=== PATIENT | male | born 1935 | race Caucasian/White ===

== ENCOUNTER → 2017-09-01 | Day surgery (SDC) | payer OTHER ==
[2017-08-04 10:27] VITALS: Ht 175.3 cm; Wt 93.2 kg
[~2017-09-01] VITALS: Ht 175.3 cm; Wt 93.2 kg
[~2017-09-01] MED LIST: 500ML BSS 0.3ML EPI 1:1000PF IRRIG ONE; ACETAMINOPHEN 325 MG TAB PO PRN; AMIO0.1T PO; AMVISC PLUS 0.8ML SYRINGE INT OCU ONE; ASPI325T45 PO; ATROPINE SULFATE 0.1 MG/ML 5ML SYR IV PRN; BSS FLUSH ONE; CALC600T9 PO; EpHEDrine SULFATE INJ 50 MG/ML AMP IV PRN; EpINEphrine INJ 1MG/ML AMP 1 MG/ML AMP ONE; FINA5TAB4 PO; LACTATED RINGER'S 1000ML 500 ML IV SCH; LEVO175T3 PO; LIDOCAINE 3.5% OPH GEL PER APPLICATION CHARGE ONE; LIDOCAINE HCL 1% MPF 2 ML VIAL ONE; MIDAZOLAM HCL 1 MG/ML 2ML VIAL ONE; OCUCOAT 1 ML SOLN IO ONE; PHENYLEPHRINE HCL 10% OP SOLN PER DROP CHARGE OPR SCH; POVIDONE-IODINE OP SOLN 30 ML BTL ONE; PROPARACAINE 0.5% OP SOLN PER DROP CHARGE OPR SCH; SIMV40TA2 PO; TERA5CAP PO; TOBRAMYCIN/DEXAMETHASONE OPH OINT PER APPLN CHARGE ONE
--- NOTE | 2017-09-01 07:58 | History & Physical Bridge - SC ---
H&P Re-Evaluation Bridge Note: I have examined the patient, reviewed the History & Physical and in the interval since the performance of the History & Physical I have noted the following changes of clinical significance: No changes noted
[2017-09-01] MEDS: PHENYLEPHRINE HCL 2.5% OP SOLN PER DROP CHARGE OPR SCH ×2 (08:04→08:12)
[2017-09-01] MEDS: TROPICAMIDE 1% OP SOLN PER DROP CHARGE OPR SCH ×2 (08:05→08:13)
[2017-09-01] MEDS: CYCLOPENTOLATE HCL 1% OP SOLN PER DROP CHARGE OPR SCH ×2 (08:06→08:14)
[2017-09-01] MEDS: KETOROLAC 0.5% OP SOLN PER DROP CHARGE OPR SCH ×2 (08:07→08:15)
[2017-09-01] MEDS: GATIFLOXACIN OP SOLN PER DROP CHARGE OPR SCH ×2 (08:08→08:18)
--- NOTE | 2017-09-01 08:40 | [facility] Operative Report ---
Operative Report Date of Service Sep 01, 2017. Operative Report 1. PREOPERATIVE DIAGNOSIS: Cataract of the right eye. 2. POSTOPERATIVE DIAGNOSIS: Same. 3. PROCEDURE: Phacoemulsification with intraocular lens implantation of the right eye. SURGEON: Dr. Beny Anderson. ANESTHESIA: Topical Lidocaine gel, 1% Non- Preserved intracameral Lidocaine, and monitored intravenous sedation. INDICATIONS FOR THE PROCEDURE: The patient is a 81 - year-old male with a history of cataract of the right eye causing significant visual impairment. The details of the proposed procedure were explained to the patient who asked appropriate questions and following discussion of all risks, benefits and alternatives agreed to have the procedure done. 4. OPERATION AND FINDINGS: DESCRIPTION OF PROCEDURE: After informed consent was obtained, the patient was brought to the Operating Room at the [facility]. The patient was placed in a supine position and then the right eye was prepped and draped in the usual sterile fashion for intraocular surgery. A drop of topical Lidocaine gel was placed in the operative eye. A wire lid speculum was then placed in the fornices. A corneal paracentesis was then created temporally. The Non-Preserved Lidocaine was then instilled into the anterior chamber. The anterior chamber was then pressurized with viscoelastic. A 2.0 mm clear corneal incision was then created temporally. A cystotome was inserted into the anterior chamber and used to create a tear in the anterior lens capsule. This capsular tear was then used to create a small flap and the flap was dragged in a counterclockwise direction in order to create a continuous curvilinear capsulorrhexis. Hydrodissection was accomplished with balanced salt solution. Phacoemulsification of the lens nucleus was then performed in a standard [id number] technique. The phaco time was 24 seconds with an average power of 14 %. The remaining cortical material was removed using irrigation aspiration. The capsular bag was then filled with viscoelastic. A Bausch & Lomb MI60L +20.0 diopters lens was then loaded into the injector and injected into the capsular bag. The remaining viscoelastic was removed with the irrigation aspiration handpiece. The wound was hydrated and then checked and found to be watertight. The intraocular pressure was checked and found to be adequate. The wire lid speculum was removed and the patient's face was cleaned and dried. TobraDex ointment was placed in the inferior fornix. The patient was discharged to the Recovery Room having tolerated the procedure well. There were no complications. The patient will be seen tomorrow in the office for follow-up. I attest to the content of the Intraoperative Record and any orders documented therein. Any exceptions are noted below.
--- NOTE | 2017-09-01 08:40 | Discharge Instructions-SurgCtr ---
Discharge Instructions Date of Service Sep 01, 2017. Visit Reason for Visit: Right Cataract Discharge Discharge Diagnosis / Problem: cataract Discharge Goals Goal(s): Improve function Activity Recommendations Activity Limitations: per Instructions/Follow-up section Anesthesia . Post Anesthesia Instructions: If you have had General Anesthesia or IV Sedation: * Do not drive today. * Resume driving when surgeon permits. * Do not make important decisions or sign legal documents today. * Call surgeon for: 1. Temperature elevations greater than 101 degrees F. 2. Uncontrollable pain. 3. Excessive bleeding. 4. Persistent nausea and vomiting. 5. Medication intolerance (nausea, vomiting or rash). * For nausea and vomiting use only clear liquids such as: tea, soda, bouillon until nausea subsides, then gradually increase diet as tolerated. * If you have any concerns or questions, call your surgeon's office. If physician is unavailable and it is an emergency, call 911 or go to the nearest emergency room. . Diet Recommendations Home Diet: resume previous diet Procedures Procedures Performed: Right Cataract Phacoemulsification With Intraocular Lens Implant Pending Studies Studies pending at discharge: no Medical Emergencies . Who to Call and When: Medical Emergencies: If at any time you feel your situation is an emergency, please call 911 immediately. . Non-Emergent Contact Non-Emergency issues call your: Shuffle Board Operator . . "Provider Documentation" section prepared by Beny Anderson. .
[2017-09-01 08:42] VITALS: TEMP 36.7
--- NOTE | 2017-09-01 08:53 | Anesthesia Progress Nt - [facility] ---
Anesthesia Post Op Note Date & Time Sep 01, 2017 at 08:53 Vital Signs Pain Intensity: 0 Vital Signs Past 12 Hours Date Time Temp Pulse Resp B/P (MAP) Pulse Ox O2 Delivery O2 Flow Rate FiO2 09/01/17 08:42 36.7 48 16 132/76 (94) 95 Room Air 09/01/17 07:43 36.3 59 18 151/75 (100) 96 Room Air Notes Mental Status: alert / awake / arousable, participated in evaluation Pt Amnestic to Procedure: Yes Nausea / Vomiting: adequately controlled Pain: adequately controlled Airway Patency, RR, SpO2: stable & adequate BP & HR: stable & adequate Hydration State: stable & adequate Anesthetic Complications: no major complications apparent
[2017-09-01 09:02] VITALS: BP 146/61; PULSE 50; O2SAT 97
== END | disposition home or self-care (01) ==
LOC: X.SURG 07:35
PROVIDERS: ATTEND Ophthalmology
DX: H26.9 Unspecified cataract (principal); I48.2 Chronic atrial fibrillation; E78.5 Hyperlipidemia, unspecified; Z90.89 Acquired absence of other organs; Z68.30 Body mass index [BMI] 30.0-30.9, adult; Z79.899 Other long term (current) drug therapy; Z83.3 Family history of diabetes mellitus; Z80.0 Family history of malignant neoplasm of digestive organs; Z81.8 Family history of other mental and behavioral disorders

== ENCOUNTER → 2017-09-24 | Day surgery (SDC) | payer OTHER ==
[2017-09-09 11:04] VITALS: Ht 175.3 cm; Wt 93.2 kg
[~2017-09-24] VITALS: Ht 175.3 cm; Wt 93.2 kg
[~2017-09-24] MED LIST changes: +PHENYLEPHRINE HCL 10% OP SOLN PER DROP CHARGE OPL SCH; -PHENYLEPHRINE HCL 10% OP SOLN PER DROP CHARGE OPR SCH; +PROPARACAINE 0.5% OP SOLN PER DROP CHARGE OPL SCH; -PROPARACAINE 0.5% OP SOLN PER DROP CHARGE OPR SCH
[2017-09-24] MEDS: TROPICAMIDE 1% OP SOLN PER DROP CHARGE OPL SCH ×2 (07:09→07:16)
[2017-09-24] MEDS: PHENYLEPHRINE HCL 2.5% OP SOLN PER DROP CHARGE OPL SCH ×2 (07:09→07:15)
[2017-09-24] MEDS: CYCLOPENTOLATE HCL 1% OP SOLN PER DROP CHARGE OPL SCH ×2 (07:10→07:20)
[2017-09-24] MEDS: KETOROLAC 0.5% OP SOLN PER DROP CHARGE OPL SCH ×2 (07:11→07:21)
[2017-09-24] MEDS: GATIFLOXACIN OP SOLN PER DROP CHARGE OPL SCH ×2 (07:12→07:22)
--- NOTE | 2017-09-24 07:27 | History & Physical Bridge - SC ---
H&P Re-Evaluation Bridge Note: I have examined the patient, reviewed the History & Physical and in the interval since the performance of the History & Physical I have noted the following changes of clinical significance: Diagnosis: Left Cataract Procedure: Left Cataract Removal with Lens Implant No changes noted
--- NOTE | 2017-09-24 08:06 | Discharge Instructions-SurgCtr ---
Discharge Instructions Date of Service Sep 24, 2017. Visit Reason for Visit: Left Cataract Discharge Discharge Diagnosis / Problem: cataract Discharge Goals Goal(s): Improve function Activity Recommendations Activity Limitations: per Instructions/Follow-up section Anesthesia . Post Anesthesia Instructions: If you have had General Anesthesia or IV Sedation: * Do not drive today. * Resume driving when surgeon permits. * Do not make important decisions or sign legal documents today. * Call surgeon for: 1. Temperature elevations greater than 101 degrees F. 2. Uncontrollable pain. 3. Excessive bleeding. 4. Persistent nausea and vomiting. 5. Medication intolerance (nausea, vomiting or rash). * For nausea and vomiting use only clear liquids such as: tea, soda, bouillon until nausea subsides, then gradually increase diet as tolerated. * If you have any concerns or questions, call your surgeon's office. If physician is unavailable and it is an emergency, call 911 or go to the nearest emergency room. . Diet Recommendations Home Diet: resume previous diet Procedures Procedures Performed: Left Cataract Phacoemulsification With Intraocular Lens Implant Pending Studies Studies pending at discharge: no Medical Emergencies . Who to Call and When: Medical Emergencies: If at any time you feel your situation is an emergency, please call 911 immediately. . Non-Emergent Contact Non-Emergency issues call your: Vest Front Presser . . "Provider Documentation" section prepared by Beny Anderson. .
--- NOTE | 2017-09-24 08:07 | [facility] Operative Report ---
Operative Report Date of Service Sep 24, 2017. Operative Report 1. PREOPERATIVE DIAGNOSIS: Cataract of the left eye. 2. POSTOPERATIVE DIAGNOSIS: Same. 3. PROCEDURE: Phacoemulsification with intraocular lens implantation of the left eye. SURGEON: Dr. Beny Anderson. ANESTHESIA: Topical Lidocaine gel, 1% Non- Preserved intracameral Lidocaine, and monitored intravenous sedation. INDICATIONS FOR THE PROCEDURE: The patient is a 81 - year-old male with a history of cataract of the left eye causing significant visual impairment. The details of the proposed procedure were explained to the patient who asked appropriate questions and following discussion of all risks, benefits and alternatives agreed to have the procedure done. 4. OPERATION AND FINDINGS: DESCRIPTION OF PROCEDURE: After informed consent was obtained, the patient was brought to the Operating Room at the [facility]. The patient was placed in a supine position and then the left eye was prepped and draped in the usual sterile fashion for intraocular surgery. A drop of topical Lidocaine gel was placed in the operative eye. A wire lid speculum was then placed in the fornices. A corneal paracentesis was then created temporally. The Non-Preserved Lidocaine was then instilled into the anterior chamber. The anterior chamber was then pressurized with viscoelastic. A 2.0 mm clear corneal incision was then created temporally. A cystotome was inserted into the anterior chamber and used to create a tear in the anterior lens capsule. This capsular tear was then used to create a small flap and the flap was dragged in a counterclockwise direction in order to create a continuous curvilinear capsulorrhexis. Hydrodissection was accomplished with balanced salt solution. Phacoemulsification of the lens nucleus was then performed in a standard [id number] technique. The phaco time was 23 seconds with an average power of 12 %. The remaining cortical material was removed using irrigation aspiration. The capsular bag was then filled with viscoelastic. A Bausch & Lomb MI60L +19.0 diopters lens was then loaded into the injector and injected into the capsular bag. The remaining viscoelastic was removed with the irrigation aspiration handpiece. The wound was hydrated and then checked and found to be watertight. The intraocular pressure was checked and found to be adequate. The wire lid speculum was removed and the patient's face was cleaned and dried. TobraDex ointment was placed in the inferior fornix. The patient was discharged to the Recovery Room having tolerated the procedure well. There were no complications. The patient will be seen tomorrow in the office for follow-up. I attest to the content of the Intraoperative Record and any orders documented therein. Any exceptions are noted below.
[2017-09-24 08:08] VITALS: TEMP 36.9
--- NOTE | 2017-09-24 08:25 | Anesthesia Progress Nt - [facility] ---
Anesthesia Post Op Note Date & Time Sep 24, 2017 at 08:25 Vital Signs Pain Intensity: 0 Vital Signs Past 12 Hours Date Time Temp Pulse Resp B/P (MAP) Pulse Ox O2 Delivery O2 Flow Rate FiO2 09/24/17 08:08 36.9 49 16 167/81 (109) 97 Room Air 09/24/17 06:40 36.7 60 16 166/84 (111) 97 Room Air Notes Mental Status: alert / awake / arousable, participated in evaluation Pt Amnestic to Procedure: Yes Nausea / Vomiting: adequately controlled Pain: adequately controlled Airway Patency, RR, SpO2: stable & adequate BP & HR: stable & adequate Hydration State: stable & adequate Anesthetic Complications: no major complications apparent
[2017-09-24 08:31] VITALS: BP 152/71; PULSE 54; O2SAT 100
== END | disposition home or self-care (01) ==
LOC: X.SURG 06:40
PROVIDERS: ATTEND Ophthalmology
DX: H26.9 Unspecified cataract (principal); N18.3 Chronic kidney disease, stage 3 (moderate); E78.5 Hyperlipidemia, unspecified; E03.2 Hypothyroidism due to medicaments and other exogenous substances; M35.3 Polymyalgia rheumatica; N40.1 Benign prostatic hyperplasia with lower urinary tract symptoms; N13.8 Other obstructive and reflux uropathy; I48.2 Chronic atrial fibrillation; Z79.82 Long term (current) use of aspirin; Z79.899 Other long term (current) drug therapy

== ENCOUNTER 2017-12-05 15:43 | Inpatient (IN) | payer OTHER ==
[~2017-12-05] VITALS: Ht 175.3 cm; Wt 97.8 kg
[~2017-12-05 15:43] MED LIST changes: -500ML BSS 0.3ML EPI 1:1000PF IRRIG ONE; -ACETAMINOPHEN 325 MG TAB PO PRN; -AMVISC PLUS 0.8ML SYRINGE INT OCU ONE; -ATROPINE SULFATE 0.1 MG/ML 5ML SYR IV PRN; -BSS FLUSH ONE; -EpHEDrine SULFATE INJ 50 MG/ML AMP IV PRN; -EpINEphrine INJ 1MG/ML AMP 1 MG/ML AMP ONE; -LACTATED RINGER'S 1000ML 500 ML IV SCH; -LIDOCAINE 3.5% OPH GEL PER APPLICATION CHARGE ONE; -LIDOCAINE HCL 1% MPF 2 ML VIAL ONE; -MIDAZOLAM HCL 1 MG/ML 2ML VIAL ONE; -OCUCOAT 1 ML SOLN IO ONE; -PHENYLEPHRINE HCL 10% OP SOLN PER DROP CHARGE OPL SCH; -POVIDONE-IODINE OP SOLN 30 ML BTL ONE; -PROPARACAINE 0.5% OP SOLN PER DROP CHARGE OPL SCH; -TOBRAMYCIN/DEXAMETHASONE OPH OINT PER APPLN CHARGE ONE
[2017-12-05] MEDS ORDERED: AMPICILLIN/SULBACTAM SOD INJ 3,000 MG in SODIUM CHLORIDE 0.9% 100ML 100 ML IV STA (16:08)
[2017-12-05] MEDS ORDERED: AMOX875T PO (16:32)
[2017-12-05] MEDS ORDERED: LORA-741 PO (16:32)
[2017-12-05] MEDS ORDERED: PRED-301 PO (16:32)
--- NOTE | 2017-12-05 16:38 | DIAGNOSTIC IMAGING REPORT ---
RIGHT HAND 2 VIEWS CLINICAL HISTORY: Cat bite injury. FINDINGS: AP and lateral views of the right hand are obtained. No prior studies are available for comparison at the time of dictation. The skeletal structures are osteopenic. No fracture is seen. No bony erosion or periostitis is identified. There is moderate arthritic change present at the first carpometacarpal joint. Mild osteoarthritic change is seen involving the interphalangeal joints and the first metacarpophalangeal joint. Degenerative narrowing is also seen at the radiocarpal articulation. Diffuse soft tissue edema is present throughout the hand. There is advanced atherosclerotic calcification of the regional arteries. No radiodense foreign body or subcutaneous gas is seen. IMPRESSION: 1. Osteopenia and arthritic change as above. No acute bony abnormality is seen in the right hand. 2. Diffuse soft tissue edema suggests cellulitis. Clinical correlation will be required. Electronically signed by: Romie Wiggins M.D. 12/05/2017 4:37 PM Dictated Date/Time: 12/05/2017 4:35 PM
[2017-12-05 16:39] LABS: BASO % 0.2 %; BASO ABS # 0.02 K/uL (0-0.2); EOS % 0.1 %; EOS ABS # 0.01 K/uL (0-0.5); HEMATOCRIT 38.2 % (42-52); HEMOGLOBIN 12.9 g/dL (14.0-18.0); IG# 0.13 K/uL (0.00-0.02); LYMPH % 11.6 %; LYMPH ABS # 1.46 K/uL (1.2-3.4); MEAN CORPUSCULAR HEMOGLOBIN 31.1 pg (25-34); MEAN CORPUSCULAR HGB CONC 33.8 g/dl (32-36); MEAN PLATELET VOLUME 10.6 fL (7.4-10.4); MONO % 15.9 %; NEUT % 71.2 %; NEUT ABS # 8.94 K/uL (1.4-6.5); PLATELET COUNT 234 K/uL (130-400); RED CELL DISTRIBUTION WIDTH CV 13.4 % (11.5-14.5); WHITE BLOOD COUNT 12.56 K/uL (4.8-10.8)
[2017-12-05 16:59] LABS: POTASSIUM 4.2 mmol/L (3.5-5.1)
[2017-12-05 17:01] LABS: ALBUMIN 3.5 gm/dl (3.4-5.0); CALCIUM 8.8 mg/dl (8.5-10.1); CREATININE 1.28 mg/dl (0.60-1.40)
[2017-12-05 17:04] LABS: TOTAL PROTEIN 7.8 gm/dl (6.4-8.2)
--- NOTE | 2017-12-05 18:49 | EMERGENCY ROOM VISIT NOTE ---
History Report prepared by Tonio: Jani Villanueva Under the Supervision of: Dr. Brenden Turner D.O. First contact with patient: 15:57 Chief Complaint: SWELLING TO EXTREMITY Stated Complaint: RIGHT HAND SWOLLEN History of Present Illness The patient is a 81 year old male who presents to the Emergency Room with complaints of worsening right hand swelling and redness beginning a week ago. He was bit by his cat two weeks ago, but developed his symptoms about a week after. 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 The cats are not immunized. He states that the cat bit him because he was putting medicine on the cat's infected eye. He states that the cat is currently healthy. The patient's tetanus is up to date. He has been seen by his PCP for his symptoms yesterday, received a shot of Rocephin, and was discharged on Augmentin. He was seen by his PCP again today and was referred to the ED for further evaluation. The patient was found to have a fever of 100 degrees upon arrival. He denies any vomiting or abdominal pain. He is not on any blood thinners other than aspirin. Source of History: patient Onset: About a week ago Position: hand (right) Quality: other (swelling and redness) Timing: worsening Associated Symptoms: + fevers (100 degrees), No vomiting, No abdominal pain Review of Systems See HPI for pertinent positives & negatives. A total of 10 systems reviewed and were otherwise negative. Past Medical & Surgical Medical Problems: (1) A-fib (2) Hyperlipemia Family History No pertinent family history stated. Social History Smoking Status: Never Smoker Housing Status: lives with family Current/Historical Medications Scheduled Amiodarone Hcl (Amiodarone Hcl), 100 MG PO QAM Amoxicillin & Pot Clavulanate (Augmentin 875-125 mg), 1 TAB PO BID Aspirin (Aspirin), 325 MG PO QAM Calcium Carbonate-Vitamin D (Calcium + D), 1 TAB PO Q2D Finasteride (Proscar), 5 MG PO QAM Levothyroxine Sodium (Levothyroxine Sodium), 175 MCG PO QAM Prednisone (Prednisone), 5 MG PO DAILY Simvastatin (Zocor), 1 TAB PO HS Terazosin (Hytrin), 5 MG PO QPM Scheduled PRN Lorazepam (Ativan), 0.5 MG PO TID PRN for Anxiety Allergies Coded Allergies: Quinidine (Verified Allergy, Severe, NEURO COMPLICATIONS, GENERAL WEAKNESS , 12/05/17) Physical Exam Vital Signs Date Time Temp Pulse Resp B/P (MAP) Pulse Ox O2 Delivery O2 Flow Rate FiO2 12/05/17 19:21 73 18 161/102 92 Room Air 12/05/17 18:00 67 18 155/79 97 Room Air 12/05/17 17:55 67 16 163/78 96 Room Air 12/05/17 15:56 37.0 77 20 149/68 94 Room Air Physical Exam GENERAL: Patient is awake, alert, non-anxious appearing. Overall comfortable appearing. EYES: The conjunctivae are clear. The pupils are round and reactive. EARS, NOSE, MOUTH AND THROAT: The nose is without any evidence of any deformity. Mucous membranes are moist tongue is midline NECK: The neck is nontender and supple. RESPIRATORY: Normal respiratory effort is noted there is no evidence of wheezing rhonchi or rales CARDIOVASCULAR: Regular rate and rhythm noted there no murmurs rubs or gallops normal S1 normal S2 GASTROINTESTINAL: The abdomen is soft. Bowel sounds are present in all quadrants. Abdomen is nontender MUSCULOSKELETAL/EXTREMITIES: There is no evidence of gross deformity full range of motion is noted in the hips and shoulders SKIN: Erythema and circumferential swelling of the right hand extending [address] the right forearm. Puncture wound consistent with recent cat bite over the dorsal aspect of the right thumb. NEUROLOGIC: Patient is awake alert and oriented x3. Medical Decision & Procedures ER Provider Diagnostic Interpretation: Radiology results as stated below per my review and radiologist interpretation: RIGHT HAND 2 VIEWS FINDINGS: AP and lateral views of the right hand are obtained. No prior studies are available for comparison at the time of dictation. The skeletal structures are osteopenic. No fracture is seen. No bony erosion or periostitis is identified. There is moderate arthritic change present at the first carpometacarpal joint. Mild osteoarthritic change is seen involving the interphalangeal joints and the first metacarpophalangeal joint. Degenerative narrowing is also seen at the radiocarpal articulation. Diffuse soft tissue edema is present throughout the hand. There is advanced atherosclerotic calcification of the regional arteries. No radiodense foreign body or subcutaneous gas is seen. IMPRESSION: 1. Osteopenia and arthritic change as above. No acute bony abnormality is seen in the right hand. 2. Diffuse soft tissue edema suggests cellulitis. Clinical correlation will be required. Electronically signed by: Romie Wiggins M.D. 12/05/2017 4:37 PM Laboratory Results 12/05/17 16:24 Red Blood Count 4.15, Mean Corpuscular Volume 92.0, Mean Corpuscular Hemoglobin 31.1, Mean Corpuscular Hemoglobin Concent 33.8, Mean Platelet Volume 10.6, Neutrophils (%) (Auto) 71.2, Lymphocytes (%) (Auto) 11.6, Monocytes (%) (Auto) 15.9, Eosinophils (%) (Auto) 0.1, Basophils (%) (Auto) 0.2, Neutrophils # (Auto ) 8.94, Lymphocytes # (Auto) 1.46, Monocytes # (Auto) 2.00, Eosinophils # (Auto ) 0.01, Basophils # (Auto) 0.02 12/05/17 16:24 Test 12/05/17 16:24 White Blood Count 12.56 K/uL (4.8-10.8) Red Blood Count 4.15 M/uL (4.7-6.1) Hemoglobin 12.9 g/dL (14.0-18.0) Hematocrit 38.2 % (42-52) Mean Corpuscular Volume 92.0 fL (80-100) Mean Corpuscular Hemoglobin 31.1 pg (25-34) Mean Corpuscular Hemoglobin Concent 33.8 g/dl (32-36) Platelet Count 234 K/uL (130-400) Mean Platelet Volume 10.6 fL (7.4-10.4) Neutrophils (%) (Auto) 71.2 % Lymphocytes (%) (Auto) 11.6 % Monocytes (%) (Auto) 15.9 % Eosinophils (%) (Auto) 0.1 % Basophils (%) (Auto) 0.2 % Neutrophils # (Auto) 8.94 K/uL (1.4-6.5) Lymphocytes # (Auto) 1.46 K/uL (1.2-3.4) Monocytes # (Auto) 2.00 K/uL (0.11-0.59) Eosinophils # (Auto) 0.01 K/uL (0-0.5) Basophils # (Auto) 0.02 K/uL (0-0.2) RDW Standard Deviation 45.0 fL (36.4-46.3) RDW Coefficient of Variation 13.4 % (11.5-14.5) Immature Granulocyte % (Auto) 1.0 % Immature Granulocyte # (Auto) 0.13 K/uL (0.00-0.02) Erythrocyte Sedimentation Rate 49 mm/hr (0-14) Anion Gap 8.0 mmol/L (3-11) Est Creatinine Clear Calc Drug Dose 50.4 ml/min Estimated GFR () 59.6 Estimated GFR (Non- 51.4 BUN/Creatinine Ratio 21.1 (10-20) Calcium Level 8.8 mg/dl (8.5-10.1) Total Bilirubin 0.5 mg/dl (0.2-1) Direct Bilirubin 0.1 mg/dl (0-0.2) Aspartate Amino Transf (AST/SGOT) 18 U/L (15-37) Alanine Aminotransferase (ALT/SGPT) 27 U/L (12-78) Alkaline Phosphatase 62 U/L (45-117) C-Reactive Protein 14.00 mg/dl (0-0.29) Total Protein 7.8 gm/dl (6.4-8.2) Albumin 3.5 gm/dl (3.4-5.0) Laboratory results per my review. Medications Administered Medications (Trade) Dose Ordered Sig/Ron Route Start Time Stop Time Status Last Admin Dose Admin Ampicillin Sodium/ Sulbactam Sodium 3000 mg/Sodium Chloride 108 ml @ 200 mls/hr NOW STAT IV 12/05/17 16:08 12/05/17 16:40 DC 12/05/17 16:49 200 MLS/HR ED Course 1601: The patient was evaluated in room B4B. A complete history and physical examination were performed. 1608: Ordered Ampicillin Sodium/Sulbactam Sodium 3000 mg/NSS 108 ml @ 200 mls/ hr IV. 1841: Upon reevaluation, the patient is resting comfortably. I discussed results and treatment plan with him. He verbalizes agreement and understanding. I spoke with Dr. Romano of the [facility]. The patient will be evaluated for further management and care. Medical Decision Differential diagnosis: Etiologies such as cellulitis, abscess, MRSA infection, DVT, necrotizing fasciitis, dermatitis, drug eruption, as well as others were entertained.. Nursing notes reviewed. The patient is an 81-year-old male who presented to the emergency department with worsening cellulitis of his right upper extremity after being bitten by a kitten. The patient has been observing the cat and the injury occurred approximately 2 weeks ago. The patient was initially seen by his primary care physician and started on antibiotics. His condition continues to worsen. He follow-up with the office today and had a low-grade fever he was sent to the emergency department for further evaluation. The patient is a history of diabetes and has an elevated white blood cell count. He was treated with IV antibiotics. I discussed the patient's laboratory and radiographic studies with him. I also discussed his case with the on-call [facility] hospitalist group. They have agreed to evaluate the patient in the emergency department for further management and disposition. Medication Reconcilliation Current Medication List: was personally reviewed by me Blood Pressure Screening Patient's blood pressure: Elevated blood pressure Blood pressure disposition: Referred to PCP Consults Time Called: 1835 Consulting Physician: Dr. Romano - [facility] Returned Call: [phone] I discussed the patient's case with Dr. Romano. The patient will be evaluated for further management. Impression Primary Impression: Cellulitis of right hand Additional Impression: Cat bite Scribe Attestation The scribe's documentation has been prepared under my direction and personally reviewed by me in its entirety. I confirm that the note above accurately reflects all work, treatment, procedures, and medical decision making performed by me. Departure Information Dispostion Being Evaluated By Hospitalist Prescriptions Simvastatin (ZOCOR) 20 Mg Tab 1 TAB PO HS for 90 Days, #90 TAB 1 Refill Prov: Ever Romano MD 12/05/17 Referrals Beny Anderson M.D. (PCP) Patient Instructions My [facility] Problem Qualifiers Additional Impression: Cat bite Encounter type: sequela Qualified Codes: W55.01XS - Bitten by cat, sequela
[2017-12-05] MEDS ORDERED: VANCOMYCIN CONSULT ACTIVE PRN (19:45)
[2017-12-05] MEDS ORDERED: ALUMINUM/MAGNESIUM/SIMETH (MAALOX MAX) 30 ML UDC PO PRN (19:45)
[2017-12-05] MEDS ORDERED: ONDANSETRON INJ 2 MG/ML 2 ML VIAL IV PRN (19:45)
[2017-12-05] MEDS ORDERED: SIMV20TA5 PO (19:46)
[2017-12-05 20:30] VITALS: BP 154/66; PULSE 60; O2SAT 97; Ht 175.3 cm; Wt 97.8 kg
[2017-12-05 23:21] VITALS: BP 154/77; PULSE 67; TEMP 36.8; O2SAT 96
--- NOTE | 2017-12-05 23:46 | HISTORY & PHYSICAL EXAMINATION ---
DATE OF ADMISSION: 12/05/2017 CHIEF COMPLAINT: Cat bite. HISTORY OF PRESENT ILLNESS: This is an 81-year-old male with past medical history significant for atrial fibrillation, BPH, hypothyroidism, hyperlipidemia, chronic kidney disease stage III, presents with cat bite about couple of weeks ago. [place] and he has about 40 cats. One of the kitten was having some infection in eyes and he was trying to treat kitten, but it turned around and bit his right hand around thumb area. One week later he developed swelling and pain and erythema. He went to his family doctor and was prescribed Augmentin, was not getting better and went again and was given Rocephin shot and he went again and he was advised to come to the ER. In the ER, he had mild temp spike. Denies any other complaints. Denies any headaches, no dizziness. No blurred visions. No runny nose, no sore throat, no difficulty swallowing. No chest pain, no shortness of breath, no cough, no nausea, no vomiting, no abdominal pain. Normal bowel and bladder movements. Appetite is okay. Currently resting comfortably and hemodynamically stable. ALLERGIES: Quinidine. PAST MEDICAL HISTORY: As mentioned above. PAST SURGICAL HISTORY: Colonoscopy with polypectomy, tonsillectomy, right lower extremity vein stripping at the age of 35. MEDICATIONS: The patient is on prednisone 5 mg daily, Ativan 0.5 mg p.o. t.i.d. p.r.n., Augmentin 875 mg 1 tablet p.o. b.i.d. for 10 days, Hytrin 5 mg p.o. daily, amiodarone 100 mg p.o. daily, finasteride 5 mg p.o. daily, levothyroxine 175 mcg p.o. daily, Caltrate plus D 1 tablet every day, Zocor 20 mg p.o. daily, aspirin 325 mg p.o. daily. FAMILY HISTORY: Significant for mother had colon cancer, at the age of 70. Father had diabetes and dementia, at the age of 78. Sister had stroke. Brother had Parkinson's disease. SOCIAL HISTORY: No smoking history. No alcohol history. No drug abuse. and [place]. REVIEW OF SYMPTOMS: As per HPI. Rest of review of symptoms negative. PHYSICAL EXAMINATION: GENERAL: The patient is obese, not in distress. VITAL SIGNS: Temperature 37, pulse 73, respiratory rate 18, blood pressure 161/102, oxygen 92% room air. HEENT: No pallor, no icterus. Pupils equal, round, and reactive to light. NECK: No JVD, no neck masses, no carotid bruits. CARDIOVASCULAR: S1, S2 heard, regular rate and rhythm, no murmur, no gallop. RESPIRATORY SYSTEM: Clear to auscultation bilaterally. No accessory muscle use. No wheezing, no crackles. ABDOMEN: Soft, bowel sounds present. Nontender. No distention. CENTRAL NERVOUS SYSTEM: Cranial nerves II-XII grossly intact. Nonfocal. EXTREMITIES: Right hand and forearm erythematous and swollen and limited movements of his right fingers. LABORATORY DATA: WBC 12.5, hemoglobin 12.9, hematocrit 38.2, platelets 234. Sodium 138, potassium 4.2, chloride 104, bicarbonate 26, BUN 27, creatinine 1.2, serum glucose 91, calcium 8.8, total bilirubin 0.5, direct bilirubin 0.1, AST 18, ALT 27, alkaline phosphatase 62. Albumin 3.5. Hand x-ray: Diffuse soft tissue edema suggesting cellulitis of the right hand. ASSESSMENT AND PLAN: This is an 81-year-old male who presents with cat bite in the right hand and cellulitis. 1. Right hand cellulitis from cat bite. Failed outpatient treatment with p.o. Augmentin and IM Rocephin. The right hand is swollen and having limited movement of his fingers. We will place him on IV Unasyn and IV vancomycin. Follow the cultures. Consult orthopedics in the a.m. for further recommendations. As per the patient the kitten bit him 2 weeks ago and the kitten is doing okay. 2. Atrial fibrillation. The patient is on amiodarone and aspirin.Rates under control. 3. History of benign prostatic hypertrophy on Hytrin and finasteride. 4. History of hypothyroidism on Synthroid. 5. Chronic kidney disease stage III. We will follow the labs. 6. Deep venous thrombosis prophylaxis, SCDs and TEDs for now. 5. Disposition: Admit to medical floor. Expect to discharge home and follow with family doctor. Level 1 full code. MTDD
[2017-12-06] MEDS ORDERED: VANCOMYCIN INJ 2,500 MG in SODIUM CHLORIDE 0.9% 500ML 500 ML IV SCH (00:30)
[2017-12-06] MEDS: AMPICILLIN/SULBACTAM SOD INJ 1,500 MG in SODIUM CHLORIDE 0.9% 100ML 100 ML IV SCH ×4 (00:42→18:56)
[2017-12-06] MEDS ORDERED: POLYETHYLENE (MIRALAX) 17 GM PACK PO PRN (01:30)
[2017-12-06] MEDS: LORAZEPAM 0.5 MG TAB PO PRN ×2 (04:18→22:10)
[2017-12-06] MEDS: LEVOTHYROXINE 175 MCG TAB PO SCH (06:13)
[2017-12-06 06:42] LABS: BASO % 0.2 %; BASO ABS # 0.02 K/uL (0-0.2); EOS % 0.2 %; EOS ABS # 0.02 K/uL (0-0.5); HEMATOCRIT 34.6 % (42-52); HEMOGLOBIN 11.6 g/dL (14.0-18.0); IG# 0.08 K/uL (0.00-0.02); LYMPH % 13.2 %; LYMPH ABS # 1.44 K/uL (1.2-3.4); MEAN CELL VOLUME 91.5 fL (80-100); MEAN CORPUSCULAR HEMOGLOBIN 30.7 pg (25-34); MEAN CORPUSCULAR HGB CONC 33.5 g/dl (32-36); MEAN PLATELET VOLUME 10.3 fL (7.4-10.4); MONO % 14.6 %; MONO ABS # 1.59 K/uL (0.11-0.59); NEUT % 71.1 %; NEUT ABS # 7.72 K/uL (1.4-6.5); PLATELET COUNT 188 K/uL (130-400); RED CELL DISTRIBUTION WIDTH CV 13.3 % (11.5-14.5); RED CELL DISTRIBUTION WIDTH SD 44.5 fL (36.4-46.3); WHITE BLOOD COUNT 10.87 K/uL (4.8-10.8)
[2017-12-06 07:17] LABS: CALCIUM 8.6 mg/dl (8.5-10.1); CREATININE 0.91 mg/dl (0.60-1.40); POTASSIUM 3.9 mmol/L (3.5-5.1)
[2017-12-06 07:45] VITALS: BP 145/71; PULSE 73; TEMP 36.9; O2SAT 95
--- NOTE | 2017-12-06 07:49 | Orthopedic Consultation ---
Orthopedic Consultation Date of Consultation: Dec 06, 2017. Attending Physician: Jim Medina M.D. Reason for Consultation: Right hand cellulitis History of Present Illness 81 year old right hand dominant male who sustained a cat bite to his right hand around the dorsal thumb/first web space about 2-3 weeks ago. He is a [place] and has about 40 cats; he has had numerous cat bites and scratches in the past. He did not note a large amount of swelling for the first week, but had progressively worsening swelling on the dorsal hand since then. He has only noted pain, swelling, and redness on the dorsal hand; he has never noted any drainage. He did not present for initial medical evaluation until about 3-4 days ago. He went to his PCP, who started him on Augmentin, and then a Rocephin injection, both without significant improvement. He was then referred to the hospital for IV antibiotics. Past Medical/Surgical History Medical Problems: (1) Cat bite Status: Acute (2) Cellulitis of right hand Status: Acute Social History Smoking Status: Never Smoker Housing Status: lives with family Allergies Coded Allergies: Quinidine (Verified Allergy, Severe, NEURO COMPLICATIONS, GENERAL WEAKNESS , 12/05/17) Home Medications Scheduled Amiodarone Hcl (Amiodarone Hcl), 100 MG PO QAM Amoxicillin & Pot Clavulanate (Augmentin 875-125 mg), 1 TAB PO BID Aspirin (Aspirin), 325 MG PO QAM Calcium Carbonate-Vitamin D (Calcium + D), 1 TAB PO Q2D Finasteride (Proscar), 5 MG PO QAM Levothyroxine Sodium (Levothyroxine Sodium), 175 MCG PO QAM Prednisone (Prednisone), 5 MG PO DAILY Simvastatin (Zocor), 1 TAB PO HS Terazosin (Hytrin), 5 MG PO QPM Scheduled PRN Lorazepam (Ativan), 0.5 MG PO TID PRN for Anxiety Current Inpatient Medications Current Inpatient Medications Medications (Trade) Dose Ordered Sig/Ron Route Start Time Stop Time Status Last Admin Dose Admin Acetaminophen (Tylenol Tab) 650 mg Q4H PRN PO 12/05/17 19:45 01/04/18 19:44 Al Hydrox/Mg Hydrox/Simethicone (Maalox Max Susp) 15 ml Q4H PRN PO 12/05/17 19:45 01/04/18 19:44 Polyethylene (Miralax Powder Packet) 17 gm DAILY PRN PO 12/06/17 01:30 01/05/18 01:29 Ondansetron HCl (Zofran Inj) 4 mg Q6H PRN IV 12/05/17 19:45 01/04/18 19:44 Aspirin (Ecotrin Tab) 325 mg QAM PO 12/06/17 09:00 01/05/18 08:59 Finasteride (Proscar Tab) 5 mg QAM PO 12/06/17 09:00 01/05/18 08:59 Levothyroxine Sodium (Synthroid Tab) 175 mcg DAILYBB PO 12/06/17 06:00 01/05/18 05:59 12/06/17 06:13 175 MCG Lorazepam (Ativan Tab) 0.5 mg TID PRN PO 12/05/17 19:45 01/04/18 19:44 12/06/17 04:18 0.5 MG Prednisone (PredniSONE TAB) 5 mg DAILY PO 12/06/17 09:00 01/05/18 08:59 Terazosin HCl (Hytrin Cap) 5 mg QPM PO 12/05/17 21:00 01/04/18 20:59 12/05/17 23:23 5 MG Amiodarone HCl (Cordarone Tab) 100 mg DAILY PO 12/06/17 09:00 01/05/18 08:59 Calcium/Vitamin D (Caltrate Plus Tab) 1 tab Q2D PO 12/07/17 09:00 01/06/18 08:59 Ampicillin Sodium/ Sulbactam Sodium 1500 mg/Sodium Chloride 104 ml @ 200 mls/hr Q6H IV 12/06/17 00:00 12/16/17 00:00 12/06/17 06:09 200 MLS/HR Vancomycin HCl 2500 mg/Sodium Chloride 550 ml @ 200 mls/hr 0030 IV 12/06/17 00:30 12/16/17 00:29 12/06/17 01:14 200 MLS/HR Miscellaneous Information (Consult) 1 ea UD PRN N/A 12/05/17 19:45 01/04/18 19:44 Pneumococcal Polysaccharide Vaccine (Pneumovax-23 Inj) 25 mcg ONCE ONCE IM. 12/06/17 08:00 1/21/18 08:01 Physical Exam Date Time Temp Pulse Resp B/P (MAP) Pulse Ox O2 Delivery O2 Flow Rate FiO2 12/05/17 23:30 Room Air 12/05/17 23:21 36.8 67 16 154/77 (102) 96 Room Air 12/05/17 20:30 60 16 154/66 97 Room Air 12/05/17 20:13 37.3 71 16 154/75 95 12/05/17 20:05 37.3 71 16 154/75 95 Room Air 12/05/17 19:21 73 18 161/102 92 Room Air 12/05/17 18:00 67 18 155/79 97 Room Air 12/05/17 17:55 67 16 163/78 96 Room Air 12/05/17 15:56 37.0 77 20 149/68 94 Room Air Extremity Exam: Right hand skin inspection shows significant diffuse erythema, swelling, and warmth over dorsal hand and up to dorsal mid-forearm. Already appears receded from previously marked line. No visible bite/puncture wound around thumb or first web space. No palpable area of fluctuance or fluid collection. No open wounds or expressible drainage. No pain or tenderness to palpation on volar side of hand, including along flexor tendon sheaths. Motor and sensory intact in median, radial, and ulnar nerve distributions. Range of motion and strength limited by pain. Hand is warm and well perfused. General Appearance: no apparent distress Head: normocephalic, atraumatic Laboratory Results Last 24 Hours Test 12/05/17 16:24 12/06/17 06:28 White Blood Count 12.56 K/uL 10.87 K/uL Red Blood Count 4.15 M/uL 3.78 M/uL Hemoglobin 12.9 g/dL 11.6 g/dL Hematocrit 38.2 % 34.6 % Mean Corpuscular Volume 92.0 fL 91.5 fL Mean Corpuscular Hemoglobin 31.1 pg 30.7 pg Mean Corpuscular Hemoglobin Concent 33.8 g/dl 33.5 g/dl Platelet Count 234 K/uL 188 K/uL Mean Platelet Volume 10.6 fL 10.3 fL Neutrophils (%) (Auto) 71.2 % 71.1 % Lymphocytes (%) (Auto) 11.6 % 13.2 % Monocytes (%) (Auto) 15.9 % 14.6 % Eosinophils (%) (Auto) 0.1 % 0.2 % Basophils (%) (Auto) 0.2 % 0.2 % Neutrophils # (Auto) 8.94 K/uL 7.72 K/uL Lymphocytes # (Auto) 1.46 K/uL 1.44 K/uL Monocytes # (Auto) 2.00 K/uL 1.59 K/uL Eosinophils # (Auto) 0.01 K/uL 0.02 K/uL Basophils # (Auto) 0.02 K/uL 0.02 K/uL RDW Standard Deviation 45.0 fL 44.5 fL RDW Coefficient of Variation 13.4 % 13.3 % Immature Granulocyte % (Auto) 1.0 % 0.7 % Immature Granulocyte # (Auto) 0.13 K/uL 0.08 K/uL Erythrocyte Sedimentation Rate 49 mm/hr Sodium Level 138 mmol/L 138 mmol/L Potassium Level 4.2 mmol/L 3.9 mmol/L Chloride Level 104 mmol/L 104 mmol/L Carbon Dioxide Level 26 mmol/L 24 mmol/L Anion Gap 8.0 mmol/L 10.0 mmol/L Blood Urea Nitrogen 27 mg/dl 21 mg/dl Creatinine 1.28 mg/dl 0.91 mg/dl Est Creatinine Clear Calc Drug Dose 50.4 ml/min 71.0 ml/min Estimated GFR () 59.6 90.0 Estimated GFR (Non- 51.4 77.7 BUN/Creatinine Ratio 21.1 23.0 Random Glucose 91 mg/dl 112 mg/dl Calcium Level 8.8 mg/dl 8.6 mg/dl Total Bilirubin 0.5 mg/dl Direct Bilirubin 0.1 mg/dl Aspartate Amino Transf (AST/SGOT) 18 U/L Alanine Aminotransferase (ALT/SGPT) 27 U/L Alkaline Phosphatase 62 U/L C-Reactive Protein 14.00 mg/dl Total Protein 7.8 gm/dl Albumin 3.5 gm/dl Magnesium Level 2.2 mg/dl Assessment & Plan (1) Cellulitis of right hand Assessment & Plan: Impression: right hand cellulitis. No evidence of drainable abscess or infectious flexor tenosynovitis. Improving already with IV antibiotics (Unasyn and Vanc). No indication at this point for acute surgical intervention. Monitor for resolution of swelling and ensure no area of abscess becomes apparent as swelling improves. Recommend elevation of hand and frequent motion of fingers to improve swelling.
[2017-12-06] MEDS ORDERED: PNEUMOCOCCAL POLYSACCHARIDES 25 MCG/0.5 ML VIAL/SYR IM. ONE (08:00)
[2017-12-06] MEDS ORDERED: PNEUMOCOCCAL ADMINISTRATION CHARGE ONE (08:00)
--- NOTE | 2017-12-06 08:01 | Pharmacy Progress Note ---
Pharmacy Antibiotic Consult Date of Service: Dec 06, 2017. Pharmacy Dosing Scope Pharmacy is consulted to initiate Vancomycin IV dosing therapy, order appropriate labs and adjust drug dose/frequency. Subjective The patient is a 81 year old male admitted on Dec 05, 2017 at 19:45. Objective Height (Feet): 5 Height (Inches): 9.00 Weight (Kilograms): 97.800 Lab Results (24hrs): Test 12/05/17 16:24 12/06/17 06:28 White Blood Count 12.56 K/uL (4.8-10.8) 10.87 K/uL (4.8-10.8) Red Blood Count 4.15 M/uL (4.7-6.1) 3.78 M/uL (4.7-6.1) Hemoglobin 12.9 g/dL (14.0-18.0) 11.6 g/dL (14.0-18.0) Hematocrit 38.2 % (42-52) 34.6 % (42-52) Mean Corpuscular Volume 92.0 fL (80-100) 91.5 fL (80-100) Mean Corpuscular Hemoglobin 31.1 pg (25-34) 30.7 pg (25-34) Mean Corpuscular Hemoglobin Concent 33.8 g/dl (32-36) 33.5 g/dl (32-36) Platelet Count 234 K/uL (130-400) 188 K/uL (130-400) Mean Platelet Volume 10.6 fL (7.4-10.4) 10.3 fL (7.4-10.4) Neutrophils (%) (Auto) 71.2 % 71.1 % Lymphocytes (%) (Auto) 11.6 % 13.2 % Monocytes (%) (Auto) 15.9 % 14.6 % Eosinophils (%) (Auto) 0.1 % 0.2 % Basophils (%) (Auto) 0.2 % 0.2 % Neutrophils # (Auto) 8.94 K/uL (1.4-6.5) 7.72 K/uL (1.4-6.5) Lymphocytes # (Auto) 1.46 K/uL (1.2-3.4) 1.44 K/uL (1.2-3.4) Monocytes # (Auto) 2.00 K/uL (0.11-0.59) 1.59 K/uL (0.11-0.59) Eosinophils # (Auto) 0.01 K/uL (0-0.5) 0.02 K/uL (0-0.5) Basophils # (Auto) 0.02 K/uL (0-0.2) 0.02 K/uL (0-0.2) RDW Standard Deviation 45.0 fL (36.4-46.3) 44.5 fL (36.4-46.3) RDW Coefficient of Variation 13.4 % (11.5-14.5) 13.3 % (11.5-14.5) Immature Granulocyte % (Auto) 1.0 % 0.7 % Immature Granulocyte # (Auto) 0.13 K/uL (0.00-0.02) 0.08 K/uL (0.00-0.02) Erythrocyte Sedimentation Rate 49 mm/hr (0-14) Sodium Level 138 mmol/L (136-145) 138 mmol/L (136-145) Potassium Level 4.2 mmol/L (3.5-5.1) 3.9 mmol/L (3.5-5.1) Chloride Level 104 mmol/L (98-107) 104 mmol/L (98-107) Carbon Dioxide Level 26 mmol/L (21-32) 24 mmol/L (21-32) Anion Gap 8.0 mmol/L (3-11) 10.0 mmol/L (3-11) Blood Urea Nitrogen 27 mg/dl (7-18) 21 mg/dl (7-18) Creatinine 1.28 mg/dl (0.60-1.40) 0.91 mg/dl (0.60-1.40) Est Creatinine Clear Calc Drug Dose 50.4 ml/min 71.0 ml/min Estimated GFR () 59.6 90.0 Estimated GFR (Non- 51.4 77.7 BUN/Creatinine Ratio 21.1 (10-20) 23.0 (10-20) Random Glucose 91 mg/dl (70-99) 112 mg/dl (70-99) Calcium Level 8.8 mg/dl (8.5-10.1) 8.6 mg/dl (8.5-10.1) Total Bilirubin 0.5 mg/dl (0.2-1) Direct Bilirubin 0.1 mg/dl (0-0.2) Aspartate Amino Transf (AST/SGOT) 18 U/L (15-37) Alanine Aminotransferase (ALT/SGPT) 27 U/L (12-78) Alkaline Phosphatase 62 U/L (45-117) C-Reactive Protein 14.00 mg/dl (0-0.29) Total Protein 7.8 gm/dl (6.4-8.2) Albumin 3.5 gm/dl (3.4-5.0) Magnesium Level 2.2 mg/dl (1.8-2.4) Micro Results: blood cultures pending Assessment & Plan Patient with cat bite cellulitis who failed outpatient course of Augmentin and Rocephin. Currently receiving IV vancomycin and unasyn. Will monitor renal function closely. Loading dose: 2500 mg IV X 1 dose then: 1500 mg IV every 16 hours. Goal trough level estimate: between 10 - 15 mcg/mL. Peak and trough or random level has been ordered for: @0030. Pharmacy will continue to follow and will adjust dose/frequency as necessary. Thank you
[2017-12-06] MEDS: AMIODARONE 200 MG TAB PO SCH (09:23)
[2017-12-06] MEDS: ASPIRIN 325 MG ECTAB PO SCH (09:24)
[2017-12-06] MEDS: FINASTERIDE 5 MG TAB PO SCH (09:24)
--- NOTE | 2017-12-06 15:07 | Progress Note ---
Medicine Progress Note Date & Time of Visit: Dec 06, 2017 at 14:46. Subjective Pt was seen and examined Lying in bed with no distress Pt said that his right hand slightly improved Denies any chest pain palpitation, dizziness, fever and SOB Objective Last 8 Hrs Date Time Temp Pulse Resp B/P (MAP) Pulse Ox O2 Delivery O2 Flow Rate FiO2 12/06/17 07:45 36.9 73 18 145/71 (95) 95 Room Air 12/06/17 07:30 Room Air Physical Exam: General- No acute distress Head- atraumatic Eyes- PERRL, EOMI ENT- oropharynx clear Neck- supple, no JVD Lungs- clear to auscultation Heart- +murmur, regular Abdomen- normal bowel sounds, soft Extremities- no calf tenderness, Right hand swelling/erythema Neuro- alert, oriented x 3; PERRL, EOMI Skin- warm & dry Laboratory Results: Last 24 Hours Test 12/05/17 16:24 12/06/17 06:28 White Blood Count 12.56 K/uL 10.87 K/uL Red Blood Count 4.15 M/uL 3.78 M/uL Hemoglobin 12.9 g/dL 11.6 g/dL Hematocrit 38.2 % 34.6 % Mean Corpuscular Volume 92.0 fL 91.5 fL Mean Corpuscular Hemoglobin 31.1 pg 30.7 pg Mean Corpuscular Hemoglobin Concent 33.8 g/dl 33.5 g/dl Platelet Count 234 K/uL 188 K/uL Mean Platelet Volume 10.6 fL 10.3 fL Neutrophils (%) (Auto) 71.2 % 71.1 % Lymphocytes (%) (Auto) 11.6 % 13.2 % Monocytes (%) (Auto) 15.9 % 14.6 % Eosinophils (%) (Auto) 0.1 % 0.2 % Basophils (%) (Auto) 0.2 % 0.2 % Neutrophils # (Auto) 8.94 K/uL 7.72 K/uL Lymphocytes # (Auto) 1.46 K/uL 1.44 K/uL Monocytes # (Auto) 2.00 K/uL 1.59 K/uL Eosinophils # (Auto) 0.01 K/uL 0.02 K/uL Basophils # (Auto) 0.02 K/uL 0.02 K/uL RDW Standard Deviation 45.0 fL 44.5 fL RDW Coefficient of Variation 13.4 % 13.3 % Immature Granulocyte % (Auto) 1.0 % 0.7 % Immature Granulocyte # (Auto) 0.13 K/uL 0.08 K/uL Erythrocyte Sedimentation Rate 49 mm/hr Sodium Level 138 mmol/L 138 mmol/L Potassium Level 4.2 mmol/L 3.9 mmol/L Chloride Level 104 mmol/L 104 mmol/L Carbon Dioxide Level 26 mmol/L 24 mmol/L Anion Gap 8.0 mmol/L 10.0 mmol/L Blood Urea Nitrogen 27 mg/dl 21 mg/dl Creatinine 1.28 mg/dl 0.91 mg/dl Est Creatinine Clear Calc Drug Dose 50.4 ml/min 71.0 ml/min Estimated GFR () 59.6 90.0 Estimated GFR (Non- 51.4 77.7 BUN/Creatinine Ratio 21.1 23.0 Random Glucose 91 mg/dl 112 mg/dl Calcium Level 8.8 mg/dl 8.6 mg/dl Total Bilirubin 0.5 mg/dl Direct Bilirubin 0.1 mg/dl Aspartate Amino Transf (AST/SGOT) 18 U/L Alanine Aminotransferase (ALT/SGPT) 27 U/L Alkaline Phosphatase 62 U/L C-Reactive Protein 14.00 mg/dl Total Protein 7.8 gm/dl Albumin 3.5 gm/dl Magnesium Level 2.2 mg/dl Date/Time Source Procedure Growth Status 12/05/17 16:39 Blood Blood Culture Pending Received 12/05/17 16:24 Blood Blood Culture Pending Received Assessment & Plan Right Hand Cellulitis had a cat bite about few weeks ago Elevated WBC on admission, trending down Received Rocephin IM and oral Augmentin as an outpatient Xray of the hand showed diffuse soft tissue edema suggests cellulitis Starting on Vanco IV Ortho on board recommended no surgical intervention Blood cx pending Continue monitor Atrial fibrillation. Rate control Continue amiodarone and aspirin BPH Continue Hytrin and finasteride. Hypothyroidism On Synthroid. CKD stage III. Stable DVT px Will start on heparin subq CODE STATUS FULL CODE Current Inpatient Medications: Current Inpatient Medications Medications (Trade) Dose Ordered Sig/Ron Route Start Time Stop Time Status Last Admin Dose Admin Acetaminophen (Tylenol Tab) 650 mg Q4H PRN PO 12/05/17 19:45 01/04/18 19:44 Al Hydrox/Mg Hydrox/Simethicone (Maalox Max Susp) 15 ml Q4H PRN PO 12/05/17 19:45 01/04/18 19:44 Polyethylene (Miralax Powder Packet) 17 gm DAILY PRN PO 12/06/17 01:30 01/05/18 01:29 Ondansetron HCl (Zofran Inj) 4 mg Q6H PRN IV 12/05/17 19:45 01/04/18 19:44 Aspirin (Ecotrin Tab) 325 mg QAM PO 12/06/17 09:00 01/05/18 08:59 12/06/17 09:24 325 MG Finasteride (Proscar Tab) 5 mg QAM PO 12/06/17 09:00 01/05/18 08:59 12/06/17 09:24 5 MG Levothyroxine Sodium (Synthroid Tab) 175 mcg DAILYBB PO 12/06/17 06:00 01/05/18 05:59 12/06/17 06:13 175 MCG Lorazepam (Ativan Tab) 0.5 mg TID PRN PO 12/05/17 19:45 01/04/18 19:44 12/06/17 04:18 0.5 MG Prednisone (PredniSONE TAB) 5 mg DAILY PO 12/06/17 09:00 01/05/18 08:59 12/06/17 09:24 5 MG Terazosin HCl (Hytrin Cap) 5 mg QPM PO 12/05/17 21:00 01/04/18 20:59 12/05/17 23:23 5 MG Amiodarone HCl (Cordarone Tab) 100 mg DAILY PO 12/06/17 09:00 01/05/18 08:59 12/06/17 09:23 100 MG Calcium/Vitamin D (Caltrate Plus Tab) 1 tab Q2D PO 12/07/17 09:00 01/06/18 08:59 Ampicillin Sodium/ Sulbactam Sodium 1500 mg/Sodium Chloride 104 ml @ 200 mls/hr Q6H IV 12/06/17 00:00 12/16/17 00:00 12/06/17 11:27 200 MLS/HR Miscellaneous Information (Consult) 1 ea UD PRN N/A 12/05/17 19:45 01/04/18 19:44 Vancomycin HCl 1500 mg/Sodium Chloride 530 ml @ 200 mls/hr Q16H IV 12/06/17 17:00 12/16/17 16:59
[2017-12-06 15:13] VITALS: BP 130/64; PULSE 78; O2SAT 96
[2017-12-06 15:16] VITALS: TEMP 37.4
[2017-12-06] MEDS: VANCOMYCIN INJ 1,500 MG in SODIUM CHLORIDE 0.9% 500ML 500 ML IV SCH (16:57)
[2017-12-06 22:56] VITALS: BP 139/74; PULSE 63; TEMP 37; O2SAT 94
[2017-12-07] MEDS: AMPICILLIN/SULBACTAM SOD INJ 1,500 MG in SODIUM CHLORIDE 0.9% 100ML 100 ML IV SCH ×5 (00:52→18:01)
[2017-12-07] MEDS: LEVOTHYROXINE 175 MCG TAB PO SCH (05:45)
[2017-12-07 07:36] VITALS: BP 134/61; PULSE 64; TEMP 37.4; O2SAT 92
[2017-12-07] MEDS: AMIODARONE 200 MG TAB PO SCH (08:43)
[2017-12-07] MEDS: ASPIRIN 325 MG ECTAB PO SCH (08:43)
[2017-12-07] MEDS: CALCIUM 600MG + VIT D 400 IU TAB PO SCH (08:43)
[2017-12-07] MEDS: FINASTERIDE 5 MG TAB PO SCH (08:44)
[2017-12-07] MEDS: VANCOMYCIN INJ 1,500 MG in SODIUM CHLORIDE 0.9% 500ML 500 ML IV SCH (08:48)
[2017-12-07] MEDS: ENOXAPARIN 40 MG/0.4 ML SYR SQ SCH (08:49)
[2017-12-07 08:56] LABS: BASO % 0.2 %; BASO ABS # 0.02 K/uL (0-0.2); HEMATOCRIT 31.9 % (42-52); HEMOGLOBIN 10.8 g/dL (14.0-18.0); IG# 0.06 K/uL (0.00-0.02); LYMPH % 11.9 %; LYMPH ABS # 1.24 K/uL (1.2-3.4); MEAN CELL VOLUME 91.1 fL (80-100); MEAN CORPUSCULAR HEMOGLOBIN 30.9 pg (25-34); MEAN CORPUSCULAR HGB CONC 33.9 g/dl (32-36); MEAN PLATELET VOLUME 10.5 fL (7.4-10.4); MONO % 12.4 %; NEUT % 74.9 %; NEUT ABS # 7.84 K/uL (1.4-6.5); PLATELET COUNT 182 K/uL (130-400); RED CELL DISTRIBUTION WIDTH CV 13.3 % (11.5-14.5); RED CELL DISTRIBUTION WIDTH SD 44.3 fL (36.4-46.3); WHITE BLOOD COUNT 10.46 K/uL (4.8-10.8)
[2017-12-07 09:15] LABS: CALCIUM 8.5 mg/dl (8.5-10.1); CREATININE 0.96 mg/dl (0.60-1.40); POTASSIUM 3.8 mmol/L (3.5-5.1)
--- NOTE | 2017-12-07 10:07 | Orthopedic Progress Note ---
Orthopedic Progress Note Date of Service Dec 07, 2017. Subjective Reports: feeling well Additional Notes: Feels that he has less swelling today. Objective capillary refill less than 2 sec., CMS intact Less erythema of the upper forearm. Still with moderate erythema/edema of the dorsum of the hand. No overt pain with passive extension of all the fingers. Unable to make a full fist yet. Some pain with active flexion over the dorsum of the hand. It looks like he has some mild wrinkling of the skin with a decrease in hand swelling. Date Time Temp Pulse Resp B/P (MAP) Pulse Ox O2 Delivery O2 Flow Rate FiO2 12/07/17 08:00 Room Air 12/07/17 07:36 37.4 64 18 134/61 (85) 92 Room Air 12/07/17 00:50 Room Air 12/06/17 22:56 37.0 63 18 139/74 (95) 94 Room Air 12/06/17 16:40 Room Air 12/06/17 15:16 37.4 12/06/17 15:13 78 18 130/64 (86) 96 Room Air Laboratory Results 24 Hours: Test 12/06/17 15:40 12/07/17 08:20 Prothromb Time International Ratio 1.0 Prothrombin Time 10.5 SECONDS White Blood Count 10.46 K/uL Red Blood Count 3.50 M/uL Hemoglobin 10.8 g/dL Hematocrit 31.9 % Mean Corpuscular Volume 91.1 fL Mean Corpuscular Hemoglobin 30.9 pg Mean Corpuscular Hemoglobin Concent 33.9 g/dl Platelet Count 182 K/uL Mean Platelet Volume 10.5 fL Neutrophils (%) (Auto) 74.9 % Lymphocytes (%) (Auto) 11.9 % Monocytes (%) (Auto) 12.4 % Eosinophils (%) (Auto) 0.0 % Basophils (%) (Auto) 0.2 % Neutrophils # (Auto) 7.84 K/uL Lymphocytes # (Auto) 1.24 K/uL Monocytes # (Auto) 1.30 K/uL Eosinophils # (Auto) 0.00 K/uL Basophils # (Auto) 0.02 K/uL Assessment & Plan Assessment: Infected Right hand due to Cat bite. Plan: If erythema/swelling continues or is very slow to decrease, CT of the hand to r/ o abscess would be advisable. Continue elevation IV antibx (1) Cellulitis of right hand
[2017-12-07 15:32] VITALS: BP 152/66; PULSE 78; TEMP 37.1; O2SAT 97
[2017-12-07] MEDS ORDERED: OPTIRAY 320 IV PRN (17:15)
--- NOTE | 2017-12-07 18:03 | DIAGNOSTIC IMAGING REPORT ---
R UPPER EXTREMITY WITH CLINICAL HISTORY: r/o abscess right hand pain. Edema. TECHNIQUE: Transaxial acquisition with multi axial reformatted images COMPARISON STUDY: Right hand dated 12/05/2017 FINDINGS: Soft tissue edema about the right hand and wrist. Generalized soft tissue cellulitis in the region of the right forearm. Possible mild edematous change of the underlying muscular structures. Several small slightly complex fluid pockets dorsal to the carpal bone region the largest pocket is a dorsal to the second and third process measuring 1.5 cm. Several smaller fluid pockets are present. A large drainable pocket, however is not easily appreciated. IMPRESSION: 1. Generalized soft tissue edematous change consistent with a generalized cellulitis 2. Several small slightly complex fluid pockets dorsal to the carpal and metacarpal regions possibly related to small microabscesses although these are too small to drain at this time. 3. A major collection or abscess is not appreciated currently. The above report was generated using voice recognition software. It may contain grammatical, syntax or spelling errors. Electronically signed by: Patrice Barragan M.D. 12/07/2017 6:02 PM Dictated Date/Time: 12/07/2017 5:56 PM
--- NOTE | 2017-12-07 19:41 | Progress Note ---
Medicine Progress Note Date & Time of Visit: Dec 07, 2017 at 13:32. Subjective Pt was seen and examined Sitting in bed with no distress Hand erythema slightly improved, and continue swelling All 5 fingers in right hand swelling unable to make a fist due to tenderness Denies any chest pain palpitation, fever, and sob Objective Last 8 Hrs Date Time Temp Pulse Resp B/P (MAP) Pulse Ox O2 Delivery O2 Flow Rate FiO2 12/07/17 15:40 Room Air 12/07/17 15:32 37.1 78 18 152/66 (94) 97 Room Air Physical Exam: General- No acute distress Head- atraumatic Eyes- PERRL, EOMI ENT- oropharynx clear Neck- supple, no JVD Lungs- clear to auscultation Heart- +murmur, regular Abdomen- normal bowel sounds, soft Extremities- no calf tenderness, Right hand swelling/erythema Neuro- alert, oriented x 3; PERRL, EOMI Skin- warm & dry Laboratory Results: Last 24 Hours Test 12/07/17 08:20 White Blood Count 10.46 K/uL Red Blood Count 3.50 M/uL Hemoglobin 10.8 g/dL Hematocrit 31.9 % Mean Corpuscular Volume 91.1 fL Mean Corpuscular Hemoglobin 30.9 pg Mean Corpuscular Hemoglobin Concent 33.9 g/dl Platelet Count 182 K/uL Mean Platelet Volume 10.5 fL Neutrophils (%) (Auto) 74.9 % Lymphocytes (%) (Auto) 11.9 % Monocytes (%) (Auto) 12.4 % Eosinophils (%) (Auto) 0.0 % Basophils (%) (Auto) 0.2 % Neutrophils # (Auto) 7.84 K/uL Lymphocytes # (Auto) 1.24 K/uL Monocytes # (Auto) 1.30 K/uL Eosinophils # (Auto) 0.00 K/uL Basophils # (Auto) 0.02 K/uL RDW Standard Deviation 44.3 fL RDW Coefficient of Variation 13.3 % Immature Granulocyte % (Auto) 0.6 % Immature Granulocyte # (Auto) 0.06 K/uL Sodium Level 139 mmol/L Potassium Level 3.8 mmol/L Chloride Level 106 mmol/L Carbon Dioxide Level 24 mmol/L Anion Gap 9.0 mmol/L Blood Urea Nitrogen 25 mg/dl Creatinine 0.96 mg/dl Est Creatinine Clear Calc Drug Dose 67.3 ml/min Estimated GFR () 84.4 Estimated GFR (Non- 72.8 BUN/Creatinine Ratio 26.4 Random Glucose 91 mg/dl Calcium Level 8.5 mg/dl Magnesium Level 2.2 mg/dl Assessment & Plan Right Hand Cellulitis had a cat bite about few weeks ago Elevated WBC on admission, trending down Received Rocephin IM and oral Augmentin as an outpatient Xray of the hand showed diffuse soft tissue edema suggests cellulitis Continue Vanco IV and Unasyn Ortho on board recommended no surgical intervention Blood cx no growth Continue monitor Right Hand CT showed 1. Generalized soft tissue edematous change consistent with a generalized cellulitis Several small slightly complex fluid pockets dorsal to the carpal and metacarpal regions possibly related to small microabscesses although these are too small to drain at this time. A major collection or abscess is not appreciated currently. Atrial fibrillation. Rate control Continue amiodarone and aspirin Stable BPH Continue Hytrin and finasteride. Hypothyroidism On Synthroid. CKD stage III. Stable DVT px On Lovenox subq CODE STATUS FULL CODE Consultants: Ortho Current Inpatient Medications: Current Inpatient Medications Medications (Trade) Dose Ordered Sig/Ron Route Start Time Stop Time Status Last Admin Dose Admin Acetaminophen (Tylenol Tab) 650 mg Q4H PRN PO 12/05/17 19:45 01/04/18 19:44 Al Hydrox/Mg Hydrox/Simethicone (Maalox Max Susp) 15 ml Q4H PRN PO 12/05/17 19:45 01/04/18 19:44 Polyethylene (Miralax Powder Packet) 17 gm DAILY PRN PO 12/06/17 01:30 01/05/18 01:29 Ondansetron HCl (Zofran Inj) 4 mg Q6H PRN IV 12/05/17 19:45 01/04/18 19:44 Aspirin (Ecotrin Tab) 325 mg QAM PO 12/06/17 09:00 01/05/18 08:59 12/07/17 08:43 325 MG Finasteride (Proscar Tab) 5 mg QAM PO 12/06/17 09:00 01/05/18 08:59 12/07/17 08:44 5 MG Levothyroxine Sodium (Synthroid Tab) 175 mcg DAILYBB PO 12/06/17 06:00 01/05/18 05:59 12/07/17 05:45 175 MCG Lorazepam (Ativan Tab) 0.5 mg TID PRN PO 12/05/17 19:45 01/04/18 19:44 12/06/17 22:10 0.5 MG Prednisone (PredniSONE TAB) 5 mg DAILY PO 12/06/17 09:00 01/05/18 08:59 12/07/17 08:43 5 MG Terazosin HCl (Hytrin Cap) 5 mg QPM PO 12/05/17 21:00 01/04/18 20:59 12/06/17 22:11 5 MG Amiodarone HCl (Cordarone Tab) 100 mg DAILY PO 12/06/17 09:00 01/05/18 08:59 12/07/17 08:43 100 MG Calcium/Vitamin D (Caltrate Plus Tab) 1 tab Q2D PO 12/07/17 09:00 01/06/18 08:59 12/07/17 08:43 1 TAB Ampicillin Sodium/ Sulbactam Sodium 1500 mg/Sodium Chloride 104 ml @ 200 mls/hr Q6H IV 12/06/17 00:00 12/16/17 00:00 12/07/17 18:01 200 MLS/HR Miscellaneous Information (Consult) 1 ea UD PRN N/A 12/05/17 19:45 01/04/18 19:44 Vancomycin HCl 1500 mg/Sodium Chloride 530 ml @ 200 mls/hr Q16H IV 12/06/17 17:00 12/16/17 16:59 12/07/17 08:48 200 MLS/HR Enoxaparin Sodium (Lovenox Inj) 40 mg QAM SQ 12/07/17 09:00 01/06/18 08:59 12/07/17 08:49 40 MG Ioversol (Optiray 320) 111 ml UD PRN IV 12/07/17 17:15 12/11/17 17:14
[2017-12-07] MEDS: LORAZEPAM 0.5 MG TAB PO PRN (20:43)
[2017-12-07 23:05] VITALS: BP 151/66; PULSE 67; TEMP 37; O2SAT 95
[2017-12-08] MEDS: AMPICILLIN/SULBACTAM SOD INJ 1,500 MG in SODIUM CHLORIDE 0.9% 100ML 100 ML IV SCH ×4 (00:19→20:08)
[2017-12-08] MEDS ORDERED: VANCOMYCIN TROUGH ONE (00:30)
[2017-12-08] MEDS: VANCOMYCIN INJ 1,500 MG in SODIUM CHLORIDE 0.9% 500ML 500 ML IV SCH ×2 (02:40→17:07)
[2017-12-08] MEDS: LEVOTHYROXINE 175 MCG TAB PO SCH (05:31)
[2017-12-08 07:47] VITALS: BP 149/73; PULSE 63; TEMP 36.4; O2SAT 95
[2017-12-08] MEDS: FINASTERIDE 5 MG TAB PO SCH (07:49)
[2017-12-08] MEDS: ASPIRIN 325 MG ECTAB PO SCH (07:49)
[2017-12-08] MEDS: AMIODARONE 200 MG TAB PO SCH (07:49)
[2017-12-08] MEDS: ENOXAPARIN 40 MG/0.4 ML SYR SQ SCH (08:35)
[2017-12-08 09:05] LABS: BASO % 0.3 %; BASO ABS # 0.03 K/uL (0-0.2); EOS % 0.3 %; EOS ABS # 0.03 K/uL (0-0.5); HEMATOCRIT 33.2 % (42-52); HEMOGLOBIN 10.9 g/dL (14.0-18.0); IG# 0.09 K/uL (0.00-0.02); LYMPH % 12.5 %; LYMPH ABS # 1.08 K/uL (1.2-3.4); MEAN CORPUSCULAR HEMOGLOBIN 29.9 pg (25-34); MEAN CORPUSCULAR HGB CONC 32.8 g/dl (32-36); MEAN PLATELET VOLUME 10.3 fL (7.4-10.4); MONO % 14.5 %; MONO ABS # 1.25 K/uL (0.11-0.59); NEUT % 71.4 %; NEUT ABS # 6.15 K/uL (1.4-6.5); PLATELET COUNT 202 K/uL (130-400); RED CELL DISTRIBUTION WIDTH CV 12.9 % (11.5-14.5); RED CELL DISTRIBUTION WIDTH SD 43.3 fL (36.4-46.3); WHITE BLOOD COUNT 8.63 K/uL (4.8-10.8)
[2017-12-08 09:30] LABS: CALCIUM 8.4 mg/dl (8.5-10.1); CREATININE 0.93 mg/dl (0.60-1.40); POTASSIUM 3.7 mmol/L (3.5-5.1)
--- NOTE | 2017-12-08 11:29 | Progress Note ---
Medicine Progress Note Date & Time of Visit: Dec 08, 2017 at 11:20. Subjective 81 yo M presents s/p kitten bite at home >1 week ago, has worsening R hand cellulitis with decreased ROM and significant swelling, refractory to initial abx therapy. -denies fevers, chills, chest pain, SOB -reports continued decreased ROM in R hand and fingers and significant swelling and redness. -tolerating PO Objective Last 8 Hrs Date Time Temp Pulse Resp B/P (MAP) Pulse Ox O2 Delivery O2 Flow Rate FiO2 12/08/17 08:00 Room Air 12/08/17 07:47 36.4 63 18 149/73 (98) 95 Room Air Physical Exam: GEN: obese, in no acute distress, alert and appropriate HEENT: NC/AT, PERRL, normal sclerae, MMM CARDIO: reg rate, S1/2 heard without m/g/r LUNGS: CTA bilaterally, no crackles, rales or wheezes, good diaphragmatic excursion ABD: soft, non-tender, non-distended, no rebound or guarding, +BS EXTREMITY: R hand and wrist is double the size of the L with significant swelling of all digits, decreased finger and wrist flexion, extension and finger spread. Warm to touch. Warm and well perfused. Erythema spreads to mid forearm on extensor surface. No site of drainage is noted. NEURO: CN 2-12 grossly intact MUSC: 5/5 strength throughout, no gross focal deficits SKIN: warm and dry and R hand as above. Laboratory Results: 12/08/17 08:40 Red Blood Count 3.65, Mean Corpuscular Volume 91.0, Mean Corpuscular Hemoglobin 29.9, Mean Corpuscular Hemoglobin Concent 32.8, Mean Platelet Volume 10.3, Neutrophils (%) (Auto) 71.4, Lymphocytes (%) (Auto) 12.5, Monocytes (%) (Auto) 14.5, Eosinophils (%) (Auto) 0.3, Basophils (%) (Auto) 0.3, Neutrophils # (Auto ) 6.15, Lymphocytes # (Auto) 1.08, Monocytes # (Auto) 1.25, Eosinophils # (Auto ) 0.03, Basophils # (Auto) 0.03 12/08/17 08:40 Test 12/05/17 16:24 12/06/17 15:40 12/08/17 00:20 12/08/17 08:40 Erythrocyte Sedimentation Rate 49 mm/hr (0-14) Total Bilirubin 0.5 mg/dl (0.2-1) Direct Bilirubin 0.1 mg/dl (0-0.2) Aspartate Amino Transf (AST/SGOT) 18 U/L (15-37) Alanine Aminotransferase (ALT/SGPT) 27 U/L (12-78) Alkaline Phosphatase 62 U/L (45-117) C-Reactive Protein 14.00 mg/dl (0-0.29) Total Protein 7.8 gm/dl (6.4-8.2) Albumin 3.5 gm/dl (3.4-5.0) Prothrombin Time 10.5 SECONDS (9.0-12.0) Prothromb Time International Ratio 1.0 (0.9-1.1) Vancomycin Level Trough 12.8 mcg/ml (SEE COMMENT) White Blood Count 8.63 K/uL (4.8-10.8) Red Blood Count 3.65 M/uL (4.7-6.1) Hemoglobin 10.9 g/dL (14.0-18.0) Hematocrit 33.2 % (42-52) Mean Corpuscular Volume 91.0 fL (80-100) Mean Corpuscular Hemoglobin 29.9 pg (25-34) Mean Corpuscular Hemoglobin Concent 32.8 g/dl (32-36) Platelet Count 202 K/uL (130-400) Mean Platelet Volume 10.3 fL (7.4-10.4) Neutrophils (%) (Auto) 71.4 % Lymphocytes (%) (Auto) 12.5 % Monocytes (%) (Auto) 14.5 % Eosinophils (%) (Auto) 0.3 % Basophils (%) (Auto) 0.3 % Neutrophils # (Auto) 6.15 K/uL (1.4-6.5) Lymphocytes # (Auto) 1.08 K/uL (1.2-3.4) Monocytes # (Auto) 1.25 K/uL (0.11-0.59) Eosinophils # (Auto) 0.03 K/uL (0-0.5) Basophils # (Auto) 0.03 K/uL (0-0.2) RDW Standard Deviation 43.3 fL (36.4-46.3) RDW Coefficient of Variation 12.9 % (11.5-14.5) Immature Granulocyte % (Auto) 1.0 % Immature Granulocyte # (Auto) 0.09 K/uL (0.00-0.02) Anion Gap 7.0 mmol/L (3-11) Est Creatinine Clear Calc Drug Dose 69.4 ml/min Estimated GFR () 87.7 Estimated GFR (Non- 75.7 BUN/Creatinine Ratio 25.5 (10-20) Calcium Level 8.4 mg/dl (8.5-10.1) Magnesium Level 2.1 mg/dl (1.8-2.4) Date/Time Source Procedure Growth Status 12/05/17 16:39 Blood Blood Culture - Preliminary NO GROWTH TO DATE. Resulted Last 24 Hours Test 12/08/17 00:20 12/08/17 08:40 Vancomycin Level Trough 12.8 mcg/ml White Blood Count 8.63 K/uL Red Blood Count 3.65 M/uL Hemoglobin 10.9 g/dL Hematocrit 33.2 % Mean Corpuscular Volume 91.0 fL Mean Corpuscular Hemoglobin 29.9 pg Mean Corpuscular Hemoglobin Concent 32.8 g/dl Platelet Count 202 K/uL Mean Platelet Volume 10.3 fL Neutrophils (%) (Auto) 71.4 % Lymphocytes (%) (Auto) 12.5 % Monocytes (%) (Auto) 14.5 % Eosinophils (%) (Auto) 0.3 % Basophils (%) (Auto) 0.3 % Neutrophils # (Auto) 6.15 K/uL Lymphocytes # (Auto) 1.08 K/uL Monocytes # (Auto) 1.25 K/uL Eosinophils # (Auto) 0.03 K/uL Basophils # (Auto) 0.03 K/uL RDW Standard Deviation 43.3 fL RDW Coefficient of Variation 12.9 % Immature Granulocyte % (Auto) 1.0 % Immature Granulocyte # (Auto) 0.09 K/uL Sodium Level 139 mmol/L Potassium Level 3.7 mmol/L Chloride Level 108 mmol/L Carbon Dioxide Level 24 mmol/L Anion Gap 7.0 mmol/L Blood Urea Nitrogen 24 mg/dl Creatinine 0.93 mg/dl Est Creatinine Clear Calc Drug Dose 69.4 ml/min Estimated GFR () 87.7 Estimated GFR (Non- 75.7 BUN/Creatinine Ratio 25.5 Random Glucose 96 mg/dl Calcium Level 8.4 mg/dl Magnesium Level 2.1 mg/dl Assessment & Plan 81 yo M presents s/p kitten bite at home >1 week ago, has worsening R hand cellulitis with decreased ROM and significant swelling, refractory to initial abx therapy. 1. R hand cellulitis 2/2 cat bite. WBC trending down. CT hand yesterday revealed microabscesses. Per pt, Ortho plans to take him to OR later today for joint washout. Cont IV abx including Vanc (in setting of abscesses) and Unasyn. Pt is otherwise clinically stable and denies chest pain, shortness of breath and is very active at baseline as he is a [place] by [employer] 2. Afib-stable, cont amio and ASA 3. BPH-chronic, cont Hytrin and finasteride 4. Hypothyroidism-cont Synthroid 5. Chronic steroid use > 6 months-uncertain indication. Encouraged patient to review this with Dr. Howe as outpatient. We discussed the pros and cons of jail steroid use briefly and other options such as a referral to Rheumatology. Pt verbalized understanding with intent to comply. Cont prednisone perioperatively. 6. CKD III-at baseline. DVT proph: Lovenox Full Code Dispo-likely hospitalized for the next 2-3 days until hand improves. DO James Lechuga Hospitalist Consultants: Ortho Current Inpatient Medications: Current Inpatient Medications Medications (Trade) Dose Ordered Sig/Ron Route Start Time Stop Time Status Last Admin Dose Admin Acetaminophen (Tylenol Tab) 650 mg Q4H PRN PO 12/05/17 19:45 01/04/18 19:44 Al Hydrox/Mg Hydrox/Simethicone (Maalox Max Susp) 15 ml Q4H PRN PO 12/05/17 19:45 01/04/18 19:44 Polyethylene (Miralax Powder Packet) 17 gm DAILY PRN PO 12/06/17 01:30 01/05/18 01:29 Ondansetron HCl (Zofran Inj) 4 mg Q6H PRN IV 12/05/17 19:45 01/04/18 19:44 Aspirin (Ecotrin Tab) 325 mg QAM PO 12/06/17 09:00 01/05/18 08:59 12/08/17 07:49 325 MG Finasteride (Proscar Tab) 5 mg QAM PO 12/06/17 09:00 01/05/18 08:59 12/08/17 07:49 5 MG Levothyroxine Sodium (Synthroid Tab) 175 mcg DAILYBB PO 12/06/17 06:00 01/05/18 05:59 12/08/17 05:31 175 MCG Lorazepam (Ativan Tab) 0.5 mg TID PRN PO 12/05/17 19:45 01/04/18 19:44 12/07/17 20:43 0.5 MG Prednisone (PredniSONE TAB) 5 mg DAILY PO 12/06/17 09:00 01/05/18 08:59 12/08/17 07:49 5 MG Terazosin HCl (Hytrin Cap) 5 mg QPM PO 12/05/17 21:00 01/04/18 20:59 12/07/17 20:41 5 MG Amiodarone HCl (Cordarone Tab) 100 mg DAILY PO 12/06/17 09:00 01/05/18 08:59 12/08/17 07:49 100 MG Calcium/Vitamin D (Caltrate Plus Tab) 1 tab Q2D PO 12/07/17 09:00 01/06/18 08:59 12/07/17 08:43 1 TAB Ampicillin Sodium/ Sulbactam Sodium 1500 mg/Sodium Chloride 104 ml @ 200 mls/hr Q6H IV 12/06/17 00:00 12/16/17 00:00 12/08/17 05:31 200 MLS/HR Miscellaneous Information (Consult) 1 ea UD PRN N/A 12/05/17 19:45 01/04/18 19:44 Vancomycin HCl 1500 mg/Sodium Chloride 530 ml @ 200 mls/hr Q16H IV 12/06/17 17:00 12/16/17 16:59 12/08/17 02:40 200 MLS/HR Enoxaparin Sodium (Lovenox Inj) 40 mg QAM SQ 12/07/17 09:00 01/06/18 08:59 12/07/17 08:49 40 MG Ioversol (Optiray 320) 111 ml UD PRN IV 12/07/17 17:15 12/11/17 17:14
--- NOTE | 2017-12-08 12:26 | Pharmacy Progress Note ---
Pharmacy Abx Dose Short Note Date of Service Dec 08, 2017. Assessment & Plan Assessment 81 year old male receiving Vancomycin and Unasyn for treatment of cellulitis/ abscess from a cat bite. Day # 3 of antimicrobial therapy. * Blood cultures have NGTD * pt remains afebrile * WBC have trended down * Renal function stable Plan Vancomycin * Trough level of 12.8 mcg/mL is therapeutic. * Drug levels are not yet at steady state * Continue dose of 1500 mg IV every 16 hours * Goal trough level for cellulitis : 10 to 15 mcg/mL * Trough level to be ordered in 48-72 hours if therapy is continued Unasyn * Continue current dose of 1.5gm iv q 6 hours Pharmacy will continue to follow and will adjust dose/frequency as necessary. Thank you.
[2017-12-08 16:02] VITALS: BP 134/66; PULSE 54; TEMP 37; O2SAT 96
--- NOTE | 2017-12-08 18:18 | PROGRESS NOTE ---
DATE: 12/08/2017 SUBJECTIVE: El seen at the bedside today status post cat bite. He sustained had a cat bite in the region of the first web space and the thumb MP joint and has progressive pain and swelling in the hand. OBJECTIVE: Right hand exam: Right hand does show moderate swelling and erythema over the dorsal aspect of the hand. He has extensor lag of the third and fourth digits. He has negative [place] signs. He has no pain with passive range of motion of the digits and he has no significant pain with passive flexion or extension of the fingers. He does have some tenderness over the fourth extensor compartment. DATA: Review of CAT scan does suggest some micro abscess in the region of the dorsal hand. ASSESSMENT: Right hand cellulitis status post cat bite. PLAN: At this point in time, on examination, I do not see a significant definitive area of fluctuance that would benefit from drainage. It is possibly could represent a cellulitis. My recommendation at this point in time is to hold off on any surgical treatment. I will follow for now and will continue antibiotics. Will recheck in 24 hours. If he develops more localized abscess or does not have clinical improvement, we may consider surgical treatment. At this point in time, the patient does feel that he is clinically improving with the antibiotics. We will continue to follow. SCOTT
[2017-12-08] MEDS: LORAZEPAM 0.5 MG TAB PO PRN (20:46)
[2017-12-08] MEDS: ACETAMINOPHEN 325 MG TAB PO PRN (23:03)
[2017-12-08 23:22] VITALS: BP 137/73; PULSE 53; TEMP 37.1; O2SAT 94
[2017-12-09] MEDS: AMPICILLIN/SULBACTAM SOD INJ 1,500 MG in SODIUM CHLORIDE 0.9% 100ML 100 ML IV SCH ×4 (01:59→19:49)
[2017-12-09] MEDS: LEVOTHYROXINE 175 MCG TAB PO SCH (05:29)
[2017-12-09 07:34] VITALS: BP 156/80; PULSE 57; TEMP 36.4; O2SAT 96
[2017-12-09] MEDS: CALCIUM 600MG + VIT D 400 IU TAB PO SCH (08:10)
[2017-12-09] MEDS: ASPIRIN 325 MG ECTAB PO SCH (08:11)
[2017-12-09] MEDS: AMIODARONE 200 MG TAB PO SCH (08:11)
[2017-12-09] MEDS: ENOXAPARIN 40 MG/0.4 ML SYR SQ SCH (08:12)
[2017-12-09] MEDS: FINASTERIDE 5 MG TAB PO SCH (08:12)
[2017-12-09] MEDS: VANCOMYCIN INJ 1,500 MG in SODIUM CHLORIDE 0.9% 500ML 500 ML IV SCH (09:31)
[2017-12-09 10:27] VITALS: BP 135/73
--- NOTE | 2017-12-09 11:13 | Orthopedic Progress Note ---
Orthopedic Progress Note Date of Service Dec 09, 2017. Subjective Reports: feeling well, pain controlled w PO medications, Denies: complaints, chest pain, SOB, nausea / vomiting, light headedness, calf pain Objective capillary refill less than 2 sec., A&O x3 Right hand continues mod swelling and mild erythema, NO open skin or drainage. Flexion in tact at digits, still extensor lag fingers 2-4. Appears as though erythema is improving based on skin markings. Date Time Temp Pulse Resp B/P (MAP) Pulse Ox O2 Delivery O2 Flow Rate FiO2 12/09/17 10:27 135/73 (93) 12/09/17 07:50 Room Air 12/09/17 07:34 36.4 57 18 156/80 (105) 96 Room Air 12/08/17 23:22 37.1 53 18 137/73 (94) 94 Room Air 12/08/17 23:05 Room Air 12/08/17 16:05 Room Air 12/08/17 16:02 37.0 54 18 134/66 (88) 96 Room Air Assessment & Plan Assessment: Infected Right hand due to Cat bite. Plan: CT scan reviewed by Dr. Monreal, please see his note from yesterday, non operative at this point as long as continues improvement on antibx. Continue elevation IV antibx- Mynoro and Marysyn Will continue to follow clinically. (1) Cellulitis of right hand
[2017-12-09 15:58] VITALS: BP 138/65; PULSE 72; TEMP 36.6; O2SAT 96
--- NOTE | 2017-12-09 19:24 | PROGRESS NOTE ---
DATE: 12/09/2017 SUBJECTIVE: Isreal was seen at bedside. Today, he notes no interval improvement. OBJECTIVE: Right hand examination does show no change in erythema. There is questionable fluctuant over the fourth extensor compartment. Continued extensor lag is seen in the middle and ring fingers. He can flex and extend the thumb, but this is also limited as well. ASSESSMENT: Right hand infection. PLAN: I like to obtain an MRI for evaluation to see if he has any evidence of localized extensor tenosynovitis or abscess in the area. CAT scan was reviewed by me and is fairly inconclusive for his definitive abscess. We will tentatively make him n.p.o. after midnight and will follow up accordingly.
--- NOTE | 2017-12-09 21:58 | Progress Note ---
Medicine Progress Note Date & Time of Visit: Dec 09, 2017 at 12:51. Subjective 81 yo M presents s/p kitten bite at home >1 week ago, worsening R hand cellulitis with decreased ROM and significant swelling, refractory to initial abx therapy. Redness and especially swelling has improved overnight. Pt did not go for washout last night. Continuing IV abx at this time. Pt expressed that he is eager to get home because his had a stroke and depends on him. He is also a [place] with lots of animals to care for Objective Last 8 Hrs Date Time Temp Pulse Resp B/P (MAP) Pulse Ox O2 Delivery O2 Flow Rate FiO2 12/09/17 10:27 135/73 (93) 12/09/17 07:50 Room Air 12/09/17 07:34 36.4 57 18 156/80 (105) 96 Room Air Physical Exam: GEN: obese, in no acute distress, alert and appropriate HEENT: NC/AT, PERRL, normal sclerae, MMM CARDIO: reg rate, S1/2 heard without m/g/r LUNGS: CTA bilaterally, no crackles, rales or wheezes, good diaphragmatic excursion ABD: soft, non-tender, non-distended, no rebound or guarding, +BS EXTREMITY: R hand and wrist is double the size of the L with significant swelling of all digits, decreased finger and wrist flexion, extension and finger spread. Warm to touch. Warm and well perfused. Erythema spreads to mid forearm on extensor surface. No site of drainage is noted. Overall improved today compared to yesterday. NEURO: CN 2-12 grossly intact MUSC: 5/5 strength throughout, no gross focal deficits SKIN: warm and dry and R hand as above. Laboratory Results: 12/08/17 08:40 Red Blood Count 3.65, Mean Corpuscular Volume 91.0, Mean Corpuscular Hemoglobin 29.9, Mean Corpuscular Hemoglobin Concent 32.8, Mean Platelet Volume 10.3, Neutrophils (%) (Auto) 71.4, Lymphocytes (%) (Auto) 12.5, Monocytes (%) (Auto) 14.5, Eosinophils (%) (Auto) 0.3, Basophils (%) (Auto) 0.3, Neutrophils # (Auto ) 6.15, Lymphocytes # (Auto) 1.08, Monocytes # (Auto) 1.25, Eosinophils # (Auto ) 0.03, Basophils # (Auto) 0.03 12/08/17 08:40 Test 12/05/17 16:24 12/06/17 15:40 12/08/17 00:20 12/08/17 08:40 Erythrocyte Sedimentation Rate 49 mm/hr (0-14) Total Bilirubin 0.5 mg/dl (0.2-1) Direct Bilirubin 0.1 mg/dl (0-0.2) Aspartate Amino Transf (AST/SGOT) 18 U/L (15-37) Alanine Aminotransferase (ALT/SGPT) 27 U/L (12-78) Alkaline Phosphatase 62 U/L (45-117) C-Reactive Protein 14.00 mg/dl (0-0.29) Total Protein 7.8 gm/dl (6.4-8.2) Albumin 3.5 gm/dl (3.4-5.0) Prothrombin Time 10.5 SECONDS (9.0-12.0) Prothromb Time International Ratio 1.0 (0.9-1.1) Vancomycin Level Trough 12.8 mcg/ml (SEE COMMENT) White Blood Count 8.63 K/uL (4.8-10.8) Red Blood Count 3.65 M/uL (4.7-6.1) Hemoglobin 10.9 g/dL (14.0-18.0) Hematocrit 33.2 % (42-52) Mean Corpuscular Volume 91.0 fL (80-100) Mean Corpuscular Hemoglobin 29.9 pg (25-34) Mean Corpuscular Hemoglobin Concent 32.8 g/dl (32-36) Platelet Count 202 K/uL (130-400) Mean Platelet Volume 10.3 fL (7.4-10.4) Neutrophils (%) (Auto) 71.4 % Lymphocytes (%) (Auto) 12.5 % Monocytes (%) (Auto) 14.5 % Eosinophils (%) (Auto) 0.3 % Basophils (%) (Auto) 0.3 % Neutrophils # (Auto) 6.15 K/uL (1.4-6.5) Lymphocytes # (Auto) 1.08 K/uL (1.2-3.4) Monocytes # (Auto) 1.25 K/uL (0.11-0.59) Eosinophils # (Auto) 0.03 K/uL (0-0.5) Basophils # (Auto) 0.03 K/uL (0-0.2) RDW Standard Deviation 43.3 fL (36.4-46.3) RDW Coefficient of Variation 12.9 % (11.5-14.5) Immature Granulocyte % (Auto) 1.0 % Immature Granulocyte # (Auto) 0.09 K/uL (0.00-0.02) Anion Gap 7.0 mmol/L (3-11) Est Creatinine Clear Calc Drug Dose 69.4 ml/min Estimated GFR () 87.7 Estimated GFR (Non- 75.7 BUN/Creatinine Ratio 25.5 (10-20) Calcium Level 8.4 mg/dl (8.5-10.1) Magnesium Level 2.1 mg/dl (1.8-2.4) Date/Time Source Procedure Growth Status 12/05/17 16:39 Blood Blood Culture - Preliminary NO GROWTH TO DATE. Resulted Assessment & Plan 81 yo M presents s/p kitten bite at home >1 week ago, worsening R hand cellulitis with decreased ROM and significant swelling, refractory to initial abx therapy. Redness and especially swelling has improved overnight. Pt did not go for washout last night. Continuing IV abx at this time. Pt expressed that he is eager to get home because his had a stroke and depends on him. He is also a [place] with lots of animals to care for. 1. R hand cellulitis 2/2 cat bite. WBC trending down. CT hand revealed microabscesses. Pt was to take him to OR for washout but this was cancelled. Cont IC abx. 2. Afib-stable, cont amio and ASA 3. BPH-chronic, cont Hytrin and finasteride 4. Hypothyroidism-cont Synthroid 5. Chronic steroid use > 6 months-uncertain indication. Encouraged patient to review this with Dr. Howe as outpatient. We discussed the pros and cons of form presser steroid use briefly and other options such as a referral to Rheumatology. Pt verbalized understanding with intent to comply. Cont prednisone perioperatively. 6. CKD III-at baseline. DVT proph: Lovenox Full Code Dispo-likely hospitalized for the next 2-3 days until hand improves. Tatyana Horvath DO [facility] Hospitalist Consultants: Joceline Current Inpatient Medications: Current Inpatient Medications Medications (Trade) Dose Ordered Sig/Ron Route Start Time Stop Time Status Last Admin Dose Admin Acetaminophen (Tylenol Tab) 650 mg Q4H PRN PO 12/05/17 19:45 01/04/18 19:44 12/08/17 23:03 650 MG Al Hydrox/Mg Hydrox/Simethicone (Maalox Max Susp) 15 ml Q4H PRN PO 12/05/17 19:45 01/04/18 19:44 Polyethylene (Miralax Powder Packet) 17 gm DAILY PRN PO 12/06/17 01:30 01/05/18 01:29 Ondansetron HCl (Zofran Inj) 4 mg Q6H PRN IV 12/05/17 19:45 01/04/18 19:44 Aspirin (Ecotrin Tab) 325 mg QAM PO 12/06/17 09:00 01/05/18 08:59 12/09/17 08:11 325 MG Finasteride (Proscar Tab) 5 mg QAM PO 12/06/17 09:00 01/05/18 08:59 12/09/17 08:12 5 MG Levothyroxine Sodium (Synthroid Tab) 175 mcg DAILYBB PO 12/06/17 06:00 01/05/18 05:59 12/09/17 05:29 175 MCG Lorazepam (Ativan Tab) 0.5 mg TID PRN PO 12/05/17 19:45 01/04/18 19:44 12/08/17 20:46 0.5 MG Prednisone (PredniSONE TAB) 5 mg DAILY PO 12/06/17 09:00 01/05/18 08:59 12/09/17 08:11 5 MG Terazosin HCl (Hytrin Cap) 5 mg QPM PO 12/05/17 21:00 01/04/18 20:59 12/08/17 20:46 5 MG Amiodarone HCl (Cordarone Tab) 100 mg DAILY PO 12/06/17 09:00 01/05/18 08:59 12/09/17 08:11 100 MG Calcium/Vitamin D (Caltrate Plus Tab) 1 tab Q2D PO 12/07/17 09:00 01/06/18 08:59 12/09/17 08:10 1 TAB Ampicillin Sodium/ Sulbactam Sodium 1500 mg/Sodium Chloride 104 ml @ 200 mls/hr Q6H IV 12/06/17 00:00 12/16/17 00:00 12/09/17 08:04 200 MLS/HR Miscellaneous Information (Consult) 1 ea UD PRN N/A 12/05/17 19:45 01/04/18 19:44 Vancomycin HCl 1500 mg/Sodium Chloride 530 ml @ 200 mls/hr Q16H IV 12/06/17 17:00 12/16/17 16:59 12/09/17 09:31 200 MLS/HR Enoxaparin Sodium (Lovenox Inj) 40 mg QAM SQ 12/07/17 09:00 01/06/18 08:59 12/09/17 08:12 40 MG Ioversol (Optiray 320) 111 ml UD PRN IV 12/07/17 17:15 12/11/17 17:14
[2017-12-09] MEDS: LORAZEPAM 0.5 MG TAB PO PRN (22:13)
--- NOTE | 2017-12-09 23:00 | DIAGNOSTIC IMAGING REPORT ---
MRI OF THE RIGHT WRIST WITHOUT IV CONTRAST CLINICAL HISTORY: Cat-bite injury. Clinical concern for abscess. COMPARISON STUDY: CT scan of the right wrist dated 12/07/2017. Radiographs of the right hand dated 12/05/2017. TECHNIQUE: MRI of the right wrist is performed utilizing various T1 and T2-weighted sequences in the axial, sagittal, and coronal planes. IV contrast was not administered for this examination. The Examination is significantly compromised by motion artifact. FINDINGS: There is no MRI evidence of fracture. 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 This is greatest involving the lateral carpal bones. There is extensive tearing of the triangular fibrocartilage with fluid in the distal radioulnar joint. A large degenerative geode is present within the radial head. There is nonspecific soft tissue edema present around the wrist, greatest along the dorsal surface. This involves the superficial and deep soft tissues. There is significant fluid identified surrounding the flexor tendons at the level of the carpal bones with associated synovial thickening. Complex debris suggested within these pockets of fluid. No additional fluid collection is suggested within the overlying subcutaneous soft tissues. The regional musculature appears atrophic. IMPRESSION: 1. Significantly motion compromised examination. This degrades diagnostic utility. 2. There are large pockets of fluid present along the course of the extensor tendons with associated synovial thickening and probable debris. This is consistent with tenosynovitis, likely infected. Clinical correlation will be required. 3. No acute bony abnormality is suspected. 4. Arthritic change and tearing of the triangular fibrocartilage is above. 5. Superficial and deep soft tissue edema is present around the wrist, greatest dorsally. The appearance suggests cellulitis. 6. No subcutaneous soft tissue fluid collection is identified separate from the tendon sheaths. Electronically signed by: Romie Wiggins M.D. 12/10/2017 2:10 PM Dictated Date/Time: 12/09/2017 10:05 PM
[2017-12-09 23:35] VITALS: BP 177/62; PULSE 60; TEMP 36.5; O2SAT 94
[2017-12-09 23:50] VITALS: BP 160/74
[2017-12-10] VITALS (9 sets, daily range): BP systolic 99–169; BP diastolic 61–77; PULSE 59–69; TEMP 36.4–36.6; O2SAT 92–97
[2017-12-10] MEDS: VANCOMYCIN INJ 1,500 MG in SODIUM CHLORIDE 0.9% 500ML 500 ML IV SCH ×2 (00:28→16:38)
[2017-12-10] MEDS: AMPICILLIN/SULBACTAM SOD INJ 1,500 MG in SODIUM CHLORIDE 0.9% 100ML 100 ML IV SCH ×4 (03:04→19:54)
[2017-12-10] MEDS: LEVOTHYROXINE 175 MCG TAB PO SCH (05:32)
--- NOTE | 2017-12-10 07:59 | Orthopedic Progress Note ---
Orthopedic Progress Note Date of Service Dec 10, 2017. Subjective Reports: feeling well, Denies: complaints Objective N/V intact, capillary refill less than 2 sec. Right hand continues with erythema over the dorsal area. Forearm continues to improve with less edema. ROM of the hand has not changed much. Date Time Temp Pulse Resp B/P (MAP) Pulse Ox O2 Delivery O2 Flow Rate FiO2 12/10/17 07:13 36.6 59 16 169/71 (103) 94 Room Air 12/09/17 23:50 160/74 (102) 12/09/17 23:50 Room Air 12/09/17 23:35 36.5 60 18 177/62 (100) 94 Room Air 12/09/17 15:58 36.6 72 18 138/65 (89) 96 Room Air 12/09/17 15:45 Room Air 12/09/17 10:27 135/73 (93) Additional Notes: MRI OF THE RIGHT WRIST WITHOUT IV CONTRAST CLINICAL HISTORY: Cat-bite injury. Clinical concern for abscess. COMPARISON STUDY: CT scan of the right wrist dated 12/07/2017. Radiographs of the right hand dated 12/05/2017. TECHNIQUE: MRI of the right wrist is performed utilizing various T1 and T2-weighted sequences in the axial, sagittal, and coronal planes. IV contrast was not administered for this examination. The Examination is significantly compromised by motion artifact. FINDINGS: There is no MRI evidence of fracture. 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 This is greatest involving the lateral carpal bones. There is extensive tearing of the triangular fibrocartilage with fluid in the distal radioulnar joint. A large degenerative geode is present within the radial head. There is nonspecific soft tissue edema present around the wrist, greatest along the dorsal surface. This involves the superficial and deep soft tissues. There is significant fluid identified surrounding the flexor tendons at the level of the carpal bones. No fluid collection is suggested within the overlying subcutaneous soft tissues. The regional musculature appears atrophic. IMPRESSION: 1. Significantly motion compromised examination. This degrades diagnostic utility. 2. No acute bony abnormality is suspected. 3. Arthritic change and tearing of the trigone fibrocartilage is above. 4. Superficial and deep soft tissue edema is present around the wrist, greatest dorsally. 5. There are large pockets of fluid present along the course of the extensor tendons. This likely represents tenosynovitis. Superimposed infection would be possible exclude and clinical correlation will be required. 6. No subcutaneous soft tissue fluid collection is identified. Assessment & Plan Assessment: Infected Right hand due to Cat bite. Plan: MRI as noted above. Plan for I&D today by Dr Monreal. Continue elevation IV antibx- Vanco and Unasyn (1) Cellulitis of right hand
[2017-12-10] MEDS: FINASTERIDE 5 MG TAB PO SCH (09:05)
[2017-12-10] MEDS: ASPIRIN 325 MG ECTAB PO SCH (09:05)
[2017-12-10] MEDS: AMIODARONE 200 MG TAB PO SCH (09:05)
[2017-12-10] MEDS ORDERED: BACITRACIN 50000 UNIT VIAL ONE (15:06)
[2017-12-10] MEDS ORDERED: BUPIVACAINE 0.5 % 5 MG/1 ML MPF 30ML VIAL ONE (15:06)
[2017-12-10] MEDS ORDERED: PROPOFOL IV EMULSION 10 MG/ML 20 ML VIAL IV ONE (15:59)
[2017-12-10] MEDS ORDERED: FENTANYL CITRATE INJ 50 MCG/1 ML 2 ML VIAL ONE (15:59)
[2017-12-10] MEDS ORDERED: ONDANSETRON INJ 2 MG/ML 2 ML VIAL ONE (15:59)
[2017-12-10] MEDS ORDERED: LIDOCAINE HCL 2% 2 ML VIAL (20MG/ML) ONE (15:59)
[2017-12-10] MEDS ORDERED: ONDANSETRON INJ 2 MG/ML 2 ML VIAL IV PRN (16:00)
[2017-12-10] MEDS ORDERED: EpHEDrine SULFATE INJ 50 MG/ML AMP IV PRN (16:00)
[2017-12-10] MEDS ORDERED: ATROPINE SULFATE 0.1 MG/ML 5ML SYR IV PRN (16:00)
[2017-12-10] MEDS ORDERED: FENTANYL CITRATE INJ 50 MCG/1 ML 2 ML VIAL IV PRN (16:00)
--- NOTE | 2017-12-10 16:40 | History & Physical Bridge Note ---
H&P Re-Evaluation Bridge Note: I have examined the patient, reviewed the History & Physical and in the interval since the performance of the History & Physical I have noted the following changes of clinical significance: No changes noted I saw him in the preop holding area, we discussed the findings of the CAT scan which shows extensor tenosynovitis in the second third and fourth extensor compartments. We discussed risks and benefits and reasonable outcomes of surgery with extensor tenosynovectomy of the right wrist will plan for for surgical intervention shortly
[2017-12-10] MEDS ORDERED: EpHEDrine SULFATE INJ 50 MG/ML AMP ONE (16:55)
--- NOTE | 2017-12-10 17:39 | [facility] Post Operative Brief Note ---
Immediate Operative Summary Operative Date Dec 10, 2017. Pre-Operative Diagnosis Right hand extensor tenosynovitis Post-Operative Diagnosis Right hand extensor tenosynovitis Procedure(s) Performed Right extensor tendon wash out (extensor tenosynovectomy) Surgeon Dr. Estrada Monroe Trimmer Helper Surgeon(s) none Estimated Blood Loss 10ml Findings Consistent with Post-Op Diagnosis Specimens Microbiology- #1: Right hand extensor tenosynovitis-culture and sensitivity, gram stain, anaerobic, aerobic #2: Right hand extensor tenosynovitis deep-culture and sensitivity, gram stain, anaerobic, aerobic Drains None Anesthesia Type General Complication(s) none Disposition Disposition: Recovery Room / PACU
--- NOTE | 2017-12-10 18:35 | Anesthesiology Progress Note ---
Anesthesia Post Op Note Date & Time Dec 10, 2017 at 18:34 Vital Signs Pain Intensity: 0 Vital Signs Past 12 Hours Date Time Temp Pulse Resp B/P (MAP) Pulse Ox O2 Delivery O2 Flow Rate FiO2 12/10/17 18:11 151/70 12/10/17 18:10 36.6 66 22 146/73 (106) 98 Nasal Cannula 2 Oxymask 12/10/17 18:10 66 22 98 12/10/17 18:10 71 22 12/10/17 18:09 65 24 96 12/10/17 18:09 65 24 12/10/17 18:07 146/73 12/10/17 18:04 62 24 100 12/10/17 18:04 58 24 12/10/17 18:02 136/87 12/10/17 17:59 62 25 12/10/17 17:59 63 25 100 12/10/17 17:58 58 24 12/10/17 17:58 61 24 100 12/10/17 17:56 147/74 12/10/17 17:53 63 23 100 12/10/17 17:53 57 23 12/10/17 17:51 134/65 12/10/17 17:49 140/64 12/10/17 17:48 36.4 68 16 140/64 (88) 99 Oxymask 10 12/10/17 17:48 60 12/10/17 17:48 60 99 12/10/17 16:16 36.7 86 16 164/62 (96) 97 Room Air 12/10/17 15:15 Room Air 12/10/17 12:46 99/65 (76) 12/10/17 07:30 94 Room Air 12/10/17 07:13 36.6 59 16 169/71 (103) 94 Room Air Notes Mental Status: alert / awake / arousable, participated in evaluation Pt Amnestic to Procedure: Yes Nausea / Vomiting: adequately controlled Pain: adequately controlled Airway Patency, RR, SpO2: stable & adequate BP & HR: stable & adequate Hydration State: stable & adequate Anesthetic Complications: no major complications apparent
--- NOTE | 2017-12-10 19:42 | OPERATIVE REPORT ---
DATE OF OPERATION: 12/10/2017 PREOPERATIVE DIAGNOSES: 1. Right wrist extensor tenosynovitis, extensor pollicis longus tendon. 2. Right wrist extensor tenosynovitis, extensor carpi radialis brevis tendon. 3. Right wrist extensor tenosynovitis, extensor carpi radialis longus tendon. 4. Right wrist extensor tenosynovitis, extensor digitorum communis tendons. 5. Right wrist extensor tenosynovitis, extensor indicis proprius tendon. POSTOPERATIVE DIAGNOSES: 1. Right wrist extensor tenosynovitis, extensor pollicis longus tendon. 2. Right wrist extensor tenosynovitis, extensor carpi radialis brevis tendon. 3. Right wrist extensor tenosynovitis, extensor carpi radialis longus tendon. 4. Right wrist extensor tenosynovitis, extensor digitorum communis tendons. 5. Right wrist extensor tenosynovitis, extensor indicis proprius tendon. PROCEDURE: 1. Right wrist extensor tenosynovectomy, extensor pollicis longus tendon. 2. Right wrist extensor tenosynovectomy, extensor carpi radialis brevis tendon. 3. Right wrist extensor tenosynovectomy, extensor carpi radialis longus tendon. 4. Right wrist extensor tenosynovectomy, extensor digitorum communis tendons. 5. Right wrist extensor tenosynovectomy, extensor indicis proprius tendon. ANESTHESIA: General. INDICATIONS: This gentleman has progressive pain and swelling of the dorsal aspect of the wrist. He presents with a cat bite in the region of the MP joint. He presents with concern for extensor tenosynovitis. I repeated his MRI which did show extensive tenosynovectomy in the 2nd, 3rd and 4th extensor compartments. I saw him in the preoperative holding area. We discussed risks, benefits and reasonable outcomes. The risks and benefits have been discussed including, but not limited to, risk of infection, nerve injury, stiffness, loss of motion, failure to improve, etc. Reasonable outcomes and options of treatment were discussed. An explanation of appropriate alternatives to the procedure that may be advantageous were discussed and their risks and benefits, as well as the risks and benefits of not proceeding with treatment. I offered to answer any additional inquiries concerning the treatment involved. All the patient's questions were answered. The patient is agreeable, understanding of the treatment plan and alternatives, and wishes to proceed with the treatment plan. DESCRIPTION OF PROCEDURE: I made a longitudinal incision over the region of the EPL tendon and this was distally brought forward in a radial direction. Dissection was carried down through the skin and subcutaneous tissues. Sensory nerve branches were retracted free. EPL tendon was identified and I incised this and transpose the tendon. There is significant extensor tenosynovitis of the EPL tendon. I performed extensor tenosynovectomy in the EPL tendon from the level of the first metacarpal down to the level of the distal radius. I then opened the second extensor compartment and there was significantly large amount of extensor tenosynovitis of both the ECRB and ECRL tendons. I debrided these tendon performing extensor tenosynovectomy of the 2 wrist extensors. I then operated the fourth extensor compartment and performed extensive tenosynovectomy of the EDC tendons. There was also significant extensor tenosynovitis in that area and I performed extensive extensor tenosynovectomy from the region of the metacarpal down to the distal radius. The extensor retinaculum was opened for this. I then identified the EIP tendon and I debrided tenosynovitis performing extensive tenosynovectomy in the EIP tendon. This was very well adhesed down to the wrist. I freed this up. Once this was accomplished, the patient had better passive motion of the digits. Tourniquet let down, hemostasis was obtained with bipolar electrocautery. I copiously irrigated it with 3 liters of bacitracin impregnated normal saline and the extensor retinaculum was closed with 4-0 Monocryl. The skin was closed with 4-0 nylon. After I closed the skin incision, I injected Marcaine in the local area for pain control. The patient was placed in a soft dressing and sent to the PACU in stable condition. Postoperative plan will be range of motion of the digits as tolerated. I placed packing in the wound. Plan to remove the packing in approximately 24-48 hours. I attest to the content of the Intraoperative Record and any orders documented therein. Any exception s are noted below.
[2017-12-10] MEDS: LORAZEPAM 0.5 MG TAB PO PRN (19:53)
[2017-12-10] MEDS: ACETAMINOPHEN 325 MG TAB PO PRN ×2 (19:54→23:29)
[2017-12-10] MEDS ORDERED: OXYCODONE HCL IR 5 MG TAB (IMMEDIATE RELEASE) PO STA (20:08)
[2017-12-10] MEDS ORDERED: MoRPHine SULFATE 4 MG/ML 1 ML CARP\\VIAL IV PRN (20:15)
--- NOTE | 2017-12-10 20:50 | Progress Note ---
Medicine Progress Note Date & Time of Visit: Dec 10, 2017 at 16:30. Subjective 81 yo M presents s/p kitten bite at home >1 week ago, worsening R hand cellulitis with decreased ROM and significant swelling, refractory to initial abx therapy. Redness and especially swelling had improved somewhat on IV Vanc and Unasyn, however, areas of fluctuance were a concern to the hand surgeon. He went for a washout today in the OR and is doing well post-operatively. Pain is present and he is somewhat emotional and anxious. Mentating well. Objective Last 8 Hrs Date Time Temp Pulse Resp B/P (MAP) Pulse Ox O2 Delivery O2 Flow Rate FiO2 12/10/17 16:16 36.7 86 16 164/62 (96) 97 Room Air 12/10/17 15:15 Room Air 12/10/17 12:46 99/65 (76) Physical Exam: GEN: obese, in no acute distress, alert and appropriate, somewhat emotional/ tearful HEENT: NC/AT, normal sclerae, MMM CARDIO: reg rate, S1/2 heard without m/g/r LUNGS: CTA bilaterally, no crackles, rales or wheezes, good diaphragmatic excursion ABD: soft, non-tender, non-distended, no rebound or guarding, +BS EXTREMITY: R hand wrapped with RANDI and ice pack. Fingers exposed and are warm to the touch. Moves digits. SKIN: warm and dry and R hand as above. Laboratory Results: 12/08/17 08:40 Red Blood Count 3.65, Mean Corpuscular Volume 91.0, Mean Corpuscular Hemoglobin 29.9, Mean Corpuscular Hemoglobin Concent 32.8, Mean Platelet Volume 10.3, Neutrophils (%) (Auto) 71.4, Lymphocytes (%) (Auto) 12.5, Monocytes (%) (Auto) 14.5, Eosinophils (%) (Auto) 0.3, Basophils (%) (Auto) 0.3, Neutrophils # (Auto ) 6.15, Lymphocytes # (Auto) 1.08, Monocytes # (Auto) 1.25, Eosinophils # (Auto ) 0.03, Basophils # (Auto) 0.03 12/08/17 08:40 Test 12/05/17 16:24 12/06/17 15:40 12/08/17 00:20 12/08/17 08:40 Erythrocyte Sedimentation Rate 49 mm/hr (0-14) Total Bilirubin 0.5 mg/dl (0.2-1) Direct Bilirubin 0.1 mg/dl (0-0.2) Aspartate Amino Transf (AST/SGOT) 18 U/L (15-37) Alanine Aminotransferase (ALT/SGPT) 27 U/L (12-78) Alkaline Phosphatase 62 U/L (45-117) C-Reactive Protein 14.00 mg/dl (0-0.29) Total Protein 7.8 gm/dl (6.4-8.2) Albumin 3.5 gm/dl (3.4-5.0) Prothrombin Time 10.5 SECONDS (9.0-12.0) Prothromb Time International Ratio 1.0 (0.9-1.1) Vancomycin Level Trough 12.8 mcg/ml (SEE COMMENT) White Blood Count 8.63 K/uL (4.8-10.8) Red Blood Count 3.65 M/uL (4.7-6.1) Hemoglobin 10.9 g/dL (14.0-18.0) Hematocrit 33.2 % (42-52) Mean Corpuscular Volume 91.0 fL (80-100) Mean Corpuscular Hemoglobin 29.9 pg (25-34) Mean Corpuscular Hemoglobin Concent 32.8 g/dl (32-36) Platelet Count 202 K/uL (130-400) Mean Platelet Volume 10.3 fL (7.4-10.4) Neutrophils (%) (Auto) 71.4 % Lymphocytes (%) (Auto) 12.5 % Monocytes (%) (Auto) 14.5 % Eosinophils (%) (Auto) 0.3 % Basophils (%) (Auto) 0.3 % Neutrophils # (Auto) 6.15 K/uL (1.4-6.5) Lymphocytes # (Auto) 1.08 K/uL (1.2-3.4) Monocytes # (Auto) 1.25 K/uL (0.11-0.59) Eosinophils # (Auto) 0.03 K/uL (0-0.5) Basophils # (Auto) 0.03 K/uL (0-0.2) RDW Standard Deviation 43.3 fL (36.4-46.3) RDW Coefficient of Variation 12.9 % (11.5-14.5) Immature Granulocyte % (Auto) 1.0 % Immature Granulocyte # (Auto) 0.09 K/uL (0.00-0.02) Anion Gap 7.0 mmol/L (3-11) Est Creatinine Clear Calc Drug Dose 69.4 ml/min Estimated GFR () 87.7 Estimated GFR (Non- 75.7 BUN/Creatinine Ratio 25.5 (10-20) Calcium Level 8.4 mg/dl (8.5-10.1) Magnesium Level 2.1 mg/dl (1.8-2.4) Date/Time Source Procedure Growth Status 12/05/17 16:39 Blood Blood Culture - Preliminary NO GROWTH TO DATE. Resulted 12/10/17 17:17 Drainage-Deep Hand Right Gram Stain Pending Received 12/10/17 17:17 Drainage-Deep Hand Right Bacterial Culture Pending Received Assessment & Plan 81 yo M presents s/p kitten bite at home >1 week ago, worsening R hand cellulitis with decreased ROM and significant swelling, refractory to initial abx therapy. Redness and especially swelling had improved somewhat on IV Vanc and Unasyn, however, areas of fluctuance were a concern to the hand surgeon. He went for a washout today in the OR and is doing well post-operatively. Pain is present and he is somewhat emotional and anxious. Mentating well. 1. R hand cellulitis 2/[address]/MRI revealed fluid collections. He is s /p washout in the OR by Dr. Monreal this afternoon. Cont IV abx 2. Afib-stable, cont amio and ASA 3. BPH-chronic, cont Hytrin and finasteride 4. Hypothyroidism-cont Synthroid 5. Chronic steroid use > 6 months-uncertain indication. Encouraged patient to review this with Dr. Howe as outpatient. We discussed the pros and cons of manager long term care steroid use briefly and other options such as a referral to Rheumatology. Pt verbalized understanding with intent to comply. Cont prednisone perioperatively. 6. CKD III-at baseline. 7. Anemia-likely mutifactorial 2/2 dilution from IVF and excessive phlebotomy. No indication for transfusion. DVT proph: Lovenox Full Code Dispo-likely hospitalized for the next 2-3 days until hand improves. Tatyana Horvath DO [facility] Hospitalist Consultants: Joceline Current Inpatient Medications: Current Inpatient Medications Medications (Trade) Dose Ordered Sig/Ron Route Start Time Stop Time Status Last Admin Dose Admin Acetaminophen (Tylenol Tab) 650 mg Q4H PRN PO 12/05/17 19:45 01/04/18 19:44 12/08/17 23:03 650 MG Al Hydrox/Mg Hydrox/Simethicone (Maalox Max Susp) 15 ml Q4H PRN PO 12/05/17 19:45 01/04/18 19:44 Polyethylene (Miralax Powder Packet) 17 gm DAILY PRN PO 12/06/17 01:30 01/05/18 01:29 Ondansetron HCl (Zofran Inj) 4 mg Q6H PRN IV 12/05/17 19:45 01/04/18 19:44 Aspirin (Ecotrin Tab) 325 mg QAM PO 12/06/17 09:00 01/05/18 08:59 12/10/17 09:05 325 MG Finasteride (Proscar Tab) 5 mg QAM PO 12/06/17 09:00 01/05/18 08:59 12/10/17 09:05 5 MG Levothyroxine Sodium (Synthroid Tab) 175 mcg DAILYBB PO 12/06/17 06:00 01/05/18 05:59 12/10/17 05:32 175 MCG Lorazepam (Ativan Tab) 0.5 mg TID PRN PO 12/05/17 19:45 01/04/18 19:44 12/09/17 22:13 0.5 MG Prednisone (PredniSONE TAB) 5 mg DAILY PO 12/06/17 09:00 01/05/18 08:59 12/10/17 09:05 5 MG Terazosin HCl (Hytrin Cap) 5 mg QPM PO 12/05/17 21:00 01/04/18 20:59 12/09/17 22:10 5 MG Amiodarone HCl (Cordarone Tab) 100 mg DAILY PO 12/06/17 09:00 01/05/18 08:59 12/10/17 09:05 100 MG Calcium/Vitamin D (Caltrate Plus Tab) 1 tab Q2D PO 12/07/17 09:00 01/06/18 08:59 12/09/17 08:10 1 TAB Ampicillin Sodium/ Sulbactam Sodium 1500 mg/Sodium Chloride 104 ml @ 200 mls/hr Q6H IV 12/06/17 00:00 12/16/17 00:00 12/10/17 14:04 200 MLS/HR Miscellaneous Information (Consult) 1 ea UD PRN N/A 12/05/17 19:45 01/04/18 19:44 Vancomycin HCl 1500 mg/Sodium Chloride 530 ml @ 200 mls/hr Q16H IV 12/06/17 17:00 12/16/17 16:59 12/10/17 00:28 200 MLS/HR Enoxaparin Sodium (Lovenox Inj) 40 mg QAM SQ 12/07/17 09:00 01/06/18 08:59 Future Hold 12/09/17 08:12 40 MG Ioversol (Optiray 320) 111 ml UD PRN IV 12/07/17 17:15 12/11/17 17:14 Fentanyl Citrate (Fentanyl Inj) 25 mcg Q5M PRN IV 12/10/17 16:00 12/10/17 21:00 Ondansetron HCl (Zofran Inj) 4 mg ONE PRN IV 12/10/17 16:00 12/10/17 21:00 Ephedrine Sulfate (EpHEDrine SULFATE INJ) 5 mg Q5M PRN IV 12/10/17 16:00 12/10/17 21:00 Atropine Sulfate (Atropine Sulfate 0.1mg/ml Inj) 0.5 mg Q1M PRN IV 12/10/17 16:00 12/10/17 21:00
[2017-12-11] MEDS: AMPICILLIN/SULBACTAM SOD INJ 1,500 MG in SODIUM CHLORIDE 0.9% 100ML 100 ML IV SCH ×4 (01:56→20:37)
[2017-12-11 03:27] VITALS: BP 143/75; PULSE 62; TEMP 36.7; O2SAT 97
[2017-12-11] MEDS: LEVOTHYROXINE 175 MCG TAB PO SCH (05:56)
[2017-12-11 07:06] VITALS: BP 143/73; PULSE 71; TEMP 36.8; O2SAT 93
[2017-12-11 07:35] VITALS: O2SAT 93
[2017-12-11 08:06] LABS: HEMATOCRIT 34.7 % (42-52); HEMOGLOBIN 11.6 g/dL (14.0-18.0); MEAN CELL VOLUME 91.3 fL (80-100); MEAN CORPUSCULAR HEMOGLOBIN 30.5 pg (25-34); MEAN CORPUSCULAR HGB CONC 33.4 g/dl (32-36); MEAN PLATELET VOLUME 10.2 fL (7.4-10.4); PLATELET COUNT 271 K/uL (130-400); RED CELL DISTRIBUTION WIDTH CV 12.9 % (11.5-14.5); RED CELL DISTRIBUTION WIDTH SD 43.2 fL (36.4-46.3); WHITE BLOOD COUNT 10.38 K/uL (4.8-10.8)
[2017-12-11 08:29] LABS: CALCIUM 8.4 mg/dl (8.5-10.1); CREATININE 1.14 mg/dl (0.60-1.40); POTASSIUM 3.9 mmol/L (3.5-5.1)
[2017-12-11] MEDS ORDERED: VANCOMYCIN TROUGH ONE (08:30)
[2017-12-11] MEDS: AMIODARONE 200 MG TAB PO SCH (08:53)
[2017-12-11] MEDS: ASPIRIN 325 MG ECTAB PO SCH (08:53)
[2017-12-11] MEDS: CALCIUM 600MG + VIT D 400 IU TAB PO SCH (08:53)
[2017-12-11] MEDS: FINASTERIDE 5 MG TAB PO SCH (08:54)
--- NOTE | 2017-12-11 09:13 | Orthopedic Progress Note ---
Orthopedic Progress Note Date of Service Dec 11, 2017. Subjective Post OP Day: 1 Reports: feeling well Additional Notes: Pt is pod 1 after extensive I&D of the right hand. Pt states it hurts this AM. He was hoping it would feel better today. Discussed that he had tenosynovitis of the wrist and 5 tendons needed to washed out so it would not be unusual to have some pain this AM. Pt understands and is tolerating very well. Objective Dressings C/D/I. Fingers swollen. Good sensation in all fingers. Cap refill < 2 seconds. Date Time Temp Pulse Resp B/P (MAP) Pulse Ox O2 Delivery O2 Flow Rate FiO2 12/11/17 07:06 36.8 71 18 143/73 (96) 93 Room Air 12/11/17 03:27 36.7 62 18 143/75 (97) 97 Room Air 12/10/17 23:30 Room Air 12/10/17 23:15 36.6 63 18 122/61 (81) 92 Room Air 12/10/17 21:40 36.6 69 18 145/76 (99) 95 Room Air 12/10/17 20:40 36.4 63 18 157/62 (93) 93 Room Air 12/10/17 19:40 36.4 67 18 155/77 (103) 94 Nasal Cannula 2.0 12/10/17 19:10 36.4 63 18 161/72 (101) 97 Nasal Cannula 2.0 12/10/17 18:40 36.4 61 18 161/71 (101) 93 Nasal Cannula 2.0 12/10/17 18:40 93 Nasal Cannula 2.0 12/10/17 18:11 151/70 12/10/17 18:10 36.6 66 22 146/73 (106) 98 Nasal Cannula 2 Oxymask 12/10/17 18:10 66 22 98 12/10/17 18:10 71 22 12/10/17 18:09 65 24 96 12/10/17 18:09 65 24 12/10/17 18:07 146/73 12/10/17 18:04 62 24 100 12/10/17 18:04 58 24 12/10/17 18:02 136/87 12/10/17 17:59 62 25 12/10/17 17:59 63 25 100 12/10/17 17:58 58 24 12/10/17 17:58 61 24 100 12/10/17 17:56 147/74 12/10/17 17:53 63 23 100 12/10/17 17:53 57 23 12/10/17 17:51 134/65 12/10/17 17:49 140/64 12/10/17 17:48 36.4 68 16 140/64 (88) 99 Oxymask 10 12/10/17 17:48 60 12/10/17 17:48 60 99 12/10/17 16:16 36.7 86 16 164/62 (96) 97 Room Air 12/10/17 15:15 Room Air 12/10/17 12:46 99/65 (76) Laboratory Results 24 Hours: Test 12/11/17 07:47 Hematocrit 34.7 % Hemoglobin 11.6 g/dL Assessment & Plan Assessment: 1. Right wrist extensor tenosynovitis, extensor pollicis longus tendon. 2. Right wrist extensor tenosynovitis, extensor carpi radialis brevis tendon. 3. Right wrist extensor tenosynovitis, extensor carpi radialis longus tendon. 4. Right wrist extensor tenosynovitis, extensor digitorum communis tendons. 5. Right wrist extensor tenosynovitis, extensor indicis proprius tendon. Plan: POD 1 s/p I&D of Right hand Continue IV antibx Follow Cx's (1) Cellulitis of right hand Inhouse Planning Pain Management: Morphine, Oxy IR
--- NOTE | 2017-12-11 09:45 | Pharmacy Progress Note ---
Pharmacy Antibiotic Prog Note Date of Service Dec 11, 2017. Subjective The patient is currently receiving vancomycin 1500 mg iv q 16 hrs The patient is currently on day # 5 of IV therapy. Objective Height (Feet): 5 Height (Inches): 9.00 Weight (Kilograms): 97.800 Levels: Item Value Date Time Vancomycin Level Trough 14.9 mcg/ml 12/11/17 0747 Vancomycin Level Trough 12.8 mcg/ml 12/08/17 0020 Lab Results (24hrs): Test 12/11/17 07:47 White Blood Count 10.38 K/uL (4.8-10.8) Red Blood Count 3.80 M/uL (4.7-6.1) Hemoglobin 11.6 g/dL (14.0-18.0) Hematocrit 34.7 % (42-52) Mean Corpuscular Volume 91.3 fL (80-100) Mean Corpuscular Hemoglobin 30.5 pg (25-34) Mean Corpuscular Hemoglobin Concent 33.4 g/dl (32-36) RDW Standard Deviation 43.2 fL (36.4-46.3) RDW Coefficient of Variation 12.9 % (11.5-14.5) Platelet Count 271 K/uL (130-400) Mean Platelet Volume 10.2 fL (7.4-10.4) Sodium Level 140 mmol/L (136-145) Potassium Level 3.9 mmol/L (3.5-5.1) Chloride Level 105 mmol/L (98-107) Carbon Dioxide Level 28 mmol/L (21-32) Anion Gap 7.0 mmol/L (3-11) Blood Urea Nitrogen 20 mg/dl (7-18) Creatinine 1.14 mg/dl (0.60-1.40) Est Creatinine Clear Calc Drug Dose 56.6 ml/min Estimated GFR () 68.5 Estimated GFR (Non- 59.1 BUN/Creatinine Ratio 17.5 (10-20) Random Glucose 103 mg/dl (70-99) Calcium Level 8.4 mg/dl (8.5-10.1) Vancomycin Level Trough 14.9 mcg/ml (SEE COMMENT) Micro Results: Item Value Date Time Gram Stain - Final Resulted 12/10/17 1717 Drainage-Deep Hand Right Gram Stain - Final Resulted 12/10/17 1700 Drainage-Deep Hand Right Blood Culture - Final Complete 12/05/17 1639 Blood NO GROWTH Blood Culture - Final Complete 12/05/17 1624 Blood NO GROWTH Assessment & Plan Patient on vancomycin and unasyn for skin/soft tissue infection (cat bite). Blood cultures x 2 are no growth. Cultures from I&D on 12/10 are pending. Vancomycin: * Trough level this am was therapeutic at ~15 mcg/ml (goal 15-20 mcg/ml for abscess infection, patient now s/p I&D so if no further drainage a trough 10-15 mcg/ml is appropriate) * Scr increasing more today, now at 1.14 mg/dL (CrCl ~56 ml/min) - will monitor closely * Will continue with current regimen and f/u with culture results Pharmacy will continue to follow and will adjust dose/frequency as necessary. Thank you
--- NOTE | 2017-12-11 09:55 | Anesthesiology Progress Note ---
Anesthesia Post Op Note Date & Time Dec 11, 2017 at 09:54 Vital Signs Vital Signs Past 12 Hours Date Time Temp Pulse Resp B/P (MAP) Pulse Ox O2 Delivery O2 Flow Rate FiO2 12/11/17 07:06 36.8 71 18 143/73 (96) 93 Room Air 12/11/17 03:27 36.7 62 18 143/75 (97) 97 Room Air 12/10/17 23:30 Room Air 12/10/17 23:15 36.6 63 18 122/61 (81) 92 Room Air Notes Mental Status: alert / awake / arousable, participated in evaluation Pt Amnestic to Procedure: Yes Nausea / Vomiting: adequately controlled Pain: adequately controlled Airway Patency, RR, SpO2: stable & adequate BP & HR: stable & adequate Hydration State: stable & adequate Anesthetic Complications: no major complications apparent
[2017-12-11] MEDS: VANCOMYCIN INJ 1,500 MG in SODIUM CHLORIDE 0.9% 500ML 500 ML IV SCH ×2 (10:27→23:52)
[2017-12-11 12:02] VITALS: BP 132/69; PULSE 71; TEMP 36.7; O2SAT 92
[2017-12-11] MEDS: OXYCODONE HCL IR 5 MG TAB (IMMEDIATE RELEASE) PO PRN (13:18)
[2017-12-11 15:22] VITALS: BP 131/66; PULSE 71; TEMP 36.6; O2SAT 93
--- NOTE | 2017-12-11 18:08 | Progress Note ---
Medicine Progress Note Date & Time of Visit: Dec 11, 2017 at 18:05. Subjective -pt has some pain -still emotional regarding at home and expresses interest in getting home malcolm -tolerating PO -ambulatory -cannot extend fingers much today and that bothers him. Objective Last 8 Hrs Date Time Temp Pulse Resp B/P (MAP) Pulse Ox O2 Delivery O2 Flow Rate FiO2 12/11/17 15:45 Room Air 12/11/17 15:22 36.6 71 20 131/66 (87) 93 Room Air 12/11/17 12:02 36.7 71 19 132/69 (90) 92 Room Air Physical Exam: GEN: obese, in no acute distress, alert and appropriate HEENT: NC/AT, normal sclerae, MMM CARDIO: reg rate, S1/2 heard without m/g/r LUNGS: CTA bilaterally, no crackles, rales or wheezes, good diaphragmatic excursion ABD: soft, non-tender, non-distended, no rebound or guarding, +BS EXTREMITY: R hand wrapped with RANDI Fingers exposed and are warm to the touch. Sensation intact in hand. SKIN: warm and dry and R hand as above. Laboratory Results: 12/11/17 07:47 12/11/17 07:47 Test 12/05/17 16:24 12/06/17 15:40 12/08/17 08:40 12/11/17 07:47 Erythrocyte Sedimentation Rate 49 mm/hr (0-14) Total Bilirubin 0.5 mg/dl (0.2-1) Direct Bilirubin 0.1 mg/dl (0-0.2) Aspartate Amino Transf (AST/SGOT) 18 U/L (15-37) Alanine Aminotransferase (ALT/SGPT) 27 U/L (12-78) Alkaline Phosphatase 62 U/L (45-117) C-Reactive Protein 14.00 mg/dl (0-0.29) Total Protein 7.8 gm/dl (6.4-8.2) Albumin 3.5 gm/dl (3.4-5.0) Prothrombin Time 10.5 SECONDS (9.0-12.0) Prothromb Time International Ratio 1.0 (0.9-1.1) Immature Granulocyte % (Auto) 1.0 % White Blood Count 8.63 K/uL (4.8-10.8) Red Blood Count 3.65 M/uL (4.7-6.1) 3.80 M/uL (4.7-6.1) Hemoglobin 10.9 g/dL (14.0-18.0) Hematocrit 33.2 % (42-52) Mean Corpuscular Volume 91.0 fL (80-100) 91.3 fL (80-100) Mean Corpuscular Hemoglobin 29.9 pg (25-34) 30.5 pg (25-34) Mean Corpuscular Hemoglobin Concent 32.8 g/dl (32-36) 33.4 g/dl (32-36) Platelet Count 202 K/uL (130-400) Mean Platelet Volume 10.3 fL (7.4-10.4) 10.2 fL (7.4-10.4) Neutrophils (%) (Auto) 71.4 % Lymphocytes (%) (Auto) 12.5 % Monocytes (%) (Auto) 14.5 % Eosinophils (%) (Auto) 0.3 % Basophils (%) (Auto) 0.3 % Neutrophils # (Auto) 6.15 K/uL (1.4-6.5) Lymphocytes # (Auto) 1.08 K/uL (1.2-3.4) Monocytes # (Auto) 1.25 K/uL (0.11-0.59) Eosinophils # (Auto) 0.03 K/uL (0-0.5) Basophils # (Auto) 0.03 K/uL (0-0.2) Immature Granulocyte # (Auto) 0.09 K/uL (0.00-0.02) Magnesium Level 2.1 mg/dl (1.8-2.4) RDW Standard Deviation 43.2 fL (36.4-46.3) RDW Coefficient of Variation 12.9 % (11.5-14.5) Anion Gap 7.0 mmol/L (3-11) Est Creatinine Clear Calc Drug Dose 56.6 ml/min Estimated GFR () 68.5 Estimated GFR (Non- 59.1 BUN/Creatinine Ratio 17.5 (10-20) Calcium Level 8.4 mg/dl (8.5-10.1) Vancomycin Level Trough 14.9 mcg/ml (SEE COMMENT) Date/Time Source Procedure Growth Status 12/05/17 16:39 Blood Blood Culture - Final NO GROWTH Complete 12/10/17 17:17 Drainage-Deep Hand Right Gram Stain - Final Resulted 12/10/17 17:17 Drainage-Deep Hand Right Bacterial Culture - Preliminary NO GROWTH TO DATE. Resulted Last 24 Hours Test 12/11/17 07:47 White Blood Count 10.38 K/uL Red Blood Count 3.80 M/uL Hemoglobin 11.6 g/dL Hematocrit 34.7 % Mean Corpuscular Volume 91.3 fL Mean Corpuscular Hemoglobin 30.5 pg Mean Corpuscular Hemoglobin Concent 33.4 g/dl RDW Standard Deviation 43.2 fL RDW Coefficient of Variation 12.9 % Platelet Count 271 K/uL Mean Platelet Volume 10.2 fL Sodium Level 140 mmol/L Potassium Level 3.9 mmol/L Chloride Level 105 mmol/L Carbon Dioxide Level 28 mmol/L Anion Gap 7.0 mmol/L Blood Urea Nitrogen 20 mg/dl Creatinine 1.14 mg/dl Est Creatinine Clear Calc Drug Dose 56.6 ml/min Estimated GFR () 68.5 Estimated GFR (Non- 59.1 BUN/Creatinine Ratio 17.5 Random Glucose 103 mg/dl Calcium Level 8.4 mg/dl Vancomycin Level Trough 14.9 mcg/ml Assessment & Plan 81 yo M presents s/p kitten bite at home >1 week ago, worsening R hand cellulitis with decreased ROM and significant swelling, refractory to initial abx therapy. Redness and especially swelling had improved somewhat on IV Vanc and Unasyn, however, areas of fluctuance were a concern to the hand surgeon. He went for a washout today in the OR and is doing well post-operatively. Pain is present and he is somewhat emotional and anxious. Mentating well. 1. R hand cellulitis 2/2 cat bite with extensive extensor tenosynovitis s/p washout POD#1. Cont IV abx. Cultures negative to date. 2. Afib-stable, cont amio and ASA 3. BPH-chronic, cont Hytrin and finasteride 4. Hypothyroidism-cont Synthroid 5. Chronic steroid use > 6 months-uncertain indication. Encouraged patient to review this with Dr. Howe as outpatient. We discussed the pros and cons of halfway steroid use briefly and other options such as a referral to Rheumatology. Pt verbalized understanding with intent to comply. Cont prednisone perioperatively. 6. CKD III-at baseline. 7. Anemia-likely mutifactorial 2/2 dilution from IVF and excessive phlebotomy. No indication for transfusion. DVT proph: Lovenox Full Code Dispo-likely hospitalized for the next 2-3 days until hand improves. DO James Lechuga Hospitalist Consultants: Joceline Current Inpatient Medications: Current Inpatient Medications Medications (Trade) Dose Ordered Sig/Ron Route Start Time Stop Time Status Last Admin Dose Admin Acetaminophen (Tylenol Tab) 650 mg Q4H PRN PO 12/05/17 19:45 01/04/18 19:44 12/10/17 23:29 650 MG Al Hydrox/Mg Hydrox/Simethicone (Maalox Max Susp) 15 ml Q4H PRN PO 12/05/17 19:45 01/04/18 19:44 Polyethylene (Miralax Powder Packet) 17 gm DAILY PRN PO 12/06/17 01:30 01/05/18 01:29 Ondansetron HCl (Zofran Inj) 4 mg Q6H PRN IV 12/05/17 19:45 01/04/18 19:44 Aspirin (Ecotrin Tab) 325 mg QAM PO 12/06/17 09:00 01/05/18 08:59 12/11/17 08:53 325 MG Finasteride (Proscar Tab) 5 mg QAM PO 12/06/17 09:00 01/05/18 08:59 12/11/17 08:54 5 MG Levothyroxine Sodium (Synthroid Tab) 175 mcg DAILYBB PO 12/06/17 06:00 01/05/18 05:59 12/11/17 05:56 175 MCG Lorazepam (Ativan Tab) 0.5 mg TID PRN PO 12/05/17 19:45 01/04/18 19:44 12/10/17 19:53 0.5 MG Prednisone (PredniSONE TAB) 5 mg DAILY PO 12/06/17 09:00 01/05/18 08:59 12/11/17 08:53 5 MG Terazosin HCl (Hytrin Cap) 5 mg QPM PO 12/05/17 21:00 01/04/18 20:59 12/10/17 20:44 5 MG Amiodarone HCl (Cordarone Tab) 100 mg DAILY PO 12/06/17 09:00 01/05/18 08:59 12/11/17 08:53 100 MG Calcium/Vitamin D (Caltrate Plus Tab) 1 tab Q2D PO 12/07/17 09:00 01/06/18 08:59 12/11/17 08:53 1 TAB Ampicillin Sodium/ Sulbactam Sodium 1500 mg/Sodium Chloride 104 ml @ 200 mls/hr Q6H IV 12/06/17 00:00 12/16/17 00:00 12/11/17 13:39 200 MLS/HR Miscellaneous Information (Consult) 1 ea UD PRN N/A 12/05/17 19:45 01/04/18 19:44 Vancomycin HCl 1500 mg/Sodium Chloride 530 ml @ 200 mls/hr Q16H IV 12/06/17 17:00 12/16/17 16:59 12/11/17 10:27 200 MLS/HR Enoxaparin Sodium (Lovenox Inj) 40 mg QAM SQ 12/07/17 09:00 01/06/18 08:59 Future Hold 12/09/17 08:12 40 MG Oxycodone HCl (Roxicodone Immediate Rel Tab) 5 mg Q4H PRN PO 12/10/17 20:15 12/24/17 20:14 12/11/17 13:18 5 MG Morphine Sulfate (MoRPHine SULFATE INJ) 4 mg Q4H PRN IV 12/10/17 20:15 12/24/17 20:14 12/10/17 21:57 4 MG
[2017-12-11] MEDS: LORAZEPAM 0.5 MG TAB PO PRN (20:41)
[2017-12-11 23:54] VITALS: BP 150/76; PULSE 61; TEMP 36.8; O2SAT 96
[2017-12-12] VITALS (7 sets, daily range): BP systolic 158–175; BP diastolic 69–81; PULSE 57–80; TEMP 36.6–36.8; O2SAT 95–98
[2017-12-12] MEDS: AMPICILLIN/SULBACTAM SOD INJ 1,500 MG in SODIUM CHLORIDE 0.9% 100ML 100 ML IV SCH ×5 (03:22→20:39)
[2017-12-12] MEDS: LEVOTHYROXINE 175 MCG TAB PO SCH (05:10)
[2017-12-12 07:28] LABS: CREATININE 1.01 mg/dl (0.60-1.40)
[2017-12-12] MEDS: LORAZEPAM 0.5 MG TAB PO PRN ×2 (07:28→20:39)
[2017-12-12] MEDS: FINASTERIDE 5 MG TAB PO SCH (08:50)
[2017-12-12] MEDS: ASPIRIN 325 MG ECTAB PO SCH (08:50)
[2017-12-12] MEDS: ENOXAPARIN 40 MG/0.4 ML SYR SQ SCH (08:51)
[2017-12-12] MEDS: AMIODARONE 200 MG TAB PO SCH (08:51)
--- NOTE | 2017-12-12 12:36 | Orthopedic Progress Note ---
Orthopedic Progress Note Date of Service Dec 12, 2017. Subjective Reports: pain controlled w PO medications, Denies: chest pain, SOB, nausea / vomiting, light headedness, calf pain Additional Notes: Moderate right hand pain and swelling. No fevers or chills. Objective calves soft nontender, N/V intact, capillary refill less than 2 sec., A&O x3, toes mobile Dressing intact, some soak through dorsal dressing, 3" packing pulled, trace purulent discharge after packing pulled. Passive ROM with discomfort dorsal wrist, 1st and 2nd digits. Moderate swelling right wrist and hand. Moderate erythema dorsal wrist and hand. Date Time Temp Pulse Resp B/P (MAP) Pulse Ox O2 Delivery O2 Flow Rate FiO2 12/12/17 08:49 67 158/78 (104) 12/12/17 07:33 98 Room Air 12/12/17 07:28 80 163/69 (100) 12/12/17 06:51 36.6 61 17 174/80 (111) 98 Room Air 12/12/17 00:00 Room Air 12/11/17 23:54 36.8 61 18 150/76 (100) 96 Room Air 12/11/17 15:45 Room Air 12/11/17 15:22 36.6 71 20 131/66 (87) 93 Room Air Assessment & Plan Assessment: 1. Right wrist extensor tenosynovitis, extensor pollicis longus tendon. 2. Right wrist extensor tenosynovitis, extensor carpi radialis brevis tendon. 3. Right wrist extensor tenosynovitis, extensor carpi radialis longus tendon. 4. Right wrist extensor tenosynovitis, extensor digitorum communis tendons. 5. Right wrist extensor tenosynovitis, extensor indicis proprius tendon. 6. S/P cat bite right UE Plan: POD #2 s/p I&D of Right hand Continue IV antibx Follow Cx's NPO after midnight for possible repeat I and D right hand and dorsal extensors in AM. (1) Cellulitis of right hand Inhouse Planning Pain Management: Morphine, Oxy IR
[2017-12-12] MEDS: VANCOMYCIN INJ 1,500 MG in SODIUM CHLORIDE 0.9% 500ML 500 ML IV SCH (16:53)
--- NOTE | 2017-12-12 18:24 | Progress Note ---
Medicine Progress Note Date & Time of Visit: Dec 12, 2017 at 10:13. Subjective -pt still not able to move his fingers much -denies pain -feels guilty about being hospitalized when his sick is at home -tolerating PO -afebrile Objective Last 8 Hrs Date Time Temp Pulse Resp B/P (MAP) Pulse Ox O2 Delivery O2 Flow Rate FiO2 12/12/17 08:49 67 158/78 (104) 12/12/17 07:33 98 Room Air 12/12/17 07:28 80 163/69 (100) 12/12/17 06:51 36.6 61 17 174/80 (111) 98 Room Air Physical Exam: GEN: obese, in no acute distress, alert and appropriate HEENT: NC/AT, normal sclerae, MMM CARDIO: reg rate, S1/2 heard without m/g/r LUNGS: CTA bilaterally, no crackles, rales or wheezes, good diaphragmatic excursion ABD: soft, non-tender, non-distended, no rebound or guarding, +BS EXTREMITY: R hand wrapped with RANDI Fingers exposed and are warm to the touch. Sensation intact in hand. SKIN: warm and dry and R hand as above. Laboratory Results: 12/11/17 07:47 12/11/17 07:47 12/12/17 06:16 Test 12/05/17 16:24 12/06/17 15:40 12/08/17 08:40 12/11/17 07:47 Erythrocyte Sedimentation Rate 49 mm/hr (0-14) Total Bilirubin 0.5 mg/dl (0.2-1) Direct Bilirubin 0.1 mg/dl (0-0.2) Aspartate Amino Transf (AST/SGOT) 18 U/L (15-37) Alanine Aminotransferase (ALT/SGPT) 27 U/L (12-78) Alkaline Phosphatase 62 U/L (45-117) C-Reactive Protein 14.00 mg/dl (0-0.29) Total Protein 7.8 gm/dl (6.4-8.2) Albumin 3.5 gm/dl (3.4-5.0) Prothrombin Time 10.5 SECONDS (9.0-12.0) Prothromb Time International Ratio 1.0 (0.9-1.1) Immature Granulocyte % (Auto) 1.0 % White Blood Count 8.63 K/uL (4.8-10.8) Red Blood Count 3.65 M/uL (4.7-6.1) 3.80 M/uL (4.7-6.1) Hemoglobin 10.9 g/dL (14.0-18.0) Hematocrit 33.2 % (42-52) Mean Corpuscular Volume 91.0 fL (80-100) 91.3 fL (80-100) Mean Corpuscular Hemoglobin 29.9 pg (25-34) 30.5 pg (25-34) Mean Corpuscular Hemoglobin Concent 32.8 g/dl (32-36) 33.4 g/dl (32-36) Platelet Count 202 K/uL (130-400) Mean Platelet Volume 10.3 fL (7.4-10.4) 10.2 fL (7.4-10.4) Neutrophils (%) (Auto) 71.4 % Lymphocytes (%) (Auto) 12.5 % Monocytes (%) (Auto) 14.5 % Eosinophils (%) (Auto) 0.3 % Basophils (%) (Auto) 0.3 % Neutrophils # (Auto) 6.15 K/uL (1.4-6.5) Lymphocytes # (Auto) 1.08 K/uL (1.2-3.4) Monocytes # (Auto) 1.25 K/uL (0.11-0.59) Eosinophils # (Auto) 0.03 K/uL (0-0.5) Basophils # (Auto) 0.03 K/uL (0-0.2) Immature Granulocyte # (Auto) 0.09 K/uL (0.00-0.02) Magnesium Level 2.1 mg/dl (1.8-2.4) RDW Standard Deviation 43.2 fL (36.4-46.3) RDW Coefficient of Variation 12.9 % (11.5-14.5) Anion Gap 7.0 mmol/L (3-11) BUN/Creatinine Ratio 17.5 (10-20) Calcium Level 8.4 mg/dl (8.5-10.1) Vancomycin Level Trough 14.9 mcg/ml (SEE COMMENT) Test 12/12/17 06:16 Est Creatinine Clear Calc Drug Dose 63.9 ml/min Estimated GFR () 79.4 Estimated GFR (Non- 68.5 Date/Time Source Procedure Growth Status 12/05/17 16:39 Blood Blood Culture - Final NO GROWTH Complete 12/10/17 17:17 Drainage-Deep Hand Right Gram Stain - Final Resulted 12/10/17 17:17 Drainage-Deep Hand Right Bacterial Culture - Preliminary NO GROWTH TO DATE. Resulted Last 24 Hours Test 12/12/17 06:16 Creatinine 1.01 mg/dl Est Creatinine Clear Calc Drug Dose 63.9 ml/min Estimated GFR () 79.4 Estimated GFR (Non- 68.5 Assessment & Plan 81 yo M presents s/p kitten bite at home >1 week ago, worsening R hand cellulitis w tenosynovitis with decreased ROM and significant swelling, refractory to initial abx therapy. Redness and especially swelling had improved somewhat on IV Vanc and Unasyn, however, areas of fluctuance were a concern to the hand surgeon. He went for a washout in the OR and is doing well post-operatively but may need a second washout tomorrow. Pain is present and he is somewhat emotional and anxious. Mentating well. 1. R hand cellulitis 2/2 cat bite with extensive extensor tenosynovitis s/p washout POD#2. Cont IV abx. Cultures negative to date. Per Dr. Mercado may need second washout tomorrow. 2. HTN-likley situational. Scheduling tylenol for his pain. Encouraged nurses to be liberal with him. 3. Afib-stable, cont amio and ASA 4. BPH-chronic, cont Hytrin and finasteride 5. Hypothyroidism-cont Synthroid 6. Chronic steroid use > 6 months-uncertain indication. Encouraged patient to review this with Dr. Howe as outpatient. We discussed the pros and cons of senior living steroid use briefly and other options such as a referral to Rheumatology. Pt verbalized understanding with intent to comply. Cont prednisone perioperatively. 7. CKD III-at baseline. 8. Anemia-likely multifactorial 2/2 dilution from IVF and excessive phlebotomy. No indication for transfusion. DVT proph: Lovenox Full Code Dispo-likely hospitalized for the next 2-3 days until hand improves. DO [facility] Hospital[facility] Consultants: Joceline/Rogelio Current Inpatient Medications: Current Inpatient Medications Medications (Trade) Dose Ordered Sig/Ron Route Start Time Stop Time Status Last Admin Dose Admin Acetaminophen (Tylenol Tab) 650 mg Q4H PRN PO 12/05/17 19:45 01/04/18 19:44 12/10/17 23:29 650 MG Al Hydrox/Mg Hydrox/Simethicone (Maalox Max Susp) 15 ml Q4H PRN PO 12/05/17 19:45 01/04/18 19:44 Polyethylene (Miralax Powder Packet) 17 gm DAILY PRN PO 12/06/17 01:30 01/05/18 01:29 Ondansetron HCl (Zofran Inj) 4 mg Q6H PRN IV 12/05/17 19:45 01/04/18 19:44 Aspirin (Ecotrin Tab) 325 mg QAM PO 12/06/17 09:00 01/05/18 08:59 12/12/17 08:50 325 MG Finasteride (Proscar Tab) 5 mg QAM PO 12/06/17 09:00 01/05/18 08:59 12/12/17 08:50 5 MG Levothyroxine Sodium (Synthroid Tab) 175 mcg DAILYBB PO 12/06/17 06:00 01/05/18 05:59 12/12/17 05:10 175 MCG Lorazepam (Ativan Tab) 0.5 mg TID PRN PO 12/05/17 19:45 01/04/18 19:44 12/12/17 07:28 0.5 MG Prednisone (PredniSONE TAB) 5 mg DAILY PO 12/06/17 09:00 01/05/18 08:59 12/12/17 08:50 5 MG Terazosin HCl (Hytrin Cap) 5 mg QPM PO 12/05/17 21:00 01/04/18 20:59 12/11/17 20:37 5 MG Amiodarone HCl (Cordarone Tab) 100 mg DAILY PO 12/06/17 09:00 01/05/18 08:59 12/12/17 08:51 100 MG Calcium/Vitamin D (Caltrate Plus Tab) 1 tab Q2D PO 12/07/17 09:00 01/06/18 08:59 12/11/17 08:53 1 TAB Ampicillin Sodium/ Sulbactam Sodium 1500 mg/Sodium Chloride 104 ml @ 200 mls/hr Q6H IV 12/06/17 00:00 12/16/17 00:00 12/12/17 08:08 200 MLS/HR Miscellaneous Information (Consult) 1 ea UD PRN N/A 12/05/17 19:45 01/04/18 19:44 Vancomycin HCl 1500 mg/Sodium Chloride 530 ml @ 200 mls/hr Q16H IV 12/06/17 17:00 12/16/17 16:59 12/11/17 23:52 200 MLS/HR Enoxaparin Sodium (Lovenox Inj) 40 mg QAM SQ 12/07/17 09:00 01/06/18 08:59 Future hold 12/12/17 08:51 40 MG Oxycodone HCl (Roxicodone Immediate Rel Tab) 5 mg Q4H PRN PO 12/10/17 20:15 12/24/17 20:14 12/11/17 13:18 5 MG Morphine Sulfate (MoRPHine SULFATE INJ) 4 mg Q4H PRN IV 12/10/17 20:15 12/24/17 20:14 12/10/17 21:57 4 MG
[2017-12-12] MEDS: ACETAMINOPHEN 500 MG TAB PO SCH (21:26)
[2017-12-13] VITALS (9 sets, daily range): BP systolic 130–157; BP diastolic 65–78; PULSE 54–82; TEMP 36.2–36.7; O2SAT 93–98
[2017-12-13] MEDS: AMPICILLIN/SULBACTAM SOD INJ 1,500 MG in SODIUM CHLORIDE 0.9% 100ML 100 ML IV SCH ×4 (01:44→20:39)
[2017-12-13] MEDS: LEVOTHYROXINE 175 MCG TAB PO SCH (05:38)
[2017-12-13] MEDS: ACETAMINOPHEN 500 MG TAB PO SCH ×3 (05:39→21:57)
[2017-12-13] MEDS ORDERED: BACITRACIN 50000 UNIT VIAL ONE (08:11)
[2017-12-13] MEDS ORDERED: BUPIVACAINE 0.5 % 5 MG/1 ML MPF 30ML VIAL ONE (08:11)
--- NOTE | 2017-12-13 08:22 | History & Physical Bridge Note ---
H&P Re-Evaluation Bridge Note: I have examined the patient, reviewed the History & Physical and in the interval since the performance of the History & Physical I have noted the following changes of clinical significance: Continued purulent drainage right hand. Will perform Irrigation and Debridement right hand today. Consent on chart. NPO since MN.
[2017-12-13] MEDS ORDERED: MIDAZOLAM HCL 1 MG/ML 2ML VIAL ONE (08:26)
[2017-12-13] MEDS ORDERED: LIDOCAINE HCL 2% 2 ML VIAL (20MG/ML) ONE (08:27)
[2017-12-13] MEDS ORDERED: FENTANYL CITRATE INJ 50 MCG/1 ML 2 ML VIAL ONE (08:27)
[2017-12-13] MEDS ORDERED: ONDANSETRON INJ 2 MG/ML 2 ML VIAL ONE (08:27)
[2017-12-13] MEDS ORDERED: PROPOFOL IV EMULSION 10 MG/ML 20 ML VIAL IV ONE (08:27)
[2017-12-13] MEDS ORDERED: ATROPINE SULFATE 0.1 MG/ML 5ML SYR IV PRN (08:30)
[2017-12-13] MEDS ORDERED: EpHEDrine SULFATE INJ 50 MG/ML AMP IV PRN (08:30)
[2017-12-13] MEDS ORDERED: FENTANYL CITRATE INJ 50 MCG/1 ML 2 ML VIAL IV PRN (08:30)
[2017-12-13] MEDS ORDERED: EpHEDrine SULFATE 50MG/5ML SYR ONE (08:54)
[2017-12-13] MEDS: ENOXAPARIN 40 MG/0.4 ML SYR SQ SCH (09:00)
--- NOTE | 2017-12-13 09:39 | [facility] Post Operative Brief Note ---
Immediate Operative Summary Operative Date Dec 13, 2017. Pre-Operative Diagnosis 1. Abscess dorsal right wrist. 2. Infectious extensor tenosynovitis 3. Cat bite right dorsal base of the thumb/wrist Post-Operative Diagnosis 1. Abscess dorsal right wrist. 2. Infectious extensor tenosynovitis 3. Cat bite right dorsal base of the thumb/wrist Procedure(s) Performed 1. Evacuation abscess dorsal right wrist, 2. Debridement extensor retinaculum, 3. Debridement extensor pollicis longus , 4. Debridement and tenosynovectomy extensor digitorum communis 5. Debridement extensor carpi radialis longus 6. Debridement extensor carpi radialis brevis Surgeon Dr. Stewart Mercado Agricultural Scientist Surgeon(s) None Estimated Blood Loss 5ml Findings Consistent with Post-Op Diagnosis Specimens No speciemen per surgeon Drains 1/2" iodoform gauze Anesthesia Type General Regional Complication(s) none Disposition Accompanied Pt To Recover: no Disposition: Recovery Room / PACU
--- NOTE | 2017-12-13 11:56 | OPERATIVE REPORT ---
DATE OF OPERATION: 12/13/2017 PREOPERATIVE DIAGNOSES: 1. Right dorsal wrist abscess. 2. Infectious tenosynovitis. 3. Cat bite to the base of the thumb and dorsal radial wrist. POSTOPERATIVE DIAGNOSES: 1. Right dorsal wrist abscess. 2. Infectious tenosynovitis of the extensors of the right wrist including the extensor pollicis longus, the extensor digitorum communis, the extensor carpi radialis longus and the extensor carpi radialis brevis. 3. Cat bite. PROCEDURES: 1. Evacuation of abscess, right dorsal wrist. 2. Debridement of extensor retinaculum. 3. Debridement of extensive pollicis longus tendon. 4. Debridement and tenosynovectomy of the extensor digitorum communis tendons. 5. Debridement of the extensor carpi radialis longus. 6. Debridement of the extensor carpi radialis brevis. SURGEON: Dr. Mercado. AGRICULTURE MECHANIC: None. ANESTHESIA: General LMA with local. SPECIMENS: None. DRAINS: A 1/2-inch iodoform gauze. COMPLICATIONS: None. BLOOD LOSS: 5 mL. PERTINENT HISTORY: This is an 81-year-old gentleman who was bitten by a kitten at his home. He had pain and swelling, attempted to treat this as an outpatient, failed outpatient management, and presented to the hospital for IV antibiotics. He failed to progress with IV antibiotic treatment. He had further advanced imaging, which demonstrated extensor tenosynovitis with possible abscess formation and the surgery was then performed by Dr. Monreal on 12/10/2017. He was placed on IV antibiotics. Packing was gradually pooled in the next several days and then the patient had repeat abscess and inflammation of the dorsal extensors of the right wrist. He continued to have purulent discharge and was then scheduled for a repeat surgery as indicated. All potential risks, benefits, complications, alternatives, rehab, potential for incomplete relief of symptoms, need for further surgery, DVT, PE, , persistent pain, swelling, scarring, weakness, stiffness, and wound complications were discussed with the patient. The patient decided to proceed with the procedure as indicated. DESCRIPTION OF PROCEDURE: The patient was taken to the operative suite and placed supine on the operating room table. After reviewing the consent and identification of proper operative site, the patient was anesthetized and LMA was placed. Tourniquet was placed high on the right upper extremity over cast padding. Right upper extremity then had the sutures and packing removed and the right upper extremity was then sterilely prepped and draped in the usual fashion, elevated and the tourniquet was then inflated to 250 mmHg. There was no exsanguination performed due to the nature of the infection. Next, the dorsal incision was then opened with tenotomy scissors and a gentle retraction was performed with House retractors. There was noted to be abscess collection in the dorsal aspect of the right wrist. This was evacuated with limited use of pulsatile lavage with bacitracin. Next, the extensor retinaculum was explored. It was noted that the previous Monocryl closure had dehisced and the retinaculum was retracted radial and ulnarward. The Momocril sutures were then removed. A 15 blade scalpel and forceps were then used to gently debride the extensor retinaculum. The rongeur was then used to remove the organized clot and bacterial film from the extensor retinaculum back to normal healthy-appearing tissue. The extensor pollicis longus was then examined and noted to have some devitalization of the fibers of the tendon. This was then sharply debrided with a 15 blade scalpel and a rongeur. The healthy appearing tissue was left in place and retracted with a Ragnell. Next, the extensor digitorum communis was examined and noted to have some devitalized fibrils of the tendon which were noted to have been frayed, which were sharply excised with a 15 blade scalpel and a rongeur. Also, noted to be some residual tenosynovium and an organized infectious clot. Tenosynovectomy and debridement were then performed with a rongeur. The extensor carpi radialis longus and the extensor carpi radialis brevis were examined and also noted to have some small devitalized fibrils of the tendon, which were then sharply excised with a 15 blade scalpel and the tendon was then gently debrided with a rongeur to reveal the normal appearing tendon. Next, the pulsatile lavage was then used to irrigate the dorsal wrist with 3 liters normal saline with bacitracin. After this was completed, the top gloves and top sheet were then changed followed by closure of the dorsal incision with 4-0 nylon suture. A 1/2-inch iodoform gauze drain was placed in the dorsum of the wrist. 0.5% Marcaine plain was then used to perform local anesthesia surrounding incision and then a sterile compressive dressing was applied consisting of Xeroform gauze, sterile 4 x 4's, 6-inch Kerlix roll and an ABD pad dorsally. This was overwrapped with an Pollo wrap. The tourniquet was released. The patient was awakened and taken to recovery in stable condition. Fingers were noted to be pink and warm with cap refill brisk, less than 2 seconds after the tourniquet was released. I attest to the content of the Intraoperative Record and any orders documented therein. Any exceptions are noted below. ESTEFANID
[2017-12-13] MEDS: FINASTERIDE 5 MG TAB PO SCH (12:12)
[2017-12-13] MEDS: CALCIUM 600MG + VIT D 400 IU TAB PO SCH (12:12)
[2017-12-13] MEDS: ASPIRIN 325 MG ECTAB PO SCH (12:12)
[2017-12-13] MEDS: AMIODARONE 200 MG TAB PO SCH (12:13)
--- NOTE | 2017-12-13 12:14 | Anesthesiology Progress Note ---
Anesthesia Post Op Note Date & Time Dec 13, 2017 at 12:13 Vital Signs Pain Intensity: 0 Vital Signs Past 12 Hours Date Time Temp Pulse Resp B/P (MAP) Pulse Ox O2 Delivery O2 Flow Rate FiO2 12/13/17 11:23 82 20 149/74 (99) 94 Room Air 12/13/17 10:40 36.8 57 20 156/75 96 Room Air 12/13/17 10:30 36.8 58 20 145/70 94 Room Air 12/13/17 10:20 36.8 64 20 152/82 96 Room Air 12/13/17 10:10 67 20 138/67 97 Room Air 12/13/17 10:00 63 20 156/71 98 Oxymask 10 12/13/17 09:50 63 20 143/70 99 Oxymask 10 12/13/17 09:42 36.1 61 20 154/71 99 Oxymask 10 12/13/17 08:10 Room Air 12/13/17 07:18 36.7 57 18 157/74 (101) 98 Room Air Notes Mental Status: alert / awake / arousable, participated in evaluation Pt Amnestic to Procedure: Yes Nausea / Vomiting: adequately controlled Pain: adequately controlled Airway Patency, RR, SpO2: stable & adequate BP & HR: stable & adequate Hydration State: stable & adequate Anesthetic Complications: no major complications apparent
[2017-12-13] MEDS: VANCOMYCIN INJ 1,500 MG in SODIUM CHLORIDE 0.9% 500ML 500 ML IV SCH (12:15)
--- NOTE | 2017-12-13 17:13 | Progress Note ---
Medicine Progress Note Date & Time of Visit: Dec 13, 2017 at 14:58. Subjective 81 yo M presents s/p kitten bite at home >1 week ago, worsening R hand cellulitis w tenosynovitis with decreased ROM and significant swelling, refractory to initial abx therapy. Second washout performed today with abscess found. Pt is recovering in room well, tolerated PO post-op. Pain is controlled. Moving fingers slightly. Objective Last 8 Hrs Date Time Temp Pulse Resp B/P (MAP) Pulse Ox O2 Delivery O2 Flow Rate FiO2 12/13/17 14:00 36.5 69 153/71 (98) 97 12/13/17 13:00 76 18 130/65 (86) 93 Room Air 12/13/17 12:00 36.2 62 132/73 (92) 98 12/13/17 11:23 82 20 149/74 (99) 94 Room Air 12/13/17 11:00 93 Room Air 12/13/17 11:00 36.7 62 14 157/74 (101) 93 Room Air 12/13/17 10:40 36.8 57 20 156/75 96 Room Air 12/13/17 10:30 36.8 58 20 145/70 94 Room Air 12/13/17 10:20 36.8 64 20 152/82 96 Room Air 12/13/17 10:10 67 20 138/67 97 Room Air 12/13/17 10:00 63 20 156/71 98 Oxymask 10 12/13/17 09:50 63 20 143/70 99 Oxymask 10 12/13/17 09:42 36.1 61 20 154/71 99 Oxymask 10 12/13/17 08:10 Room Air 12/13/17 07:18 36.7 57 18 157/74 (101) 98 Room Air Physical Exam: GEN: obese, in no acute distress, alert and appropriate HEENT: NC/AT, normal sclerae, MMM CARDIO: reg rate, S1/2 heard without m/g/r LUNGS: CTA bilaterally, no crackles, rales or wheezes, good diaphragmatic excursion ABD: soft, non-tender, non-distended, no rebound or guarding, +BS EXTREMITY: R hand wrapped with RANDI Fingers exposed and are warm to the touch. Sensation intact in hand. Moves 5th digit but no others. SKIN: warm and dry and R hand as above. Laboratory Results: 1/26/18 07:47 12/11/17 07:47 12/12/17 06:16 Test 12/05/17 16:24 12/06/17 15:40 12/08/17 08:40 12/11/17 07:47 Erythrocyte Sedimentation Rate 49 mm/hr (0-14) Total Bilirubin 0.5 mg/dl (0.2-1) Direct Bilirubin 0.1 mg/dl (0-0.2) Aspartate Amino Transf (AST/SGOT) 18 U/L (15-37) Alanine Aminotransferase (ALT/SGPT) 27 U/L (12-78) Alkaline Phosphatase 62 U/L (45-117) C-Reactive Protein 14.00 mg/dl (0-0.29) Total Protein 7.8 gm/dl (6.4-8.2) Albumin 3.5 gm/dl (3.4-5.0) Prothrombin Time 10.5 SECONDS (9.0-12.0) Prothromb Time International Ratio 1.0 (0.9-1.1) Immature Granulocyte % (Auto) 1.0 % White Blood Count 8.63 K/uL (4.8-10.8) Red Blood Count 3.65 M/uL (4.7-6.1) 3.80 M/uL (4.7-6.1) Hemoglobin 10.9 g/dL (14.0-18.0) Hematocrit 33.2 % (42-52) Mean Corpuscular Volume 91.0 fL (80-100) 91.3 fL (80-100) Mean Corpuscular Hemoglobin 29.9 pg (25-34) 30.5 pg (25-34) Mean Corpuscular Hemoglobin Concent 32.8 g/dl (32-36) 33.4 g/dl (32-36) Platelet Count 202 K/uL (130-400) Mean Platelet Volume 10.3 fL (7.4-10.4) 10.2 fL (7.4-10.4) Neutrophils (%) (Auto) 71.4 % Lymphocytes (%) (Auto) 12.5 % Monocytes (%) (Auto) 14.5 % Eosinophils (%) (Auto) 0.3 % Basophils (%) (Auto) 0.3 % Neutrophils # (Auto) 6.15 K/uL (1.4-6.5) Lymphocytes # (Auto) 1.08 K/uL (1.2-3.4) Monocytes # (Auto) 1.25 K/uL (0.11-0.59) Eosinophils # (Auto) 0.03 K/uL (0-0.5) Basophils # (Auto) 0.03 K/uL (0-0.2) Immature Granulocyte # (Auto) 0.09 K/uL (0.00-0.02) Magnesium Level 2.1 mg/dl (1.8-2.4) RDW Standard Deviation 43.2 fL (36.4-46.3) RDW Coefficient of Variation 12.9 % (11.5-14.5) Anion Gap 7.0 mmol/L (3-11) BUN/Creatinine Ratio 17.5 (10-20) Calcium Level 8.4 mg/dl (8.5-10.1) Vancomycin Level Trough 14.9 mcg/ml (SEE COMMENT) Test 12/12/17 06:16 Est Creatinine Clear Calc Drug Dose 63.9 ml/min Estimated GFR () 79.4 Estimated GFR (Non- 68.5 Date/Time Source Procedure Growth Status 12/05/17 16:39 Blood Blood Culture - Final NO GROWTH Complete 12/10/17 17:17 Drainage-Deep Hand Right Gram Stain - Final Resulted 12/10/17 17:17 Drainage-Deep Hand Right Bacterial Culture - Preliminary NO GROWTH TO DATE. Resulted Assessment & Plan 81 yo M presents s/p kitten bite at home >1 week ago, worsening R hand cellulitis w tenosynovitis with decreased ROM and significant swelling, refractory to initial abx therapy. Second washout performed today with abscess found. Pt is recovering in room well, tolerated PO post-op. Pain is controlled. Moving fingers slightly. 1. R hand cellulitis 2/2 cat bite with extensive extensor tenosynovitis s/p washout POD#3 with rewashout this morning for new post-op abscess. Cont IV abx. Cultures negative to date. Pt is recovering well post-op. 2. HTN-controlled. Cont Tylenol scheduled for pain and breakthrough as needed. 3. Afib-stable, cont amio and ASA 4. BPH-chronic, cont Hytrin and finasteride 5. Hypothyroidism-cont Synthroid 6. Chronic steroid use > 6 months-uncertain indication. Encouraged patient to review this with Dr. Howe as outpatient. We discussed the pros and cons of intermediate teacher steroid use briefly and other options such as a referral to Rheumatology. Pt verbalized understanding with intent to comply. Cont prednisone perioperatively. 7. CKD III-at baseline. 8. Anemia-likely multifactorial 2/2 dilution from IVF and excessive phlebotomy. No indication for transfusion. DVT proph: Lovenox Full Code Dispo-likely hospitalized for the next 2-3 days until hand improves. DO James Lechuga Hospitalist Consultants: Joceline/Rogelio Current Inpatient Medications: Current Inpatient Medications Medications (Trade) Dose Ordered Sig/Ron Route Start Time Stop Time Status Last Admin Dose Admin Al Hydrox/Mg Hydrox/Simethicone (Maalox Max Susp) 15 ml Q4H PRN PO 12/05/17 19:45 01/04/18 19:44 Polyethylene (Miralax Powder Packet) 17 gm DAILY PRN PO 12/06/17 01:30 01/05/18 01:29 Ondansetron HCl (Zofran Inj) 4 mg Q6H PRN IV 12/05/17 19:45 01/04/18 19:44 Aspirin (Ecotrin Tab) 325 mg QAM PO 12/06/17 09:00 01/05/18 08:59 12/13/17 12:12 325 MG Finasteride (Proscar Tab) 5 mg QAM PO 12/06/17 09:00 01/05/18 08:59 12/13/17 12:12 5 MG Levothyroxine Sodium (Synthroid Tab) 175 mcg DAILYBB PO 12/06/17 06:00 01/05/18 05:59 12/13/17 05:38 175 MCG Lorazepam (Ativan Tab) 0.5 mg TID PRN PO 12/05/17 19:45 01/04/18 19:44 12/12/17 20:39 0.5 MG Prednisone (PredniSONE TAB) 5 mg DAILY PO 12/06/17 09:00 01/05/18 08:59 12/13/17 12:12 5 MG Terazosin HCl (Hytrin Cap) 5 mg QPM PO 12/05/17 21:00 01/04/18 20:59 12/12/17 20:40 5 MG Amiodarone HCl (Cordarone Tab) 100 mg DAILY PO 12/06/17 09:00 01/05/18 08:59 12/13/17 12:13 100 MG Calcium/Vitamin D (Caltrate Plus Tab) 1 tab Q2D PO 12/07/17 09:00 01/06/18 08:59 12/13/17 12:12 1 TAB Ampicillin Sodium/ Sulbactam Sodium 1500 mg/Sodium Chloride 104 ml @ 200 mls/hr Q6H IV 12/06/17 00:00 12/16/17 00:00 12/13/17 13:49 200 MLS/HR Miscellaneous Information (Consult) 1 ea UD PRN N/A 12/05/17 19:45 01/04/18 19:44 Vancomycin HCl 1500 mg/Sodium Chloride 530 ml @ 200 mls/hr Q16H IV 12/06/17 17:00 12/16/17 16:59 12/13/17 12:15 200 MLS/HR Enoxaparin Sodium (Lovenox Inj) 40 mg QAM SQ 12/07/17 09:00 01/06/18 08:59 Future hold 12/12/17 08:51 40 MG Oxycodone HCl (Roxicodone Immediate Rel Tab) 5 mg Q4H PRN PO 12/10/17 20:15 12/24/17 20:14 12/11/17 13:18 5 MG Morphine Sulfate (MoRPHine SULFATE INJ) 4 mg Q4H PRN IV 12/10/17 20:15 12/24/17 20:14 12/10/17 21:57 4 MG Acetaminophen (Tylenol Tab) 1,000 mg Q8 PO 12/12/17 22:00 01/11/18 21:59 12/13/17 13:50 1,000 MG
[2017-12-13] MEDS: LORAZEPAM 0.5 MG TAB PO PRN (21:56)
[2017-12-14] MEDS: AMPICILLIN/SULBACTAM SOD INJ 1,500 MG in SODIUM CHLORIDE 0.9% 100ML 100 ML IV SCH ×4 (02:00→20:06)
[2017-12-14] MEDS: VANCOMYCIN INJ 1,500 MG in SODIUM CHLORIDE 0.9% 500ML 500 ML IV SCH ×2 (02:58→16:51)
[2017-12-14 03:23] VITALS: BP 161/75; PULSE 58; TEMP 36.5; O2SAT 95
[2017-12-14] MEDS: LEVOTHYROXINE 175 MCG TAB PO SCH (05:41)
[2017-12-14] MEDS: ACETAMINOPHEN 500 MG TAB PO SCH ×3 (05:41→21:28)
[2017-12-14 07:07] VITALS: BP 167/95; PULSE 58; TEMP 36.6; O2SAT 97
[2017-12-14 07:23] LABS: HEMATOCRIT 37.4 % (42-52); HEMOGLOBIN 12.3 g/dL (14.0-18.0); MEAN CELL VOLUME 91.9 fL (80-100); MEAN CORPUSCULAR HEMOGLOBIN 30.2 pg (25-34); MEAN CORPUSCULAR HGB CONC 32.9 g/dl (32-36); MEAN PLATELET VOLUME 10.3 fL (7.4-10.4); PLATELET COUNT 354 K/uL (130-400); RED CELL DISTRIBUTION WIDTH CV 12.9 % (11.5-14.5); RED CELL DISTRIBUTION WIDTH SD 43.5 fL (36.4-46.3); WHITE BLOOD COUNT 9.23 K/uL (4.8-10.8)
[2017-12-14 07:55] LABS: CALCIUM 8.9 mg/dl (8.5-10.1); POTASSIUM 3.7 mmol/L (3.5-5.1)
[2017-12-14] MEDS: ASPIRIN 325 MG ECTAB PO SCH (08:36)
[2017-12-14] MEDS: FINASTERIDE 5 MG TAB PO SCH (08:36)
[2017-12-14] MEDS: AMIODARONE 200 MG TAB PO SCH (08:36)
[2017-12-14] MEDS: ENOXAPARIN 40 MG/0.4 ML SYR SQ SCH (08:36)
--- NOTE | 2017-12-14 08:36 | Orthopedic Progress Note ---
Orthopedic Progress Note Date of Service Dec 14, 2017. Subjective Post OP Day: 1 Reports: feeling well, Denies: chest pain, SOB, nausea / vomiting, light headedness, calf pain Objective N/V intact, capillary refill less than 2 sec., dressing C/D/I, A&O x3 MODERATE EDEMA IN ALL FINGERS. WEAKNESS IN EXTENSION WITH EXCEPTION OF 5TH DIGIT. FLEXION INTACT BUT LIMITED BY SWELLING. Date Time Temp Pulse Resp B/P (MAP) Pulse Ox O2 Delivery O2 Flow Rate FiO2 12/14/17 07:15 Room Air 12/14/17 07:07 36.6 58 18 167/95 (119) 97 Room Air 12/14/17 03:23 36.5 58 16 161/75 (103) 95 Room Air 12/14/17 00:30 Room Air 12/13/17 23:05 36.5 54 16 133/68 (89) 95 Room Air 12/13/17 19:50 36.6 58 20 150/71 (97) 96 Room Air 12/13/17 15:25 Room Air 12/13/17 15:16 36.6 59 18 153/78 (103) 95 Room Air 12/13/17 14:00 36.5 69 153/71 (98) 97 12/13/17 13:00 76 18 130/65 (86) 93 Room Air 12/13/17 12:00 36.2 62 132/73 (92) 98 12/13/17 11:23 82 20 149/74 (99) 94 Room Air 12/13/17 11:00 93 Room Air 12/13/17 11:00 36.7 62 14 157/74 (101) 93 Room Air 12/13/17 10:40 36.8 57 20 156/75 96 Room Air 12/13/17 10:30 36.8 58 20 145/70 94 Room Air 12/13/17 10:20 36.8 64 20 152/82 96 Room Air 12/13/17 10:10 67 20 138/67 97 Room Air 12/13/17 10:00 63 20 156/71 98 Oxymask 10 12/13/17 09:50 63 20 143/70 99 Oxymask 10 12/13/17 09:42 36.1 61 20 154/71 99 Oxymask 10 Laboratory Results 24 Hours: Test 12/14/17 06:42 Hematocrit 37.4 % Hemoglobin 12.3 g/dL Assessment & Plan Assessment: 1. Right wrist extensor tenosynovitis, extensor pollicis longus tendon. 2. Right wrist extensor tenosynovitis, extensor carpi radialis brevis tendon. 3. Right wrist extensor tenosynovitis, extensor carpi radialis longus tendon. 4. Right wrist extensor tenosynovitis, extensor digitorum communis tendons. 5. Right wrist extensor tenosynovitis, extensor indicis proprius tendon. 6. S/P cat bite right UE Plan: POD #3 s/p I&D of Right hand (CJL), POD#1 REPEAT I&D RIGHT HAND (BAB) Continue IV antibx Follow Cx's PAIN MANAGEMENT DRESSING CHANGE AND START TO PULL PACKING IN AM. (1) Cellulitis of right hand Inhouse Planning Pain Management: Morphine, Oxy IR
[2017-12-14 11:07] VITALS: BP 142/68; PULSE 58
[2017-12-14 15:30] VITALS: BP 146/70; PULSE 58; TEMP 36.7; O2SAT 93
--- NOTE | 2017-12-14 21:01 | Progress Note ---
Medicine Progress Note Date & Time of Visit: Dec 14, 2017 at 17:08. Subjective 81 yo M presents s/p kitten bite at home >1 week ago, worsening R hand cellulitis w tenosynovitis with decreased ROM and significant swelling, refractory to initial abx therapy. Second washout performed 12/13 with abscess found. Pt is recovering in room well, tolerated PO post-op. Pain is controlled. Moving fingers better today. Objective Last 8 Hrs Date Time Temp Pulse Resp B/P (MAP) Pulse Ox O2 Delivery O2 Flow Rate FiO2 12/14/17 15:30 36.7 58 18 146/70 (95) 93 Room Air 12/14/17 15:20 Room Air 12/14/17 11:07 58 142/68 (92) Physical Exam: GEN: WNWD, in no acute distress, alert and appropriate HEENT: NC/AT, normal sclerae, MMM CARDIO: reg rate, S1/2 heard without m/g/r LUNGS: CTA bilaterally, no crackles, rales or wheezes, good diaphragmatic excursion ABD: soft, non-tender, non-distended, no rebound or guarding, +BS EXTREMITY: R hand wrapped with RANDI Fingers exposed and are warm to the touch. Sensation intact in hand. moving all digits with ease, swelling has improved proximal to RANDI SKIN: warm and dry and R hand as above. Laboratory Results: 12/14/17 06:42 12/14/17 06:42 Test 12/05/17 16:24 12/06/17 15:40 12/08/17 08:40 12/11/17 07:47 Erythrocyte Sedimentation Rate 49 mm/hr (0-14) Total Bilirubin 0.5 mg/dl (0.2-1) Direct Bilirubin 0.1 mg/dl (0-0.2) Aspartate Amino Transf (AST/SGOT) 18 U/L (15-37) Alanine Aminotransferase (ALT/SGPT) 27 U/L (12-78) Alkaline Phosphatase 62 U/L (45-117) C-Reactive Protein 14.00 mg/dl (0-0.29) Total Protein 7.8 gm/dl (6.4-8.2) Albumin 3.5 gm/dl (3.4-5.0) Prothrombin Time 10.5 SECONDS (9.0-12.0) Prothromb Time International Ratio 1.0 (0.9-1.1) Immature Granulocyte % (Auto) 1.0 % White Blood Count 8.63 K/uL (4.8-10.8) Red Blood Count 3.65 M/uL (4.7-6.1) Hemoglobin 10.9 g/dL (14.0-18.0) Hematocrit 33.2 % (42-52) Mean Corpuscular Volume 91.0 fL (80-100) Mean Corpuscular Hemoglobin 29.9 pg (25-34) Mean Corpuscular Hemoglobin Concent 32.8 g/dl (32-36) Platelet Count 202 K/uL (130-400) Mean Platelet Volume 10.3 fL (7.4-10.4) Neutrophils (%) (Auto) 71.4 % Lymphocytes (%) (Auto) 12.5 % Monocytes (%) (Auto) 14.5 % Eosinophils (%) (Auto) 0.3 % Basophils (%) (Auto) 0.3 % Neutrophils # (Auto) 6.15 K/uL (1.4-6.5) Lymphocytes # (Auto) 1.08 K/uL (1.2-3.4) Monocytes # (Auto) 1.25 K/uL (0.11-0.59) Eosinophils # (Auto) 0.03 K/uL (0-0.5) Basophils # (Auto) 0.03 K/uL (0-0.2) Immature Granulocyte # (Auto) 0.09 K/uL (0.00-0.02) Magnesium Level 2.1 mg/dl (1.8-2.4) Vancomycin Level Trough 14.9 mcg/ml (SEE COMMENT) Test 12/14/17 06:42 Red Blood Count 4.07 M/uL (4.7-6.1) Mean Corpuscular Volume 91.9 fL (80-100) Mean Corpuscular Hemoglobin 30.2 pg (25-34) Mean Corpuscular Hemoglobin Concent 32.9 g/dl (32-36) RDW Standard Deviation 43.5 fL (36.4-46.3) RDW Coefficient of Variation 12.9 % (11.5-14.5) Mean Platelet Volume 10.3 fL (7.4-10.4) Anion Gap 9.0 mmol/L (3-11) Est Creatinine Clear Calc Drug Dose 64.6 ml/min Estimated GFR () 80.3 Estimated GFR (Non- 69.3 BUN/Creatinine Ratio 16.9 (10-20) Calcium Level 8.9 mg/dl (8.5-10.1) Date/Time Source Procedure Growth Status 12/05/17 16:39 Blood Blood Culture - Final NO GROWTH Complete 12/10/17 17:17 Drainage-Deep Hand Right Gram Stain - Final Resulted 12/10/17 17:17 Drainage-Deep Hand Right Bacterial Culture - Preliminary NO GROWTH TO DATE. Resulted Last 24 Hours Test 12/14/17 06:42 White Blood Count 9.23 K/uL Red Blood Count 4.07 M/uL Hemoglobin 12.3 g/dL Hematocrit 37.4 % Mean Corpuscular Volume 91.9 fL Mean Corpuscular Hemoglobin 30.2 pg Mean Corpuscular Hemoglobin Concent 32.9 g/dl RDW Standard Deviation 43.5 fL RDW Coefficient of Variation 12.9 % Platelet Count 354 K/uL Mean Platelet Volume 10.3 fL Sodium Level 139 mmol/L Potassium Level 3.7 mmol/L Chloride Level 104 mmol/L Carbon Dioxide Level 26 mmol/L Anion Gap 9.0 mmol/L Blood Urea Nitrogen 17 mg/dl Creatinine 1.00 mg/dl Est Creatinine Clear Calc Drug Dose 64.6 ml/min Estimated GFR () 80.3 Estimated GFR (Non- 69.3 BUN/Creatinine Ratio 16.9 Random Glucose 89 mg/dl Calcium Level 8.9 mg/dl Assessment & Plan 81 yo M presents s/p kitten bite at home >1 week ago, worsening R hand cellulitis w tenosynovitis with decreased ROM and significant swelling, refractory to initial abx therapy. Second washout performed 12/13 with abscess found. Pt is recovering in room well, tolerated PO post-op. Pain is controlled. Moving fingers better today. 1. R hand cellulitis 2/2 cat bite with extensive extensor tenosynovitis s/p washout POD#4 with rewashout POD#1 for new post-op abscess. Cont IV abx. Cultures negative to date. Pt is recovering well. Per Ortho 2. HTN-controlled. Cont Tylenol scheduled for pain and breakthrough as needed. 3. Afib-stable, cont amio and ASA 4. BPH-chronic, cont Hytrin and finasteride 5. Hypothyroidism-cont Synthroid 6. Chronic steroid use > 6 months-uncertain indication. Encouraged patient to review this with Dr. Howe as outpatient. We discussed the pros and cons of halfway steroid use briefly and other options such as a referral to Rheumatology. Pt verbalized understanding with intent to comply. Cont prednisone perioperatively. 7. CKD III-at baseline. 8. Anemia-likely multifactorial 2/2 dilution from IVF and excessive phlebotomy. No indication for transfusion. DVT proph: Lovenox Full Code Dispo-likely hospitalized for the next 2-3 days until hand improves. Tatyana Horvath DO [facility] Hospitalist Consultants: Joceline/Rogelio Current Inpatient Medications: Current Inpatient Medications Medications (Trade) Dose Ordered Sig/Ron Route Start Time Stop Time Status Last Admin Dose Admin Al Hydrox/Mg Hydrox/Simethicone (Maalox Max Susp) 15 ml Q4H PRN PO 12/05/17 19:45 01/04/18 19:44 Polyethylene (Miralax Powder Packet) 17 gm DAILY PRN PO 12/06/17 01:30 01/05/18 01:29 Ondansetron HCl (Zofran Inj) 4 mg Q6H PRN IV 12/05/17 19:45 01/04/18 19:44 Aspirin (Ecotrin Tab) 325 mg QAM PO 12/06/17 09:00 01/05/18 08:59 12/14/17 08:36 325 MG Finasteride (Proscar Tab) 5 mg QAM PO 12/06/17 09:00 01/05/18 08:59 12/14/17 08:36 5 MG Levothyroxine Sodium (Synthroid Tab) 175 mcg DAILYBB PO 12/06/17 06:00 01/05/18 05:59 12/14/17 05:41 175 MCG Lorazepam (Ativan Tab) 0.5 mg TID PRN PO 12/05/17 19:45 01/04/18 19:44 12/13/17 21:56 0.5 MG Prednisone (PredniSONE TAB) 5 mg DAILY PO 12/06/17 09:00 01/05/18 08:59 12/14/17 08:36 5 MG Terazosin HCl (Hytrin Cap) 5 mg QPM PO 12/05/17 21:00 01/04/18 20:59 12/13/17 20:39 5 MG Amiodarone HCl (Cordarone Tab) 100 mg DAILY PO 12/06/17 09:00 01/05/18 08:59 12/14/17 08:36 100 MG Calcium/Vitamin D (Caltrate Plus Tab) 1 tab Q2D PO 12/07/17 09:00 01/06/18 08:59 12/13/17 12:12 1 TAB Ampicillin Sodium/ Sulbactam Sodium 1500 mg/Sodium Chloride 104 ml @ 200 mls/hr Q6H IV 12/06/17 00:00 12/16/17 00:00 12/14/17 13:31 200 MLS/HR Miscellaneous Information (Consult) 1 ea UD PRN N/A 12/05/17 19:45 01/04/18 19:44 Vancomycin HCl 1500 mg/Sodium Chloride 530 ml @ 200 mls/hr Q16H IV 12/06/17 17:00 12/16/17 16:59 12/14/17 16:51 200 MLS/HR Enoxaparin Sodium (Lovenox Inj) 40 mg QAM SQ 12/07/17 09:00 01/06/18 08:59 Future hold 12/14/17 08:36 40 MG Oxycodone HCl (Roxicodone Immediate Rel Tab) 5 mg Q4H PRN PO 12/10/17 20:15 12/24/17 20:14 12/11/17 13:18 5 MG Morphine Sulfate (MoRPHine SULFATE INJ) 4 mg Q4H PRN IV 12/10/17 20:15 12/24/17 20:14 12/10/17 21:57 4 MG Acetaminophen (Tylenol Tab) 1,000 mg Q8 PO 12/12/17 22:00 01/11/18 21:59 12/14/17 13:31 1,000 MG
[2017-12-14] MEDS: LORAZEPAM 0.5 MG TAB PO PRN (21:28)
[2017-12-14 22:52] VITALS: BP 161/79; PULSE 53; TEMP 36.9; O2SAT 94
[2017-12-15] MEDS: AMPICILLIN/SULBACTAM SOD INJ 1,500 MG in SODIUM CHLORIDE 0.9% 100ML 100 ML IV SCH ×4 (02:14→20:56)
[2017-12-15] MEDS: OXYCODONE HCL IR 5 MG TAB (IMMEDIATE RELEASE) PO PRN (02:19)
[2017-12-15] MEDS: ACETAMINOPHEN 500 MG TAB PO SCH ×3 (05:47→22:48)
[2017-12-15] MEDS: LEVOTHYROXINE 175 MCG TAB PO SCH (05:47)
[2017-12-15 08:04] VITALS: BP 155/76; PULSE 62; TEMP 36.8; O2SAT 95
[2017-12-15] MEDS: AMIODARONE 200 MG TAB PO SCH (09:12)
[2017-12-15] MEDS: FINASTERIDE 5 MG TAB PO SCH (09:12)
[2017-12-15] MEDS: CALCIUM 600MG + VIT D 400 IU TAB PO SCH (09:12)
[2017-12-15] MEDS: ASPIRIN 325 MG ECTAB PO SCH (09:12)
[2017-12-15] MEDS: ENOXAPARIN 40 MG/0.4 ML SYR SQ SCH (09:13)
[2017-12-15] MEDS: VANCOMYCIN INJ 1,500 MG in SODIUM CHLORIDE 0.9% 500ML 500 ML IV SCH (09:56)
--- NOTE | 2017-12-15 11:14 | Progress Note ---
Medicine Progress Note Date & Time of Visit: Dec 15, 2017 at 11:20 . Subjective CC: Follow-up visit for cellulitis / abscess right hand. HPI: Right hand pain improved. No fever or chills. ROS: General- as noted above in HPI Resp- no cough; no shortness of breath Cardiac- no chest pain, no edema GI- soft stools today x 1; no nausea, no vomiting - urinary frequency; no dysuria, no difficulty voiding . Objective Last 8 Hrs Date Time Temp Pulse Resp B/P (MAP) Pulse Ox O2 Delivery O2 Flow Rate FiO2 12/15/17 08:04 36.8 62 16 155/76 (102) 95 Room Air 12/15/17 07:20 Room Air Physical Exam: General- lying in bed; no distress Lungs- clear to auscultation; no respiratory distress Cardiovascular- RRR; II/ systolic murmur at base; no gallop; no JVD; no pretibial edema Abdomen- + bowel sounds, soft, nontender Extremities- right hand bandaged; no cyanosis; no calf tenderness Neuro- alert, oriented Skin- warm & dry . Assessment & Plan CELLULITIS / TENOSYNOVITIS / ABSCESS RIGHT HAND Cat bite about 1 week prior to admission. Worsening infection despite oral therapy with amoxicillin / clavulanic acid as outpatient. Seen by Ortho. I&D of right hand performed by Dr. Monreal 12/10/17; gram stain showed many polys, no organisms; wound C&S negative. Repeat I&D right hand performed by Dr. Mercado 12/13/17; gram stain showed moderate polys, no organisms; wound C&S negative. Continue IV vancomycin and ampicillin / sulbactam. ATRIAL FIBRILLATION NSR at time of admission. Continue aspirin and amiodarone. CKD III Serum creatinine 1.0 12/14. Follow. BPH Continue finasteride and terazosin. HYPOTHYROIDISM Continue levothyroxine. STEROID THERAPY Has been taking prednisone 5 mg daily for past several months. Need to review history. ANEMIA Hgb 12.3 12/14. Follow. VTE PROPHYLAXIS SQ enoxaparin. Ambulate. DISPOSITION To be determined. Family Medicine follow-up with Dr. Pires. Cardiology follow-up with MARCIA Fair and Dr. Dalal. . Consultants: Joceline/Rogelio Current Inpatient Medications: Current Inpatient Medications Medications (Trade) Dose Ordered Sig/Ron Route Start Time Stop Time Status Last Admin Dose Admin Al Hydrox/Mg Hydrox/Simethicone (Maalox Max Susp) 15 ml Q4H PRN PO 12/05/17 19:45 01/04/18 19:44 Polyethylene (Miralax Powder Packet) 17 gm DAILY PRN PO 12/06/17 01:30 01/05/18 01:29 Ondansetron HCl (Zofran Inj) 4 mg Q6H PRN IV 12/05/17 19:45 01/04/18 19:44 Aspirin (Ecotrin Tab) 325 mg QAM PO 12/06/17 09:00 01/05/18 08:59 12/15/17 09:12 325 MG Finasteride (Proscar Tab) 5 mg QAM PO 12/06/17 09:00 01/05/18 08:59 12/15/17 09:12 5 MG Levothyroxine Sodium (Synthroid Tab) 175 mcg DAILYBB PO 12/06/17 06:00 01/05/18 05:59 12/15/17 05:47 175 MCG Lorazepam (Ativan Tab) 0.5 mg TID PRN PO 12/05/17 19:45 01/04/18 19:44 12/14/17 21:28 0.5 MG Prednisone (PredniSONE TAB) 5 mg DAILY PO 12/06/17 09:00 01/05/18 08:59 12/15/17 09:12 5 MG Terazosin HCl (Hytrin Cap) 5 mg QPM PO 12/05/17 21:00 01/04/18 20:59 12/14/17 21:28 5 MG Amiodarone HCl (Cordarone Tab) 100 mg DAILY PO 12/06/17 09:00 01/05/18 08:59 12/15/17 09:12 100 MG Calcium/Vitamin D (Caltrate Plus Tab) 1 tab Q2D PO 12/07/17 09:00 01/06/18 08:59 12/15/17 09:12 1 TAB Ampicillin Sodium/ Sulbactam Sodium 1500 mg/Sodium Chloride 104 ml @ 200 mls/hr Q6H IV 12/06/17 00:00 12/16/17 23:59 12/15/17 09:10 200 MLS/HR Miscellaneous Information (Consult) 1 ea UD PRN N/A 12/05/17 19:45 01/04/18 19:44 Vancomycin HCl 1500 mg/Sodium Chloride 530 ml @ 200 mls/hr Q16H IV 12/06/17 17:00 12/16/17 23:59 12/15/17 09:56 200 MLS/HR Enoxaparin Sodium (Lovenox Inj) 40 mg QAM SQ 12/07/17 09:00 01/06/18 08:59 Future hold 12/15/17 09:13 40 MG Oxycodone HCl (Roxicodone Immediate Rel Tab) 5 mg Q4H PRN PO 12/10/17 20:15 12/24/17 20:14 12/15/17 02:19 5 MG Morphine Sulfate (MoRPHine SULFATE INJ) 4 mg Q4H PRN IV 12/10/17 20:15 12/24/17 20:14 12/10/17 21:57 4 MG Acetaminophen (Tylenol Tab) 1,000 mg Q8 PO 12/12/17 22:00 01/11/18 21:59 12/15/17 05:47 1,000 MG
--- NOTE | 2017-12-15 12:20 | PROGRESS NOTE ---
DATE: 12/15/2017 SUBJECTIVE: El was seen at the bedside today, he notes no new complaints. OBJECTIVE: Right hand exam does show no evidence of fluctuance. He has minimal erythema. He has no significant drainage from his incision. He has improved extension of the fingers but extensor lag is still noted to a more mild degree. ASSESSMENT: Postop day #2 status post second irrigation and debridement of septic extensor tenosynovitis. PLAN: At this point in time, he does appear have clinical recovery. I would not anticipate further surgical plans, at this point in time, will continue antibiotics as per the hospitalist service and may be stable for discharge from my standpoint when they feel comfortable with discharge. He should follow up with me in 3-5 days from discharge.
[2017-12-15 15:51] VITALS: BP 168/80; PULSE 54; TEMP 36.4; O2SAT 96
[2017-12-15 19:30] VITALS: BP 146/84; PULSE 71
[2017-12-15] MEDS: LORAZEPAM 0.5 MG TAB PO PRN (19:38)
[2017-12-15] MEDS ORDERED: LORAZEPAM 0.5 MG TAB PO ONE (22:45)
[2017-12-15 23:05] VITALS: BP 159/68; PULSE 52; TEMP 36.5; O2SAT 94
[2017-12-16] MEDS: VANCOMYCIN INJ 1,500 MG in SODIUM CHLORIDE 0.9% 500ML 500 ML IV SCH ×2 (01:14→17:12)
[2017-12-16 01:38] VITALS: O2SAT 94
[2017-12-16] MEDS: AMPICILLIN/SULBACTAM SOD INJ 1,500 MG in SODIUM CHLORIDE 0.9% 100ML 100 ML IV SCH ×4 (01:59→19:38)
[2017-12-16] MEDS: ACETAMINOPHEN 500 MG TAB PO SCH ×3 (06:02→21:26)
[2017-12-16] MEDS: LEVOTHYROXINE 175 MCG TAB PO SCH (06:02)
[2017-12-16 07:22] LABS: HEMATOCRIT 33.8 % (42-52); HEMOGLOBIN 11.1 g/dL (14.0-18.0); MEAN CELL VOLUME 91.4 fL (80-100); MEAN CORPUSCULAR HGB CONC 32.8 g/dl (32-36); MEAN PLATELET VOLUME 10.2 fL (7.4-10.4); PLATELET COUNT 299 K/uL (130-400); RED CELL DISTRIBUTION WIDTH CV 13.1 % (11.5-14.5); RED CELL DISTRIBUTION WIDTH SD 43.6 fL (36.4-46.3); WHITE BLOOD COUNT 8.14 K/uL (4.8-10.8)
[2017-12-16 07:51] VITALS: BP 142/94; PULSE 57; TEMP 36.7; O2SAT 95
[2017-12-16 07:56] LABS: CALCIUM 8.2 mg/dl (8.5-10.1); CREATININE 1.09 mg/dl (0.60-1.40); POTASSIUM 3.9 mmol/L (3.5-5.1)
--- NOTE | 2017-12-16 07:59 | Consultant Recommendations ---
Scooping Machine Tender Recommendations Date of Service Dec 16, 2017. Scooping Machine Tender Recommendations KEEP DRESSING CLEAN AND DRY DAILY DRESSING CHANGES ANTIBIOTICS PER MEDICAL SERVICE FOLLOW UP WITH DR. SMILEY IN 3-5 DAYS. [phone]
[2017-12-16 09:30] VITALS: O2SAT 95
[2017-12-16] MEDS: ASPIRIN 325 MG ECTAB PO SCH (09:37)
[2017-12-16] MEDS: AMIODARONE 200 MG TAB PO SCH (09:38)
[2017-12-16] MEDS: FINASTERIDE 5 MG TAB PO SCH (09:38)
[2017-12-16] MEDS: ENOXAPARIN 40 MG/0.4 ML SYR SQ SCH (09:38)
[2017-12-16] MEDS ORDERED: DOXY-300 PO (15:07)
[2017-12-16] MEDS ORDERED: AMOX875T PO (15:07)
[2017-12-16 15:20] VITALS: BP 140/75; PULSE 65; TEMP 36.6; O2SAT 94
--- NOTE | 2017-12-16 15:24 | Progress Note ---
Medicine Progress Note Date & Time of Visit: Dec 16, 2017 at 14:30 . Subjective CC: Follow-up visit for cellulitis / abscess right hand. HPI: Doing well. Right hand pain improved. No fever or chills. ROS: General- as noted above in HPI Resp- no cough; no shortness of breath Cardiac- no chest pain, no edema GI- no nausea, no vomiting; no diarrhea - urinary frequency; no dysuria, no difficulty voiding . Objective Last 8 Hrs Date Time Temp Pulse Resp B/P (MAP) Pulse Ox O2 Delivery O2 Flow Rate FiO2 12/16/17 09:30 95 Room Air 12/16/17 07:51 36.7 57 20 142/94 (110) 95 Room Air 12/16/17 07:40 Room Air Physical Exam: General- lying in bed; no distress Lungs- clear to auscultation; no respiratory distress Cardiovascular- RRR; II/ systolic murmur at base; no gallop; no JVD; no pretibial edema Abdomen- + bowel sounds, soft, nontender Extremities- right hand bandaged; good capillary refill fingers; no cyanosis; no calf tenderness Neuro- alert, oriented Skin- warm & dry . Laboratory Results: Last 24 Hours Test 12/16/17 06:56 White Blood Count 8.14 K/uL Red Blood Count 3.70 M/uL Hemoglobin 11.1 g/dL Hematocrit 33.8 % Mean Corpuscular Volume 91.4 fL Mean Corpuscular Hemoglobin 30.0 pg Mean Corpuscular Hemoglobin Concent 32.8 g/dl RDW Standard Deviation 43.6 fL RDW Coefficient of Variation 13.1 % Platelet Count 299 K/uL Mean Platelet Volume 10.2 fL Sodium Level 139 mmol/L Potassium Level 3.9 mmol/L Chloride Level 105 mmol/L Carbon Dioxide Level 29 mmol/L Anion Gap 5.0 mmol/L Blood Urea Nitrogen 23 mg/dl Creatinine 1.09 mg/dl Est Creatinine Clear Calc Drug Dose 59.2 ml/min Estimated GFR () 72.4 Estimated GFR (Non- 62.4 BUN/Creatinine Ratio 20.8 Random Glucose 80 mg/dl Calcium Level 8.2 mg/dl Assessment & Plan CELLULITIS / TENOSYNOVITIS / ABSCESS RIGHT HAND Cat bite about 1 week prior to admission. Worsening infection despite oral therapy with amoxicillin / clavulanic acid as outpatient. Seen by Ortho. I&D of right hand performed by Dr. Monreal 12/10/17; gram stain showed many polys, no organisms; wound C&S negative. Repeat I&D right hand performed by Dr. Mercado 12/13/17; gram stain showed moderate polys, no organisms; wound C&S negative. Continue IV vancomycin and ampicillin / sulbactam x 10 days, then transition to PO doxycycline + amoxicillin / clavulanic acid to complete total of 3 weeks of antibiotic therapy. ATRIAL FIBRILLATION NSR at time of admission. Continue aspirin and amiodarone. CKD III Serum creatinine today = 1.09. Follow. BPH Continue finasteride and terazosin. HYPOTHYROIDISM Continue levothyroxine. STEROID THERAPY Has been taking prednisone 5 mg daily for past several months. Need to review history. ANEMIA Hgb today = 11.1. Follow. VTE PROPHYLAXIS SQ enoxaparin. Ambulate. DISPOSITION Expected discharge to home. Family Medicine follow-up with Dr. Pires. Cardiology follow-up with MARCIA Fair and Dr. Dalal. Daughter given update by phone. . Consultants: Joceline/Rogelio Current Inpatient Medications: Current Inpatient Medications Medications (Trade) Dose Ordered Sig/Ron Route Start Time Stop Time Status Last Admin Dose Admin Al Hydrox/Mg Hydrox/Simethicone (Maalox Max Susp) 15 ml Q4H PRN PO 12/05/17 19:45 01/04/18 19:44 Polyethylene (Miralax Powder Packet) 17 gm DAILY PRN PO 12/06/17 01:30 01/05/18 01:29 Ondansetron HCl (Zofran Inj) 4 mg Q6H PRN IV 12/05/17 19:45 01/04/18 19:44 Aspirin (Ecotrin Tab) 325 mg QAM PO 12/06/17 09:00 01/05/18 08:59 12/16/17 09:37 325 MG Finasteride (Proscar Tab) 5 mg QAM PO 12/06/17 09:00 01/05/18 08:59 12/16/17 09:38 5 MG Levothyroxine Sodium (Synthroid Tab) 175 mcg DAILYBB PO 12/06/17 06:00 01/05/18 05:59 12/16/17 06:02 175 MCG Lorazepam (Ativan Tab) 0.5 mg TID PRN PO 12/05/17 19:45 01/04/18 19:44 12/15/17 19:38 0.5 MG Prednisone (PredniSONE TAB) 5 mg DAILY PO 12/06/17 09:00 01/05/18 08:59 12/16/17 09:37 5 MG Terazosin HCl (Hytrin Cap) 5 mg QPM PO 12/05/17 21:00 01/04/18 20:59 12/15/17 20:55 5 MG Amiodarone HCl (Cordarone Tab) 100 mg DAILY PO 12/06/17 09:00 01/05/18 08:59 12/16/17 09:38 100 MG Calcium/Vitamin D (Caltrate Plus Tab) 1 tab Q2D PO 12/07/17 09:00 01/06/18 08:59 12/15/17 09:12 1 TAB Ampicillin Sodium/ Sulbactam Sodium 1500 mg/Sodium Chloride 104 ml @ 200 mls/hr Q6H IV 12/06/17 00:00 12/16/17 23:59 12/16/17 13:42 200 MLS/HR Miscellaneous Information (Consult) 1 ea UD PRN N/A 12/05/17 19:45 12/16/17 23:59 Vancomycin HCl 1500 mg/Sodium Chloride 530 ml @ 200 mls/hr Q16H IV 12/06/17 17:00 12/16/17 23:59 12/16/17 01:14 200 MLS/HR Enoxaparin Sodium (Lovenox Inj) 40 mg QAM SQ 12/07/17 09:00 01/06/18 08:59 Future hold 12/16/17 09:38 40 MG Oxycodone HCl (Roxicodone Immediate Rel Tab) 5 mg Q4H PRN PO 12/10/17 20:15 12/24/17 20:14 12/15/17 02:19 5 MG Morphine Sulfate (MoRPHine SULFATE INJ) 4 mg Q4H PRN IV 12/10/17 20:15 12/24/17 20:14 12/10/17 21:57 4 MG Acetaminophen (Tylenol Tab) 1,000 mg Q8 PO 12/12/17 22:00 01/11/18 21:59 12/16/17 13:43 1,000 MG
[2017-12-16] MEDS: LORAZEPAM 0.5 MG TAB PO PRN (21:30)
[2017-12-16 23:22] VITALS: BP 172/76; PULSE 61; TEMP 36.6; O2SAT 97
[2017-12-17] MEDS ORDERED: LORAZEPAM 0.5 MG TAB PO ONE
[2017-12-17 05:44] VITALS: BP 146/81
[2017-12-17] MEDS: ACETAMINOPHEN 500 MG TAB PO SCH (05:45)
[2017-12-17] MEDS: LEVOTHYROXINE 175 MCG TAB PO SCH (05:45)
[2017-12-17 07:25] VITALS: BP 128/67; PULSE 64; TEMP 36.4; O2SAT 96
[2017-12-17] MEDS ORDERED: AMOXICILLIN/CLAVULANATE TAB 875 MG TAB PO SCH (08:30)
[2017-12-17] MEDS ORDERED: DOXYCYCLINE HYCLATE 100 MG CAP PO SCH (09:00)
[2017-12-17] MEDS: ENOXAPARIN 40 MG/0.4 ML SYR SQ SCH (09:44)
[2017-12-17] MEDS: FINASTERIDE 5 MG TAB PO SCH (09:45)
[2017-12-17] MEDS: AMIODARONE 200 MG TAB PO SCH (09:45)
[2017-12-17] MEDS: CALCIUM 600MG + VIT D 400 IU TAB PO SCH (09:45)
[2017-12-17 10:42] VITALS: BP 128/67; PULSE 64; TEMP 36.4; O2SAT 96
[2017-12-17] MEDS: ASPIRIN 325 MG ECTAB PO SCH (12:28)
--- NOTE | 2017-12-17 13:08 | Progress Note ---
Medicine Progress Note Date & Time of Visit: Dec 17, 2017 at 13:08 . Subjective CC: Follow-up visit for cellulitis / abscess right hand. HPI: Doing well. Right hand feels better. No fever or chills. ROS: General- as noted above in HPI Resp- no cough; no shortness of breath Cardiac- no chest pain, no edema GI- no nausea, no vomiting; no diarrhea - chronic urinary frequency; no dysuria, no difficulty voiding . Objective Last 8 Hrs Date Time Temp Pulse Resp B/P (MAP) Pulse Ox O2 Delivery O2 Flow Rate FiO2 12/17/17 10:42 36.4 64 16 96 Room Air 12/17/17 09:30 Room Air 12/17/17 07:25 36.4 64 16 128/67 (87) 96 Room Air 12/17/17 05:44 146/81 (102) Physical Exam: General- lying in bed; no distress Lungs- clear to auscultation; no respiratory distress Cardiovascular- RRR; II/ systolic murmur at base; no gallop; no JVD; no pretibial edema Abdomen- + bowel sounds, soft, nontender Extremities- right hand bandaged; good capillary refill fingers; no cyanosis; no calf tenderness Neuro- alert, oriented Skin- warm & dry . Assessment & Plan CELLULITIS / TENOSYNOVITIS / ABSCESS RIGHT HAND Cat bite about 1 week prior to admission. Worsening infection despite oral therapy with amoxicillin / clavulanic acid as outpatient. Seen by Ortho. I&D of right hand performed by Dr. Monreal 12/10/17; gram stain showed many polys, no organisms; wound C&S negative. Repeat I&D right hand performed by Dr. Mercado 12/13/17; gram stain showed moderate polys, no organisms; wound C&S negative. Continue IV vancomycin and ampicillin / sulbactam x 10 days, then transitioned to PO doxycycline + amoxicillin / clavulanic acid to complete total of 3 weeks of antibiotic therapy. ATRIAL FIBRILLATION NSR at time of admission. Continue aspirin and amiodarone. CKD III Serum creatinine 12/16 was 1.09. Follow. BPH Continue finasteride and terazosin. HYPOTHYROIDISM Continue levothyroxine. STEROID THERAPY Has been taking prednisone 5 mg daily for past several months. Taper as possible per PCP. ANEMIA Hgb 1/31 was 11.1. Follow. VTE PROPHYLAXIS SQ enoxaparin. Ambulate. DISPOSITION Discharge to home. Orthopedics follow-up with Dr. Monreal. Family Medicine follow-up with Dr. Pires. Cardiology follow-up with MARCIA Fair and Dr. Dalal. . Consultants: Joceline/Rogelio Current Inpatient Medications: Current Inpatient Medications Medications (Trade) Dose Ordered Sig/Ron Route Start Time Stop Time Status Last Admin Dose Admin Al Hydrox/Mg Hydrox/Simethicone (Maalox Max Susp) 15 ml Q4H PRN PO 12/05/17 19:45 01/04/18 19:44 Polyethylene (Miralax Powder Packet) 17 gm DAILY PRN PO 12/06/17 01:30 01/05/18 01:29 Ondansetron HCl (Zofran Inj) 4 mg Q6H PRN IV 12/05/17 19:45 01/04/18 19:44 Aspirin (Ecotrin Tab) 325 mg QAM PO 12/06/17 09:00 01/05/18 08:59 12/17/17 12:28 325 MG Finasteride (Proscar Tab) 5 mg QAM PO 12/06/17 09:00 01/05/18 08:59 12/17/17 09:45 5 MG Levothyroxine Sodium (Synthroid Tab) 175 mcg DAILYBB PO 12/06/17 06:00 01/05/18 05:59 12/17/17 05:45 175 MCG Lorazepam (Ativan Tab) 0.5 mg TID PRN PO 12/05/17 19:45 01/04/18 19:44 12/16/17 21:30 0.5 MG Prednisone (PredniSONE TAB) 5 mg DAILY PO 12/06/17 09:00 01/05/18 08:59 12/17/17 09:45 5 MG Terazosin HCl (Hytrin Cap) 5 mg QPM PO 12/05/17 21:00 01/04/18 20:59 12/16/17 21:25 5 MG Amiodarone HCl (Cordarone Tab) 100 mg DAILY PO 12/06/17 09:00 01/05/18 08:59 12/17/17 09:45 100 MG Calcium/Vitamin D (Caltrate Plus Tab) 1 tab Q2D PO 12/07/17 09:00 01/06/18 08:59 12/17/17 09:45 1 TAB Enoxaparin Sodium (Lovenox Inj) 40 mg QAM SQ 12/07/17 09:00 01/06/18 08:59 Future hold 12/17/17 09:44 40 MG Oxycodone HCl (Roxicodone Immediate Rel Tab) 5 mg Q4H PRN PO 12/10/17 20:15 12/24/17 20:14 12/15/17 02:19 5 MG Morphine Sulfate (MoRPHine SULFATE INJ) 4 mg Q4H PRN IV 12/10/17 20:15 12/24/17 20:14 12/10/17 21:57 4 MG Acetaminophen (Tylenol Tab) 1,000 mg Q8 PO 12/12/17 22:00 01/11/18 21:59 12/17/17 05:45 1,000 MG Doxycycline Hyclate (Vibramycin Cap) 100 mg BID PO 12/17/17 09:00 12/27/17 08:59 12/17/17 09:44 100 MG Amoxicillin/ Clavulanate Potassium (Augmentin Tab) 875 mg BIDM PO 12/17/17 08:30 12/27/17 08:29 12/17/17 09:45 875 MG
--- NOTE | 2017-12-17 13:19 | Discharge Instructions ---
Discharge Instructions Date of Service Dec 17, 2017. Admission Reason for Admission: cat bite, infection right hand . Discharge Discharge Diagnosis / Problem: cat bite, infection right hand Discharge Goals Goal(s): Decrease discomfort, Improve function, Improve disease control Activity Recommendations Activity Limitations: as noted below Driving or Machine Use: no driving until right hand is better limit use of right hand until better . . Instructions / Follow-Up Instructions / Follow-Up APPOINTMENTS: ORTHOPEDICS Dr. Monreal would like to see you in his office on Thursday12/22/17. Please call his office for appointment. FAMILY MEDICINE 12/25/2017 1:20 PM Luca Howe, DO OTHER INSTRUCTIONS: Prescriptions for antibiotics sent to Care Site at [facility]. Take amoxicillin / clavulanic acid (Augmentin) 875 mg twice a day with food until gone. Take doxycycline 100 mg twice a day until gone. Avoid excessive sun exposure while taking doxycycline. Seek medical attention if you have: * temperature above 101 * chest pain or trouble breathing * abdominal pain, nausea, vomiting * diarrhea, dark stools or bloody stools * worsening pain or swelling of right hand * any unanswered questions or concerns Call 911 if symptoms are severe. Call if you have any questions or problems. My cell # is [phone]. You can also reach a [facility] hospitalist on duty at [facility] 24 hours a day by calling [phone]. Please take good care of yourself. Cristóbal Vogel . Current Hospital Diet Patient's current hospital diet: AHA Diet (Heart Healthy) Discharge Diet Recommended Diet: AHA Diet (Heart Healthy) Procedures Procedures Performed: Evacuation abscess dorsal right wrist, Debridement extensor retinaculum, Debridement extensor pollicis longus , Debridement and tenosynovectomy extensor digitorum communis Debridement extensor carpi radialis longus Debridement extensor carpi radialis brevis Pending Studies Studies pending at discharge: no Medical Emergencies . Who to Call and When: Medical Emergencies: If at any time you feel your situation is an emergency, please call 911 immediately. . Non-Emergent Contact Non-Emergency issues call your: Primary Care Provider, Hospital Doctor, Specialist (Orthopedic Surgeon) . . "Provider Documentation" section prepared by Cristóbal Vogel. . Supervisor Cigar Making Hand Recommendations Supervisor Cigar Making Hand Recommendations: KEEP DRESSING CLEAN AND DRY DAILY DRESSING CHANGES ANTIBIOTICS PER MEDICAL SERVICE FOLLOW UP WITH DR. MONREAL IN 3-5 DAYS. [phone] VTE Core Measure Inpt VTE Proph given/why not?: Enoxaparin (Lovenox)SQ
--- NOTE | 2017-12-18 22:17 | Discharge Summary ---
Discharge Summary Date of Service Dec 18, 2017. Discharge Summary Admission Date: Dec 05, 2017 at 19:45 Discharge Date: Dec 16, 2017 Discharge Disposition: Home Principal Diagnosis: cat bite with abscess / tenosynovitis dorsum right hand . Secondary Diagnoses/Problems: Chronic and Resolved Medical Problems: (1) Atrial fibrillation Status: Chronic (2) Benign prostatic hypertrophy Status: Chronic (3) Chronic kidney disease (CKD), stage III (moderate) Status: Chronic (4) Dyslipidemia Status: Chronic (5) Hypothyroidism Status: Chronic . Procedures: CT upper extremity MRI upper extremity IV antibiotics evacuation abscess dorsal right wrist debridement extensor retinaculum debridement extensor pollicis longus debridement and tenosynovectomy extensor digitorum communis debridement extensor carpi radialis longus debridement extensor carpi radialis brevis . Consultations: Orthopedics - Drs. Monreal and Rogelio . Medication Reconciliation New Medications: Amoxicillin & Pot Clavulanate (Augmentin 875-125 mg) 1 Tab Tab 875 MG PO BID, #20 TAB Take with food. Doxycycline (Monohydrate) (Doxycycline) 100 Mg Cap 100 MG PO BID, #20 CAP Continued Medications: Amiodarone Hcl (Amiodarone Hcl) 100 Mg Tab 100 MG PO QAM Aspirin (Aspirin) 325 Mg Tab 325 MG PO QAM Calcium Carbonate-Vitamin D (Calcium + D) 1 Tab Tab 1 TAB PO Q2D Finasteride (Proscar) 5 Mg Tab 5 MG PO QAM, TAB Levothyroxine Sodium (Levothyroxine Sodium) 175 Mcg Tab 175 MCG PO QAM Lorazepam (Ativan) 0.5 Mg Tab 0.5 MG PO TID PRN for Anxiety, TAB Prednisone (Prednisone) 5 Mg Tab 5 MG PO DAILY, TAB Simvastatin (Zocor) 20 Mg Tab 1 TAB PO HS for 90 Days, #90 TAB 1 Refill Terazosin (Hytrin) 5 Mg Cap 5 MG PO QPM, CAP Discontinued Medications: Amoxicillin & Pot Clavulanate (Augmentin 875-125 mg) 1 Tab Tab 1 TAB PO BID, #10 TAB end 12/11/2017 Admission Information HPI (per Admitting provider): This is an 81-year-old male with past medical history significant for atrial fibrillation, BPH, hypothyroidism, hyperlipidemia, chronic kidney disease stage III, presents with cat bite about couple of weeks ago. [place] and he has about 40 cats. One of the kitten was having some infection in eyes and he was trying to treat kitten, but it turned around and bit his right hand around thumb area. One week later he developed swelling and pain and erythema. He went to his family doctor and was prescribed Augmentin, was not getting better and went again and was given Rocephin shot and he went again and he was advised to come to the ER. In the ER, he had mild temp spike. Denies any other complaints. Denies any headaches, no dizziness. No blurred visions. No runny nose, no sore throat, no difficulty swallowing. No chest pain, no shortness of breath, no cough, no nausea, no vomiting, no abdominal pain. Normal bowel and bladder movements. Appetite is okay. Currently resting comfortably and hemodynamically stable. . Physical Exam (per Admitting): GENERAL: The patient is obese, not in distress. VITAL SIGNS: Temperature 37, pulse 73, respiratory rate 18, blood pressure 161/102, oxygen 92% room air. HEENT: No pallor, no icterus. Pupils equal, round, and reactive to light. NECK: No JVD, no neck masses, no carotid bruits. CARDIOVASCULAR: S1, S2 heard, regular rate and rhythm, no murmur, no gallop. RESPIRATORY SYSTEM: Clear to auscultation bilaterally. No accessory muscle use. No wheezing, no crackles. ABDOMEN: Soft, bowel sounds present. Nontender. No distention. CENTRAL NERVOUS SYSTEM: Cranial nerves II-XII grossly intact. Nonfocal. EXTREMITIES: Right hand and forearm erythematous and swollen and limited movements of his right fingers. . Hospital Course CELLULITIS / TENOSYNOVITIS / ABSCESS RIGHT HAND Cat bite about 1 week prior to admission. Worsening infection despite oral therapy with amoxicillin / clavulanic acid as outpatient. Seen by Ortho. I&D of right hand performed by Dr. Monreal 12/10/17; gram stain showed many polys, no organisms; wound C&S negative. Repeat I&D right hand performed by Dr. Mercado 12/13/17; gram stain showed moderate polys, no organisms; wound C&S negative. Continue IV vancomycin and ampicillin / sulbactam x 10 days, then transitioned to PO doxycycline + amoxicillin / clavulanic acid to complete total of 3 weeks of antibiotic therapy. ATRIAL FIBRILLATION NSR at time of admission. Continue aspirin and amiodarone. CKD III Serum creatinine 12/16 was 1.09. Follow. BPH Continue finasteride and terazosin. HYPOTHYROIDISM Continue levothyroxine. STEROID THERAPY Has been taking prednisone 5 mg daily for past several months. Taper as possible per PCP. ANEMIA Hgb 12/16 was 11.1. Follow. VTE PROPHYLAXIS SQ enoxaparin. Ambulate. DISPOSITION Discharge to home. Orthopedics follow-up with Dr. Monreal. Family Medicine follow-up with Dr. Pires. Cardiology follow-up with MARCIA Fair and Dr. Dalal. . Total time spent on discharge = 40 min. This includes examination of the patient, discharge planning, medication reconciliation, and communication with other providers. . Discharge Instructions Date of Service Dec 17, 2017. Admission Reason for Admission: cat bite, infection right hand . Discharge Discharge Diagnosis / Problem: cat bite, infection right hand Discharge Goals Goal(s): Decrease discomfort, Improve function, Improve disease control Activity Recommendations Activity Limitations: as noted below Driving or Machine Use: no driving until right hand is better limit use of right hand until better . . Instructions / Follow-Up Instructions / Follow-Up APPOINTMENTS: ORTHOPEDICS Dr. Monreal would like to see you in his office on Thursday12/22/17. Please call his office for appointment. FAMILY MEDICINE 12/25/2017 1:20 PM Luca Howe, DO OTHER INSTRUCTIONS: Prescriptions for antibiotics sent to Care Site at [facility]. Take amoxicillin / clavulanic acid (Augmentin) 875 mg twice a day with food until gone. Take doxycycline 100 mg twice a day until gone. Avoid excessive sun exposure while taking doxycycline. Seek medical attention if you have: * temperature above 101 * chest pain or trouble breathing * abdominal pain, nausea, vomiting * diarrhea, dark stools or bloody stools * worsening pain or swelling of right hand * any unanswered questions or concerns Call 911 if symptoms are severe. Call if you have any questions or problems. My cell # is [phone]. You can also reach a [facility] hospitalist on duty at [facility] 24 hours a day by calling [phone]. Please take good care of yourself. Cristóbal Vogel . Current Hospital Diet Patient's current hospital diet: AHA Diet (Heart Healthy) Discharge Diet Recommended Diet: AHA Diet (Heart Healthy) Procedures Procedures Performed: Evacuation abscess dorsal right wrist, Debridement extensor retinaculum, Debridement extensor pollicis longus , Debridement and tenosynovectomy extensor digitorum communis Debridement extensor carpi radialis longus Debridement extensor carpi radialis brevis Pending Studies Studies pending at discharge: no Medical Emergencies . Who to Call and When: Medical Emergencies: If at any time you feel your situation is an emergency, please call 911 immediately. . Non-Emergent Contact Non-Emergency issues call your: Primary Care Provider, Hospital Doctor, Specialist (Orthopedic Surgeon) . . "Provider Documentation" section prepared by Cristóbal Vogel. . Perioperative Assistant Recommendations Perioperative Assistant Recommendations: KEEP DRESSING CLEAN AND DRY DAILY DRESSING CHANGES ANTIBIOTICS PER MEDICAL SERVICE FOLLOW UP WITH DR. MONREAL IN 3-5 DAYS. [phone] VTE Core Measure Inpt VTE Proph given/why not?: Enoxaparin (Lovenox)SQ . Additional Copies To Estrada Monreal MD; Emir Pires M.D.
== END 2017-12-17 14:20 | disposition home health service (06) | DRG 501 ==
LOC: C.EDB 15:48 → C.MSN 19:45 → ENRESERV 19:51
PROVIDERS: ADMIT Internal Medicine; ATTEND Hospitalist
PROC: 0LB50ZZ Excision of Right Lower Arm and Wrist Tendon, Open Approach (ICD-10-PCS; principal; 2017-12-10 12:00)
PROC: 0J9G00Z Drainage of Right Lower Arm Subcutaneous Tissue and Fascia with Drainage Device, Open Approach (ICD-10-PCS; 2017-12-13)
PROC: 0LB50ZZ Excision of Right Lower Arm and Wrist Tendon, Open Approach (ICD-10-PCS; 2017-12-13)
DX: M65.131 Other infective (teno)synovitis, right wrist (principal); L03.113 Cellulitis of right upper limb; L02.413 Cutaneous abscess of right upper limb; W55.01XS Bitten by cat, sequela; Y93.K9 Activity, other involving animal care; Y92.79 Other farm location as the place of occurrence of the external cause; D64.9 Anemia, unspecified; I48.91 Unspecified atrial fibrillation; N40.0 Benign prostatic hyperplasia without lower urinary tract symptoms; E03.9 Hypothyroidism, unspecified; I12.9 Hypertensive chronic kidney disease with stage 1 through stage 4 chronic kidney disease, or unspecified chronic kidney disease; N18.3 Chronic kidney disease, stage 3 (moderate); E78.5 Hyperlipidemia, unspecified; Z86.010 Personal history of colon polyps; Z79.52 Long term (current) use of systemic steroids; Z79.82 Long term (current) use of aspirin; Z79.899 Other long term (current) drug therapy; Z83.3 Family history of diabetes mellitus; Z82.3 Family history of stroke; Z82.0 Family history of epilepsy and other diseases of the nervous system; Z81.8 Family history of other mental and behavioral disorders; Z80.0 Family history of malignant neoplasm of digestive organs

== ENCOUNTER 2021-12-20 16:51 | Inpatient (IN) ==
[2021-12-20] MEDS ORDERED: MoRPHine SULFATE 2 MG/ML CARP IV PRN ×2 (17:10→20:02)
--- NOTE | 2021-12-20 17:16 | Emergency Department Note ---
Impression & Plan Atrial fibrillation with RVR, Closed right femoral fracture, Fall ED Provider Note NAME: DEEP GALLO AGE: 86 SEX: M : 1935 ARRIVES VIA: Ambulance INFORMANT: Patient, ED PROVIDER(S): Carlitos Fletcher MD Chief Complaint: Fall, hip pain HPI: Patient does present from [facility] after an outpatient x-ray showed a likely right-sided hip fracture. The patient was at the outpatient facility as his had an appointment as he was trying to load her walker into the vehicle he slipped and fell to his right side. Patient denies any head strike or headache. The patient denies any LOC. Patient does take Coumadin last took it this morning. Patient has any fevers chills chest pains or shortn ess of breath. The patient does complain of right hip pain for it in nature was not given anything in route. The patient did have difficulty with ambulation or getting up after the time that he fell. This did occur approximate 1 hour prior to arrival. Patient denies any prior orthopedic injuries. ROS: See HPI for pertinent positives and negatives. A total of 10 systems were reviewed and otherwise negative. Past medical history: See below Surgical history: See below Social history: See below Physical Exam: GENERAL: NAD, wearing a mask, non-toxic. EYE EXAM: Normal conjunctiva. PERRL, no anisocoria and EOM's grossly intact w/o pain. Head: Normocephalic atraumatic. No pain to the midface or malocclusion. NECK: Supple, no nuchal rigidity, no adenopathy, non-tender. No signs of mening ismus. No pain to palpation or obvious deformity. Chest: No reproducible anterior posterior chest wall pain. LUNGS: Clear to auscultation. Normal chest wall mechanics. HEART: Tachycardic and irregularly irregular, no MRG. ABDOMEN: Abdomen soft, non-tender, normo-active bowel sounds, no masses, no r ebound or guarding. BACK: No CVA TTP. SKIN: No rashes and no bruising. UPPER EXTREMITIES: Upper extremities are grossly normal. No pain to palpation or obvious deformity. LOWER EXTREMITIES: Pain to the right hip, closed injury, neurovascular intact distally, leg length discrepancy with shorter right leg compared to left leg. Compartments are soft. NEURO EXAM: A&O x3, cranial nerves II-XII grossly intact, normal speech, moves all 4 extremities on command w/o issue. Good finger to nose, no drift, no sensory deficits. Differential diagnoses: Fracture, subluxation, dislocation, contusion, liga mentous injury, neurovascular, compartment syndrome, rhabdomyolysis, as well as other pathologies. Course: Patient was seen and evaluated the bedside. Full history physical exam was performed. EKG interpreted by me Yaniv lo with RVR, rate 148, normal QRS normal axis. Imaging Studies: See Below Cardiac monitoring: An order was placed for continuous cardiac monitoring. The monitor shows a rate of 135 with irregularly irregular rhythm. MDM: Patient did present status post fall. The patient was diagnosed with a right- sided hip fracture. Blood work was obtained and repeat x-rays. He does take Coumadin but the patient does appear to have isolated trauma as the patient has no pain to palpation elsewhere and denies any head injury or LOC. No neck pain. Patient has no neurologic deficits. Patient's INR was therapeutic. Blood work fairly unremarkable. The patient's white count is normal. Given the patient's tachycardia likely from his chronic A. fib the patient was ordered Lopressor. Patient's heart rate did improve. The patient was ordered pain medication. X- ray does show right-sided femoral neck fracture. I did speak the on-call orthopedist Dr. Mercado. I subsequently spoke with Natalya Hernandez PA-C with [facility] and the patient was admitted by Dr. Linn. Critical Care: I have personally spent 42 minutes of critical care time in direct management of this patient. This includes bedside care, interpretation of diagnostic studies, and testing, discussion with consultants, patient, and family members, and other require inpatient management activities. This 42 minutes is in excess of all separately billable procedures. Past Med/Surg History Medical History Atrial fibrillation Benign prostatic hypertrophy Chronic kidney disease (CKD), stage III (moderate) DDD (degenerative disc disease), lumbar Degenerative scoliosis Dyslipidemia HTN (hypertension) Hypothyroidism PMR (polymyalgia rheumatica) Valvular heart disease Varicose veins of both lower extremities with pain Surgical History H/O wrist surgery right- related to a cat bite Hx of tonsillectomy Family History Mother Colorectal cancer Sister Stroke Social History Smoking Status: Never smoker Second Hand Exposure: No; Do You Dip or Chew Tobacco: No; Hx Alcohol Use: No Hx Substance Use: No Preferred Language: Italian Visual Impairment: No Limitations Hearing Ability: Hard of Hearing Band Tacker Required: No Beliefs That Will Affect Care: None marital status: Current Living Situation: Spouse current occupational status: retired How many Children do You have: 2 Other Information That Helps Us Care for You: No Feels Safe at Home: Yes Safety Concerns: Feels Safe At This Time Assistive Devices: Oxygen - Continuous Allergies Allergies Allergy/AdvReac Type Severity Reaction Status Date / Time quinidine Allergy Severe NEURO Verified 12/20/21 18:47 COMPLICATIONS, GENERAL WEAKNESS Home Meds Home Medications Medication Instructions Recorded Confirmed levothyroxine 200 mcg capsule 200 mcg PO DAILYBB 06/21/21 12/20/21 lorazepam 0.5 mg tablet 0.5 mg PO TID PRN 06/21/21 12/20/21 prednisone 5 mg tablet 5 mg PO DAILY 06/21/21 12/20/21 simvastatin 20 mg tablet 20 mg PO HS 06/21/21 12/20/21 solifenacin 5 mg tablet 5 mg PO DAILY 06/21/21 12/20/21 acetaminophen 650 mg 650 mg PO Q8H PRN 09/05/21 12/20/21 tablet,extended release furosemide 20 mg tablet (Lasix) 20 mg PO 2XWK 09/05/21 12/20/21 metoprolol succinate 50 mg 50 mg PO BID 12/20/21 12/20/21 tablet,extended release 24 hr warfarin 2.5 mg tablet 2.5 - 5 mg PO UD 12/20/21 12/20/21 Results & Data (ED) Vital Signs Vital Signs - 24 hr 12/20/21 18:00 12/20/21 18:10 12/20/21 18:15 Temperature 36.7 C Temperature Source Oral Pulse Rate 139 H 153 H 151 H Pulse Rate from SpO2 Sensor Respiratory Rate 22 28 H 27 H Blood Pressure 125/88 Blood Pressure Mean 100 Pulse Oximetry 94 Oxygen Delivery Method Room Air Sepsis Recent Fever Within 48 Hours No Sepsis New/Unexplained Change in Mental Status No Sepsis Action Taken by Nursing No Action Required 12/20/21 18:30 12/20/21 18:45 12/20/21 18:51 Temperature Temperature Source Pulse Rate 151 H 140 H 120 H Pulse Rate from SpO2 Sensor 91 H Respiratory Rate 28 H 31 H 28 H Blood Pressure 88/62 L Blood Pressure Mean 70 Pulse Oximetry 96 Oxygen Delivery Method Sepsis Recent Fever Within 48 Hours Sepsis New/Unexplained Change in Mental Status Sepsis Action Taken by Nursing 12/20/21 19:00 Temperature Temperature Source Pulse Rate 120 H Pulse Rate from SpO2 Sensor 151 H Respiratory Rate 28 H Blood Pressure 115/88 Blood Pressure Mean 97 Pulse Oximetry 93 Oxygen Delivery Method Sepsis Recent Fever Within 48 Hours Sepsis New/Unexplained Change in Mental Status Sepsis Action Taken by Group Home Medications Current Medication List: was personally reviewed by me Laboratory Data Attestation: I reviewed the patient's lab results. Result diagrams: 12/21/21 06:25 12/21/21 06:25 Lab Results 12/20/21 12/20/21 12/20/21 Range/Units 18:18 18:18 18:18 WBC 8.88 (4.8-10.8) K/uL RBC 4.20 L (4.7-6.1) M/uL Hgb 12.8 L (14.0-18.0) g/dL Hct 40.2 L (42-52) % MCV 95.7 (80-100) fL MCH 30.5 (25-34) pg MCHC 31.8 L (32-36) g/dL RDW Std Deviation 45.7 (36.4-46.3) fL RDW Coeff of Kristie 13.1 (11.5-14.5) % Plt Count 304 (130-400) K/uL MPV 10.6 H (7.4-10.4) fL Immature Gran % (Auto) 0.6 % Neut % (Auto) 70.4 % Lymph % (Auto) 17.3 % Pettis % (Auto) 10.8 % Eos % (Auto) 0.6 % Baso % (Auto) 0.3 % Neut # (Auto) 6.25 (1.4-6.5) K/uL Lymph # (Auto) 1.54 (1.2-3.4) K/uL Pettis # (Auto) 0.96 H (0.11-0.59) K/uL Eos # (Auto) 0.05 (0-0.5) K/uL Baso # (Auto) 0.03 (0-0.2) K/uL Immature Gran # (Auto) 0.05 H (0.00-0.02) K/uL PT 26.3 H (9.0-12.0) Seconds INR 2.8 H (0.9-1.1) APTT 35.5 H (21.0-31.0) Seconds PTT Ratio 1.3 Sodium 139 (136-145) mmol/L Potassium 4.8 (3.5-5.1) mmol/L Chloride 104 (98-107) mmol/L Carbon Dioxide 25 (21-32) mmol/L Anion Gap 10 (3-11) BUN 32 H (6-23) mg/dl Creatinine 1.56 H (0.6-1.4) mg/dl Est Cr Clr Drug Dosing 36.0 ml/min Est GFR ( Amer) 45.3 ml/min Est GFR (Non-Af Amer) 39.1 ml/min BUN/Creatinine Ratio 20.5 H (10-20) Glucose 103 H (70-99(Fasting)) mg/dl Calcium 9.0 (8.5-10.1) mg/dl Total Bilirubin 0.7 (0.2-1.0) mg/dl AST 23 (13-39) U/L ALT 19 (7-52) U/L Alkaline Phosphatase 57 (34-104) U/L Troponin I (0-0.04) ng/ml Total Protein 7.4 (6.0-8.3) gm/dl Albumin 3.5 (3.4-5.0) gm/dl Globulin 3.9 (2.5-4.0) gm/dl Albumin/Globulin Ratio 0.9 (0.9-2) Urine Color Urine Appearance (Clear) Urine pH (4.5-7.5) Ur Specific Salvo (1.000-1.030) Urine Protein (Negative) Urine Glucose (UA) (Negative) Urine Ketones (Negative) Urine Blood (Negative) Urine Nitrite (Negative) Urine Bilirubin (Negative) Urine Urobilinogen (Negative) Ur Leukocyte Esterase (Negative) SARS-CoV-2, RNA, NAAT (NEGATIVE) 12/20/21 12/20/21 12/20/21 Range/Units 18:18 18:58 19:00 WBC (4.8-10.8) K/uL RBC (4.7-6.1) M/uL Hgb (14.0-18.0) g/dL Hct (42-52) % MCV (80-100) fL MCH (25-34) pg MCHC (32-36) g/dL RDW Std Deviation (36.4-46.3) fL RDW Coeff of Kristie (11.5-14.5) % Plt Count (130-400) K/uL MPV (7.4-10.4) fL Immature Gran % (Auto) % Neut % (Auto) % Lymph % (Auto) % Pettis % (Auto) % Eos % (Auto) % Baso % (Auto) % Neut # (Auto) (1.4-6.5) K/uL Lymph # (Auto) (1.2-3.4) K/uL Pettis # (Auto) (0.11-0.59) K/uL Eos # (Auto) (0-0.5) K/uL Baso # (Auto) (0-0.2) K/uL Immature Gran # (Auto) (0.00-0.02) K/uL PT (9.0-12.0) Seconds INR (0.9-1.1) APTT (21.0-31.0) Seconds PTT Ratio Sodium (136-145) mmol/L Potassium (3.5-5.1) mmol/L Chloride (98-107) mmol/L Carbon Dioxide (21-32) mmol/L Anion Gap (3-11) BUN (6-23) mg/dl Creatinine (0.6-1.4) mg/dl Est Cr Clr Drug Dosing ml/min Est GFR ( Amer) ml/min Est GFR (Non-Af Amer) ml/min BUN/Creatinine Ratio (10-20) Glucose (70-99(Fasting)) mg/dl Calcium (8.5-10.1) mg/dl Total Bilirubin (0.2-1.0) mg/dl AST (13-39) U/L ALT (7-52) U/L Alkaline Phosphatase (34-104) U/L Troponin I < 0.03 (0-0.04) ng/ml Total Protein (6.0-8.3) gm/dl Albumin (3.4-5.0) gm/dl Globulin (2.5-4.0) gm/dl Albumin/Globulin Ratio (0.9-2) Urine Color Yellow Urine Appearance Clear (Clear) Urine pH 5.0 (4.5-7.5) Ur Specific Salvo 1.017 (1.000-1.030) Urine Protein Negative (Negative) Urine Glucose (UA) Negative (Negative) Urine Ketones Negative (Negative) Urine Blood Negative (Negative) Urine Nitrite Negative (Negative) Urine Bilirubin Negative (Negative) Urine Urobilinogen Negative (Negative) Ur Leukocyte Esterase Negative (Negative) SARS-CoV-2, RNA, NAAT NEGATIVE (NEGATIVE) Administered Medications Diltiazem HCl 125 mg/ Dextrose 125 mls @ 12.5 mls/hr IV .Q10H [facility]; Protocol Stop: 01/19/22 18:59 Last Titration: 12/21/21 06:45 Dose: 5 mg/hr, 5 mls/hr Documented by: [id number] Cosigned by: [id number] Titration: 12/20/21 21:51 Dose: 12.5 mg/hr, 12.5 mls/hr Documented by: [id number] Cosigned by: [id number] Titration: 12/20/21 20:37 Dose: 10 mg/hr, 10 mls/hr Documented by: [id number] Cosigned by: [id number] Admin: 12/20/21 20:03 Dose: 5 mg/hr, 5 mls/hr Documented by: [id number] Cosigned by: [id number] Metoprolol Succinate (Metoprolol Succ 50mg Ext Rel Tab) 50 mg PO BID [facility] Stop: 01/19/22 20:59 Last Admin: 12/20/21 21:53 Dose: 50 mg Documented by: [id number] Miscellaneous (Solifenacin 5 Mg: Order Awaiting Action) 1 ea N/A QS [facility] Stop: 01/20/22 00:00 Last Admin: 12/21/21 08:48 Dose: Not Given Documented by: [id number] Admin: 12/21/21 02:37 Dose: Not Given Documented by: [id number] Senna/Docusate Sodium (Docusate Sodium/Senna 50/8.6mg Tab) 2 tab PO HS JOSE L Stop: 01/19/22 20:59 Last Admin: 12/20/21 21:52 Dose: 2 tab Documented by: [id number] Simvastatin (Simvastatin 20 Mg Tab) 20 mg PO HS JOSE L Stop: 01/19/22 20:59 Last Admin: 12/20/21 21:53 Dose: 20 mg Documented by: [id number] Discontinued Medications Sodium Chloride (Nss 1000ml) 500 mls @ 999 mls/hr IV .Q31M ONE Stop: 12/20/21 18:48 Last Infusion: 12/20/21 23:17 Dose: 0 mls/hr Documented by: [id number] Admin: 12/20/21 18:45 Dose: 999 mls/hr Documented by: [id number] Metoprolol Tartrate (Metoprolol Tartrate 1 Mg/Ml Vial) 5 mg IV Q10M PRN PRN Reason: Tachycardia Stop: 01/19/22 18:17 Last Admin: 12/20/21 18:47 Dose: 5 mg Documented by: [id number] Morphine Sulfate (Morphine Sulfate 2 Mg/Ml Carp) 2 mg IV Q1H PRN PRN Reason: Moderate Pain (Rating 3,4,5,6) Stop: 01/03/22 17:09 Last Admin: 12/20/21 18:45 Dose: 2 mg Documented by: [id number] Morphine Sulfate (Morphine Sulfate 2 Mg/Ml Carp) 1 mg IV NOW STA Stop: 12/20/21 20:57 Last Admin: 12/20/21 21:11 Dose: 1 mg Documented by: [id number] Imaging Data Radiologist's Impression: Hip X-Ray 12/20/21 17:10 XR hip RT min 2V CLINICAL HISTORY: fall, hip pain. COMPARISON STUDY: No previous studies for comparison. TECHNIQUE: 3 right hip views FINDINGS: Bones: Bones are osteopenic. There is a mildly displaced transcervical fracture of the right femoral neck. The femoral shaft is superiorly migrated in relation to the femoral head and neck. There is mild coxa varus deformity present. There is no lytic or blastic lesion. Joints: There is moderate narrowing of the hip joint space superiorly. The femoral head maintains its anatomic position within the acetabulum . Soft tissues: There is no focal soft tissue abnormality. There is no radiopaque foreign body. IMPRESSION: Mildly displaced transcervical fracture of the right femoral neck. ACT 112: Negative or not required by law. Electronically signed by: Fritz Aquino M.D. 12/20/2021 6:42 PM Chest X-Ray 12/20/21 17:59 XR chest 1V portable CLINICAL HISTORY: Status post fall with fracture.. Evaluate cardiopulmonary status COMPARISON STUDY: 09/05/2021 TECHNIQUE: 1 view of the chest FINDINGS: Single supine frontal view of the chest demonstrates the heart to again be enlarged. There is a decreased inspiratory effort with elevation of the hemidiaphragms and crowding of the bronchovascular markings at the lung bases and centrally. The lungs are clear of alveolar opacities. There is no evidence for pleural effusion. There is no evidence for vascular congestion. There is no acute osseous pathology. IMPRESSION: There is a decreased inspiratory effort with otherwise no acute chest disease. ACT 112: Negative or not required by law. Electronically signed by: Fritz Aquino M.D. 12/20/2021 6:44 PM Discharge Plan Visit Data Chief Complaint: Hip Pain Stated Complaint: FX HIP Discharge Problem: Atrial fibrillation with RVR, Closed right femoral fracture, Fall Patient Disposition: Admitted As Inpatient Discharge Instructions Interventions: ED Discharge Assessment Last Done: 12/20/21 20:00
[2021-12-20] MEDS ORDERED: METOPROLOL TARTRATE 1 MG/ML VIAL IV PRN (18:18)
[2021-12-20] MEDS ORDERED: SODIUM CHLORIDE 0.9% 1000ML 500 ML IV ONE (18:18)
[2021-12-20 18:30] LABS: Basophils # (auto) 0.03 K/uL (0-0.2); Basophils % (auto) 0.3 %; Eosinophils # (auto) 0.05 K/uL (0-0.5); Eosinophils % (auto) 0.6 %; Hematocrit (blood only) 40.2 % (42-52); Hemoglobin 12.8 g/dL (14.0-18.0); Immature Granulocytes # (auto) 0.05 K/uL (0.00-0.02); Immature Granulocytes % (auto) 0.6 %; Lymphocytes # (auto) 1.54 K/uL (1.2-3.4); Lymphocytes % (auto) 17.3 %; Mean Corpuscular Hemoglobin 30.5 pg (25-34); Mean Corpuscular Hgb Conc 31.8 g/dL (32-36); Mean Corpuscular Volume 95.7 fL (80-100); Mean Platelet Volume 10.6 fL (7.4-10.4); Monocytes # (auto) 0.96 K/uL (0.11-0.59); Monocytes % (auto) 10.8 %; Neutrophils # (auto) 6.25 K/uL (1.4-6.5); Neutrophils % (auto) 70.4 %; Platelet Count 304 K/uL (130-400); RDW Coefficient of Variation 13.1 % (11.5-14.5); RDW Standard Deviation 45.7 fL (36.4-46.3); White Blood Count 8.88 K/uL (4.8-10.8)
--- NOTE | 2021-12-20 18:35 | History & Physical Report ---
Date of Service December 20, 2021 Assessment & Plan (1) Closed right femoral fracture: Plan: Patient is 86-year-old male with PMH persistent atrial fibrillation on Coumadin, moderate aortic stenosis, moderate tricuspid regurgitation, mild mitral insufficiency, mild pulmonary hypertension, HLD, CKD III, PMR, hypothyroidism presented to ER after mechanical fall, c/o right hip pain. Outpatient Right hip xray with femur fracture. Denies hitting head, LOC, dizziness, CP, SOB. Right hip x-ray: Mildly displaced transcervical fracture of the right femoral neck In ER given morphine 2 mg IV, NSS 500 mL NPO midnight Patient needs further optimization prior to surgery Ortho consult, Dr Mercado contacted by ER physician Anesthesia consult Morphine as needed CBC, BMP, INR in am (2) Atrial fibrillation with RVR: Plan: History of persistent atrial fibrillation. On Coumadin In ER patient found to be in atrial fibrillation RVR with rate of 130s-150s. Patient denies chest pain, shortness of breath, palpitations. He was given Lopressor 5 mg IV. Did not have medications today. Patient unsure if has been taking medications properly. Cardizem drip started INR: 2.8 Hold Coumadin INR in am Pt likely will require vitamin K prior to procedure Continue metoprolol succinate Echo Cardiology consult (3) Valvular heart disease: Plan: Echo 01/2021: EF: 55-59%, mild to moderate aortic stenosis, mild mitral regurgitation, moderate tricuspid regurgitation, mild pulmonary hypertension, aortic root diameter upper limit of normal at 3.8 cm, proximal ascending aorta mildly dilated at 4 cm Hold Lasix currently (4) Chronic kidney disease (CKD), stage III (moderate): Plan: Cr: 1.56. Baseline Cr: 1.8 Monitor renal functions, avoid nephrotoxic agents when possible (5) PMR (polymyalgia rheumatica): Plan: Continue prednisone (6) Dyslipidemia: Plan: Continue statin (7) Hypothyroidism: Plan: Continue levothyroxine DVT Prophylaxis SCDs Full Code as per discussion with pt Follows with Dr Luca Howe for routine care Pt was seen and care coordinated with Dr Linn. See addendum History of Present Illness Chief Complaint: Fall, right hip pain Primary Care Provider: Luca Howe, Patient is 86-year-old male with PMH persistent atrial fibrillation on Coumadin, moderate aortic stenosis, moderate tricuspid regurgitation, mild mitral insufficiency, mild pulmonary hypertension, HLD, CKD III, PMR, hypothyroidism presented to ER with complaint of fall and right hip pain. Patient was at [facility] today with his when he was helping his in the car and he slipped and fell. He denies hitting his head. Denies dizziness, chest pain, palpitations. Patient unable to bear weight on right leg. Denies any other injury or pain. Patient was seen at [facility] and had x-ray that showed right femoral neck fracture and was referred to ER. Patient reports the past year he has been having more difficulty with his balance. He sometimes uses a cane. Denies fever/chills, diaphoresis, N/V/D/C, [place], syncope, vision changes, neck pain, SOB, orthopnea, palpitations, cough, sore throat, choking, otalgia, rhinorrhea, abdominal pain, paresthesias, increased extremity edema, rashes, dysuria, hematuria. In ER patient found to be in atrial fibrillation RVR with rate of 130s-150s. Patient denies chest pain, shortness of breath, palpitations. He was given Lopressor 5 mg IV. Allergies Allergy/AdvReac Type Severity Reaction Status Date / Time quinidine Allergy Severe NEURO Verified 12/20/21 18:47 COMPLICATIONS, GENERAL WEAKNESS Home Medications Medication Instructions Recorded Confirmed Type levothyroxine 200 mcg capsule 200 mcg PO DAILYBB 06/21/21 12/20/21 History lorazepam 0.5 mg tablet 0.5 mg PO TID PRN 06/21/21 12/20/21 History prednisone 5 mg tablet 5 mg PO DAILY 06/21/21 12/20/21 History simvastatin 20 mg tablet 20 mg PO HS 06/21/21 12/20/21 History solifenacin 5 mg tablet 5 mg PO DAILY 06/21/21 12/20/21 History acetaminophen 650 mg 650 mg PO Q8H PRN 09/05/21 12/20/21 History tablet,extended release furosemide 20 mg tablet (Lasix) 20 mg PO 2XWK 09/05/21 12/20/21 History metoprolol succinate 50 mg 50 mg PO BID 12/20/21 12/20/21 History tablet,extended release 24 hr warfarin 2.5 mg tablet 2.5 - 5 mg PO UD 12/20/21 12/20/21 History Past Med/Surg History Medical History Atrial fibrillation Benign prostatic hypertrophy Chronic kidney disease (CKD), stage III (moderate) DDD (degenerative disc disease), lumbar Degenerative scoliosis Dyslipidemia HTN (hypertension) Hypothyroidism PMR (polymyalgia rheumatica) Valvular heart disease Varicose veins of both lower extremities with pain Surgical History H/O wrist surgery right- related to a cat bite Hx of tonsillectomy Family History Mother Colorectal cancer Sister Stroke Social History Smoking Status: Never smoker Hx Alcohol Use: No Hx Substance Use: No Preferred Language: Czech Visual Impairment: No Limitations Hearing Ability: Hard of Hearing Beliefs That Will Affect Care: None marital status: Current Living Situation: Spouse current occupational status: retired How many Children do You have: 2 Feels Safe at Home: Yes Review of Systems Review of Systems: All systems reviewed & are unremarkable except as noted in HPI & below Physical Exam Physical Exam: General: no distress, WDWN Head: normocephalic, atraumatic Eyes: PERRL, EOM's intact, conjunctiva non-injected, anicteric ENT: hard of hearing, normal inspection external ears, nose, mucous membranes moist Neck: supple, trachea midline Lungs: clear, no respiratory distress, no wheezing/rhonchi/rales CV: + Tachycardia, 140s, irregularly irregular + murmur, 1-2+ pretibial edema Abd: normal BS, soft, non-tender Ext: no cyanosis or erythema, RLE: +shortened, mildly externally rotated, distal pulses intact, sensation to light touch intact Neuro: Alert, oriented to person, year, month, unsure of day, knows in hospital but states in [place], no focal deficits noted, normal affect Skin: warm, dry Results & Data Results & Data ([facility]) Vital Signs (Past 12 Hours) Vital Signs Temp Pulse Resp BP Pulse Ox 12/20/21 18:00 36.7 C 139 H 22 125/88 94 Laboratory Results Short CBC 12/20/21 Range/Units 18:18 WBC 8.88 (4.8-10.8) K/uL Hgb 12.8 L (14.0-18.0) g/dL Hct 40.2 L (42-52) % Plt Count 304 (130-400) K/uL BMP 12/20/21 18:18 Sodium 139 Potassium 4.8 Chloride 104 Carbon Dioxide 25 BUN 32 H Creatinine 1.56 H Glucose 103 H Calcium 9.0 Liver Function 12/20/21 Range/Units 18:18 Total Bilirubin 0.7 (0.2-1.0) mg/dl AST 23 (13-39) U/L ALT 19 (7-52) U/L Alkaline Phosphatase 57 (34-104) U/L Albumin 3.5 (3.4-5.0) gm/dl Diagnostic Findings Hip X-Ray 12/20/21 17:10 XR hip RT min 2V CLINICAL HISTORY: fall, hip pain. COMPARISON STUDY: No previous studies for comparison. TECHNIQUE: 3 right hip views FINDINGS: Bones: Bones are osteopenic. There is a mildly displaced transcervical fracture of the right femoral neck. The femoral shaft is superiorly migrated in relation to the femoral head and neck. There is mild coxa varus deformity present. There is no lytic or blastic lesion. Joints: There is moderate narrowing of the hip joint space superiorly. The femoral head maintains its anatomic position within the acetabulum . Soft tissues: There is no focal soft tissue abnormality. There is no radiopaque foreign body. IMPRESSION: Mildly displaced transcervical fracture of the right femoral neck. ACT 112: Negative or not required by law. Electronically signed by: Fritz Aquino M.D. 12/20/2021 6:42 PM Chest X-Ray 12/20/21 17:59 XR chest 1V portable CLINICAL HISTORY: Status post fall with fracture.. Evaluate cardiopulmonary status COMPARISON STUDY: 09/05/2021 TECHNIQUE: 1 view of the chest FINDINGS: Single supine frontal view of the chest demonstrates the heart to again be enlarged. There is a decreased inspiratory effort with elevation of the hemidiaphragms and crowding of the bronchovascular markings at the lung bases and centrally. The lungs are clear of alveolar opacities. There is no evidence for pleural effusion. There is no evidence for vascular congestion. There is no acute osseous pathology. IMPRESSION: There is a decreased inspiratory effort with otherwise no acute chest disease. ACT 112: Negative or not required by law. Electronically signed by: Fritz Aquino M.D. 12/20/2021 6:44 PM Supervising Physician Co-Signing Physician Notes 86-year-old male with PMH of persistent atrial fibrillation on Coumadin, moderate , moderate TR, mild mitral insufficiency, mild pulmonary HTN, BPH, lumbar DDD, HLD, CKD III, PMR on chornin low dose steroid, hypothyroidism presented to ED 12/20 after he slipped and hurt right hip today. He denies fever/chills/cough/chest pain/palpitations/other ROS at bedside exam. Patient reports pain at right hip, slightly better with rest and worsened with movement. Patient denies any tobacco use/alcohol use/recreational drug use. Patient was found to be in A. fib with RVR with no chest pain in the ED. Patient had not taken his a.m. dose of metoprolol. Patient on warfarin. Labs and imaging reviewed. #. Right hip fracture: Transcervical fracture of the right femoral neck, pain control, n.p.o., orthopedics consult. Hold Coumadin for anticipation of any procedure. Fall precaution. #. A. fib RVR: Patient has history of persistent A. fib on Coumadin, has not taken his a.m. dose of metoprolol, found to be in A. fib RVR with heart rate in 148, no chest pain, Cardizem drip, cardiology consult, trend troponins, EKG in a.m. #. Other chronic medical conditions: Resume home meds as and when appropriate. Upon examination GENERAL: Alert and oriented x3. NAD, on RA. HEENT: No pallor, no icterus. Pupils equal, round and reactive to light. Oral mucosa moist. NECK: No JVD, no neck masses. HEART: S1 and S2 heard. irregular rate and rhythm. Tachycardic, no murmur could be appreciated, no gallop. RESPIRATORY SYSTEM: Normal AP diameter. No accessory muscle use. No wheezing, no crackles. ABDOMEN: Soft, bowel sounds present, nontender, no distention. CENTRAL NERVOUS SYSTEM: No facial droop. Speech is clear. Obeys simple commands. Moves extremities. EXTREMITIES: No edema, no erythema seen. RLE distal neurovascular status WNL, RLE range of motion limited due to pain. I have seen and examined the patient and have discussed the case with the provider above. I agree with the assessment and plan as stated. (1) Chronic kidney disease (CKD), stage III (moderate) Chronic kidney disease stage 3 subtype: stage 3b (GFR 30-44) Qualified Code(s): N18.32 - Chronic kidney disease, stage 3b
[2021-12-20 18:41] LABS: INR 2.8 (0.9-1.1); Partial Thromboplastin Ratio 1.3; Partial Thromboplastin Time 35.5 Seconds (21.0-31.0); Prothrombin Time 26.3 Seconds (9.0-12.0)
--- NOTE | 2021-12-20 18:44 | XRay Report ---
XR hip RT min 2V CLINICAL HISTORY: fall, hip pain. COMPARISON STUDY: No previous studies for comparison. TECHNIQUE: 3 right hip views FINDINGS: Bones: Bones are osteopenic. There is a mildly displaced transcervical fracture of the right femoral neck. The femoral shaft is superiorly migrated in relation to the femoral head and neck. There is mil d coxa varus deformity present. There is no lytic or blastic lesion. Joints: There is moderate narrowing of the hip joint space superiorly. The femoral head maintains its anatomic position within the acetabulum . Soft tissues: There is no focal soft tissue abnormality. There is no radiopaque foreign body. IMPRESSION: Mildly displaced transcervical fracture of the right femoral neck. ACT 112: Negative or not required by law. Electronically signed by: Fritz Aquino M.D. 12/20/2021 6:42 PM
--- NOTE | 2021-12-20 18:45 | XRay Report ---
XR chest 1V portable CLINICAL HISTORY: Status post fall with fracture.. Evaluate cardiopulmonary status COMPARISON STUDY: 09/05/2021 TECHNIQUE: 1 view of the chest FINDINGS: Single supine frontal view of the chest demonstrates the heart to again be enlarged. There is a decre ased inspiratory effort with elevation of the hemidiaphragms and crowding of the bronchovascular jt ings at the lung bases and centrally. The lungs are clear of alveolar opacities. There is no evidence for pleural effusion. There is no evidence for vascular congestion. There is no acute osseous pathol ogy. IMPRESSION: There is a decreased inspiratory effort with otherwise no acute chest disease. ACT 112: Negative or not required by law. Electronically signed by: Fritz Aquino M.D. 12/20/2021 6:44 PM
[2021-12-20 18:49] LABS: Albumin Globulin Ratio 0.9 (0.9-2); Albumin Level 3.5 gm/dl (3.4-5.0); BUN Creatinine Ratio 20.5 (10-20); Bilirubin,Total 0.7 mg/dl (0.2-1.0); Est GFR (African American) 45.3 ml/min; Est GFR (Non-African American) 39.1 ml/min; Globulin 3.9 gm/dl (2.5-4.0); Potassium 4.8 mmol/L (3.5-5.1); Total Protein 7.4 gm/dl (6.0-8.3)
[2021-12-20] MEDS ORDERED: STAT IV Infusion **Titration per Protocol STA (18:59)
[2021-12-20] MEDS ORDERED: NALOXONE HCL 0.4 MG/1 ML VIAL/CARP IV PRN (20:02)
[2021-12-20] MEDS ORDERED: ONDANSETRON INJ 2 MG/ML 2 ML VIAL IV PRN (20:02)
[2021-12-20] MEDS ORDERED: ACETAMINOPHEN 325 MG TAB PO PRN (20:02)
[2021-12-20] MEDS ORDERED: MAGNESIUM HYDROXIDE SUSP 30 ML UDC PO PRN (20:02)
[2021-12-20] MEDS ORDERED: POLYETHYLENE (MIRALAX) 17 GM PACK PO PRN (20:02)
[2021-12-20] MEDS ORDERED: bisacodyL 10 MG SUPP PR PRN (20:02)
[2021-12-20] MEDS: dilTIAZem HCL 125 MG in DEXTROSE 5% 100 ML IV SCH (20:03)
[2021-12-20] MEDS ORDERED: MoRPHine SULFATE 2 MG/ML CARP IV STA (20:56)
[2021-12-20 21:25] LABS: Appearance Urine Clear (Clear); Bilirubin Urine Negative (Negative); Blood Urine Negative (Negative); Color Urine Yellow; Glucose Urine UA Negative (Negative); Ketones Urine Negative (Negative); Leukocyte Esterase Urine Negative (Negative); Nitrite Urine Negative (Negative); Protein Urine Negative (Negative); Specific Gravity Urine 1.017 (1.000-1.030); Urobilinogen Urine Negative (Negative)
[2021-12-20] MEDS: DOCUSATE SODIUM/SENNA 50/8.6MG TAB PO SCH (21:52)
[2021-12-20] MEDS: SIMVASTATIN 20 MG TAB PO SCH (21:53)
[2021-12-20] MEDS: METOPROLOL SUCC 50MG EXT REL TAB PO SCH (21:53)
[2021-12-21] MEDS ORDERED: ceFAZolin 2000MG 2,000 MG/15 ML SYR IV SCH (06:00)
[2021-12-21 06:47] LABS: Hematocrit (blood only) 38.4 % (42-52); Mean Corpuscular Hemoglobin 30.1 pg (25-34); Mean Corpuscular Hgb Conc 31.3 g/dL (32-36); Mean Corpuscular Volume 96.2 fL (80-100); Mean Platelet Volume 10.6 fL (7.4-10.4); Platelet Count 273 K/uL (130-400); RDW Coefficient of Variation 13.1 % (11.5-14.5); RDW Standard Deviation 46.2 fL (36.4-46.3); Red Blood Count 3.99 M/uL (4.7-6.1); White Blood Count 8.51 K/uL (4.8-10.8)
[2021-12-21 07:20] LABS: INR 3.2 (0.9-1.1); Prothrombin Time 29.2 Seconds (9.0-12.0)
[2021-12-21 07:23] LABS: BUN Creatinine Ratio 18.8 (10-20); Calcium 8.5 mg/dl (8.5-10.1); Creatinine Clr Calc Pharmacy 38.8 ml/min; Est GFR (African American) 49.9 ml/min; Potassium 4.6 mmol/L (3.5-5.1)
--- NOTE | 2021-12-21 09:01 | Cardiology Consultation ---
Date of Consultation December 21, 2021 Assessment & Plan (1) Closed right femoral fracture: (2) PMR (polymyalgia rheumatica): (3) Chronic atrial fibrillation: (4) Aortic stenosis: (5) Nonischemic cardiomyopathy: This patient is at least moderate risk for any type of surgical procedures based on his age, nonischemic cardiomyopathy, atrial fibrillation and aortic stenosis. Unfortunately, he will not do well if his hip fracture is not surgically repaired. I believe that we should optimally medically manage him and proceed with surgery as an excepted risk. If necessary you can reverse his warfarin with vitamin K and restart after the surgery. He is currently hemodynamically stable. History of Present Illness Attending Physician: Allyssa Perez MD History of Present Illness This is an elderly 86-year-old male patient with the past medical history as outlined below. He had a mechanical fall fracturing his right hip. The hip will need surgery. The patient is not a good historian. He does not seem to have any ongoing cardiac complaints. His echocardiogram reveals severe LV dysfunction with an estimated left ventricular ejection fraction of around 25%. He most likely has low flow aortic stenosis. Chronic atrial fibrillation. 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 6.Polymyalgia rheumatica on chronic prednisone therapy. 7.Hypothyroidism 8.Stage III chronic kidney disease Allergies Allergy/AdvReac Type Severity Reaction Status Date / Time quinidine Allergy Severe NEURO Verified 12/20/21 18:47 COMPLICATIONS, GENERAL WEAKNESS Home Medications Medication Instructions Recorded Confirmed Type levothyroxine 200 mcg capsule 200 mcg PO DAILYBB 06/21/21 12/20/21 History lorazepam 0.5 mg tablet 0.5 mg PO TID PRN 06/21/21 12/20/21 History prednisone 5 mg tablet 5 mg PO DAILY 06/21/21 12/20/21 History simvastatin 20 mg tablet 20 mg PO HS 06/21/21 12/20/21 History solifenacin 5 mg tablet 5 mg PO DAILY 06/21/21 12/20/21 History acetaminophen 650 mg 650 mg PO Q8H PRN 09/05/21 12/20/21 History tablet,extended release furosemide 20 mg tablet (Lasix) 20 mg PO 2XWK 09/05/21 12/20/21 History metoprolol succinate 50 mg 50 mg PO BID 12/20/21 12/20/21 History tablet,extended release 24 hr warfarin 2.5 mg tablet 2.5 - 5 mg PO UD 12/20/21 12/20/21 History Patient History Medical History Atrial fibrillation Benign prostatic hypertrophy Chronic kidney disease (CKD), stage III (moderate) DDD (degenerative disc disease), lumbar Degenerative scoliosis Dyslipidemia HTN (hypertension) Hypothyroidism PMR (polymyalgia rheumatica) Valvular heart disease Varicose veins of both lower extremities with pain Surgical History H/O wrist surgery right- related to a cat bite Hx of tonsillectomy Family History Mother Colorectal cancer Sister Stroke Social History Smoking Status: Never smoker Second Hand Exposure: No; Do You Dip or Chew Tobacco: No; Hx Alcohol Use: No Hx Substance Use: No Preferred Language: Frisian Visual Impairment: No Limitations Hearing Ability: Hard of Hearing Director Cardiac Required: No Beliefs That Will Affect Care: None marital status: Current Living Situation: Spouse current occupational status: retired How many Children do You have: 2 Other Information That Helps Us Care for You: No Feels Safe at Home: Yes Safety Concerns: Feels Safe At This Time Assistive Devices: Oxygen - Continuous Review of Systems Review of Systems: Not obtainable Physical Exam Physical Exam: General: no acute distress and stated age Head: normocephalic, no masses, lesions, tenderness or abnormalities Eyes: conjunctiva are pink and non-injected, sclera clear Neck: supple, no adenopathy, no bruits, normal jugular venous pulse, no hepatojugular reflux Chest: normal shape and normal respiratory effort Lungs: clear to auscultation and percussion Cardiac Exam: - irregular rate & rhythm, systolic murmur - normal S1, normal S2 Pulses: 2(+) throughout Abdomen: abdomen soft, non-tender, no abnormal masses and no hepatosplenomegaly Musculoskeletal: no gait disturbance, no joint inflammation, no deforming arthritis Extremities: no edema and no cyanosis Neuro: grossly normal exam Results & Data ([facility]) Vital Signs (Past 12 Hours) Vital Signs Temp Pulse Resp BP BP Pulse Ox 12/21/21 07:30 36.4 C L 18 107/72 99 12/21/21 04:00 86 25 H 115/78 97 12/21/21 03:01 80 21 124/76 100 12/21/21 02:01 75 21 123/66 97 12/21/21 02:00 80 21 95 12/21/21 01:00 79 25 H 116/68 89 L 12/21/21 00:01 84 12/21/21 00:00 83 23 12/20/21 23:01 111 H 28 H 119/81 99 12/20/21 22:01 114 H 28 H 119/91 92 12/20/21 22:00 123 H 32 H 96 12/20/21 21:41 116 H 29 H 125/74 94 12/20/21 21:40 120 H 25 H 95 12/20/21 21:30 144 H 32 H 113/66 93 12/20/21 21:29 118 H 33 H 93 12/20/21 21:16 132 H 20 99/73 L 12/20/21 21:10 107 H 27 H 82 L Laboratory Results Laboratory Results - last 24 hr 12/20/21 12/20/21 12/20/21 18:18 18:18 18:18 WBC 8.88 RBC 4.20 L Hgb 12.8 L Hct 40.2 L MCV 95.7 MCH 30.5 MCHC 31.8 L RDW Std Deviation 45.7 RDW Coeff of Kristie 13.1 Plt Count 304 MPV 10.6 H Immature Gran % (Auto) 0.6 Neut % (Auto) 70.4 Lymph % (Auto) 17.3 [place] % (Auto) 10.8 Eos % (Auto) 0.6 Baso % (Auto) 0.3 Neut # (Auto) 6.25 Lymph # (Auto) 1.54 [place] # (Auto) 0.96 H Eos # (Auto) 0.05 Baso # (Auto) 0.03 Immature Gran # (Auto) 0.05 H PT 26.3 H INR 2.8 H APTT 35.5 H PTT Ratio 1.3 Sodium 139 Potassium 4.8 Chloride 104 Carbon Dioxide 25 Anion Gap 10 BUN 32 H Creatinine 1.56 H Est Cr Clr Drug Dosing 36.0 Est GFR ( Amer) 45.3 Est GFR (Non-Af Amer) 39.1 BUN/Creatinine Ratio 20.5 H Glucose 103 H Calcium 9.0 Total Bilirubin 0.7 AST 23 ALT 19 Alkaline Phosphatase 57 Troponin I Total Protein 7.4 Albumin 3.5 Globulin 3.9 Albumin/Globulin Ratio 0.9 Urine Color Urine Appearance Urine pH Ur Specific [place] Urine Protein Urine Glucose (UA) Urine Ketones Urine Blood Urine Nitrite Urine Bilirubin Urine Urobilinogen Ur Leukocyte Esterase Nasal Screen MRSA (PCR) SARS-CoV-2, RNA, NAAT Blood Type Antibody Screen 12/20/21 12/20/21 12/20/21 18:18 18:58 19:00 WBC RBC Hgb Hct MCV MCH MCHC RDW Std Deviation RDW Coeff of Kristie Plt Count MPV Immature Gran % (Auto) Neut % (Auto) Lymph % (Auto) [place] % (Auto) Eos % (Auto) Baso % (Auto) Neut # (Auto) Lymph # (Auto) [place] # (Auto) Eos # (Auto) Baso # (Auto) Immature Gran # (Auto) PT INR APTT PTT Ratio Sodium Potassium Chloride Carbon Dioxide Anion Gap BUN Creatinine Est Cr Clr Drug Dosing Est GFR ( Amer) Est GFR (Non-Af Amer) BUN/Creatinine Ratio Glucose Calcium Total Bilirubin AST ALT Alkaline Phosphatase Troponin I < 0.03 Total Protein Albumin Globulin Albumin/Globulin Ratio Urine Color Yellow Urine Appearance Clear Urine pH 5.0 Ur Specific [place] 1.017 Urine Protein Negative Urine Glucose (UA) Negative Urine Ketones Negative Urine Blood Negative Urine Nitrite Negative Urine Bilirubin Negative Urine Urobilinogen Negative Ur Leukocyte Esterase Negative Nasal Screen MRSA (PCR) SARS-CoV-2, RNA, NAAT NEGATIVE Blood Type Antibody Screen 12/20/21 12/20/21 12/21/21 20:43 21:40 00:37 WBC RBC Hgb Hct MCV MCH MCHC RDW Std Deviation RDW Coeff of Kristie Plt Count MPV Immature Gran % (Auto) Neut % (Auto) Lymph % (Auto) [place] % (Auto) Eos % (Auto) Baso % (Auto) Neut # (Auto) Lymph # (Auto) [place] # (Auto) Eos # (Auto) Baso # (Auto) Immature Gran # (Auto) PT INR APTT PTT Ratio Sodium Potassium Chloride Carbon Dioxide Anion Gap BUN Creatinine Est Cr Clr Drug Dosing Est GFR ( Amer) Est GFR (Non-Af Amer) BUN/Creatinine Ratio Glucose Calcium Total Bilirubin AST ALT Alkaline Phosphatase Troponin I 0.03 Total Protein Albumin Globulin Albumin/Globulin Ratio Urine Color Urine Appearance Urine pH Ur Specific [place] Urine Protein Urine Glucose (UA) Urine Ketones Urine Blood Urine Nitrite Urine Bilirubin Urine Urobilinogen Ur Leukocyte Esterase Nasal Screen MRSA (PCR) Negative SARS-CoV-2, RNA, NAAT Blood Type AB Positive Antibody Screen NEGATIVE 12/21/21 12/21/21 12/21/21 06:25 06:25 06:25 WBC 8.51 RBC 3.99 L Hgb 12.0 L Hct 38.4 L MCV 96.2 MCH 30.1 MCHC 31.3 L RDW Std Deviation 46.2 RDW Coeff of Kristie 13.1 Plt Count 273 MPV 10.6 H Immature Gran % (Auto) Neut % (Auto) Lymph % (Auto) [place] % (Auto) Eos % (Auto) Baso % (Auto) Neut # (Auto) Lymph # (Auto) [place] # (Auto) Eos # (Auto) Baso # (Auto) Immature Gran # (Auto) PT 29.2 H INR 3.2 H APTT PTT Ratio Sodium 137 Potassium 4.6 Chloride 105 Carbon Dioxide 23 Anion Gap 9 BUN 27 H Creatinine 1.44 H Est Cr Clr Drug Dosing 38.8 Est GFR ( Amer) 49.9 Est GFR (Non-Af Amer) 43.0 BUN/Creatinine Ratio 18.8 Glucose 100 H Calcium 8.5 Total Bilirubin AST ALT Alkaline Phosphatase Troponin I Total Protein Albumin Globulin Albumin/Globulin Ratio Urine Color Urine Appearance Urine pH Ur Specific [place] Urine Protein Urine Glucose (UA) Urine Ketones Urine Blood Urine Nitrite Urine Bilirubin Urine Urobilinogen Ur Leukocyte Esterase Nasal Screen MRSA (PCR) SARS-CoV-2, RNA, NAAT Blood Type Antibody Screen 12/21/21 06:25 WBC RBC Hgb Hct MCV MCH MCHC RDW Std Deviation RDW Coeff of Kristie Plt Count MPV Immature Gran % (Auto) Neut % (Auto) Lymph % (Auto) [place] % (Auto) Eos % (Auto) Baso % (Auto) Neut # (Auto) Lymph # (Auto) [place] # (Auto) Eos # (Auto) Baso # (Auto) Immature Gran # (Auto) PT INR APTT PTT Ratio Sodium Potassium Chloride Carbon Dioxide Anion Gap BUN Creatinine Est Cr Clr Drug Dosing Est GFR ( Amer) Est GFR (Non-Af Amer) BUN/Creatinine Ratio Glucose Calcium Total Bilirubin AST ALT Alkaline Phosphatase Troponin I 0.03 Total Protein Albumin Globulin Albumin/Globulin Ratio Urine Color Urine Appearance Urine pH Ur Specific [place] Urine Protein Urine Glucose (UA) Urine Ketones Urine Blood Urine Nitrite Urine Bilirubin Urine Urobilinogen Ur Leukocyte Esterase Nasal Screen MRSA (PCR) SARS-CoV-2, RNA, NAAT Blood Type Antibody Screen Medications Administered Current Inpatient Medications Acetaminophen (Acetaminophen 325 Mg Tab) 650 mg PO Q4H PRN PRN Reason: Pain or Fever Stop: 01/19/22 20:01 Bisacodyl (Bisacodyl 10 Mg Supp) 10 mg WI DAILY PRN PRN Reason: Constipation Stop: 01/19/22 20:01 Diltiazem HCl 125 mg/ Dextrose 125 mls @ 12.5 mls/hr IV .Q10H [facility]; Protocol Stop: 01/19/22 18:59 Last Titration: 12/21/21 06:45 Dose: Infused Documented by: Tranexamic Acid (Tranexamic Acid / 0.7% Nacl) 1,000 mg in 100 mls @ 600 mls/hr IV TODAY@06 [facility] Tranexamic Acid (Tranexamic Acid / 0.7% Nacl) 1,000 mg in 100 mls @ 600 mls/hr IV TODAY@0630 [facility] Cefazolin Sodium (Ancef 2000mg) 2,000 mg in 15 mls @ 3.75 mls/min IV PREOP [facility]; Protocol Stop: 12/22/21 05:59 Levothyroxine Sodium (Levothyroxine Sodium 200 Mcg Tablet) 200 mcg PO DAILYBB [facility] Stop: 01/20/22 06:29 Magnesium Hydroxide (Magnesium Hydroxide Susp 30 Ml Udc) 30 ml PO Q12H PRN PRN Reason: Constipation Stop: 01/19/22 20:01 Metoprolol Succinate (Metoprolol Succ 50mg Ext Rel Tab) 50 mg PO BID [facility] Stop: 01/19/22 20:59 Last Admin: 12/20/21 21:53 Dose: 50 mg Documented by: Miscellaneous (Solifenacin 5 Mg: Order Awaiting Action) 1 ea N/A QS [facility] Stop: 01/20/22 00:00 Last Admin: 12/21/21 08:48 Dose: Not Given Documented by: Morphine Sulfate (Morphine Sulfate 2 Mg/Ml Carp) 2 mg IV Q3H PRN PRN Reason: Pain (1,2,3,4,5) & Pre PT Stop: 01/03/22 20:01 Naloxone HCl (Naloxone Hcl 0.4 Mg/1 Ml Vial/Carp) 0.1 mg IV UD PRN PRN Reason: Opiate Overdose Stop: 01/19/22 20:01 Ondansetron HCl (Ondansetron Inj 2 Mg/Ml 2 Ml Vial) 4 mg IV Q6H PRN PRN Reason: Nausea Stop: 01/19/22 20:01 Polyethylene Glycol (Polyethylene (Miralax) 17 Gm Pack) 17 gm PO DAILY PRN PRN Reason: Constipation Stop: 01/19/22 20:01 Prednisone (Prednisone 5 Mg Tab) 5 mg PO DAILY JOSE L Stop: 01/20/22 08:59 Senna/Docusate Sodium (Docusate Sodium/Senna 50/8.6mg Tab) 2 tab PO HS JOSE L Stop: 01/19/22 20:59 Last Admin: 12/20/21 21:52 Dose: 2 tab Documented by: Simvastatin (Simvastatin 20 Mg Tab) 20 mg PO HS JOSE L Stop: 01/19/22 20:59 Last Admin: 12/20/21 21:53 Dose: 20 mg Documented by:
--- NOTE | 2021-12-21 10:00 | Electrocardiogram Report ---
Test Reason : Blood Pressure : / mmHG Vent. 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 rate has increased BY 32 BPM Confirmed by Gustabo Beltre ([id number]) on 12/21/2021 9:59:37 AM Referred By: REFERRED SELF Confirmed By:Gustabo Beltre
--- NOTE | 2021-12-21 10:25 | Electrocardiogram Report ---
Test Reason : Blood Pressure : / mmHG Vent. Rate : 148 BPM Atrial Rate : 170 BPM P-R Int : 000 ms QRS Dur : 082 ms QT Int : 300 ms P-R-T Axes : 000 -05 179 degrees QTc Int : 471 ms Poor data quality, interpretation may be adversely affected Atrial fibrillation with rapid ventricular response Old Inferior infarct Possible Anteroseptal infarct , age undetermined Abnormal ECG When compared with ECG of 05-SEP-2021 15:24, Vent. rate has increased BY 53 BPM Borderline Criteria for Anteroseptal infarct now present Confirmed by Gustabo Beltre ([id number]) on 12/21/2021 10:25:50 AM Referred By: REFERRED SELF Confirmed By:Gustabo Beltre
--- NOTE | 2021-12-21 11:13 | Anesthesiology Consultation ---
Date of Service December 21, 2021 Assessment & Plan (1) Encounter for pre-operative examination: Chart Review Heart rate has been better controlled, need to continue with his meds to maint ain this and also need to reverse his anticoagulation (carefully in light of his severely reduced LV function) History Height/Weight Height: 5 ft 9 in Weight: 87.317 kg Allergies Allergy/AdvReac Type Severity Reaction Status Date / Time quinidine Allergy Severe NEURO Verified 12/20/21 18:47 COMPLICATIONS, GENERAL WEAKNESS Medications Home Medications Medication Instructions Recorded Confirmed Last Taken levothyroxine 200 mcg capsule 200 mcg PO DAILYBB 06/21/21 12/20/21 12/19/21 lorazepam 0.5 mg tablet 0.5 mg PO TID PRN 06/21/21 12/20/21 Unknown prednisone 5 mg tablet 5 mg PO DAILY 06/21/21 12/20/21 12/19/21 simvastatin 20 mg tablet 20 mg PO HS 06/21/21 12/20/21 12/19/21 solifenacin 5 mg tablet 5 mg PO DAILY 06/21/21 12/20/21 12/19/21 acetaminophen 650 mg 650 mg PO Q8H PRN 09/05/21 12/20/21 Unknown tablet,extended release furosemide 20 mg tablet (Lasix) 20 mg PO 2XWK 09/05/21 12/20/21 Unknown metoprolol succinate 50 mg 50 mg PO BID 12/20/21 12/20/21 12/19/21 tablet,extended release 24 hr warfarin 2.5 mg tablet 2.5 - 5 mg PO UD 12/20/21 12/20/21 12/19/21 Active Medications Generic Name Dose Route Start Last Admin Trade Name Nateq PRN Reason Stop Dose Admin Diltiazem HCl 125 mg/ Dextrose 125 mls @ 12.5 mls/hr 12/20/21 19:00 12/21/21 06:45 IV 01/19/22 18:59 Infused .Q10H JOSE L Titration Protocol 12.5 MG/HR Metoprolol Succinate 50 mg 12/20/21 21:00 12/20/21 21:53 Metoprolol Succ 50mg Ext Rel Tab PO 01/19/22 20:59 50 mg BID JOSE L Administration Miscellaneous 1 ea 12/21/21 00:00 12/21/21 08:48 Solifenacin 5 Mg: Order Awaiting Action N/A 01/20/22 00:00 Not Given QS JOSE L Senna/Docusate Sodium 2 tab 12/20/21 21:00 12/20/21 21:52 Docusate Sodium/Senna 50/8.6mg Tab PO 01/19/22 20:59 2 tab HS JOSE L Administration Simvastatin 20 mg 12/20/21 21:00 12/20/21 21:53 Simvastatin 20 Mg Tab PO 01/19/22 20:59 20 mg HS JOSE L Administration Past Medical History Medical History Atrial fibrillation Benign prostatic hypertrophy Chronic kidney disease (CKD), stage III (moderate) DDD (degenerative disc disease), lumbar Degenerative scoliosis Dyslipidemia HTN (hypertension) Hypothyroidism PMR (polymyalgia rheumatica) Valvular heart disease Varicose veins of both lower extremities with pain Past Family History Family History Mother Colorectal cancer Sister Stroke Past Surgical History Surgical History H/O wrist surgery right- related to a cat bite Hx of tonsillectomy Social History Smoking Status: Never smoker Do You Dip or Chew Tobacco: No Hx Alcohol Use: No Hx Substance Use: No Physical Exam Vital Signs Last Vital Signs Temp 36.4 C L 12/21/21 07:30 Pulse 86 12/21/21 04:00 Resp 18 12/21/21 07:30 BP 107/72 12/21/21 07:30 Pulse Ox 99 12/21/21 07:30 Testing Laboratory Results 12/21/21 06:25 12/21/21 06:25 PT 29.2 Seconds (9.0-12.0) H 12/21/21 06:25 INR 3.2 (0.9-1.1) H 12/21/21 06:25 APTT 35.5 Seconds (21.0-31.0) H 12/20/21 18:18 Urine Color Yellow 12/20/21 18:58 Urine Appearance Clear (Clear) 12/20/21 18:58 Urine pH 5.0 (4.5-7.5) 12/20/21 18:58 Ur Specific [place] 1.017 (1.000-1.030) 12/20/21 18:58 Urine Protein Negative (Negative) 12/20/21 18:58 Urine Glucose (UA) Negative (Negative) 12/20/21 18:58 Urine Ketones Negative (Negative) 12/20/21 18:58 Urine Nitrite Negative (Negative) 12/20/21 18:58 Ur Leukocyte Esterase Negative (Negative) 12/20/21 18:58 Blood Type AB Positive 12/20/21 20:43 Antibody Screen NEGATIVE 12/20/21 20:43 Electrocardiogram Date: 12/21/21 Findings: + NSST changes and + AFIB @ (91) Chest X-Ray Findings: + NAD Echocardiogram Date: 12/21/21 EF: 20-25% Valvular Disease: + (moderate (0.8cm2 max PG 23mmHg) mod to sev TR
--- NOTE | 2021-12-21 11:26 | Hospitalist Progress Note ---
Date of Service December 21, 2021 Assessment & Plan (1) Closed right femoral fracture: Plan: 86-year-old male with PMH persistent atrial fibrillation on Coumadin, moderate aortic stenosis, moderate tricuspid regurgitation, mild mitral insufficiency, mild pulmonary hypertension, HLD, CKD III, PMR, hypothyroidism presented to ER after mechanical fall, c/o right hip pain. Outpatient Right hip xray with femur fracture. Right hip x-ray: Mildly displaced transcervical fracture of the right femoral neck Continue pain control Patient has moderate risks for surgery. However, surgical management of fracture is needed. Discussed some of the risks with patient Discussed with ortho PA. They will plan for possible OR tomorrow depending on INR Give VIt K to reverse INR and check in AM NPO PMN (2) Atrial fibrillation with RVR: Plan: History of persistent atrial fibrillation. On Coumadin In ER patient found to be in atrial fibrillation RVR with rate of 130s-150s. Patient denied chest pain, shortness of breath, palpitations. Did not have medications on the day of presentation. Patient unsure if has been taking medications properly. Cardizem drip was started INR: 2.8 on admission. Now 3.2 today Rate is controlled Pattern Room Attendant ruth and recommendations noted Vit K given to reverse INR as stated above. Will resume anticoagulation post op once stable Continue metoprolol succinate (3) Valvular heart disease: Plan: Echo 01/2021: EF: 55-59%, mild to moderate aortic stenosis, mild mitral regurgitation, moderate tricuspid regurgitation, mild pulmonary hypertension, aortic root diameter upper limit of normal at 3.8 cm, proximal ascending aorta mildly dilated at 4 However, Echo done today show reduced EF of 20-25% Patient appears to have developed acute systolic heart failure. Patient on lasix at home which is currently held due to NPO and plan for surgery. Does not appear fluid on exam (4) Chronic kidney disease (CKD), stage III (moderate): Plan: Cr: 1.44. Baseline Cr: 1.8 Monitor renal functions, avoid nephrotoxic agents when possible (5) PMR (polymyalgia rheumatica): Plan: Continue prednisone (6) Dyslipidemia: Plan: Continue statin (7) Hypothyroidism: Plan: Continue levothyroxine DVT Prophylaxis SCDs Warfarin on hold as above Full Code Follows with Dr Luca Howe for routine care Called and updated her Admission and Anticipated Discharge Date Admission Date: December 20, 2021 Subjective Patient seen and examined. Patient reports pain on Right hip especially with movements. Denies any headache, dizziness Denies any chest pain, cough, shortness of breath, palpitations Denies any cough, shortness of breath Denies nausea, vomiting, abdominal pain or diarrhea Physical Exam Constitutional: + well hydrated; no acute distress Eyes: PERRL, conjunctivae normal, anicteric sclerae ENMT: external ear and nose normal, oropharynx normal Respiratory: normal respiratory effort, lungs clear to auscultation Cardiovascular: Rate/Rhythm: + irregularly irregular S1 S2 Gastrointestinal (Abdomen): normal bowel sounds, soft, nontender, no hepatosplenomegaly Musculoskeletal: RLE shortened and mildly rotated externally Neurologic: PERRL, EOMI, accommodation nl, no face palsy, no dysarthria Psychiatric: A+Ox3, euthymic affect Results & Data Results & Data ([facility]) Vital Signs (Past 12 Hours) Vital Signs Temp Pulse Resp BP BP Pulse Ox 12/21/21 07:30 36.4 C L 18 107/72 99 12/21/21 04:00 86 25 H 115/78 97 12/21/21 03:01 80 21 124/76 100 12/21/21 02:01 75 21 123/66 97 12/21/21 02:00 80 21 95 12/21/21 01:00 79 25 H 116/68 89 L 12/21/21 00:01 84 12/21/21 00:00 83 23 Laboratory Results Abnormal lab results 12/20/21 12/20/21 12/20/21 Range/Units 18:18 18:18 18:18 RBC 4.20 L (4.7-6.1) M/uL Hgb 12.8 L (14.0-18.0) g/dL Hct 40.2 L (42-52) % MCHC 31.8 L (32-36) g/dL MPV 10.6 H (7.4-10.4) fL [place] # (Auto) 0.96 H (0.11-0.59) K/uL Immature Gran # (Auto) 0.05 H (0.00-0.02) K/uL PT 26.3 H (9.0-12.0) Seconds INR 2.8 H (0.9-1.1) APTT 35.5 H (21.0-31.0) Seconds BUN 32 H (6-23) mg/dl Creatinine 1.56 H (0.6-1.4) mg/dl BUN/Creatinine Ratio 20.5 H (10-20) Glucose 103 H (70-99(Fasting)) mg/dl 12/21/21 12/21/21 12/21/21 Range/Units 06:25 06:25 06:25 RBC 3.99 L (4.7-6.1) M/uL Hgb 12.0 L (14.0-18.0) g/dL Hct 38.4 L (42-52) % MCHC 31.3 L (32-36) g/dL MPV 10.6 H (7.4-10.4) fL [place] # (Auto) (0.11-0.59) K/uL Immature Gran # (Auto) (0.00-0.02) K/uL PT 29.2 H (9.0-12.0) Seconds INR 3.2 H (0.9-1.1) APTT (21.0-31.0) Seconds BUN 27 H (6-23) mg/dl Creatinine 1.44 H (0.6-1.4) mg/dl BUN/Creatinine Ratio (10-20) Glucose 100 H (70-99(Fasting)) mg/dl (1) Closed right femoral fracture Encounter type: initial encounter Femur location: midcervical Fracture alignment: displaced Qualified Code(s): S72.031A - Displaced midcervical fracture of right femur, initial encounter for closed fracture (2) Chronic kidney disease (CKD), stage III (moderate) Chronic kidney disease stage 3 subtype: stage 3b (GFR 30-44) Qualified Code(s): N18.32 - Chronic kidney disease, stage 3b
[2021-12-21] MEDS: METOPROLOL SUCC 50MG EXT REL TAB PO SCH ×2 (11:55→20:27)
[2021-12-21] MEDS: predniSONE 5 MG TAB PO SCH (11:55)
[2021-12-21] MEDS: LEVOTHYROXINE SODIUM 200 MCG TABLET PO SCH (11:55)
[2021-12-21] MEDS: dilTIAZem HCL 125 MG in DEXTROSE 5% 100 ML IV SCH ×2 (12:08→12:39)
[2021-12-21] MEDS ORDERED: PHYTONADIONE 10 MG in DEXTROSE 5% 50 ML IV ONE (12:30)
--- NOTE | 2021-12-21 12:36 | Orthopedic Consultation ---
Date of Consultation December 21, 2021 Assessment & Plan (1) Fracture of femoral neck, right: The x-rays and diagnosis were discussed with the patient. It is recommended the patient undergo a right hip bipolar hemiarthroplasty. All potential risks, benefits, complications, alternatives, and rehab have been discussed with the patient and he wishes to proceed. At this time, the patient's INR is elevated above 3. I discussed this with medicine and they are going to be giving the patient vitamin K to help reverse his INR. Cardiology was also consulted and agrees with the plan. He will be nonweightbearing on bed rest at this time. I encouraged him to use his incentive spirometer as much as possible. In order to be n.p.o. after midnight was already placed. If the patient's INR has improved and is acceptable, we will proceed with surgery tomorrow morning. History of Present Illness Reason for Consultation: Right hip pain status post fall Attending Physician: Allyssa Perez MD History of Present Illness This is a patient who is with his at a doctor's appointment yesterday. He had helped her get into the passenger side of the car and was taking her walker around the car to put into the trunk. He states he is uncertain what happened but he lost his balance and fell. He had significant pain in his right hip. He was brought to [facility] ER where x-rays were performed and he was noted to have a right femoral neck fracture. He was admitted and we are consulted for surgical treatment. Allergies Allergy/AdvReac Type Severity Reaction Status Date / Time quinidine Allergy Severe NEURO Verified 12/20/21 18:47 COMPLICATIONS, GENERAL WEAKNESS Home Medications Medication Instructions Recorded Confirmed Type levothyroxine 200 mcg capsule 200 mcg PO DAILYBB 06/21/21 12/20/21 History lorazepam 0.5 mg tablet 0.5 mg PO TID PRN 06/21/21 12/20/21 History prednisone 5 mg tablet 5 mg PO DAILY 06/21/21 12/20/21 History simvastatin 20 mg tablet 20 mg PO HS 06/21/21 12/20/21 History solifenacin 5 mg tablet 5 mg PO DAILY 06/21/21 12/20/21 History acetaminophen 650 mg 650 mg PO Q8H PRN 09/05/21 12/20/21 History tablet,extended release furosemide 20 mg tablet (Lasix) 20 mg PO 2XWK 09/05/21 12/20/21 History metoprolol succinate 50 mg 50 mg PO BID 12/20/21 12/20/21 History tablet,extended release 24 hr warfarin 2.5 mg tablet 2.5 - 5 mg PO UD 12/20/21 12/20/21 History Patient History Medical History Atrial fibrillation Benign prostatic hypertrophy Chronic kidney disease (CKD), stage III (moderate) DDD (degenerative disc disease), lumbar Degenerative scoliosis Dyslipidemia HTN (hypertension) Hypothyroidism PMR (polymyalgia rheumatica) Valvular heart disease Varicose veins of both lower extremities with pain Surgical History H/O wrist surgery right- related to a cat bite Hx of tonsillectomy Family History Mother Colorectal cancer Sister Stroke Social History Smoking Status: Never smoker Second Hand Exposure: No; Do You Dip or Chew Tobacco: No; Hx Alcohol Use: No Hx Substance Use: No Preferred Language: [place] Citizen Visual Impairment: No Limitations Hearing Ability: Hard of Hearing Cloth Reeler Required: No Beliefs That Will Affect Care: None marital status: Current Living Situation: Spouse current occupational status: retired How many Children do You have: 2 Other Information That Helps Us Care for You: No Feels Safe at Home: Yes Safety Concerns: Feels Safe At This Time Assistive Devices: Oxygen - Continuous Physical Exam Constitutional: WD/WN, vitals as above no acute distress ENMT: external ear and nose normal, oropharynx normal Neck: trachea midline Musculoskeletal: Hip: + limited ROM of hip (Right hip secondary to pain), + joint line tenderness (Right hip) and + log roll test positive (Right); no skin erythema and no ecchymosis Skin: no rashes, warm and dry Trauma: no evidence of skin trauma Neurologic: normal touch/pain/proprioception Psychiatric: A+Ox3, euthymic affect Speech: normal rate/rhythm/volume of speech Results & Data ([facility]) Vital Signs (Past 12 Hours) Vital Signs Temp Pulse Resp BP BP Pulse Ox 12/21/21 07:30 36.4 C L 18 107/72 99 12/21/21 04:00 86 25 H 115/78 97 12/21/21 03:01 80 21 124/76 100 12/21/21 02:01 75 21 123/66 97 12/21/21 02:00 80 21 95 12/21/21 01:00 79 25 H 116/68 89 L Diagnostic Findings Right hip x-rays: Displaced right femoral neck fracture.
[2021-12-21] MEDS: SIMVASTATIN 20 MG TAB PO SCH (20:28)
[2021-12-21] MEDS: DOCUSATE SODIUM/SENNA 50/8.6MG TAB PO SCH (20:30)
[2021-12-22] MEDS: dilTIAZem HCL 125 MG in DEXTROSE 5% 100 ML IV SCH ×2 (03:17→18:19)
[2021-12-22 05:00] LABS: Hemoglobin 12.5 g/dL (14.0-18.0); Mean Corpuscular Hemoglobin 30.1 pg (25-34); Mean Corpuscular Hgb Conc 32.1 g/dL (32-36); Mean Platelet Volume 10.5 fL (7.4-10.4); Platelet Count 293 K/uL (130-400); RDW Standard Deviation 44.4 fL (36.4-46.3); Red Blood Count 4.15 M/uL (4.7-6.1)
[2021-12-22 05:09] LABS: INR 1.3 (0.9-1.1); Prothrombin Time 12.7 Seconds (9.0-12.0)
[2021-12-22 05:21] LABS: BUN Creatinine Ratio 21.1 (10-20); Calcium 8.3 mg/dl (8.5-10.1); Creatinine Clr Calc Pharmacy 43.6 ml/min; Est GFR (African American) 57.5 ml/min; Est GFR (Non-African American) 49.6 ml/min; Potassium 4.5 mmol/L (3.5-5.1)
[2021-12-22] MEDS ORDERED: ROPIVACAINE 0.5% HCL/PF 150 MG, BUPIVACAINE 0.75% MPF 20 ML, EPINEPHrine 30MG/30ML (OR ... INFIL SCH (06:00)
[2021-12-22] MEDS: LEVOTHYROXINE SODIUM 200 MCG TABLET PO SCH (06:20)
[2021-12-22] MEDS: predniSONE 5 MG TAB PO SCH (08:33)
[2021-12-22] MEDS: METOPROLOL SUCC 50MG EXT REL TAB PO SCH ×2 (08:33→22:07)
--- NOTE | 2021-12-22 08:39 | Hospitalist Progress Note ---
Date of Service December 22, 2021 Assessment & Plan (1) Closed right femoral fracture: Plan: 86-year-old male with PMH persistent atrial fibrillation on Coumadin, moderate aortic stenosis, moderate tricuspid regurgitation, mild mitral insufficiency, mild pulmonary hypertension, HLD, CKD III, PMR, hypothyroidism presented to ER after mechanical fall, c/o right hip pain. Outpatient Right hip xray with femur fracture. Right hip x-ray: Mildly displaced transcervical fracture of the right femoral neck Patient has moderate risks for surgery. However, surgical management of fracture is needed. Got Vit K for anticoagulation reversal yesterday Currently NPO for surgery today Continue pain control. Discuss with RN to limit opioid use if not needed with respect to pain control especially with delirium overnight (2) Atrial fibrillation with RVR: Plan: History of persistent atrial fibrillation. On Coumadin In ER patient found to be in atrial fibrillation RVR with rate of 130s-150s. Patient denied chest pain, shortness of breath, palpitations. Did not have medications on the day of presentation. Patient unsure if has been taking medications properly. Cardizem drip was started INR: 2.8 on admission. Got vit K yesterday. INR is 1.3 today Warfarin on hold. Expect to resume by tomorrow Rate is controlled Tank Terminal Gauger eval and recommendations noted Continue metoprolol succinate (3) Valvular heart disease: Plan: Echo 01/2021: EF: 55-59%, mild to moderate aortic stenosis, mild mitral regurgitation, moderate tricuspid regurgitation, mild pulmonary hypertension, aortic root diameter upper limit of normal at 3.8 cm, proximal ascending aorta mildly dilated at 4 However, Echo done showed reduced EF of 20-25% Patient appears to have developed acute systolic heart failure. Patient on lasix at home which is currently held due to NPO and plan for surgery. Does not appear fluid overloaded on exam Plan to resume lasix postop (4) Chronic kidney disease (CKD), stage III (moderate): Plan: Cr: 1.28. Baseline Cr: 1.8 Monitor renal functions, avoid nephrotoxic agents when possible (5) PMR (polymyalgia rheumatica): Plan: Continue prednisone (6) Dyslipidemia: Plan: Continue statin (7) Hypothyroidism: Plan: Continue levothyroxine DVT Prophylaxis SCDs Warfarin on hold as above Full Code Follows with Dr Luca Howe for routine care Admission and Anticipated Discharge Date Admission Date: December 20, 2021 Subjective Patient seen and examined Per RN, patient was confused overnight and pulling at lines. Hence currently has a sitter. Was drowsy but easily arousable. Alert and oriented to person, place, month and year. Reports only right hip pain with activity. Denies any headache, dizziness Denies any chest pain, cough, shortness of breath, palpitations Denies any cough, shortness of breath Denies nausea, vomiting, abdominal pain or diarrhea Physical Exam Constitutional: + well hydrated; no acute distress Eyes: PERRL, conjunctivae normal, anicteric sclerae ENMT: external ear and nose normal, oropharynx normal Respiratory: normal respiratory effort, lungs clear to auscultation Cardiovascular: Rate/Rhythm: + irregularly irregular S1 S2 Gastrointestinal (Abdomen): normal bowel sounds, soft, nontender, no hepatosplenomegaly Musculoskeletal: RLE mildly rotated externally Neurologic: PERRL, EOMI, accommodation nl, no face palsy, no dysarthria Psychiatric: A+Ox3, euthymic affect Results & Data Results & Data ([facility]) Vital Signs (Past 12 Hours) Vital Signs Temp Pulse Pulse Resp BP BP Pulse Ox 12/22/21 08:30 85 107/73 12/22/21 04:00 36.8 C 101 H 24 110/79 93 12/21/21 23:00 36.8 C 122 H 18 132/85 97 Laboratory Results Abnormal lab results 12/22/21 12/22/21 12/22/21 Range/Units 04:51 04:51 04:51 WBC 11.70 H (4.8-10.8) K/uL RBC 4.15 L (4.7-6.1) M/uL Hgb 12.5 L (14.0-18.0) g/dL Hct 39.0 L (42-52) % MPV 10.5 H (7.4-10.4) fL PT 12.7 H (9.0-12.0) Seconds INR 1.3 H (0.9-1.1) Sodium 135 L (136-145) mmol/L BUN 27 H (6-23) mg/dl BUN/Creatinine Ratio 21.1 H (10-20) Glucose 140 H (70-99(Fasting)) mg/dl Calcium 8.3 L (8.5-10.1) mg/dl (1) Closed right femoral fracture Encounter type: initial encounter Femur location: midcervical Fracture alignment: displaced Qualified Code(s): S72.031A - Displaced midcervical fracture of right femur, initial encounter for closed fracture (2) Chronic kidney disease (CKD), stage III (moderate) Chronic kidney disease stage 3 subtype: stage 3b (GFR 30-44) Qualified Code(s): N18.32 - Chronic kidney disease, stage 3b
[2021-12-22] MEDS ORDERED: fentaNYL citrate 100 MCG/2 ML VIAL ONE (09:48)
[2021-12-22] MEDS ORDERED: ROCURONIUM BROMIDE 10 MG/ML 5 ML VIAL IV ONE (09:48)
[2021-12-22] MEDS ORDERED: LIDOCAINE 2% 2 ML VIAL/AMP(20MG/ML) INFIL ONE (09:48)
[2021-12-22] MEDS ORDERED: PROPOFOL IV EMULSION 10 MG/ML 20 ML VIAL IV ONE (09:48)
[2021-12-22] MEDS ORDERED: ONDANSETRON INJ 2 MG/ML 2 ML VIAL ONE (09:48)
[2021-12-22] MEDS ORDERED: ETOMIDATE 2 MG/ML 20 ML VIAL IV ONE (10:12)
--- NOTE | 2021-12-22 10:46 | History & Physical Bridge Note ---
Date of Service December 22, 2021 History & Physical Bridge Note I have examined the patient, reviewed the History & Physical and in the interval since the performance of the History & Physical I have noted the following changes of clinical significance: no changes noted
[2021-12-22] MEDS ORDERED: bisacodyL 10 MG SUPP PR PRN (11:10)
[2021-12-22] MEDS ORDERED: oxyCODONE HCL IR 5 MG TAB (IMMEDIATE RELEASE) PO PRN (11:10)
[2021-12-22] MEDS ORDERED: NALOXONE HCL 0.4 MG/1 ML VIAL/CARP IV PRN (11:10)
[2021-12-22] MEDS ORDERED: diphenhydrAMINE Capsule 25 MG CAP PO PRN (11:10)
[2021-12-22] MEDS ORDERED: MAGNESIUM HYDROXIDE SUSP 30 ML UDC PO PRN (11:10)
[2021-12-22] MEDS ORDERED: ALUMINUM/MAGNESIUM SUSP 30 ML UDC PO PRN (11:10)
[2021-12-22] MEDS ORDERED: METOCLOPRAMIDE HCL INJ 5 MG/ML 2 ML VIAL IV PRN (11:10)
[2021-12-22] MEDS ORDERED: ONDANSETRON INJ 2 MG/ML 2 ML VIAL IV PRN ×2 (11:10→14:07)
[2021-12-22] MEDS ORDERED: ceFAZolin 330 MG/ML 1 GM VIAL ONE (11:38)
[2021-12-22] MEDS ORDERED: SUGAMMADEX SODIUM 200 MG/2 ML VIAL IV ONE (12:42)
--- NOTE | 2021-12-22 13:57 | Post Operative Brief Note ---
Immediate Post Op Note v1 Date of Surgery December 22, 2021 Pre & Post Diagnosis Operation Date: 12/22/21 10:00 Pre-Op Diagnosis: Right displaced femoral neck fracture Post-Op Diagnosis: Right displaced femoral neck fracture I identified the patient and participated in the time-out.: Yes Procedure Operation Date: 12/22/21 10:00 Actual Procedures p Right Hip Hemiarthroplasty with Flomaton press-fit Accolade 2 size 8 femoral neck, UHR universal bipolar 54 mm outer diameter, Flomaton L fit V 40 femoral head 26 mm x -3 mm. Stewart Mercado DO Surgeon Stewart Mercado DO Information Operator Sundar Nicholson PA-C Estimated Blood Loss 40 Findings Consistent with Post-Op Diagnosis Specimens Bone and tissue right hip Drains Hemovac Drain (dual trocar) Anesthesia Type General Regional Complications none Disposition Accompanied Patient To Recovery: Yes
[2021-12-22] MEDS: HYDROmorphone INJ 1 MG/ML SYRINGE IV PRN ×4 (14:06→14:21)
[2021-12-22] MEDS ORDERED: HYDROmorphone INJ 1 MG/ML SYRINGE ONE (14:06)
[2021-12-22] MEDS ORDERED: ATROPINE SULFATE 0.1 MG/ML 10ML SYR IV PRN (14:07)
[2021-12-22] MEDS ORDERED: LABETALOL HCL IV 5 MG/ML 20ML IV PRN (14:07)
--- NOTE | 2021-12-22 14:52 | Anesthesiology Progress Note ---
Date of Service December 22, 2021 Anesthesia Post Procedure Vital Signs Vital Signs: Temp Pulse Pulse Resp BP BP BP 12/22/21 14:40 81 18 101/51 L 12/22/21 14:30 36.4 C L 85 18 99/50 L 12/22/21 14:20 86 18 99/46 L 12/22/21 14:10 85 18 104/46 L 12/22/21 14:00 91 H 18 111/58 L 12/22/21 13:50 36.1 C L 85 18 12/22/21 08:30 85 107/73 12/22/21 07:00 106 H 12/22/21 04:00 36.8 C 101 H 24 110/79 12/21/21 23:00 36.8 C 122 H 18 132/85 12/21/21 20:00 36.9 C 113 H 29 H 131/90 12/21/21 17:24 36.8 C 25 H BP Pulse Ox 12/22/21 14:40 94 12/22/21 14:30 93 12/22/21 14:20 93 12/22/21 14:10 93 12/22/21 14:00 123/104 H 93 12/22/21 13:50 123/104 H 93 12/22/21 08:30 12/22/21 07:00 12/22/21 04:00 93 12/21/21 23:00 97 12/21/21 20:00 97 12/21/21 17:24 145/97 H 95 Pain Intensity Right Hip: Pain Intensity: 5 Transfer of Care Handoff Completed per policy Notes Mental Status: alert / awake / arousable Patient Amnestic to Procedure: Yes Nausea / Vomiting: adequately controlled Pain: adequately controlled Airway Patency, RR, SpO2: stable & adequate BP & HR: stable & adequate Hydration State: stable & adequate Anesthetic Complications: no major complications apparent
--- NOTE | 2021-12-22 14:58 | Operative Report (OR) ---
DATE OF PROCEDURE: 12/22/2021. PREOPERATIVE DIAGNOSES: Right displaced femoral neck fracture. POSTOPERATIVE DIAGNOSIS: Right displaced femoral neck fracture. PROCEDURE: Right hip hemiarthroplasty. SURGEON: Stewart Mercado DO. CT SCAN TECH: Sundar Nicholson PA-C who was present for patient positioning, sterile prep and drape, management of retractors and instruments. He was present through the critical portions of the case including wound closure, application of sterile dressing and transport of the patient to recovery. ANESTHESIA: General, regional. SPECIMENS: Bone and tissue, right hip. DRAINS: Hemovac x2. COMPLICATIONS: None. BLOOD LOSS: 40 mL. PERTINENT HISTORY: This is an 86-year-old gentleman who sustained a mechanical fall on his right hip. He had pain and inability to ambulate, admitted to the hospitalist service. He was optimized for surgery. He was then scheduled for surgery as indicated. The patient was optimized for surgery and his INR, which initially was significantly higher was then lowered to approximately 1.3 on day of surgery. The patient was then scheduled for surgery as indicated. All potential risks, benefits, complications, alternatives, rehab, potential for incomplete relief of symptoms, need for further surgery, DVT, PE, , persistent pain, swelling, scarring, weakness, neurovascular injury, wound complications, hardware failure, nonunion, malunion, bone fracture were discussed with the patient. The patient decided to proceed with the procedure as indicated. DESCRIPTION OF PROCEDURE: The patient was taken to the operative suite and placed supine on the Operating Room table. After review of the consent, identification of proper operative site, the patient was sedated. Spinal anesthetic was administered without difficulty. The patient was then placed in a left lateral decubitus position with the affected side up. Stulberg positioning pads were placed on the OR table. All bony prominences were properly padded and protected including use of an axillary roll. After the right hip was then sterilely prepped and draped in usual fashion, a 10 blade scalpel incision was made centered over the anterior one third of the greater trochanter. The incision was deepened to subcutaneous tissue. Meticulous hemostasis with electrocautery. Full thickness skin flaps were developed. Care was taken to cauterize any small punctate bleeders with a Bovie. Next, the iliotibial band was then incised along the skin incision, retracted both anteriorly and posteriorly using a Charnley retractor over moistened surgical towels. Next, abductor split was made over the neck and head of the femur down to the level of the trochanter and then this was carried around the greater trochanter and then down the shaft of the femur via the vastus lateralis. All soft tissues were then sharply elevated with electrocautery anteriorly including the gluteus medius, the gluteus marissa, the capsule and then the vastus lateralis. The fractured femoral neck was clearly identified and then a sagittal saw was used to resect the proximal neck cut without any difficulty approximately one fingerbreadth proximal to the lesser trochanter. Next, the femoral head was extracted from the acetabulum and measured to be approximately 54 mm outer diameter. A 54 mm trial was placed with appropriate retractors around the acetabulum, noted to have excellent fit and stability. Then box osteotome and trial reamer placed in the proximal femur followed by sequential upbroaching until a size #8 was firmly placed. Next, the calcar reamer was utilized to smooth the proximal femur followed by placement of a - 3.5 mm neck, 135 neck angle and a 54 mm outer diameter trial. This was reduced and noted to have excellent stability and range of motion. Leg lengths were reapproximated to neutral and then all trial implants were then removed. Pulsatile lavage with 3 liters of the solution was used to lavaged the femur, acetabulum and then all soft tissues. Next, final implant of a Accolade II size 8 femoral neck implant with a 132 neck angle with a standard offset was implanted without difficulty and a UHR universal bipolar 54 mm outer diameter shell Burchard LFIT V40 femoral head, 26 mm x -3.5 mm was then placed. The acetabulum was then suctioned, reduced. Excellent range of motion and re-creation of equal leg length was achieved. Shuck test was nearly perfect. The leg lengths were restored. Excellent stability. Next, pulsatile lavage was used to cleanse the deep capsule and all soft tissues. Next a #5 FiberWire was placed through the greater trochanter and sutured through the anterior capsule, gluteus minimus and then into the gluteus medius and then sutured back to the greater trochanter with two deep Hemovac drains placed. Suture was then tied and cut followed by two [id number] sutures of #5 FiberWirein the proximal capsule. Next, the vastus lateralis was then closed using interrupted #1 Vicryl. The gluteus marissa was closed using #1 Vicryl. The iliotibial band was closed using #1 Vicryl. The wound was copiously irrigated with pulsatile lavage and then the dermis was closed using buried interrupted 2- 0 Vicryl. Skin was closed using skin salvador. A sterile compressive dressing was applied overwrapped with foam tape. The patient was then awakened and taken to recovery in stable condition with an abductor pillow. Job ID: [id number] [facility]
[2021-12-22] MEDS: TRANEXAMIC ACID / 0.7% NACL 1,000 MG/100 ML BAG IV SCH ×2 (15:57)
[2021-12-22] MEDS: ACETAMINOPHEN 500 MG TAB PO SCH ×2 (16:16→22:09)
[2021-12-22] MEDS ORDERED: TRANEXAMIC ACID / 0.7% NACL 1,000 MG/100 ML BAG IV SCH (17:15)
[2021-12-22] MEDS: ceFAZolin 2000MG 2,000 MG/15 ML SYR IV SCH (18:03)
--- NOTE | 2021-12-22 19:04 | XRay Report ---
XR hip 1V RT w pelvis CLINICAL HISTORY: IN PACU - A/P PELVIS and LATERAL HIP . COMPARISON STUDY: 12/20/2021 TECHNIQUE: 3 right hip views FINDINGS: The patient is status post placement of bipolar hip prosthesis. The prosthetic components a re in anatomic alignment with no acute abnormality. Skin salvador are present from the recent procedur e. IMPRESSION: Status post right hip replacement. ACT 112: Negative or not required by law. Electronically signed by: Fritz Aquino M.D. 12/22/2021 7:03 PM
[2021-12-22] MEDS: SIMVASTATIN 20 MG TAB PO SCH (22:07)
[2021-12-22] MEDS: SENNA 8.6 MG TAB PO SCH (22:07)
[2021-12-22] MEDS: DOCUSATE SODIUM/SENNA 50/8.6MG TAB PO SCH (22:08)
[2021-12-22] MEDS: DOCUSATE SODIUM 100 MG CAP PO SCH (22:08)
[2021-12-23] MEDS: dilTIAZem HCL 125 MG in DEXTROSE 5% 100 ML IV SCH ×2 (00:01→21:10)
[2021-12-23] MEDS: ceFAZolin 2000MG 2,000 MG/15 ML SYR IV SCH (01:29)
[2021-12-23] MEDS: HYDROmorphone INJ 0.5 MG/0.5 ML SYR IV PRN ×2 (04:33→19:42)
[2021-12-23 06:11] LABS: Hematocrit (blood only) 33.2 % (42-52); Hemoglobin 10.5 g/dL (14.0-18.0); Immature Granulocytes # (auto) 0.05 K/uL (0.00-0.02); Immature Granulocytes % (auto) 0.5 %; Mean Corpuscular Hemoglobin 30.2 pg (25-34); Mean Corpuscular Hgb Conc 31.6 g/dL (32-36); Mean Corpuscular Volume 95.4 fL (80-100); Mean Platelet Volume 10.8 fL (7.4-10.4); Monocytes % (auto) 10.1 %; Neutrophils % (auto) 81.4 %; Platelet Count 253 K/uL (130-400); RDW Coefficient of Variation 13.2 % (11.5-14.5); RDW Standard Deviation 45.5 fL (36.4-46.3); Red Blood Count 3.48 M/uL (4.7-6.1); White Blood Count 9.95 K/uL (4.8-10.8)
[2021-12-23 06:17] LABS: INR 1.2 (0.9-1.1); Prothrombin Time 11.6 Seconds (9.0-12.0)
[2021-12-23] MEDS: ACETAMINOPHEN 500 MG TAB PO SCH ×3 (06:18→19:42)
[2021-12-23] MEDS: LEVOTHYROXINE SODIUM 200 MCG TABLET PO SCH (06:19)
[2021-12-23 06:40] LABS: BUN Creatinine Ratio 26.2 (10-20); Calcium 7.8 mg/dl (8.5-10.1); Creatinine Clr Calc Pharmacy 40.4 ml/min; Est GFR (African American) 51.2 ml/min; Est GFR (Non-African American) 44.2 ml/min; Potassium 4.6 mmol/L (3.5-5.1)
--- NOTE | 2021-12-23 08:21 | Cardiology Progress Note ---
Date of Service December 23, 2021 Assessment & Plan (1) Closed right femoral fracture: Plan: S/p repair 12/22. (2) PMR (polymyalgia rheumatica): Plan: On Chronic prednisone therapy as an outpatient. (3) Chronic atrial fibrillation: Plan: Follows with Dr. Dougherty- last seen 10/29/2021 who increased metoprolol succinate to 50 mg BID at that time. AC on Warfarin- currently on hold. Future consideration to DOAC prior to DC. Continue to trend HR- elevated HR with PVCs likely due to holding of BB over night. Should HR remain elevated, can consider titration of beta santos. Due to high fall risk, patient may be a candidate for watchman. Can follow up as outpatient regarding this. (4) Aortic stenosis: Plan: Most likely low flow seen on Echo (5) Nonischemic cardiomyopathy: Plan: Newly Dx HFrEF, LVEF 20-25%. No Known history of obstructive CAD- no symptoms suggestive of angina. Continue GDMT with metoprolol, future considerations for low dose ACEI, however blood pressures are on the softer side. Patient would be a poor candidate for DAPT should ischemia be the cause, would hold off on stress testing at this time given lack of symptoms and stable EKG. Plan: Clinically stable. Case discussed with Dr. Rosenberg. Admission and Anticipated Discharge Date Admission Date: December 20, 2021 Supervising Physician Co-Signing Physician Notes I have reviewed the medical record and discussed the case with Ms. Aranda. I have seen and examined the patient. I would just add that due to the patient's age and chronic kidney disease, I do not think he is a good candidate for DOAC. Also, given his age and medical problems placing a watchman is an unlikely scenario. I would consider restarting his warfarin or leaving him on aspirin only. Subjective 86 year old male with new right femur fracture d/t mechanical fall, s/p Right Hip Hemiarthroplasty by Dr. Mercado, 12/22/2021. Echo obtained on 12/21 revealed severe LV dysfunction with an estimated left ventricular ejection fraction of around 25%. He most likely has low flow aortic stenosis.LV decline new when compared to aprox 1 year ago. Diltiazem has stopped 12/22 at 6pm due to hypotension. Metoprolol succinate was held last evening also. Patient did received this mornings dose around 0830 Tele: AFIB 90-105s, occasional PVCs. Upon entrance into the room patient was sitting up in bed eating breakfast. Notes that he was feeling fatigued, but overall well. No chest pain, shortness of breath. No palpations, dizziness. No orthopnea, PND, or lower extremity edema. States that he has been increasingly unsteady on his feet over the last year. Occasionally uses a cane when he is going long distances, but overall does not use any assistive devices. This is his first significant fall, but does note some tripping at home. Asymptomatic with atrial fib. No significant pain. Has not been out of bed yet. Labs: Hemoglobin 12.8>>12.0>>12.5>>10.5 (12/23) Scr: 1.56>>1.44>>1.28>>1.41 (12/23) INR: 1.2 (12/23) Review of Systems Review of Systems: All systems reviewed & are unremarkable except as noted in HPI & below Physical Exam Physical Exam: General: no acute distress and stated age Head: normocephalic, no masses, lesions, tenderness or abnormalities Eyes: conjunctiva are pink and non-injected, sclera clear Neck: supple, no adenopathy, no bruits, normal jugular venous pulse, no hepatojugular reflux Chest: normal shape and normal respiratory effort Lungs: clear to auscultation and percussion Cardiac Exam: - irregular rate & rhythm, systolic murmur - normal S1, normal S2 Pulses: 2(+) throughout Abdomen: abdomen soft, non-tender, no abnormal masses and no hepatosplenomegaly Musculoskeletal: no gait disturbance, no joint inflammation, no deforming arthritis Extremities: no edema and no cyanosis. Immobilizer in place. Neuro: grossly normal exam Results & Data ([facility]) Vital Signs (Past 12 Hours) Vital Signs Temp Pulse Pulse Resp BP Pulse Ox 12/22/21 23:12 79 12/22/21 23:00 36.7 C 79 18 101/57 L 98 Laboratory Results 12/23/21 12/23/21 12/23/21 Range/Units 05:26 05:26 05:26 WBC 9.95 (4.8-10.8) K/uL RBC 3.48 L (4.7-6.1) M/uL Hgb 10.5 L (14.0-18.0) g/dL Hct 33.2 L (42-52) % MCV 95.4 (80-100) fL MCH 30.2 (25-34) pg MCHC 31.6 L (32-36) g/dL RDW Std Deviation 45.5 (36.4-46.3) fL RDW Coeff of Kristie 13.2 (11.5-14.5) % Plt Count 253 (130-400) K/uL MPV 10.8 H (7.4-10.4) fL Immature Gran % (Auto) 0.5 % Neut % (Auto) 81.4 % Lymph % (Auto) 8.0 % [place] % (Auto) 10.1 % Eos % (Auto) 0.0 % Baso % (Auto) 0.0 % Neut # (Auto) 8.10 H (1.4-6.5) K/uL Lymph # (Auto) 0.80 L (1.2-3.4) K/uL [place] # (Auto) 1.00 H (0.11-0.59) K/uL Eos # (Auto) 0.00 (0-0.5) K/uL Baso # (Auto) 0.00 (0-0.2) K/uL Immature Gran # (Auto) 0.05 H (0.00-0.02) K/uL PT 11.6 (9.0-12.0) Seconds INR 1.2 H (0.9-1.1) Sodium 136 (136-145) mmol/L Potassium 4.6 (3.5-5.1) mmol/L Chloride 104 (98-107) mmol/L Carbon Dioxide 24 (21-32) mmol/L Anion Gap 8 (3-11) BUN 37 H (6-23) mg/dl Creatinine 1.41 H (0.6-1.4) mg/dl Est Cr Clr Drug Dosing 40.4 ml/min Est GFR ( Amer) 51.2 ml/min Est GFR (Non-Af Amer) 44.2 ml/min BUN/Creatinine Ratio 26.2 H (10-20) Glucose 114 H (70-99(Fasting)) mg/dl POC Glucose (70-99) mg/dl Calcium 7.8 L (8.5-10.1) mg/dl 12/22/21 Range/Units 16:02 WBC (4.8-10.8) K/uL RBC (4.7-6.1) M/uL Hgb (14.0-18.0) g/dL Hct (42-52) % MCV (80-100) fL MCH (25-34) pg MCHC (32-36) g/dL RDW Std Deviation (36.4-46.3) fL RDW Coeff of Kristie (11.5-14.5) % Plt Count (130-400) K/uL MPV (7.4-10.4) fL Immature Gran % (Auto) % Neut % (Auto) % Lymph % (Auto) % [place] % (Auto) % Eos % (Auto) % Baso % (Auto) % Neut # (Auto) (1.4-6.5) K/uL Lymph # (Auto) (1.2-3.4) K/uL [place] # (Auto) (0.11-0.59) K/uL Eos # (Auto) (0-0.5) K/uL Baso # (Auto) (0-0.2) K/uL Immature Gran # (Auto) (0.00-0.02) K/uL PT (9.0-12.0) Seconds INR (0.9-1.1) Sodium (136-145) mmol/L Potassium (3.5-5.1) mmol/L Chloride (98-107) mmol/L Carbon Dioxide (21-32) mmol/L Anion Gap (3-11) BUN (6-23) mg/dl Creatinine (0.6-1.4) mg/dl Est Cr Clr Drug Dosing ml/min Est GFR ( Amer) ml/min Est GFR (Non-Af Amer) ml/min BUN/Creatinine Ratio (10-20) Glucose (70-99(Fasting)) mg/dl POC Glucose 152 H (70-99) mg/dl Calcium (8.5-10.1) mg/dl Diagnostic Findings Echo Inpatient 12/21/2021: LVEF 20-25%, RV mild to mod dilated, LA and RA severe dilated, low flow , mod to severe TR, mild pulm HTN Last outpatient Echo 01/28/2021: LVEF 55-59%, Mild to mod , Mild MR, Mod TR, Mild Pulm HTN (1) Closed right femoral fracture Encounter type: initial encounter Femur location: midcervical Fracture alignment: displaced Qualified Code(s): S72.031A - Displaced midcervical fracture of right femur, initial encounter for closed fracture
[2021-12-23] MEDS: DOCUSATE SODIUM 100 MG CAP PO SCH ×2 (08:38→19:37)
[2021-12-23] MEDS: METOPROLOL SUCC 50MG EXT REL TAB PO SCH ×2 (08:39→19:38)
[2021-12-23] MEDS: MULTIVITAMIN TAB PO SCH (08:40)
[2021-12-23] MEDS: predniSONE 5 MG TAB PO SCH (08:42)
--- NOTE | 2021-12-23 11:31 | Hospitalist Progress Note ---
Date of Service December 23, 2021 Assessment & Plan (1) Closed right femoral fracture: Plan: 86-year-old male with PMH persistent atrial fibrillation on Coumadin, moderate aortic stenosis, moderate tricuspid regurgitation, mild mitral insufficiency, mild pulmonary hypertension, HLD, CKD III, PMR, hypothyroidism presented to ER after mechanical fall, c/o right hip pain. Outpatient Right hip xray with femur fracture. Right hip x-ray: Mildly displaced transcervical fracture of the right femoral neck Possible Age-related osteoporosis with current pathological fracture, R femoral neck Got Vit K for anticoagulation reversal S/p Right hip hemiarthroplasty. POD #1 Pain control PT/OT eval Surgery on board Check Vit D level (2) Atrial fibrillation with RVR: Plan: History of persistent atrial fibrillation. On Coumadin In ER patient found to be in atrial fibrillation RVR with rate of 130s-150s. Patient denied chest pain, shortness of breath, palpitations. Did not have medications on the day of presentation. Patient unsure if has been taking medications properly. Cardizem drip was started INR: 2.8 on admission. Got vit k for reversal Information Manager eval and recommendations noted Continue metoprolol succinate Warfarin resumed today Monitor INR (3) Valvular heart disease: Plan: Echo 01/2021: EF: 55-59%, mild to moderate aortic stenosis, mild mitral regurgitation, moderate tricuspid regurgitation, mild pulmonary hypertension, aortic root diameter upper limit of normal at 3.8 cm, proximal ascending aorta mildly dilated at 4 However, Echo done showed reduced EF of 20-25% compared to normal EF from last Echo in 01/2021 Patient appears to have developed new systolic heart failure, could be acute No known h/o CAD. ?Nonischemic cardiomyopathy Does not appear fluid overloaded on exam Resume home lasix May consider ACEI in the future. BP has been running on the low end for now Continue metoprolol succinate (4) Chronic kidney disease (CKD), stage III (moderate): Plan: Cr: 1.41. Baseline Cr: 1.8 Monitor renal functions, avoid nephrotoxic agents when possible (5) PMR (polymyalgia rheumatica): Plan: Continue prednisone (6) Dyslipidemia: Plan: Continue statin (7) Hypothyroidism: Plan: Continue levothyroxine DVT Prophylaxis Resume warfarin Full Code Follows with Dr Luca Howe for routine care Remove moreno Wean off oxygen Admission and Anticipated Discharge Date Admission Date: December 20, 2021 Subjective Patient seen and examined Sitting in chair Reports surgical site pain is controlled Denied any nausea, vomiting, abd pain. Yet to move bowel Denied any chest pain, SOB, palpitations Denied any fevers or chills Physical Exam Constitutional: + well hydrated; no acute distress Eyes: PERRL, conjunctivae normal, anicteric sclerae ENMT: external ear and nose normal, oropharynx normal Respiratory: normal respiratory effort, lungs clear to auscultation Cardiovascular: Rate/Rhythm: + irregularly irregular S1 S2. Systolic murmur Gastrointestinal (Abdomen): normal bowel sounds, soft, nontender, no hepatosplenomegaly Musculoskeletal: Clean dressing over right hip surgical site Drain in situ Neurologic: PERRL, EOMI, accommodation nl, no face palsy, no dysarthria Psychiatric: A+Ox3, euthymic affect Results & Data Results & Data ([facility]) Vital Signs (Past 12 Hours) Vital Signs Temp Pulse Resp BP Pulse Ox 12/23/21 09:00 109 H 25 H 95 12/23/21 08:00 36.4 C L 87 20 103/76 95 12/23/21 07:00 86 17 97 Laboratory Results Abnormal lab results 12/22/21 12/23/21 12/23/21 Range/Units 16:02 05:26 05:26 RBC 3.48 L (4.7-6.1) M/uL Hgb 10.5 L (14.0-18.0) g/dL Hct 33.2 L (42-52) % MCHC 31.6 L (32-36) g/dL MPV 10.8 H (7.4-10.4) fL Neut # (Auto) 8.10 H (1.4-6.5) K/uL Lymph # (Auto) 0.80 L (1.2-3.4) K/uL [place] # (Auto) 1.00 H (0.11-0.59) K/uL Immature Gran # (Auto) 0.05 H (0.00-0.02) K/uL INR 1.2 H (0.9-1.1) BUN (6-23) mg/dl Creatinine (0.6-1.4) mg/dl BUN/Creatinine Ratio (10-20) Glucose (70-99(Fasting)) mg/dl POC Glucose 152 H (70-99) mg/dl Calcium (8.5-10.1) mg/dl 12/23/21 Range/Units 05:26 RBC (4.7-6.1) M/uL Hgb (14.0-18.0) g/dL Hct (42-52) % MCHC (32-36) g/dL MPV (7.4-10.4) fL Neut # (Auto) (1.4-6.5) K/uL Lymph # (Auto) (1.2-3.4) K/uL [place] # (Auto) (0.11-0.59) K/uL Immature Gran # (Auto) (0.00-0.02) K/uL INR (0.9-1.1) BUN 37 H (6-23) mg/dl Creatinine 1.41 H (0.6-1.4) mg/dl BUN/Creatinine Ratio 26.2 H (10-20) Glucose 114 H (70-99(Fasting)) mg/dl POC Glucose (70-99) mg/dl Calcium 7.8 L (8.5-10.1) mg/dl (1) Chronic kidney disease (CKD), stage III (moderate) Chronic kidney disease stage 3 subtype: stage 3b (GFR 30-44) Qualified Code(s): N18.32 - Chronic kidney disease, stage 3b (2) Closed right femoral fracture Encounter type: initial encounter Femur location: midcervical Fracture alignment: displaced Qualified Code(s): S72.031A - Displaced midcervical fracture of right femur, initial encounter for closed fracture
--- NOTE | 2021-12-23 13:42 | Orthopedic Progress Note ---
Date of Service December 23, 2021 Assessment & Plan (1) Fracture of femoral neck, right: Plan: POD 1 s/p Right Bipolar Hemiarthroplasty Begin PT/OT protocols. WBAT. DVT prophylaxis- SCD's. Pt will be restarted on his Warfarin today. Pain management as written. Admission and Anticipated Discharge Date Admission Date: December 20, 2021 Subjective Postop day 1 Pt sitting in chair at bedside. Awake, alert. Conversant. No complaints currently. Physical Exam Physical Exam: Dressings are C/D/I. Thigh is soft,NT. States he has a little bit of right calf soreness. Calves are soft. Right calf with mild tenderness. Ning's exam negative. No overt edema noted of the ankle. Hip appears located. Results & Data ([facility]) Vital Signs (Past 12 Hours) Vital Signs Temp Pulse Resp BP Pulse Ox 12/23/21 12:57 94 12/23/21 11:00 36.7 C 111 H 19 97 12/23/21 10:08 110 H 27 H 111/71 12/23/21 10:00 108 H 23 12/23/21 09:55 112 H 27 H 118/81 97 12/23/21 09:00 109 H 25 H 95 12/23/21 08:00 36.4 C L 87 20 103/76 95 12/23/21 07:00 86 17 97 Laboratory Results Laboratory Results WBC 9.95 K/uL (4.8-10.8) 12/23/21 05:26 RBC 3.48 M/uL (4.7-6.1) L 12/23/21 05:26 Hgb 10.5 g/dL (14.0-18.0) L 12/23/21 05:26 Hct 33.2 % (42-52) L 12/23/21 05:26 MCV 95.4 fL (80-100) 12/23/21 05:26 MCH 30.2 pg (25-34) 12/23/21 05:26 MCHC 31.6 g/dL (32-36) L 12/23/21 05:26 RDW Std Deviation 45.5 fL (36.4-46.3) 12/23/21 05:26 RDW Coeff of Kristie 13.2 % (11.5-14.5) 12/23/21 05:26 Plt Count 253 K/uL (130-400) 12/23/21 05:26 MPV 10.8 fL (7.4-10.4) H 12/23/21 05:26 Immature Gran % (Auto) 0.5 % 12/23/21 05:26 Neut % (Auto) 81.4 % 12/23/21 05:26 Lymph % (Auto) 8.0 % 12/23/21 05:26 [place] % (Auto) 10.1 % 12/23/21 05:26 Eos % (Auto) 0.0 % 12/23/21 05:26 Baso % (Auto) 0.0 % 12/23/21 05:26 Neut # (Auto) 8.10 K/uL (1.4-6.5) H 12/23/21 05:26 Lymph # (Auto) 0.80 K/uL (1.2-3.4) L 12/23/21 05:26 [place] # (Auto) 1.00 K/uL (0.11-0.59) H 12/23/21 05:26 Eos # (Auto) 0.00 K/uL (0-0.5) 12/23/21 05:26 Baso # (Auto) 0.00 K/uL (0-0.2) 12/23/21 05:26 Immature Gran # (Auto) 0.05 K/uL (0.00-0.02) H 12/23/21 05:26 PT 11.6 Seconds (9.0-12.0) 12/23/21 05:26 INR 1.2 (0.9-1.1) H 12/23/21 05:26 APTT 35.5 Seconds (21.0-31.0) H 12/20/21 18:18 PTT Ratio 1.3 12/20/21 18:18 Sodium 136 mmol/L (136-145) 12/23/21 05:26 Potassium 4.6 mmol/L (3.5-5.1) 12/23/21 05:26 Chloride 104 mmol/L (98-107) 12/23/21 05:26 Carbon Dioxide 24 mmol/L (21-32) 12/23/21 05:26 Anion Gap 8 (3-11) 12/23/21 05:26 BUN 37 mg/dl (6-23) H 12/23/21 05:26 Creatinine 1.41 mg/dl (0.6-1.4) H 12/23/21 05:26 Est Cr Clr Drug Dosing 40.4 ml/min 12/23/21 05:26 Est GFR ( Amer) 51.2 ml/min 12/23/21 05:26 Est GFR (Non-Af Amer) 44.2 ml/min 12/23/21 05:26 BUN/Creatinine Ratio 26.2 (10-20) H 12/23/21 05:26 Glucose 114 mg/dl (70-99(Fasting)) H 12/23/21 05:26 POC Glucose 152 mg/dl (70-99) H 12/22/21 16:02 Calcium 7.8 mg/dl (8.5-10.1) L 12/23/21 05:26 Total Bilirubin 0.7 mg/dl (0.2-1.0) 12/20/21 18:18 AST 23 U/L (13-39) 12/20/21 18:18 ALT 19 U/L (7-52) 12/20/21 18:18 Alkaline Phosphatase 57 U/L (34-104) 12/20/21 18:18 Troponin I 0.03 ng/ml (0-0.04) 12/21/21 06:25 Total Protein 7.4 gm/dl (6.0-8.3) 12/20/21 18:18 Albumin 3.5 gm/dl (3.4-5.0) 12/20/21 18:18 Globulin 3.9 gm/dl (2.5-4.0) 12/20/21 18:18 Albumin/Globulin Ratio 0.9 (0.9-2) 12/20/21 18:18 Urine Color Yellow 12/20/21 18:58 Urine Appearance Clear (Clear) 12/20/21 18:58 Urine pH 5.0 (4.5-7.5) 12/20/21 18:58 Ur Specific [place] 1.017 (1.000-1.030) 12/20/21 18:58 Urine Protein Negative (Negative) 12/20/21 18:58 Urine Glucose (UA) Negative (Negative) 12/20/21 18:58 Urine Ketones Negative (Negative) 12/20/21 18:58 Urine Blood Negative (Negative) 12/20/21 18:58 Urine Nitrite Negative (Negative) 12/20/21 18:58 Urine Bilirubin Negative (Negative) 12/20/21 18:58 Urine Urobilinogen Negative (Negative) 12/20/21 18:58 Ur Leukocyte Esterase Negative (Negative) 12/20/21 18:58 Nasal Screen MRSA (PCR) Negative (Negative) 12/20/21 21:40 SARS-CoV-2, RNA, NAAT NEGATIVE (NEGATIVE) 12/20/21 19:00 Blood Type AB Positive 12/20/21 20:43 Antibody Screen NEGATIVE 12/20/21 20:43 Impressions Hip/Pelvis X-Ray 12/22/21 11:10 XR hip 1V RT w pelvis CLINICAL HISTORY: IN PACU - A/P PELVIS and LATERAL HIP . COMPARISON STUDY: 12/20/2021 TECHNIQUE: 3 right hip views FINDINGS: The patient is status post placement of bipolar hip prosthesis. The prosthetic components are in anatomic alignment with no acute abnormality. Skin salvador are present from the recent procedure. IMPRESSION: Status post right hip replacement. ACT 112: Negative or not required by law. Electronically signed by: Fritz Aquino M.D. 12/22/2021 7:03 PM
[2021-12-23] MEDS: WARFARIN SOD 2.5 MG TAB PO SCH (14:51)
[2021-12-23] MEDS: SENNA 8.6 MG TAB PO SCH (19:37)
[2021-12-23] MEDS: SIMVASTATIN 20 MG TAB PO SCH (19:39)
[2021-12-23] MEDS: DOCUSATE SODIUM/SENNA 50/8.6MG TAB PO SCH (20:53)
[2021-12-24] MEDS: LEVOTHYROXINE SODIUM 200 MCG TABLET PO SCH (04:21)
[2021-12-24] MEDS: ACETAMINOPHEN 500 MG TAB PO SCH ×3 (04:23→20:16)
[2021-12-24 04:42] LABS: Hematocrit (blood only) 34.1 % (42-52); Hemoglobin 10.9 g/dL (14.0-18.0); Mean Corpuscular Hemoglobin 29.7 pg (25-34); Mean Corpuscular Volume 92.9 fL (80-100); Mean Platelet Volume 11.1 fL (7.4-10.4); Platelet Count 291 K/uL (130-400); RDW Coefficient of Variation 12.9 % (11.5-14.5); RDW Standard Deviation 43.8 fL (36.4-46.3); Red Blood Count 3.67 M/uL (4.7-6.1); White Blood Count 10.52 K/uL (4.8-10.8)
[2021-12-24 04:52] LABS: INR 1.1 (0.9-1.1); Prothrombin Time 11.5 Seconds (9.0-12.0)
[2021-12-24 05:05] LABS: BUN Creatinine Ratio 39.2 (10-20); Creatinine Clr Calc Pharmacy 45.4 ml/min; Est GFR (African American) 59.2 ml/min; Est GFR (Non-African American) 51.1 ml/min; Potassium 4.6 mmol/L (3.5-5.1)
--- NOTE | 2021-12-24 07:46 | Cardiology Progress Note ---
Date of Service December 24, 2021 Assessment & Plan (1) Closed right femoral fracture: Plan: S/p repair 12/22. (2) PMR (polymyalgia rheumatica): Plan: On Chronic prednisone therapy as an outpatient. (3) Chronic atrial fibrillation: Plan: Follows with Dr. Dougherty- last seen 10/29/2021 who increased metoprolol succinate to 50 mg BID at that time. AC on Warfarin. Restarted last evening. Due to the patient's age and chronic kidney disease, he likely would not be a good candidate for DOAC. Given his age and medical problems placing a watchman is an unlikely scenario. Continue to trend HR- Should HR remain elevated, can consider titration of beta santos. Anemia could be contributing. (4) Aortic stenosis: Plan: Most likely low flow seen on Echo (5) Nonischemic cardiomyopathy: Plan: Newly Dx HFrEF, LVEF 20-25%. No Known history of obstructive CAD- no symptoms suggestive of angina. ? NICM. Euvolemic on exam- home lasix dose resumed yesterday. Continue GDMT with metoprolol, future considerations for low dose ACEI, however blood pressures are on the softer side. Patient would be a poor candidate for DAPT should ischemia be the cause, would hold off on stress testing at this time given lack of symptoms and stable EKG. Plan: Clinically stable. Case discussed with Dr. Rosenberg. Admission and Anticipated Discharge Date Admission Date: December 20, 2021 Supervising Physician Co-Signing Physician Notes I have seen and examined the patient. I have reviewed the medical record and discussed the case with . The patient is doing well and is hemodyna mically stable. I agree with the plan as outlined above. Subjective 86 year old male with new right femur fracture d/t mechanical fall, s/p Right Hip Hemiarthroplasty by Dr. Mercado, 12/22/2021. Echo obtained on 12/21 revealed severe LV dysfunction with an estimated left ventricular ejection fraction of around 25%. He most likely has low flow aortic stenosis.LV decline new when compared to aprox 1 year ago. Overnight, warfarin was resumed and home dose of Lasix restarted. Tele: AFIB 90-110s, occasional PVCs. Upon entrance into the room patient was sitting up in the chair after getting cleaned up. States that he is feeling much improved. No chest pain, shortness of breath. No palpations, dizziness. No orthopnea, PND, or lower extremity edema. Has been increasingly unsteady on his feet over the last year. Occasionally uses a cane when he is going long distances, but overall does not use any assistive devices. Asymptomatic with atrial fib. No significant pain. Labs: Hemoglobin 12.8>>12.0>>12.5>>10.5>>10.9 (12/24) Scr: 1.56>>1.44>>1.28>>1.41>> 1.25 (12/24) INR: 1.1 (12/24) Review of Systems Review of Systems: All systems reviewed & are unremarkable except as noted in HPI & below Physical Exam Physical Exam: General: no acute distress and stated age Head: normocephalic, no masses, lesions, tenderness or abnormalities Eyes: conjunctiva are pink and non-injected, sclera clear Neck: supple, no adenopathy, no bruits, normal jugular venous pulse, no hepatojugular reflux Chest: normal shape and normal respiratory effort Lungs: clear to auscultation and percussion Cardiac Exam: - irregular rate & rhythm, systolic murmur - normal S1, normal S2 Pulses: 2(+) throughout Abdomen: abdomen soft, non-tender, no abnormal masses and no hepatosplenomegaly Musculoskeletal: no gait disturbance, no joint inflammation, no deforming arthritis Extremities: no edema and no cyanosis. Immobilizer in place. Neuro: grossly normal exam Results & Data ([facility]) Vital Signs (Past 12 Hours) Vital Signs Temp Pulse Resp BP Pulse Ox 12/24/21 02:34 100/68 12/24/21 02:30 36.7 C 98 H 23 95 12/23/21 23:40 91 H 28 H 90 12/23/21 23:30 90 26 H 92 12/23/21 23:24 36.7 C 91 H 22 94/71 L 96 12/23/21 23:07 93 H 12/23/21 19:47 37 C 108 H 21 109/77 94 Laboratory Results 12/24/21 12/24/21 12/24/21 Range/Units 04:02 04:02 04:02 WBC 10.52 (4.8-10.8) K/uL RBC 3.67 L (4.7-6.1) M/uL Hgb 10.9 L (14.0-18.0) g/dL Hct 34.1 L (42-52) % MCV 92.9 (80-100) fL MCH 29.7 (25-34) pg MCHC 32.0 (32-36) g/dL RDW Std Deviation 43.8 (36.4-46.3) fL RDW Coeff of Kristie 12.9 (11.5-14.5) % Plt Count 291 (130-400) K/uL MPV 11.1 H (7.4-10.4) fL PT 11.5 (9.0-12.0) Seconds INR 1.1 (0.9-1.1) Sodium 134 L (136-145) mmol/L Potassium 4.6 (3.5-5.1) mmol/L Chloride 103 (98-107) mmol/L Carbon Dioxide 25 (21-32) mmol/L Anion Gap 6 (3-11) BUN 49 H (6-23) mg/dl Creatinine 1.25 (0.6-1.4) mg/dl Est Cr Clr Drug Dosing 45.4 ml/min Est GFR ( Amer) 59.2 ml/min Est GFR (Non-Af Amer) 51.1 ml/min BUN/Creatinine Ratio 39.2 H (10-20) Glucose 103 H (70-99(Fasting)) mg/dl Calcium 8.0 L (8.5-10.1) mg/dl 25-OH Vitamin D Total (30-100) ng/ml 12/23/21 Range/Units 14:40 WBC (4.8-10.8) K/uL RBC (4.7-6.1) M/uL Hgb (14.0-18.0) g/dL Hct (42-52) % MCV (80-100) fL MCH (25-34) pg MCHC (32-36) g/dL RDW Std Deviation (36.4-46.3) fL RDW Coeff of Kristie (11.5-14.5) % Plt Count (130-400) K/uL MPV (7.4-10.4) fL PT (9.0-12.0) Seconds INR (0.9-1.1) Sodium (136-145) mmol/L Potassium (3.5-5.1) mmol/L Chloride (98-107) mmol/L Carbon Dioxide (21-32) mmol/L Anion Gap (3-11) BUN (6-23) mg/dl Creatinine (0.6-1.4) mg/dl Est Cr Clr Drug Dosing ml/min Est GFR ( Amer) ml/min Est GFR (Non-Af Amer) ml/min BUN/Creatinine Ratio (10-20) Glucose (70-99(Fasting)) mg/dl Calcium (8.5-10.1) mg/dl 25-OH Vitamin D Total 18.2 L (30-100) ng/ml (1) Closed right femoral fracture Encounter type: initial encounter Femur location: midcervical Fracture alignment: displaced Qualified Code(s): S72.031A - Displaced midcervical fracture of right femur, initial encounter for closed fracture
[2021-12-24] MEDS: predniSONE 5 MG TAB PO SCH (07:52)
[2021-12-24] MEDS: MULTIVITAMIN TAB PO SCH (07:54)
[2021-12-24] MEDS: DOCUSATE SODIUM 100 MG CAP PO SCH ×2 (07:54→20:20)
[2021-12-24] MEDS: METOPROLOL SUCC 50MG EXT REL TAB PO SCH ×2 (07:54→20:19)
--- NOTE | 2021-12-24 11:11 | Hospitalist Progress Note ---
Date of Service December 24, 2021 Assessment & Plan (1) Closed right femoral fracture: Plan: 86-year-old male with PMH persistent atrial fibrillation on Coumadin, moderate aortic stenosis, moderate tricuspid regurgitation, mild mitral insufficiency, mild pulmonary hypertension, HLD, CKD III, PMR, hypothyroidism presented to ER after mechanical fall, c/o right hip pain. Outpatient Right hip xray with femur fracture. Right hip x-ray: Mildly displaced transcervical fracture of the right femoral neck Possible Age-related osteoporosis with current pathological fracture, R femoral neck Got Vit K for anticoagulation reversal S/p Right hip hemiarthroplasty. POD #2 Pain control PT/OT eval- rehab recommended CM working on this. May be discharged to rehab once drain is removed Surgery on board Low Vit D level 18.2 Vitamin D deficiency Start Vit D po (2) Atrial fibrillation with RVR: Plan: History of persistent atrial fibrillation. On Coumadin In ER patient found to be in atrial fibrillation RVR with rate of 130s-150s. Patient denied chest pain, shortness of breath, palpitations. Did not have medications on the day of presentation. Patient unsure if has been taking medications properly. Cardizem drip was started INR: 2.8 on admission. Got vit k for reversal Grades 9 12 Tutor eval and recommendations noted Continue metoprolol succinate Continue warfarin resumed yesterday Monitor INR (3) Valvular heart disease: Plan: Echo 01/2021: EF: 55-59%, mild to moderate aortic stenosis, mild mitral regurgitation, moderate tricuspid regurgitation, mild pulmonary hypertension, aortic root diameter upper limit of normal at 3.8 cm, proximal ascending aorta mildly dilated at 4 However, Echo done showed reduced EF of 20-25% compared to normal EF from last Echo in 01/2021 Patient appears to have developed new systolic heart failure, could be acute No known h/o CAD. ?Nonischemic cardiomyopathy Does not appear fluid overloaded on exam Continue home lasix May consider ACEI in the future. BP has been running on the low end for now Continue metoprolol succinate (4) Chronic kidney disease (CKD), stage III (moderate): Plan: Cr: 1.25. Baseline Cr: 1.8 Monitor renal functions, avoid nephrotoxic agents when possible (5) PMR (polymyalgia rheumatica): Plan: Continue prednisone (6) Dyslipidemia: Plan: Continue statin (7) Hypothyroidism: Plan: Continue levothyroxine DVT Prophylaxis warfarin Full Code Follows with Dr Luca Howe for routine care Admission and Anticipated Discharge Date Admission Date: December 20, 2021 Subjective Patient seen and examined Reports pain at surgical site controlled Denied any nausea, vomiting, abd pain Denied any chest pain, SOB, palpitations Denied any fevers or chills Physical Exam Constitutional: + well hydrated; no acute distress Eyes: PERRL, conjunctivae normal, anicteric sclerae ENMT: external ear and nose normal, oropharynx normal Respiratory: normal respiratory effort, lungs clear to auscultation Cardiovascular: Rate/Rhythm: + irregularly irregular S1 S2 Gastrointestinal (Abdomen): normal bowel sounds, soft, nontender, no hepatosplenomegaly Musculoskeletal: Clean dressing over right hip, Drain in situ Neurologic: PERRL, EOMI, accommodation nl, no face palsy, no dysarthria Psychiatric: A+Ox3, euthymic affect Results & Data Results & Data ([facility]) Vital Signs (Past 12 Hours) Vital Signs Temp Pulse Pulse Resp BP BP Pulse Ox 12/24/21 07:39 36.6 C 90 17 105/69 95 12/24/21 02:34 100/68 12/24/21 02:30 36.7 C 98 H 23 95 12/23/21 23:40 91 H 28 H 90 12/23/21 23:30 90 26 H 92 12/23/21 23:24 36.7 C 91 H 22 94/71 L 96 Laboratory Results Abnormal lab results 12/23/21 12/24/21 12/24/21 Range/Units 14:40 04:02 04:02 RBC 3.67 L (4.7-6.1) M/uL Hgb 10.9 L (14.0-18.0) g/dL Hct 34.1 L (42-52) % MPV 11.1 H (7.4-10.4) fL Sodium 134 L (136-145) mmol/L BUN 49 H (6-23) mg/dl BUN/Creatinine Ratio 39.2 H (10-20) Glucose 103 H (70-99(Fasting)) mg/dl Calcium 8.0 L (8.5-10.1) mg/dl 25-OH Vitamin D Total 18.2 L (30-100) ng/ml (1) Closed right femoral fracture Encounter type: initial encounter Femur location: midcervical Fracture alignment: displaced Qualified Code(s): S72.031A - Displaced midcervical fracture of right femur, initial encounter for closed fracture (2) Chronic kidney disease (CKD), stage III (moderate) Chronic kidney disease stage 3 subtype: stage 3b (GFR 30-44) Qualified Code(s): N18.32 - Chronic kidney disease, stage 3b
[2021-12-24] MEDS ORDERED: LORazepam 0.5 MG TAB PO PRN (15:41)
[2021-12-24] MEDS ORDERED: LORazepam 0.5 MG/1 ML VIAL IV ONE (15:43)
--- NOTE | 2021-12-24 16:13 | Orthopedic Progress Note ---
Date of Service December 24, 2021 Assessment & Plan (1) Fracture of femoral neck, right: Plan: POD 2 s/p Right Bipolar Hemiarthroplasty Begin PT/OT protocols. WBAT. DVT prophylaxis- SCD's, Wafarin Pain management as written. Admission and Anticipated Discharge Date Admission Date: December 20, 2021 Subjective POD 2 Pt awake, alert. Answering most questions appropriately. No pain at rest. States he has some discomfort when sitting up or attempting to get OOB. Physical Exam Physical Exam: Silverlon dressing intact. Some drainage in dressing window but not seaping out. Hemovac drain removed by myself without difficulty. Thigh soft, NT. Calves soft, NT. NV intact. Leg lengths appear equal. Results & Data ([facility]) Vital Signs (Past 12 Hours) Vital Signs Temp Pulse Resp BP Pulse Ox 12/24/21 12:03 36.4 C L 98 H 18 100/66 95 12/24/21 07:39 36.6 C 90 17 105/69 95 Laboratory Results Laboratory Results WBC 10.52 K/uL (4.8-10.8) 12/24/21 04:02 RBC 3.67 M/uL (4.7-6.1) L 12/24/21 04:02 Hgb 10.9 g/dL (14.0-18.0) L 12/24/21 04:02 Hct 34.1 % (42-52) L 12/24/21 04:02 MCV 92.9 fL (80-100) 12/24/21 04:02 MCH 29.7 pg (25-34) 12/24/21 04:02 MCHC 32.0 g/dL (32-36) 12/24/21 04:02 RDW Std Deviation 43.8 fL (36.4-46.3) 12/24/21 04:02 RDW Coeff of Kristie 12.9 % (11.5-14.5) 12/24/21 04:02 Plt Count 291 K/uL (130-400) 12/24/21 04:02 MPV 11.1 fL (7.4-10.4) H 12/24/21 04:02 Immature Gran % (Auto) 0.5 % 12/23/21 05:26 Neut % (Auto) 81.4 % 12/23/21 05:26 Lymph % (Auto) 8.0 % 12/23/21 05:26 [place]bert % (Auto) 10.1 % 12/23/21 05:26 Eos % (Auto) 0.0 % 12/23/21 05:26 Baso % (Auto) 0.0 % 12/23/21 05:26 Neut # (Auto) 8.10 K/uL (1.4-6.5) H 12/23/21 05:26 Lymph # (Auto) 0.80 K/uL (1.2-3.4) L 12/23/21 05:26 [place] # (Auto) 1.00 K/uL (0.11-0.59) H 12/23/21 05:26 Eos # (Auto) 0.00 K/uL (0-0.5) 12/23/21 05: Baso # (Auto) 0.00 K/uL (0-0.2) 12/23/21 05:26 Immature Gran # (Auto) 0.05 K/uL (0.00-0.02) H 12/23/21 05:26 PT 11.5 Seconds (9.0-12.0) 12/24/21 04:02 INR 1.1 (0.9-1.1) 12/24/21 04:02 APTT 35.5 Seconds (21.0-31.0) H 12/20/21 18:18 PTT Ratio 1.3 12/20/21 18:18 Sodium 134 mmol/L (136-145) L 12/24/21 04:02 Potassium 4.6 mmol/L (3.5-5.1) 12/24/21 04:02 Chloride 103 mmol/L (98-107) 12/24/21 04:02 Carbon Dioxide 25 mmol/L (21-32) 12/24/21 04:02 Anion Gap 6 (3-11) 12/24/21 04:02 BUN 49 mg/dl (6-23) H 12/24/21 04:02 Creatinine 1.25 mg/dl (0.6-1.4) 12/24/21 04:02 Est Cr Clr Drug Dosing 45.4 ml/min 12/24/21 04:02 Est GFR ( Amer) 59.2 ml/min 12/24/21 04:02 Est GFR (Non-Af Amer) 51.1 ml/min 12/24/21 04:02 BUN/Creatinine Ratio 39.2 (10-20) H 12/24/21 04:02 Glucose 103 mg/dl (70-99(Fasting)) H 12/24/21 04:02 POC Glucose 152 mg/dl (70-99) H 12/22/21 16:02 Calcium 8.0 mg/dl (8.5-10.1) L 12/24/21 04:02 Total Bilirubin 0.7 mg/dl (0.2-1.0) 12/20/21 18:18 AST 23 U/L (13-39) 12/20/21 18:18 ALT 19 U/L (7-52) 12/20/21 18:18 Alkaline Phosphatase 57 U/L (34-104) 12/20/21 18:18 Troponin I 0.03 ng/ml (0-0.04) 12/21/21 06:25 Total Protein 7.4 gm/dl (6.0-8.3) 12/20/21 18:18 Albumin 3.5 gm/dl (3.4-5.0) 12/20/21 18:18 Globulin 3.9 gm/dl (2.5-4.0) 12/20/21 18:18 Albumin/Globulin Ratio 0.9 (0.9-2) 12/20/21 18:18 25-OH Vitamin D Total 18.2 ng/ml (30-100) L 12/23/21 14:40 Urine Color Yellow 12/20/21 18:58 Urine Appearance Clear (Clear) 12/20/21 18:58 Urine pH 5.0 (4.5-7.5) 12/20/21 18:58 Ur Specific [place] 1.017 (1.000-1.030) 12/20/21 18:58 Urine Protein Negative (Negative) 12/20/21 18:58 Urine Glucose (UA) Negative (Negative) 12/20/21 18:58 Urine Ketones Negative (Negative) 12/20/21 18:58 Urine Blood Negative (Negative) 12/20/21 18:58 Urine Nitrite Negative (Negative) 12/20/21 18:58 Urine Bilirubin Negative (Negative) 12/20/21 18:58 Urine Urobilinogen Negative (Negative) 12/20/21 18:58 Ur Leukocyte Esterase Negative (Negative) 12/20/21 18:58 Nasal Screen MRSA (PCR) Negative (Negative) 12/20/21 21:40 SARS-CoV-2, RNA, NAAT NEGATIVE (NEGATIVE) 12/20/21 19:00 Blood Type AB Positive 12/20/21 20:43 Antibody Screen NEGATIVE 12/20/21 20:43
[2021-12-24] MEDS: WARFARIN SOD 2.5 MG TAB PO SCH (16:33)
[2021-12-24] MEDS ORDERED: METOPROLOL TARTRATE 1 MG/ML VIAL IV STA (17:08)
[2021-12-24] MEDS ORDERED: Nursing to Pharmacy Communication SCH ×2 (18:00→19:15)
[2021-12-24] MEDS: dilTIAZem HCL 125 MG in DEXTROSE 5% 100 ML IV SCH (18:25)
[2021-12-24] MEDS ORDERED: METOPROLOL TARTRATE 1 MG/ML VIAL IV ONE (18:30)
[2021-12-24] MEDS: SENNA 8.6 MG TAB PO SCH (20:19)
[2021-12-24] MEDS: SIMVASTATIN 20 MG TAB PO SCH (20:20)
[2021-12-24] MEDS: DOCUSATE SODIUM/SENNA 50/8.6MG TAB PO SCH (20:23)
[2021-12-25] MEDS: HYDROmorphone INJ 0.5 MG/0.5 ML SYR IV PRN (00:21)
[2021-12-25] MEDS ORDERED: HALOPERIDOL LACTATE 5 MG/ML 1 ML VIAL IM STA (02:10)
[2021-12-25] MEDS: ACETAMINOPHEN 500 MG TAB PO SCH ×3 (06:02→20:57)
[2021-12-25] MEDS: LEVOTHYROXINE SODIUM 200 MCG TABLET PO SCH (06:02)
[2021-12-25 06:54] LABS: Hematocrit (blood only) 35.7 % (42-52); Hemoglobin 11.5 g/dL (14.0-18.0); Mean Corpuscular Hemoglobin 29.7 pg (25-34); Mean Corpuscular Hgb Conc 32.2 g/dL (32-36); Mean Corpuscular Volume 92.2 fL (80-100); Mean Platelet Volume 10.6 fL (7.4-10.4); Platelet Count 289 K/uL (130-400); RDW Coefficient of Variation 13.1 % (11.5-14.5); RDW Standard Deviation 44.1 fL (36.4-46.3); Red Blood Count 3.87 M/uL (4.7-6.1); White Blood Count 8.57 K/uL (4.8-10.8)
[2021-12-25 07:15] LABS: BUN Creatinine Ratio 40.4 (10-20); Creatinine Clr Calc Pharmacy 54.5 ml/min; Est GFR (Non-African American) 63.8 ml/min; Potassium 4.5 mmol/L (3.5-5.1)
[2021-12-25 07:21] LABS: INR 1.2 (0.9-1.1); Prothrombin Time 12.2 Seconds (9.0-12.0)
--- NOTE | 2021-12-25 07:46 | Cardiology Progress Note ---
Date of Service December 25, 2021 Assessment & Plan (1) Closed right femoral fracture: Plan: S/p repair 12/22. (2) PMR (polymyalgia rheumatica): Plan: On Chronic prednisone therapy as an outpatient. (3) Chronic atrial fibrillation: Plan: Follows with Dr. Dougherty- last seen 10/29/2021 who increased metoprolol succinate to 50 mg BID at that time. AC on Warfarin. Restarted 12/23. Due to the patient's age and chronic kidney disease, he likely would not be a good candidate for DOAC. Given his age and medical problems placing a watchman is an unlikely scenario. Will tolerate elevated heart rates for the short term. Will continue to monitor and reassess when patient is not acutely ill. (4) Aortic stenosis: Plan: Most likely low flow seen on Echo (5) Nonischemic cardiomyopathy: Plan: Newly Dx HFrEF, LVEF 20-25%. No Known history of obstructive CAD- no symptoms suggestive of angina. ? NICM. Euvolemic on exam- home lasix dose resumed yesterday. Continue GDMT with metoprolol, future considerations for low dose ACEI, however blood pressures are on the softer side. Patient would be a poor candidate for DAPT should ischemia be the cause, would hold off on stress testing at this time given lack of symptoms and stable EKG. Plan: Clinically stable. Case discussed with Dr. Rosenberg. Admission and Anticipated Discharge Date Admission Date: December 20, 2021 Supervising Physician Co-Signing Physician Notes I have seen and examined the patient. I reviewed the medical record and discussed the case with the [employer]. Patient is currently resting comfortably but earlier was having some confusion requiring some sedation. He now has a sitter in the room. Subjective 86 year old male with new right femur fracture d/t mechanical fall, s/p Right Hip Hemiarthroplasty by Dr. Mercado, 12/22/2021. Echo obtained on 12/21 revealed severe LV dysfunction with an estimated left ventricular ejection fraction of around 25%. He most likely has low flow aortic stenosis.LV decline new when compared to aprox 1 year ago. On 12/23 warfarin was resumed and home dose of Lasix restarted. Tele: AFIB 90-110s, occasional PVCs. Upon entrance into the room patient was sleeping in bed. Nursing noted that patient became very confused yesterday and this morning. He was treated with Haldol. Today he was easy to arouse but was confused and would only answer 1-2 word sentences before falling back to sleep. Unable to do a full ROS due to his mental state. Right leg is very swollen. VSS. Labs: Hemoglobin 12.8>>12.0>>12.5>>10.5>>10.9>> 11.5 (12/25) Scr: 1.56>>1.44>>1.28>>1.41>>1.25>> 1.09 (12/25) INR: 1.2 (12/25) Review of Systems Review of Systems: All systems reviewed & are unremarkable except as noted in HPI & below Physical Exam Physical Exam: General: no acute distress and stated age Chest: normal shape and normal respiratory effort Lungs: clear to auscultation and percussion Cardiac Exam: - irregular rate & rhythm, systolic murmur - normal S1, normal S2 Pulses: 2(+) throughout Abdomen: abdomen soft, non-tender, no abnormal masses and no hepatosplenomegaly Extremities: Right lower extremity swollen no cyanosis. Immobilizer in place. Neuro: confused, somnolent Results & Data ([facility]) Vital Signs (Past 12 Hours) Vital Signs Temp Pulse Pulse Resp BP BP BP 12/25/21 07:38 36.6 C 92 H 20 103/63 12/25/21 03:03 36.8 C 108 H 22 123/69 12/24/21 23:31 100 H 12/24/21 23:30 132 H 12/24/21 20:00 36.7 C 116 H 27 H 115/60 Pulse Ox 12/25/21 07:38 94 12/25/21 03:03 96 12/24/21 23:31 12/24/21 23:30 12/24/21 20:00 94 (1) Closed right femoral fracture Encounter type: initial encounter Femur location: midcervical Fracture alignment: displaced Qualified Code(s): S72.031A - Displaced midcervical fracture of right femur, initial encounter for closed fracture
--- NOTE | 2021-12-25 09:51 | Orthopedic Progress Note ---
Date of Service December 25, 2021 Assessment & Plan (1) Fracture of femoral neck, right: Plan: POD 3 s/p Right Bipolar Hemiarthroplasty Begin PT/OT protocols. WBAT. DVT prophylaxis- SCD's, Wafarin Pain management as written. Admission and Anticipated Discharge Date Admission Date: December 20, 2021 Subjective Pt with more confusion today. Nursing present and states they gave him some Haldol earlier. Pt does open his eyes to verbal stimuli but is somnolent. Not combative. Nursing relates wound has been draining serious drainage. Physical Exam Physical Exam: Current dressing reinforced. All dressings removed including Silverlon. Wound well approximated. Ecchymosis around the wound, more so proximally. Continues to have some serous drainage from the drain site. No purulence. Some slight erythema proximally where the Silverlon dressing tape was irritating his skin. Wound redressed. Leg lengths equal. Results & Data ([facility]) Vital Signs (Past 12 Hours) Vital Signs Temp Pulse Pulse Resp BP BP Pulse Ox 12/25/21 07:38 36.6 C 92 H 20 103/63 94 12/25/21 03:03 36.8 C 108 H 22 123/69 96 12/24/21 23:31 100 H 12/24/21 23:30 132 H Laboratory Results Laboratory Results WBC 8.57 K/uL (4.8-10.8) 12/25/21 06:28 RBC 3.87 M/uL (4.7-6.1) L 12/25/21 06:28 Hgb 11.5 g/dL (14.0-18.0) L 12/25/21 06:28 Hct 35.7 % (42-52) L 12/25/21 06:28 MCV 92.2 fL (80-100) 12/25/21 06:28 MCH 29.7 pg (25-34) 12/25/21 06:28 MCHC 32.2 g/dL (32-36) 12/25/21 06:28 RDW Std Deviation 44.1 fL (36.4-46.3) 12/25/21 06:28 RDW Coeff of Kristie 13.1 % (11.5-14.5) 12/25/21 06:28 Plt Count 289 K/uL (130-400) 12/25/21 06:28 MPV 10.6 fL (7.4-10.4) H 12/25/21 06:28 Immature Gran % (Auto) 0.5 % 12/23/21 05:26 Neut % (Auto) 81.4 % 12/23/21 05:26 Lymph % (Auto) 8.0 % 12/23/21 05:26 [place] % (Auto) 10.1 % 12/23/21 05:26 Eos % (Auto) 0.0 % 12/23/21 05:26 Baso % (Auto) 0.0 % 12/23/21 05:26 Neut # (Auto) 8.10 K/uL (1.4-6.5) H 12/23/21 05:26 Lymph # (Auto) 0.80 K/uL (1.2-3.4) L 12/23/21 05:26 [place] # (Auto) 1.00 K/uL (0.11-0.59) H 12/23/21 05:26 Eos # (Auto) 0.00 K/uL (0-0.5) 12/23/21 05:26 Baso # (Auto) 0.00 K/uL (0-0.2) 12/23/21 05:26 Immature Gran # (Auto) 0.05 K/uL (0.00-0.02) H 12/23/21 05:26 PT 12.2 Seconds (9.0-12.0) H 12/25/21 06:28 INR 1.2 (0.9-1.1) H 12/25/21 06:28 APTT 35.5 Seconds (21.0-31.0) H 12/20/21 18:18 PTT Ratio 1.3 12/20/21 18:18 Sodium 133 mmol/L (136-145) L 12/25/21 06:28 Potassium 4.5 mmol/L (3.5-5.1) 12/25/21 06:28 Chloride 102 mmol/L (98-107) 12/25/21 06:28 Carbon Dioxide 25 mmol/L (21-32) 12/25/21 06:28 Anion Gap 6 (3-11) 12/25/21 06:28 BUN 42 mg/dl (6-23) H 12/25/21 06:28 Creatinine 1.04 mg/dl (0.6-1.4) 12/25/21 06:28 Est Cr Clr Drug Dosing 54.5 ml/min 12/25/21 06:28 Est GFR ( Amer) 74.0 ml/min 12/25/21 06:28 Est GFR (Non-Af Amer) 63.8 ml/min 12/25/21 06:28 BUN/Creatinine Ratio 40.4 (10-20) H 12/25/21 06:28 Glucose 97 mg/dl (70-99(Fasting)) 12/25/21 06:28 POC Glucose 152 mg/dl (70-99) H 12/22/21 16:02 Calcium 8.0 mg/dl (8.5-10.1) L 12/25/21 06:28 Total Bilirubin 0.7 mg/dl (0.2-1.0) 12/20/21 18:18 AST 23 U/L (13-39) 12/20/21 18:18 ALT 19 U/L (7-52) 12/20/21 18:18 Alkaline Phosphatase 57 U/L (34-104) 12/20/21 18:18 Troponin I 0.03 ng/ml (0-0.04) 12/21/21 06:25 Total Protein 7.4 gm/dl (6.0-8.3) 12/20/21 18:18 Albumin 3.5 gm/dl (3.4-5.0) 12/20/21 18:18 Globulin 3.9 gm/dl (2.5-4.0) 12/20/21 18:18 Albumin/Globulin Ratio 0.9 (0.9-2) 12/20/21 18:18 25-OH Vitamin D Total 18.2 ng/ml (30-100) L 12/23/21 14:40 Urine Color Yellow 12/20/21 18:58 Urine Appearance Clear (Clear) 12/20/21 18:58 Urine pH 5.0 (4.5-7.5) 12/20/21 18:58 Ur Specific [place] 1.017 (1.000-1.030) 12/20/21 18:58 Urine Protein Negative (Negative) 12/20/21 18:58 Urine Glucose (UA) Negative (Negative) 12/20/21 18:58 Urine Ketones Negative (Negative) 12/20/21 18:58 Urine Blood Negative (Negative) 12/20/21 18:58 Urine Nitrite Negative (Negative) 12/20/21 18:58 Urine Bilirubin Negative (Negative) 12/20/21 18:58 Urine Urobilinogen Negative (Negative) 12/20/21 18:58 Ur Leukocyte Esterase Negative (Negative) 12/20/21 18:58 Nasal Screen MRSA (PCR) Negative (Negative) 12/20/21 21:40 SARS-CoV-2, RNA, NAAT NEGATIVE (NEGATIVE) 12/20/21 19:00 Blood Type AB Positive 12/20/21 20:43 Antibody Screen NEGATIVE 12/20/21 20:43
[2021-12-25] MEDS: CHOLECALCIFEROL 1,000 UNITS 25 MCG TAB PO SCH (17:07)
[2021-12-25] MEDS: METOPROLOL SUCC 50MG EXT REL TAB PO SCH ×2 (17:07→20:25)
[2021-12-25] MEDS: WARFARIN SOD 2.5 MG TAB PO SCH (17:07)
[2021-12-25] MEDS: predniSONE 5 MG TAB PO SCH (17:08)
[2021-12-25] MEDS: MULTIVITAMIN TAB PO SCH (17:08)
[2021-12-25] MEDS: DOCUSATE SODIUM 100 MG CAP PO SCH ×2 (17:09→20:28)
[2021-12-25] MEDS: dilTIAZem HCL 125 MG in DEXTROSE 5% 100 ML IV SCH (18:49)
--- NOTE | 2021-12-25 19:58 | Hospitalist Progress Note ---
Date of Service December 25, 2021 Assessment & Plan (1) Closed right femoral fracture: Plan: Patient is an 86 y male with H/O persistent atrial fibrillation on Coumadin, moderate aortic stenosis, moderate tricuspid regurgitation, mild mitral insufficiency, mild pulmonary hypertension, HLD, CKD III, PMR, hypothyroidism presented to ER after mechanical fall, c/o right hip pain. Outpatient Right hip xray with femur fracture. Right femoral neck fracture S/P right bipolar hemiarthroplasty Right hip x-ray: Mildly displaced transcervical fracture of the right femoral neck Possible Age-related osteoporosis with current pathological fracture, R femoral neck Weightbearing as tolerated Continue PT OT On warfarin for anticoagulation Needs follow-up with orthopedics upon discharge Appreciate orthopedics input Vitamin D deficiency Started on Vit D supplements (2) Atrial fibrillation with RVR: Plan: H/O persistent atrial fibrillation On chronic anticoagulation with Coumadin Follows with Dr. Dougherty Increase metoprolol to 50 mg twice daily Will need watchman procedure as outpatient Continue Coumadin Monitor INR Appreciate cardiology input (3) Valvular heart disease: Plan: Echo 01/2021: EF: 55-59%, mild to moderate aortic stenosis, mild mitral regurgitation, moderate tricuspid regurgitation, mild pulmonary hypertension, aortic root diameter upper limit of normal at 3.8 cm, proximal ascending aorta mildly dilated at 4 Echo done showed reduced EF of 20-25% compared to normal EF from last Echo in 01/2021 Newly diagnosed systolic heart failure, could be acute History of obstructive CAD Likely nonischemic cardiomyopathy Continue metoprolol Consider RANDI inhibitor when blood pressure more stable Appreciate cardiology input Continue Lasix Monitor volume status (4) Chronic kidney disease (CKD), stage III (moderate): Plan: Cr at baseline Monitor renal functions avoid nephrotoxic agents as able (5) PMR (polymyalgia rheumatica): Plan: Continue prednisone (6) Dyslipidemia: Plan: Continue statin (7) Hypothyroidism: Plan: Continue levothyroxine DVT Px warfarin Code Status Full Code Admission and Anticipated Discharge Date Admission Date: December 20, 2021 Subjective Patient is seen and examined at bedside Intermittently confused as per RN No distress during my encounter Sitter at bedside Denies any significant hip pain at surgical site Drowsy during my encounter Denies any chest pain, shortness of breath Review of Systems Review of Systems: All systems reviewed & are unremarkable except as noted in Subjective Physical Exam Physical Exam: Physical Exam: Vitals signs as noted above General Appearance:Moderately built and nourished, no apparent distress Head: normocephalic, Atraumatic Eyes: normal inspection, EOMI Neck: supple, Trachea midline Respiratory/Chest: Normal breath sounds, CTA Cardiovascular: Irregularly irregular, + murmur Abdomen/GI:Soft, Non tender, Bowel sounds present Extremities/Musculoskeletal:normal inspection, Trace edema, R hip in dressing Neurologic/Psych: grossly no focal neurological deficits Skin: normal color, warm Results & Data Results & Data ([facility]) Vital Signs (Past 12 Hours) Vital Signs Temp Pulse Pulse Resp BP BP Pulse Ox 12/25/21 19:06 36.5 C 99 H 20 118/70 94 12/25/21 15:04 37.4 C 103 H 17 121/80 94 12/25/21 15:00 96 H 12/25/21 12:17 37.3 C 87 21 115/77 97 12/25/21 07:59 110 H Laboratory Results Short CBC 12/25/21 Range/Units 06:28 WBC 8.57 (4.8-10.8) K/uL Hgb 11.5 L (14.0-18.0) g/dL Hct 35.7 L (42-52) % Plt Count 289 (130-400) K/uL BMP 12/25/21 06:28 Sodium 133 L Potassium 4.5 Chloride 102 Carbon Dioxide 25 BUN 42 H Creatinine 1.04 Glucose 97 Calcium 8.0 L (1) Closed right femoral fracture Encounter type: initial encounter Femur location: midcervical Fracture alignment: displaced Qualified Code(s): S72.031A - Displaced midcervical fracture of right femur, initial encounter for closed fracture (2) Chronic kidney disease (CKD), stage III (moderate) Chronic kidney disease stage 3 subtype: stage 3b (GFR 30-44) Qualified Code(s): N18.32 - Chronic kidney disease, stage 3b
[2021-12-25] MEDS: SIMVASTATIN 20 MG TAB PO SCH (20:25)
[2021-12-25] MEDS: SENNA 8.6 MG TAB PO SCH (20:25)
[2021-12-25] MEDS: DOCUSATE SODIUM/SENNA 50/8.6MG TAB PO SCH (20:37)
[2021-12-26] MEDS: ACETAMINOPHEN 500 MG TAB PO SCH ×3 (06:21→21:48)
[2021-12-26] MEDS: LEVOTHYROXINE SODIUM 200 MCG TABLET PO SCH (06:22)
--- NOTE | 2021-12-26 07:42 | Cardiology Progress Note ---
Date of Service December 26, 2021 Assessment & Plan (1) Closed right femoral fracture: Plan: S/p repair 12/22. (2) PMR (polymyalgia rheumatica): Plan: On Chronic prednisone therapy as an outpatient. (3) Chronic atrial fibrillation: Plan: Follows with Dr. Dougherty- last seen 10/29/2021 who increased metoprolol succinate to 50 mg BID at that time. AC on Warfarin. Restarted 12/23. Due to the patient's age and chronic kidney disease, he likely would not be a good candidate for DOAC. Given his age and medical problems placing a watchman is an unlikely scenario. Heart rates controlled. 1. Patient at a very high fall risk given his age, unsteadiness, history of falls, and confusion- ? Possible need for placement at discharge. 2. Pending disposition at discharge, further recommendations to be made regarding the termite helper use of Coumadin. (4) Aortic stenosis: Plan: Most likely low flow seen on Echo (5) Nonischemic cardiomyopathy: Plan: Newly Dx HFrEF, LVEF 20-25%. No Known history of obstructive CAD- no symptoms suggestive of angina. ? NICM. Euvolemic on exam- home lasix dose resumed yesterday. Continue GDMT with metoprolol, future considerations for low dose ACEI, however blood pressures are on the softer side. Patient would be a poor candidate for DAPT should ischemia be the cause, would hold off on stress testing at this time given lack of symptoms and stable EKG. Plan: Clinically stable. Case discussed with Dr. Rosenberg. Admission and Anticipated Discharge Date Admission Date: December 20, 2021 Supervising Physician Co-Signing Physician Notes He was seen and examined the patient. I reviewed the medical record and discussed the case with the PS[employer]CHOLOGIST [employer]. I agree with the plan as outlined above. Subjective 86 year old male with new right femur fracture d/t mechanical fall, s/p Right Hip Hemiarthroplasty by Dr. Mercado, 12/22/2021. Echo obtained on 12/21 revealed severe LV dysfunction with an estimated left ventricular ejection fraction of around 25%. He most likely has low flow aortic stenosis.LV decline new when compared to aprox 1 year ago. On 12/23 warfarin was resumed and home dose of Lasix restarted. Episode of confusion 12/25- now has a sitter in the room Tele: AFIB 70-80s Upon entrance into the room patient was resting in the chair after getting cleaned up. Remains plesantly confused. Treated with Haldol yesterday Denies any acute concerns. Pain is controlled. No chest pain, shortness of breath, or palpitations. No dizziness or syncope. No orthopnea. Labs: Hemoglobin 12.8>>12.0>>12.5>>10.5>>10.9>>11.5 (12/25) Scr: 1.56>>1.44>>1.28>>1.41>>1.25>>1.09 (12/25) >> 0.94 (12/26) INR: 1.3 (12/26) Review of Systems Review of Systems: All systems reviewed & are unremarkable except as noted in HPI & below Physical Exam Physical Exam: General: no acute distress and stated age Chest: normal shape and normal respiratory effort Lungs: clear to auscultation and percussion Cardiac Exam: - irregular rate & rhythm, systolic murmur - normal S1, normal S2 Pulses: 2(+) throughout Abdomen: abdomen soft, non-tender, no abnormal masses and no hepatosplenomegaly Extremities: Right lower extremity swollen no cyanosis. Immobilizer in place. Neuro: confused, awake Results & Data ([facility]) Vital Signs (Past 12 Hours) Vital Signs Temp Pulse Pulse Resp BP Pulse Ox 12/26/21 07:09 36.6 C 75 19 106/69 96 12/26/21 02:31 36.6 C 89 20 110/68 94 12/25/21 22:30 83 12/25/21 20:24 90 114/77 94 Laboratory Results 12/26/21 12/26/21 12/26/21 Range/Units 07:28 06:59 06:59 PT 12.5 H (9.0-12.0) Seconds INR 1.3 H (0.9-1.1) Sodium 132 L (136-145) mmol/L Potassium 4.4 (3.5-5.1) mmol/L Chloride 102 (98-107) mmol/L Carbon Dioxide 24 (21-32) mmol/L Anion Gap 6 (3-11) BUN 32 H (6-23) mg/dl Creatinine 0.94 (0.6-1.4) mg/dl Est Cr Clr Drug Dosing 60.4 ml/min Est GFR ( Amer) 83.6 ml/min Est GFR (Non-Af Amer) 72.1 ml/min BUN/Creatinine Ratio 34.0 H (10-20) Glucose 105 H (70-99(Fasting)) mg/dl POC Glucose 131 H (70-99) mg/dl Calcium 7.7 L (8.5-10.1) mg/dl (1) Closed right femoral fracture Encounter type: initial encounter Femur location: midcervical Fracture alignment: displaced Qualified Code(s): S72.031A - Displaced midcervical fracture of right femur, initial encounter for closed fracture
[2021-12-26 07:57] LABS: INR 1.3 (0.9-1.1); Prothrombin Time 12.5 Seconds (9.0-12.0)
[2021-12-26 08:37] LABS: Calcium 7.7 mg/dl (8.5-10.1); Creatinine Clr Calc Pharmacy 60.4 ml/min; Est GFR (African American) 83.6 ml/min; Est GFR (Non-African American) 72.1 ml/min; Potassium 4.4 mmol/L (3.5-5.1)
[2021-12-26] MEDS: MULTIVITAMIN TAB PO SCH (10:06)
[2021-12-26] MEDS: DOCUSATE SODIUM 100 MG CAP PO SCH ×2 (10:06→21:49)
[2021-12-26] MEDS: METOPROLOL SUCC 50MG EXT REL TAB PO SCH ×2 (10:07→21:48)
[2021-12-26] MEDS: predniSONE 5 MG TAB PO SCH (10:08)
[2021-12-26] MEDS: CHOLECALCIFEROL 1,000 UNITS 25 MCG TAB PO SCH (10:45)
[2021-12-26] MEDS: WARFARIN SOD 2.5 MG TAB PO SCH (15:08)
--- NOTE | 2021-12-26 16:38 | Hospitalist Progress Note ---
Date of Service December 26, 2021 Assessment & Plan (1) Closed right femoral fracture: Plan: Patient is an 86 y male with H/O persistent atrial fibrillation on Coumadin, moderate aortic stenosis, moderate tricuspid regurgitation, mild mitral insufficiency, mild pulmonary hypertension, HLD, CKD III, PMR, hypothyroidism presented to ER after mechanical fall, c/o right hip pain. Outpatient Right hip xray with femur fracture. Right femoral neck fracture S/P right bipolar hemiarthroplasty Right hip x-ray: Mildly displaced transcervical fracture of the right femoral neck Possible Age-related osteoporosis with current pathological fracture, R femoral neck Weightbearing as tolerated Continue PT OT On warfarin for anticoagulation Needs follow-up with orthopedics upon discharge Appreciate orthopedics input Vitamin D deficiency Continue Vit D supplements (2) Atrial fibrillation with RVR: Plan: H/O persistent atrial fibrillation On chronic anticoagulation with Coumadin Follows with Dr. Dougherty Increased metoprolol to 50 mg twice daily Will need watchman procedure as outpatient Continue Coumadin Monitor INR 1.3 today Appreciate cardiology input Titrate off of Diltiazem drip as able (3) Valvular heart disease: Plan: Echo 01/2021: EF: 55-59%, mild to moderate aortic stenosis, mild mitral regurgitation, moderate tricuspid regurgitation, mild pulmonary hypertension, aortic root diameter upper limit of normal at 3.8 cm, proximal ascending aorta mildly dilated at 4 Echo done showed reduced EF of 20-25% compared to normal EF from last Echo in 01/2021 Newly diagnosed systolic heart failure, could be acute History of obstructive CAD Likely nonischemic cardiomyopathy Continue metoprolol Consider RANDI inhibitor when blood pressure more stable Appreciate cardiology input Continue Lasix Monitor volume status Delirium Reorient frequently Avoid sedative meds as able (4) Chronic kidney disease (CKD), stage III (moderate): Plan: Cr at baseline Monitor renal functions avoid nephrotoxic agents as able (5) PMR (polymyalgia rheumatica): Plan: Continue prednisone (6) Dyslipidemia: Plan: Continue statin (7) Hypothyroidism: Plan: Continue levothyroxine DVT Px warfarin Code Status Full Code Admission and Anticipated Discharge Date Admission Date: December 20, 2021 Subjective Patient is seen and examined at bedside Oriented to person, place during my encounter Intermittently confused as per Staff States having mild pain at right hip surgical site Denies any chest pain, shortness of breath, dizziness, nausea More alert, awake today Review of Systems Review of Systems: All systems reviewed & are unremarkable except as noted in Subjective Physical Exam Physical Exam: Physical Exam: Vitals signs as noted above General Appearance:Moderately built and nourished, no apparent distress Head: normocephalic, Atraumatic Eyes: normal inspection, EOMI Neck: supple, Trachea midline Respiratory/Chest: Normal breath sounds, B/L basal crackles Cardiovascular: Irregularly irregular, + murmur Abdomen/GI:Soft, Non tender, Bowel sounds present Extremities/Musculoskeletal:normal inspection, Trace edema, R hip in dressing Neurologic/Psych: grossly no focal neurological deficits Skin: normal color, warm Results & Data Results & Data ([facility] [place]) Vital Signs (Past 12 Hours) Vital Signs Temp Pulse Pulse Resp BP BP Pulse Ox 12/26/21 15:00 83 12/26/21 11:44 36.3 C L 98 H 18 124/80 98 12/26/21 07:09 36.6 C 75 19 106/69 96 12/26/21 07:00 73 Laboratory Results BMP 12/26/21 06:59 Sodium 132 L Potassium 4.4 Chloride 102 Carbon Dioxide 24 BUN 32 H Creatinine 0.94 Glucose 105 H Calcium 7.7 L (1) Closed right femoral fracture Encounter type: initial encounter Femur location: midcervical Fracture alignment: displaced Qualified Code(s): S72.031A - Displaced midcervical fracture of right femur, initial encounter for closed fracture (2) Chronic kidney disease (CKD), stage III (moderate) Chronic kidney disease stage 3 subtype: stage 3b (GFR 30-44) Qualified Code(s): N18.32 - Chronic kidney disease, stage 3b
[2021-12-26] MEDS: dilTIAZem HCL 125 MG in DEXTROSE 5% 100 ML IV SCH (18:37)
[2021-12-26] MEDS: SIMVASTATIN 20 MG TAB PO SCH (21:48)
[2021-12-26] MEDS: SENNA 8.6 MG TAB PO SCH (21:49)
[2021-12-26] MEDS: DOCUSATE SODIUM/SENNA 50/8.6MG TAB PO SCH (21:49)
[2021-12-27] MEDS: ACETAMINOPHEN 500 MG TAB PO SCH ×3 (05:43→21:19)
[2021-12-27] MEDS: LEVOTHYROXINE SODIUM 200 MCG TABLET PO SCH (05:44)
[2021-12-27 07:07] LABS: Hematocrit (blood only) 36.5 % (42-52); Hemoglobin 11.5 g/dL (14.0-18.0); Mean Corpuscular Hemoglobin 29.2 pg (25-34); Mean Corpuscular Hgb Conc 31.5 g/dL (32-36); Mean Corpuscular Volume 92.6 fL (80-100); Mean Platelet Volume 10.4 fL (7.4-10.4); Platelet Count 255 K/uL (130-400); RDW Coefficient of Variation 13.1 % (11.5-14.5); RDW Standard Deviation 44.6 fL (36.4-46.3); Red Blood Count 3.94 M/uL (4.7-6.1); White Blood Count 9.12 K/uL (4.8-10.8)
[2021-12-27 07:44] LABS: Calcium 7.9 mg/dl (8.5-10.1); Creatinine Clr Calc Pharmacy 56.2 ml/min; Est GFR (African American) 77.5 ml/min; Est GFR (Non-African American) 66.9 ml/min; Potassium 4.3 mmol/L (3.5-5.1)
[2021-12-27 07:51] LABS: INR 1.3 (0.9-1.1); Prothrombin Time 12.7 Seconds (9.0-12.0)
[2021-12-27] MEDS: CHOLECALCIFEROL 1,000 UNITS 25 MCG TAB PO SCH (08:16)
[2021-12-27] MEDS: FUROSEMIDE 20 MG TAB PO SCH (08:17)
[2021-12-27] MEDS: MULTIVITAMIN TAB PO SCH (08:17)
[2021-12-27] MEDS: predniSONE 5 MG TAB PO SCH (08:17)
[2021-12-27] MEDS: METOPROLOL SUCC 50MG EXT REL TAB PO SCH ×2 (08:19→20:35)
[2021-12-27] MEDS: DOCUSATE SODIUM 100 MG CAP PO SCH ×2 (08:22→20:35)
--- NOTE | 2021-12-27 13:52 | Orthopedic Progress Note ---
Date of Service December 27, 2021 Assessment & Plan (1) Fracture of femoral neck, right: Plan: POD 4 s/p Right Bipolar Hemiarthroplasty Improved mentation. Begin PT/OT protocols. WBAT. DVT prophylaxis- SCD's, Warfarin Pain management as written. Dr. Mercado to review wound/drainage. Admission and Anticipated Discharge Date Admission Date: December 20, 2021 Subjective POD 4 Pt much more alert today. Answering most questions appropriately. States no pain at rest but does have some pain with getting OOB. Physical Exam Physical Exam: Dressing partially removed to reveal well approximated wound. His wound looks better overall. The ecchymosis around the wound is resolving. No erythema. Mild swelling. Continues to have serous drainage from drain site and some from wound. Thigh soft. Calves soft, NT. NV intact. Results & Data ([facility]) Vital Signs (Past 12 Hours) Vital Signs Temp Pulse Pulse Resp BP BP Pulse Ox 12/27/21 12:10 36.5 C 82 20 118/85 97 12/27/21 07:53 36.6 C 86 20 127/72 95 12/27/21 07:00 88 12/27/21 04:16 36.4 C L 81 18 119/66 95
[2021-12-27] MEDS ORDERED: WARFARIN SOD 5 MG TAB PO SCH (16:00)
--- NOTE | 2021-12-27 19:02 | Hospitalist Progress Note ---
Date of Service December 27, 2021 Assessment & Plan (1) Closed right femoral fracture: Plan: Patient is an 86 y male with H/O persistent atrial fibrillation on Coumadin, moderate aortic stenosis, moderate tricuspid regurgitation, mild mitral insufficiency, mild pulmonary hypertension, HLD, CKD III, PMR, hypothyroidism presented to ER after mechanical fall, c/o right hip pain. Outpatient Right hip xray with femur fracture. Right femoral neck fracture S/P right bipolar hemiarthroplasty Right hip x-ray: Mildly displaced transcervical fracture of the right femoral neck Possible Age-related osteoporosis with current pathological fracture, R femoral neck Weightbearing as tolerated Continue PT OT On warfarin for anticoagulation Needs follow-up with orthopedics upon discharge Appreciate orthopedics input Vitamin D deficiency Continue Vit D supplements (2) Atrial fibrillation with RVR: Plan: H/O persistent atrial fibrillation On chronic anticoagulation with Coumadin Follows with Dr. Dougherty IV Cardizem discontinued Increased metoprolol to 50 mg twice daily Will need watchman procedure as outpatient Continue Coumadin Monitor INR 1.3 today Appreciate cardiology input Adjust Coumadin dose as needed (3) Valvular heart disease: Plan: Echo 01/2021: EF: 55-59%, mild to moderate aortic stenosis, mild mitral regurgitation, moderate tricuspid regurgitation, mild pulmonary hypertension, aortic root diameter upper limit of normal at 3.8 cm, proximal ascending aorta mildly dilated at 4 Echo done showed reduced EF of 20-25% compared to normal EF from last Echo in 01/2021 Newly diagnosed systolic heart failure, could be acute History of obstructive CAD Likely nonischemic cardiomyopathy Continue metoprolol Consider RANDI inhibitor when blood pressure more stable Appreciate cardiology input Continue Lasix Monitor volume status Delirium Reorient frequently Avoid sedative meds as able Mental status improved (4) Chronic kidney disease (CKD), stage III (moderate): Plan: Cr at baseline Monitor renal functions avoid nephrotoxic agents as able (5) PMR (polymyalgia rheumatica): Plan: Continue prednisone (6) Dyslipidemia: Plan: Continue statin (7) Hypothyroidism: Plan: Continue levothyroxine DVT Px warfarin Code Status Full Code Admission and Anticipated Discharge Date Admission Date: December 20, 2021 Subjective Patient is seen and examined at bedside States feeling better today States having minimal cough Right hip pain with ambulation Discussed with cardiology today IV Cardizem discontinued Denies any chest pain, shortness of breath, dizziness, nausea Review of Systems Review of Systems: All systems reviewed & are unremarkable except as noted in Subjective Physical Exam Physical Exam: Physical Exam: Vitals signs as noted above General Appearance:Moderately built and nourished, no apparent distress Head: normocephalic, Atraumatic Eyes: normal inspection, EOMI Neck: supple, Trachea midline Respiratory/Chest: Normal breath sounds, B/L basal crackles Cardiovascular: Irregularly irregular, + murmur Abdomen/GI:Soft, Non tender, Bowel sounds present Extremities/Musculoskeletal:normal inspection, Trace edema, R hip in dressing Neurologic/Psych: grossly no focal neurological deficits Skin: normal color, warm Results & Data Results & Data ([facility]) Vital Signs (Past 12 Hours) Vital Signs Temp Pulse Pulse Resp BP BP Pulse Ox 12/27/21 16:01 36.5 C 91 H 18 119/73 96 12/27/21 15:00 93 H 12/27/21 12:10 36.5 C 82 20 118/85 97 12/27/21 07:53 36.6 C 86 20 127/72 95 Laboratory Results Short CBC 12/27/21 Range/Units 06:51 WBC 9.12 (4.8-10.8) K/uL Hgb 11.5 L (14.0-18.0) g/dL Hct 36.5 L (42-52) % Plt Count 255 (130-400) K/uL BMP 12/27/21 06:51 Sodium 135 L Potassium 4.3 Chloride 104 Carbon Dioxide 24 BUN 36 H Creatinine 1.00 Glucose 99 Calcium 7.9 L (1) Closed right femoral fracture Encounter type: initial encounter Femur location: midcervical Fracture alignment: displaced Qualified Code(s): S72.031A - Displaced midcervical fracture of right femur, initial encounter for closed fracture (2) Chronic kidney disease (CKD), stage III (moderate) Chronic kidney disease stage 3 subtype: stage 3b (GFR 30-44) Qualified Code(s): N18.32 - Chronic kidney disease, stage 3b
[2021-12-27] MEDS ORDERED: PROMETHAZINE HCL 12.5 MG in SODIUM CHLORIDE 0.9% 50 ML IV PRN (20:03)
[2021-12-27] MEDS: SENNA 8.6 MG TAB PO SCH (20:35)
[2021-12-27] MEDS: SIMVASTATIN 20 MG TAB PO SCH (20:35)
[2021-12-27 20:39] LABS: Appearance Urine Clear (Clear); Bacteria Urine Automated Negative (Negative); Bilirubin Urine Negative (Negative); Blood Urine 3+ (Negative); Color Urine Yellow; Glucose Urine UA Negative (Negative); Ketones Urine Negative (Negative); Leukocyte Esterase Urine 1+ (Negative); Nitrite Urine Positive (Negative); Protein Urine Negative (Negative); RBC Urine Automated >30 /hpf (0-4); Specific Gravity Urine 1.017 (1.000-1.030); Urobilinogen Urine Negative (Negative)
[2021-12-27] MEDS: DOCUSATE SODIUM/SENNA 50/8.6MG TAB PO SCH (20:56)
[2021-12-27] MEDS: OLANZapine 10 MG/2.1 ML SDV IM PRN (21:19)
--- NOTE | 2021-12-28 02:27 | Communication Note ---
Date of Service: December 28, 2021 Patient confused and hallucinating as per RN account last night. UA WBC esterase, nitrite positive AP Delirium Complicated UTI Urine CS, Cefepime
[2021-12-28] MEDS: CEFEPIME 2,000 MG in SYRINGE 0 ML IV SCH (03:16)
[2021-12-28] MEDS: ACETAMINOPHEN 500 MG TAB PO SCH ×3 (06:01→21:12)
[2021-12-28] MEDS: LEVOTHYROXINE SODIUM 200 MCG TABLET PO SCH (06:01)
[2021-12-28 08:00] LABS: INR 1.4 (0.9-1.1); Prothrombin Time 13.8 Seconds (9.0-12.0)
[2021-12-28 08:06] LABS: BUN Creatinine Ratio 35.4 (10-20); Calcium 8.1 mg/dl (8.5-10.1); Creatinine Clr Calc Pharmacy 58.3 ml/min; Est GFR (African American) 81.5 ml/min; Est GFR (Non-African American) 70.3 ml/min; Potassium 4.2 mmol/L (3.5-5.1)
[2021-12-28] MEDS: METOPROLOL SUCC 50MG EXT REL TAB PO SCH ×2 (08:21→21:12)
[2021-12-28] MEDS: MULTIVITAMIN TAB PO SCH (08:22)
[2021-12-28] MEDS: predniSONE 5 MG TAB PO SCH (08:22)
[2021-12-28] MEDS: CHOLECALCIFEROL 1,000 UNITS 25 MCG TAB PO SCH (08:22)
[2021-12-28] MEDS ORDERED: oxyCODONE HCL IR 5 MG TAB (IMMEDIATE RELEASE) PO PRN (08:22)
[2021-12-28] MEDS: DOCUSATE SODIUM 100 MG CAP PO SCH ×2 (08:24→21:12)
[2021-12-28] MEDS: WARFARIN SOD 2.5 MG TAB PO SCH (15:45)
--- NOTE | 2021-12-28 17:07 | Hospitalist Progress Note ---
Date of Service December 28, 2021 Assessment & Plan (1) Closed right femoral fracture: Plan: Patient is an 86 y male with H/O persistent atrial fibrillation on Coumadin, moderate aortic stenosis, moderate tricuspid regurgitation, mild mitral insufficiency, mild pulmonary hypertension, HLD, CKD III, PMR, hypothyroidism presented to ER after mechanical fall, c/o right hip pain. Outpatient Right hip xray with femur fracture. Right femoral neck fracture S/P right bipolar hemiarthroplasty Right hip x-ray: Mildly displaced transcervical fracture of the right femoral neck Possible Age-related osteoporosis with current pathological fracture, R femoral neck Weightbearing as tolerated Continue PT OT On warfarin for anticoagulation Needs follow-up with orthopedics upon discharge Appreciate orthopedics input UTI Acute Metabolic Encephalopathy Delirium contributing as well Urine Cx:Gram Negative Bacilli Reorient frequently Started on Cefepime Vitamin D deficiency Continue Vit D supplements (2) Atrial fibrillation with RVR: Plan: H/O persistent atrial fibrillation On chronic anticoagulation with Coumadin Follows with Dr. Dougherty IV Cardizem discontinued Increased metoprolol to 50 mg twice daily Will need watchman procedure as outpatient Continue Coumadin Monitor INR 1.4 today Appreciate cardiology input Adjust Coumadin dose as needed (3) Valvular heart disease: Plan: Echo 01/2021: EF: 55-59%, mild to moderate aortic stenosis, mild mitral regurgitation, moderate tricuspid regurgitation, mild pulmonary hypertension, aortic root diameter upper limit of normal at 3.8 cm, proximal ascending aorta mildly dilated at 4 Echo done showed reduced EF of 20-25% compared to normal EF from last Echo in 01/2021 Newly diagnosed systolic heart failure, could be acute History of obstructive CAD Likely nonischemic cardiomyopathy Continue metoprolol Consider RANDI inhibitor when blood pressure more stable Appreciate cardiology input Continue Lasix Monitor volume status (4) Chronic kidney disease (CKD), stage III (moderate): Plan: Cr at baseline Monitor renal functions avoid nephrotoxic agents as able (5) PMR (polymyalgia rheumatica): Plan: Continue prednisone (6) Dyslipidemia: Plan: Continue statin (7) Hypothyroidism: Plan: Continue levothyroxine DVT Px warfarin Code Status Full Code Admission and Anticipated Discharge Date Admission Date: December 20, 2021 Subjective Patient is seen and examined at bedside Confused and hallucinating overnight Urine suggestive of possible UTI No distress during my encounter Right hip pain is controlled Denies any chest pain, shortness of breath, dizziness, nausea Review of Systems Review of Systems: All systems reviewed & are unremarkable except as noted in Subjective Physical Exam Physical Exam: Physical Exam: Vitals signs as noted above General Appearance:Moderately built and nourished, no apparent distress Head: normocephalic, Atraumatic Eyes: normal inspection, EOMI Neck: supple, Trachea midline Respiratory/Chest: Normal breath sounds, B/L basal crackles Cardiovascular: Irregularly irregular, + murmur Abdomen/GI:Soft, Non tender, Bowel sounds present Extremities/Musculoskeletal:normal inspection, Trace edema, R hip in dressing Neurologic/Psych: grossly no focal neurological deficits Skin: normal color, warm Results & Data Results & Data ([facility]) Vital Signs (Past 12 Hours) Vital Signs Temp Pulse Pulse Resp BP Pulse Ox 12/28/21 15:39 36.6 C 91 H 18 102/68 94 12/28/21 11:03 36.2 C L 81 16 114/73 95 12/28/21 09:25 100 H 12/28/21 06:41 36.9 C 99 H 20 123/74 96 Laboratory Results BMP 12/28/21 06:52 Sodium 135 L Potassium 4.2 Chloride 103 Carbon Dioxide 25 BUN 34 H Creatinine 0.96 Glucose 95 Calcium 8.1 L Urine 12/27/21 Range/Units 20:15 Urine Color Yellow Urine Appearance Clear (Clear) Urine pH 6.0 (4.5-7.5) Ur Specific [place] 1.017 (1.000-1.030) Urine Protein Negative (Negative) Urine Glucose (UA) Negative (Negative) (1) Closed right femoral fracture Encounter type: initial encounter Femur location: midcervical Fracture alignment: displaced Qualified Code(s): S72.031A - Displaced midcervical fracture of right femur, initial encounter for closed fracture (2) Chronic kidney disease (CKD), stage III (moderate) Chronic kidney disease stage 3 subtype: stage 3b (GFR 30-44) Qualified Code(s): N18.32 - Chronic kidney disease, stage 3b
[2021-12-28] MEDS: SENNA 8.6 MG TAB PO SCH (21:12)
[2021-12-28] MEDS: SIMVASTATIN 20 MG TAB PO SCH (21:13)
[2021-12-28] MEDS: DOCUSATE SODIUM/SENNA 50/8.6MG TAB PO SCH (21:29)
[2021-12-29] MEDS: ACETAMINOPHEN 500 MG TAB PO SCH ×3 (05:58→19:59)
[2021-12-29] MEDS: CEFEPIME 2,000 MG in SYRINGE 0 ML IV SCH (05:58)
[2021-12-29] MEDS: LEVOTHYROXINE SODIUM 200 MCG TABLET PO SCH (05:59)
--- NOTE | 2021-12-29 06:44 | Orthopedic Progress Note ---
Date of Service December 29, 2021 Assessment & Plan (1) Fracture of femoral neck, right: Plan: POD 7 s/p Right Bipolar Hemiarthroplasty PT/OT- WBAT. DVT prophylaxis- SCD's, Warfarin Pain management as written. Admission and Anticipated Discharge Date Admission Date: December 20, 2021 Subjective POD #7 Review of Systems Constitutional: no fever and no chills Respiratory: no cough and no dyspnea Cardiovascular: no chest pain, no dyspnea and no orthopnea Gastrointestinal: no abdominal pain, no nausea and no vomiting Physical Exam Physical Exam: Vital Signs Temp 36.2 C L 12/29/21 04:00 Pulse 86 12/29/21 04:00 Resp 16 12/29/21 04:00 BP 115/79 12/29/21 04:00 Pulse Ox 96 12/29/21 04:00 Intake & Output 12/28/21 12/28/21 12/29/21 06:59 18:59 06:59 Intake Total 440 / 055.783 3621 / 1390 310 / 1390 Output Total 1375 / 2525 1100 / 2100 1000 / 2100 Balance -935 / -1994.417 -20 / -710 -690 / -710 Weight 87.8 kg 84.6 kg Intake: Oral 440 / 440 1080 / 1390 310 / 1390 Output: Urine Amount (Ca theter) 1375 / 2525 1100 / 2100 1000 / 2100 Weaver/Indwelli ng 1275 / 2425 1100 / 1600 500 / 1600 Straight 100 / 100 500 / 500 Other: Weight Measureme nt Method [facility] Musculoskeletal: Right Hip: the right hip dressing was removed to reveal well approximated wound. there is no erythema noted, no active drainage. Thigh soft. Calves soft, non-tender. NV intact. Results & Data ([facility]) Vital Signs (Past 12 Hours) Vital Signs Temp Pulse Pulse Resp BP BP Pulse Ox 12/29/21 04:00 36.2 C L 86 16 115/79 96 12/29/21 00:00 99 H 12/28/21 22:12 36.4 C L 90 16 108/76 95 12/28/21 18:55 36.3 C L 82 16 101/73 96
[2021-12-29 07:14] LABS: Hematocrit (blood only) 40.6 % (42-52); Hemoglobin 12.7 g/dL (14.0-18.0); Mean Corpuscular Hemoglobin 29.3 pg (25-34); Mean Corpuscular Hgb Conc 31.3 g/dL (32-36); Mean Corpuscular Volume 93.5 fL (80-100); Mean Platelet Volume 10.9 fL (7.4-10.4); Platelet Count 294 K/uL (130-400); RDW Coefficient of Variation 13.2 % (11.5-14.5); RDW Standard Deviation 45.2 fL (36.4-46.3); Red Blood Count 4.34 M/uL (4.7-6.1); White Blood Count 8.75 K/uL (4.8-10.8)
[2021-12-29 07:18] LABS: INR 1.5 (0.9-1.1); Prothrombin Time 15.2 Seconds (9.0-12.0)
[2021-12-29] MEDS: CHOLECALCIFEROL 1,000 UNITS 25 MCG TAB PO SCH (08:08)
[2021-12-29] MEDS: MULTIVITAMIN TAB PO SCH (08:08)
[2021-12-29] MEDS: predniSONE 5 MG TAB PO SCH (08:08)
[2021-12-29] MEDS: METOPROLOL SUCC 50MG EXT REL TAB PO SCH ×2 (08:08→19:59)
[2021-12-29] MEDS: DOCUSATE SODIUM 100 MG CAP PO SCH ×2 (08:10→19:59)
[2021-12-29] MEDS: WARFARIN SOD 2.5 MG TAB PO SCH (16:56)
--- NOTE | 2021-12-29 17:15 | Hospitalist Progress Note ---
Date of Service December 29, 2021 Assessment & Plan (1) Closed right femoral fracture: Plan: Patient is an 86 y male with H/O persistent atrial fibrillation on Coumadin, moderate aortic stenosis, moderate tricuspid regurgitation, mild mitral insufficiency, mild pulmonary hypertension, HLD, CKD III, PMR, hypothyroidism presented to ER after mechanical fall, c/o right hip pain. Outpatient Right hip xray with femur fracture. Right femoral neck fracture S/P right bipolar hemiarthroplasty Right hip x-ray: Mildly displaced transcervical fracture of the right femoral neck Possible Age-related osteoporosis with current pathological fracture, R femoral neck Weightbearing as tolerated Continue PT OT On warfarin for anticoagulation Needs follow-up with orthopedics upon discharge Appreciate orthopedics input Needs Rehab placement Voiding trial today UTI Acute Metabolic Encephalopathy Delirium contributing as well Urine Cx:Pseudomonas Reorient frequently Continue Cefepime Vitamin D deficiency Continue Vit D supplements (2) Atrial fibrillation with RVR: Plan: H/O persistent atrial fibrillation On chronic anticoagulation with Coumadin Follows with Dr. Dougherty IV Cardizem discontinued Increased metoprolol to 50 mg twice daily Will need watchman procedure as outpatient Continue Coumadin Monitor INR 1.5 today Appreciate cardiology input Adjust Coumadin dose as needed (3) Valvular heart disease: Plan: Echo 01/2021: EF: 55-59%, mild to moderate aortic stenosis, mild mitral regurgitation, moderate tricuspid regurgitation, mild pulmonary hypertension, aortic root diameter upper limit of normal at 3.8 cm, proximal ascending aorta mildly dilated Echo done showed reduced EF of 20-25% compared to normal EF from last Echo in 01/2021 Newly diagnosed systolic heart failure, could be acute History of obstructive CAD Likely nonischemic cardiomyopathy Continue metoprolol Consider RANDI inhibitor when blood pressure more stable Appreciate cardiology input Continue Lasix Monitor volume status (4) Chronic kidney disease (CKD), stage III (moderate): Plan: Cr at baseline Monitor renal functions avoid nephrotoxic agents as able (5) PMR (polymyalgia rheumatica): Plan: Continue prednisone (6) Dyslipidemia: Plan: Continue statin (7) Hypothyroidism: Plan: Continue levothyroxine DVT Px warfarin Code Status Full Code Admission and Anticipated Discharge Date Admission Date: December 20, 2021 Subjective Patient is seen and examined at bedside Sitting in chair during my encounter Less confused today Right hip pain is controlled Denies any chest pain, shortness of breath, dizziness, nausea Review of Systems Review of Systems: All systems reviewed & are unremarkable except as noted in Subjective Physical Exam Physical Exam: Physical Exam: Vitals signs as noted above General Appearance:Moderately built and nourished, no apparent distress Head: normocephalic, Atraumatic Eyes: normal inspection, EOMI Neck: supple, Trachea midline Respiratory/Chest: Normal breath sounds, B/L basal crackles Cardiovascular: Irregularly irregular, + murmur Abdomen/GI:Soft, Non tender, Bowel sounds present Extremities/Musculoskeletal:normal inspection, Trace edema, R hip in dressing Neurologic/Psych: grossly no focal neurological deficits Skin: normal color, warm Results & Data Results & Data ([facility]) Vital Signs (Past 12 Hours) Vital Signs Temp Pulse Resp BP BP Pulse Ox 12/29/21 15:04 36.5 C 63 18 103/59 L 97 12/29/21 11:33 36.4 C L 72 19 112/74 97 12/29/21 07:44 36.6 C 91 H 18 115/74 96 Laboratory Results Short CBC 12/29/21 Range/Units 06:15 WBC 8.75 (4.8-10.8) K/uL Hgb 12.7 L (14.0-18.0) g/dL Hct 40.6 L (42-52) % Plt Count 294 (130-400) K/uL (1) Closed right femoral fracture Encounter type: initial encounter Femur location: midcervical Fracture alignment: displaced Qualified Code(s): S72.031A - Displaced midcervical fracture of right femur, initial encounter for closed fracture (2) Chronic kidney disease (CKD), stage III (moderate) Chronic kidney disease stage 3 subtype: stage 3b (GFR 30-44) Qualified Code(s): N18.32 - Chronic kidney disease, stage 3b
[2021-12-29] MEDS: SENNA 8.6 MG TAB PO SCH (19:59)
[2021-12-29] MEDS: SIMVASTATIN 20 MG TAB PO SCH (19:59)
[2021-12-29] MEDS: DOCUSATE SODIUM/SENNA 50/8.6MG TAB PO SCH (19:59)
[2021-12-30] MEDS: OLANZapine 10 MG/2.1 ML SDV IM PRN (01:57)
[2021-12-30] MEDS: ACETAMINOPHEN 500 MG TAB PO SCH ×3 (06:10→21:14)
[2021-12-30] MEDS: LEVOTHYROXINE SODIUM 200 MCG TABLET PO SCH (06:10)
[2021-12-30] MEDS: CEFEPIME 2,000 MG in SYRINGE 0 ML IV SCH (06:11)
[2021-12-30] MEDS: CHOLECALCIFEROL 1,000 UNITS 25 MCG TAB PO SCH (08:31)
[2021-12-30] MEDS: MULTIVITAMIN TAB PO SCH (08:31)
[2021-12-30] MEDS: predniSONE 5 MG TAB PO SCH (08:31)
[2021-12-30] MEDS: FUROSEMIDE 20 MG TAB PO SCH (08:31)
[2021-12-30] MEDS: METOPROLOL SUCC 50MG EXT REL TAB PO SCH ×2 (08:31→21:14)
[2021-12-30] MEDS: DOCUSATE SODIUM 100 MG CAP PO SCH ×2 (08:33→21:14)
[2021-12-30 09:13] LABS: INR 1.6 (0.9-1.1); Prothrombin Time 15.8 Seconds (9.0-12.0)
[2021-12-30 09:16] LABS: BUN Creatinine Ratio 38.5 (10-20); Calcium 8.6 mg/dl (8.5-10.1); Creatinine Clr Calc Pharmacy 43.6 ml/min; Est GFR (African American) 64.1 ml/min; Est GFR (Non-African American) 55.3 ml/min; Potassium 4.3 mmol/L (3.5-5.1)
--- NOTE | 2021-12-30 15:00 | Hospitalist Progress Note ---
Date of Service December 30, 2021 Assessment & Plan (1) Closed right femoral fracture: Plan: Patient is an 86 y male with H/O persistent atrial fibrillation on Coumadin, moderate aortic stenosis, moderate tricuspid regurgitation, mild mitral insufficiency, mild pulmonary hypertension, HLD, CKD III, PMR, hypothyroidism presented to ER after mechanical fall, c/o right hip pain. Outpatient Right hip xray with femur fracture. Right femoral neck fracture S/P right bipolar hemiarthroplasty 12/22/21 Weightbearing as tolerated Continue PT OT On warfarin for anticoagulation Needs follow-up with orthopedics upon discharge UTI Acute Metabolic Encephalopathy Delirium contributing as well Urine Cx:Pseudomonas --lipscomb sensitive. s/p 3 days of cefepime. will discontinue further doses Vitamin D deficiency Continue Vit D supplements (2) Atrial fibrillation with RVR: Plan: H/O persistent atrial fibrillation On chronic anticoagulation with Coumadin Follows with Dr. Dougherty IV Cardizem discontinued Increased metoprolol to 50 mg twice daily Continue Coumadin Appreciate cardiology input Adjust Coumadin dose as needed (3) Valvular heart disease: Plan: Echo 01/2021: EF: 55-59%, mild to moderate aortic stenosis, mild mitral regurgitation, moderate tricuspid regurgitation, mild pulmonary hypertension, aortic root diameter upper limit of normal at 3.8 cm, proximal ascending aorta mildly dilated Echo done showed reduced EF of 20-25% compared to normal EF from last Echo in 01/2021 Newly diagnosed systolic heart failure, could be acute History of obstructive CAD Likely nonischemic cardiomyopathy Continue metoprolol Consider RANDI inhibitor when blood pressure more stable Appreciate cardiology input Continue Lasix Euvolemic currently (4) Chronic kidney disease (CKD), stage III (moderate): Plan: Cr at baseline Monitor renal functions avoid nephrotoxic agents as able (5) PMR (polymyalgia rheumatica): Plan: Continue prednisone (6) Dyslipidemia: Plan: Continue statin (7) Hypothyroidism: Plan: Continue levothyroxine DVT Px warfarin Code Status Full Code Disposition--will need SNF. Patient is medically stable for discharge. Pending placement. Admission and Anticipated Discharge Date Admission Date: December 20, 2021 Anticipated date of discharge: 01/01/22 Subjective Patient was sleeping comfortably, he had just fallen asleep, so I defered waking him Per RN, patient did ok today. No issues overnight present at bedside Physical Exam Physical Exam: sleeping comfortably, appears in no distress Respiratory: breathing comfortably on room air, no wheezing/rhonchi Cardiovascular: regular rate and rhythm, soft systolic murmur Gastrointestinal (Abdomen): soft, non distended Musculoskeletal: right hip dressing is clean/dry/intact Bilateral lower extremity with no edema Neurologic: deferred Psychiatric: deferred Results & Data Results & Data ([facility]) Vital Signs (Past 12 Hours) Vital Signs Temp Pulse Pulse Pulse Resp BP BP 12/30/21 11:32 36.5 C 72 72 16 97/66 L 12/30/21 08:04 36.7 C 76 18 112/76 12/30/21 07:00 81 Pulse Ox 12/30/21 11:32 95 12/30/21 08:04 93 12/30/21 07:00 Laboratory Results BMP 12/30/21 08:47 Sodium 136 Potassium 4.3 Chloride 103 Carbon Dioxide 26 BUN 45 H Creatinine 1.17 Glucose 109 H Calcium 8.6 Medications Administered Current Inpatient Medications Acetaminophen (Acetaminophen 500 Mg Tab) 1,000 mg PO Q8 [facility] Stop: 01/21/22 13:59 Last Admin: 12/30/21 06:10 Dose: 1,000 mg Documented by: Al Hydrox/Mg Hydrox/Simethicone (Aluminum/Magnesium Susp 30 Ml Udc) 15 ml PO Q4H PRN PRN Reason: Heartburn Stop: 01/21/22 11:09 Bisacodyl (Bisacodyl 10 Mg Supp) 10 mg MS DAILY PRN PRN Reason: Constipation Stop: 01/19/22 20:01 Last Admin: 12/24/21 20:17 Dose: 10 mg Documented by: Diphenhydramine HCl (Diphenhydramine Capsule 25 Mg Cap) 25 mg PO Q8H PRN PRN Reason: Itching Stop: 01/21/22 11:09 Docusate Sodium (Docusate Sodium 100 Mg Cap) 100 mg PO BID [facility] Stop: 01/21/22 20:59 Last Admin: 12/30/21 08:33 Dose: 100 mg Documented by: Furosemide (Furosemide 20 Mg Tab) 20 mg PO MoFr@0900 [facility] Stop: 01/26/22 08:59 Last Admin: 12/30/21 08:31 Dose: 20 mg Documented by: Promethazine HCl 12.5 mg/ (Sodium Chloride) 50.5 mls @ 202 mls/hr IV Q6H PRN PRN Reason: Nausea And Vomiting Stop: 01/26/22 20:02 Cefepime HCl 2,000 mg/ Syringe 20 mls @ 5 mls/min IV Q24H [facility]; Protocol Stop: 01/07/22 02:29 Last Admin: 12/30/21 06:11 Dose: 5 mls/min Documented by: Levothyroxine Sodium (Levothyroxine Sodium 200 Mcg Tablet) 200 mcg PO DAILYBB [facility] Stop: 01/20/22 06:29 Last Admin: 12/30/21 06:10 Dose: 200 mcg Documented by: Magnesium Hydroxide (Magnesium Hydroxide Susp 30 Ml Udc) 30 ml PO Q6H PRN PRN Reason: Constipation Stop: 01/21/22 11:09 Metoprolol Succinate (Metoprolol Succ 50mg Ext Rel Tab) 50 mg PO BID [facility] Stop: 01/19/22 20:59 Last Admin: 12/30/21 08:31 Dose: 50 mg Documented by: Miscellaneous (Solifenacin 5 Mg: Order Awaiting Action) 1 ea N/A QS [facility] Stop: 01/20/22 00:00 Last Admin: 12/30/21 08:32 Dose: Not Given Documented by: Multivitamins (Multivitamin Tab) 1 tab PO QAM [facility] Stop: 01/22/22 08:59 Last Admin: 12/30/21 08:31 Dose: 1 tab Documented by: Naloxone HCl (Naloxone Hcl 0.4 Mg/1 Ml Vial/Carp) 0.1 mg IV Q5M PRN PRN Reason: Oversedation/Resp Depression Stop: 01/21/22 11:09 Olanzapine (Olanzapine 10 Mg/2.1 Ml Sdv) 2.5 mg IM Q4H PRN PRN Reason: Anxiety/Agitation Stop: 01/26/22 20:01 Last Admin: 12/30/21 01:57 Dose: 2.5 mg Documented by: Ondansetron HCl (Ondansetron Inj 2 Mg/Ml 2 Ml Vial) 4 mg IV Q6H PRN PRN Reason: Nausea Stop: 01/19/22 20:01 Oxycodone HCl (Oxycodone Hcl Ir 5 Mg Tab (Immediate Release)) 5 mg PO Q4H PRN PRN Reason: Pain or Pre PT Stop: 01/05/22 11:09 Polyethylene Glycol (Polyethylene (Miralax) 17 Gm Pack) 17 gm PO DAILY PRN PRN Reason: Constipation Stop: 01/19/22 20:01 Last Admin: 12/24/21 18:23 Dose: 17 gm Documented by: Prednisone (Prednisone 5 Mg Tab) 5 mg PO DAILY [facility] Stop: 01/20/22 08:59 Last Admin: 12/30/21 08:31 Dose: 5 mg Documented by: Senna/Docusate Sodium (Docusate Sodium/Senna 50/8.6mg Tab) 2 tab PO [facility] Stop: 01/19/22 20:59 Last Admin: 12/29/21 19:59 Dose: Not Given Documented by: Sennosides (Senna 8.6 Mg Tab) 17.2 mg PO [facility] Stop: 01/21/22 20:59 Last Admin: 12/29/21 19:59 Dose: 17.2 mg Documented by: Simvastatin (Simvastatin 20 Mg Tab) 20 mg PO [facility] Stop: 01/19/22 20:59 Last Admin: 12/29/21 19:59 Dose: 20 mg Documented by: Vitamin D (Cholecalciferol 1,000 Units 25 Mcg Tab) 1,000 units PO QAM [facility] Stop: 01/24/22 08:59 Last Admin: 12/30/21 08:31 Dose: 1,000 units Documented by: Warfarin Sodium (Warfarin Sod 2.5 Mg Tab) 2.5 mg PO SuMoTuWeThSa@1600 [facility] Stop: 01/22/22 15:59 Last Admin: 12/29/21 16:56 Dose: 2.5 mg Documented by: Warfarin Sodium (Warfarin Sod 5 Mg Tab) 5 mg PO Fr@1600 [facility] Stop: 01/26/22 15:59 Last Admin: 12/27/21 15:29 Dose: 5 mg Documented by: (1) Closed right femoral fracture Encounter type: initial encounter Femur location: midcervical Fracture alignment: displaced Qualified Code(s): S72.031A - Displaced midcervical fracture of right femur, initial encounter for closed fracture (2) Chronic kidney disease (CKD), stage III (moderate) Chronic kidney disease stage 3 subtype: stage 3b (GFR 30-44) Qualified Code(s): N18.32 - Chronic kidney disease, stage 3b
[2021-12-30] MEDS ORDERED: WARFARIN SOD 2.5 MG TAB PO ONE (16:00)
[2021-12-30] MEDS: WARFARIN SOD 2.5 MG TAB PO SCH (16:06)
[2021-12-30] MEDS: DOCUSATE SODIUM/SENNA 50/8.6MG TAB PO SCH (21:14)
[2021-12-30] MEDS: SENNA 8.6 MG TAB PO SCH (21:14)
[2021-12-30] MEDS: SIMVASTATIN 20 MG TAB PO SCH (21:14)
[2021-12-31] MEDS: ACETAMINOPHEN 500 MG TAB PO SCH ×3 (05:58→21:00)
[2021-12-31] MEDS: LEVOTHYROXINE SODIUM 200 MCG TABLET PO SCH (05:58)
[2021-12-31 07:53] LABS: Hematocrit (blood only) 40.9 % (42-52); Mean Corpuscular Hemoglobin 29.8 pg (25-34); Mean Corpuscular Hgb Conc 31.8 g/dL (32-36); Mean Corpuscular Volume 93.8 fL (80-100); Mean Platelet Volume 10.5 fL (7.4-10.4); Platelet Count 307 K/uL (130-400); RDW Coefficient of Variation 13.4 % (11.5-14.5); Red Blood Count 4.36 M/uL (4.7-6.1); White Blood Count 10.77 K/uL (4.8-10.8)
[2021-12-31] MEDS: cefTRIAXone SODIUM 2,000 MG in DEXTROSE 5% 50 ML IV SCH (07:54)
[2021-12-31] MEDS: predniSONE 5 MG TAB PO SCH (07:56)
[2021-12-31] MEDS: METOPROLOL SUCC 50MG EXT REL TAB PO SCH ×2 (07:56→20:59)
[2021-12-31] MEDS: MULTIVITAMIN TAB PO SCH (07:56)
[2021-12-31] MEDS: SACCHAROMYCES BOULARDII 250 MG CAP PO SCH (07:56)
[2021-12-31] MEDS: DOCUSATE SODIUM 100 MG CAP PO SCH ×2 (07:58→20:59)
[2021-12-31 08:04] LABS: INR 1.9 (0.9-1.1); Prothrombin Time 18.2 Seconds (9.0-12.0)
[2021-12-31 08:21] LABS: BUN Creatinine Ratio 35.9 (10-20); Calcium 8.3 mg/dl (8.5-10.1); Creatinine Clr Calc Pharmacy 39.9 ml/min; Est GFR (African American) 57.5 ml/min; Est GFR (Non-African American) 49.6 ml/min; Potassium 4.2 mmol/L (3.5-5.1)
[2021-12-31] MEDS: CHOLECALCIFEROL 1,000 UNITS 25 MCG TAB PO SCH (09:09)
[2021-12-31] MEDS: WARFARIN SOD 2.5 MG TAB PO SCH (17:14)
--- NOTE | 2021-12-31 18:12 | Hospitalist Progress Note ---
Date of Service December 31, 2021 Assessment & Plan (1) Closed right femoral fracture: Plan: Patient is an 86 y male with H/O persistent atrial fibrillation on Coumadin, moderate aortic stenosis, moderate tricuspid regurgitation, mild mitral insufficiency, mild pulmonary hypertension, HLD, CKD III, PMR, hypothyroidism presented to ER after mechanical fall, c/o right hip pain. Outpatient Right hip xray with femur fracture. Right femoral neck fracture S/P right bipolar hemiarthroplasty 12/22/21 Weightbearing as tolerated Continue PT OT On warfarin for anticoagulation Needs follow-up with orthopedics upon discharge UTI Acute Metabolic Encephalopathy Delirium contributing as well Urine Cx:Pseudomonas --lipscomb sensitive. s/p 3 days of cefepime. will discontinue further doses Vitamin D deficiency Continue Vit D supplements (2) Atrial fibrillation with RVR: Plan: H/O persistent atrial fibrillation On chronic anticoagulation with Coumadin Follows with Dr. Dougherty IV Cardizem discontinued Increased metoprolol to 50 mg twice daily Continue Coumadin Appreciate cardiology input Adjust Coumadin dose as needed (3) Valvular heart disease: Plan: Echo 01/2021: EF: 55-59%, mild to moderate aortic stenosis, mild mitral regurgitation, moderate tricuspid regurgitation, mild pulmonary hypertension, aortic root diameter upper limit of normal at 3.8 cm, proximal ascending aorta mildly dilated Echo done showed reduced EF of 20-25% compared to normal EF from last Echo in 01/2021 Newly diagnosed systolic heart failure, could be acute History of obstructive CAD Likely nonischemic cardiomyopathy Continue metoprolol Consider RANDI inhibitor when blood pressure more stable Appreciate cardiology input Continue Lasix Euvolemic currently (4) Chronic kidney disease (CKD), stage III (moderate): Plan: Cr at baseline Monitor renal functions avoid nephrotoxic agents as able (5) PMR (polymyalgia rheumatica): Plan: Continue prednisone (6) Dyslipidemia: Plan: Continue statin (7) Hypothyroidism: Plan: Continue levothyroxine DVT Px warfarin Code Status Full Code Disposition--will need SNF. Patient is medically stable for discharge. Pending placement. Admission and Anticipated Discharge Date Admission Date: December 20, 2021 Subjective Feels well. No issues overnight Anxious to go to rehab. "I'm so bored sitting here!" Physical Exam Physical Exam: sitting in chair, pleasant, and comfortable Respiratory: breathing comfortably on room air, no wheezing/rhonchi Cardiovascular: regular rate and rhythm, no murmurs/rubs/gallops Gastrointestinal (Abdomen): soft, non tender Musculoskeletal: no edema Skin: multiple areas of bruising Neurologic: awake, spontaneously moving extremities Results & Data Results & Data ([facility]) Vital Signs (Past 12 Hours) Vital Signs Temp Pulse Resp BP BP Pulse Ox 12/31/21 16:00 36.9 C 88 18 104/60 95 12/31/21 11:37 36.4 C L 87 19 99/61 L 98 12/31/21 08:15 36.4 C L 86 18 113/69 98 Laboratory Results Short CBC 12/31/21 Range/Units 07:41 WBC 10.77 (4.8-10.8) K/uL Hgb 13.0 L (14.0-18.0) g/dL Hct 40.9 L (42-52) % Plt Count 307 (130-400) K/uL BMP 12/31/21 07:41 Sodium 136 Potassium 4.2 Chloride 104 Carbon Dioxide 26 BUN 46 H Creatinine 1.28 Glucose 87 Calcium 8.3 L INR 1.9 Medications Administered Current Inpatient Medications Acetaminophen (Acetaminophen 500 Mg Tab) 1,000 mg PO Q8 [facility] Stop: 01/21/22 13:59 Last Admin: 12/31/21 13:49 Dose: 1,000 mg Documented by: Al Hydrox/Mg Hydrox/Simethicone (Aluminum/Magnesium Susp 30 Ml Udc) 15 ml PO Q4H PRN PRN Reason: Heartburn Stop: 01/21/22 11:09 Bisacodyl (Bisacodyl 10 Mg Supp) 10 mg SC DAILY PRN PRN Reason: Constipation Stop: 01/19/22 20:01 Last Admin: 12/24/21 20:17 Dose: 10 mg Documented by: Diphenhydramine HCl (Diphenhydramine Capsule 25 Mg Cap) 25 mg PO Q8H PRN PRN Reason: Itching Stop: 01/21/22 11:09 Docusate Sodium (Docusate Sodium 100 Mg Cap) 100 mg PO BID [facility] Stop: 01/21/22 20:59 Last Admin: 12/31/21 07:58 Dose: 100 mg Documented by: Furosemide (Furosemide 20 Mg Tab) 20 mg PO MoFr@0900 [facility] Stop: 01/26/22 08:59 Last Admin: 12/30/21 08:31 Dose: 20 mg Documented by: Promethazine HCl 12.5 mg/ (Sodium Chloride) 50.5 mls @ 202 mls/hr IV Q6H PRN PRN Reason: Nausea And Vomiting Stop: 01/26/22 20:02 Ceftriaxone Sodium 2,000 mg/ (Dextrose) 70 mls @ 100 mls/hr IV DAILY [facility]; Protocol Stop: 01/05/22 06:59 Last Infusion: 12/31/21 08:55 Dose: Infused Documented by: Levothyroxine Sodium (Levothyroxine Sodium 200 Mcg Tablet) 200 mcg PO DAILYBB [facility] Stop: 01/20/22 06:29 Last Admin: 12/31/21 05:58 Dose: 200 mcg Documented by: Magnesium Hydroxide (Magnesium Hydroxide Susp 30 Ml Udc) 30 ml PO Q6H PRN PRN Reason: Constipation Stop: 01/21/22 11:09 Metoprolol Succinate (Metoprolol Succ 50mg Ext Rel Tab) 50 mg PO BID [facility] Stop: 01/19/22 20:59 Last Admin: 12/31/21 07:56 Dose: 50 mg Documented by: Miscellaneous (Solifenacin 5 Mg: Order Awaiting Action) 1 ea N/A QS [facility] Stop: 01/20/22 00:00 Last Admin: 12/31/21 17:15 Dose: Not Given Documented by: Multivitamins (Multivitamin Tab) 1 tab PO QAM [facility] Stop: 01/22/22 08:59 Last Admin: 12/31/21 07:56 Dose: 1 tab Documented by: Naloxone HCl (Naloxone Hcl 0.4 Mg/1 Ml Vial/Carp) 0.1 mg IV Q5M PRN PRN Reason: Oversedation/Resp Depression Stop: 01/21/22 11:09 Olanzapine (Olanzapine 10 Mg/2.1 Ml Sdv) 2.5 mg IM Q4H PRN PRN Reason: Anxiety/Agitation Stop: 01/26/22 20:01 Last Admin: 12/30/21 01:57 Dose: 2.5 mg Documented by: Ondansetron HCl (Ondansetron Inj 2 Mg/Ml 2 Ml Vial) 4 mg IV Q6H PRN PRN Reason: Nausea Stop: 01/19/22 20:01 Oxycodone HCl (Oxycodone Hcl Ir 5 Mg Tab (Immediate Release)) 5 mg PO Q4H PRN PRN Reason: Pain or Pre PT Stop: 01/05/22 11:09 Polyethylene Glycol (Polyethylene (Miralax) 17 Gm Pack) 17 gm PO DAILY PRN PRN Reason: Constipation Stop: 01/19/22 20:01 Last Admin: 12/24/21 18:23 Dose: 17 gm Documented by: Prednisone (Prednisone 5 Mg Tab) 5 mg PO DAILY [facility] Stop: 01/20/22 08:59 Last Admin: 12/31/21 07:56 Dose: 5 mg Documented by: Saccharomyces Boulardii (Saccharomyces Boulardii 250 Mg Cap) 250 mg PO DAILY [facility] Stop: 01/30/22 08:59 Last Admin: 12/31/21 07:56 Dose: 250 mg Documented by: Senna/Docusate Sodium (Docusate Sodium/Senna 50/8.6mg Tab) 2 tab PO [facility] Stop: 01/19/22 20:59 Last Admin: 12/30/21 21:14 Dose: Not Given Documented by: Sennosides (Senna 8.6 Mg Tab) 17.2 mg PO [facility] Stop: 01/21/22 20:59 Last Admin: 12/30/21 21:14 Dose: 17.2 mg Documented by: Simvastatin (Simvastatin 20 Mg Tab) 20 mg PO [facility] Stop: 01/19/22 20:59 Last Admin: 12/30/21 21:14 Dose: 20 mg Documented by: Vitamin D (Cholecalciferol 1,000 Units 25 Mcg Tab) 1,000 units PO QAM [facility] Stop: 01/24/22 08:59 Last Admin: 12/31/21 09:09 Dose: 1,000 units Documented by: Warfarin Sodium (Warfarin Sod 2.5 Mg Tab) 2.5 mg PO SuMoTuWeThSa@1600 [facility] Stop: 01/22/22 15:59 Last Admin: 12/31/21 17:14 Dose: 2.5 mg Documented by: Warfarin Sodium (Warfarin Sod 5 Mg Tab) 5 mg PO Fr@1600 [facility] Stop: 01/26/22 15:59 Last Admin: 12/27/21 15:29 Dose: 5 mg Documented by: (1) Closed right femoral fracture Encounter type: initial encounter Femur location: midcervical Fracture alignment: displaced Qualified Code(s): S72.031A - Displaced midcervical fracture of right femur, initial encounter for closed fracture (2) Chronic kidney disease (CKD), stage III (moderate) Chronic kidney disease stage 3 subtype: stage 3b (GFR 30-44) Qualified Code(s): N18.32 - Chronic kidney disease, stage 3b
[2021-12-31] MEDS: SIMVASTATIN 20 MG TAB PO SCH (20:57)
[2021-12-31] MEDS: SENNA 8.6 MG TAB PO SCH (20:59)
[2021-12-31] MEDS: DOCUSATE SODIUM/SENNA 50/8.6MG TAB PO SCH (20:59)
[2022-01-01] MEDS: ACETAMINOPHEN 500 MG TAB PO SCH (06:04)
[2022-01-01] MEDS: LEVOTHYROXINE SODIUM 200 MCG TABLET PO SCH (06:04)
[2022-01-01 07:27] LABS: INR 1.7 (0.9-1.1); Prothrombin Time 16.5 Seconds (9.0-12.0)
[2022-01-01 07:39] LABS: BUN Creatinine Ratio 40.9 (10-20); Calcium 8.5 mg/dl (8.5-10.1); Creatinine Clr Calc Pharmacy 40.2 ml/min; Est GFR (African American) 58.1 ml/min; Est GFR (Non-African American) 50.1 ml/min; Magnesium 2.1 mg/dl (1.7-2.4); Potassium 4.3 mmol/L (3.5-5.1)
[2022-01-01] MEDS: SACCHAROMYCES BOULARDII 250 MG CAP PO SCH (08:31)
[2022-01-01] MEDS: METOPROLOL SUCC 50MG EXT REL TAB PO SCH (08:31)
[2022-01-01] MEDS: CHOLECALCIFEROL 1,000 UNITS 25 MCG TAB PO SCH (08:31)
[2022-01-01] MEDS: MULTIVITAMIN TAB PO SCH (08:31)
[2022-01-01] MEDS: predniSONE 5 MG TAB PO SCH (08:32)
[2022-01-01] MEDS: cefTRIAXone SODIUM 2,000 MG in DEXTROSE 5% 50 ML IV SCH (08:40)
[2022-01-01] MEDS: DOCUSATE SODIUM 100 MG CAP PO SCH (08:40)
--- NOTE | 2022-01-01 17:35 | Discharge Summary ---
Date of Service January 01, 2022 Admission HPI Per Admitting Provider Patient is 86-year-old male with PMH persistent atrial fibrillation on Coumadin, moderate aortic stenosis, moderate tricuspid regurgitation, mild mitral insufficiency, mild pulmonary hypertension, HLD, CKD III, PMR, hypothyroidism presented to ER with complaint of fall and right hip pain. Patient was at [facility] today with his when he was helping his in the car and he slipped and fell. He denies hitting his head. Denies dizziness, chest pain, palpitations. Patient unable to bear weight on right leg. Denies any other injury or pain. Patient was seen at [facility] and had x-ray that showed right femoral neck fracture and was referred to ER. Patient reports the past year he has been having more difficulty with his balance. He sometimes uses a cane. Denies fever/chills, diaphoresis, N/V/D/C, [place], syncope, vision changes, neck pain, SOB, orthopnea, palpitations, cough, sore throat, choking, otalgia, rhinorrhea, abdominal pain, paresthesias, increased extremity edema, rashes, dysuria, hematuria. In ER patient found to be in atrial fibrillation RVR with rate of 130s-150s. Patient denies chest pain, shortness of breath, palpitations. He was given Lopressor 5 mg IV. Principal Diagnosis Right femur fracture A fib with RVR Acute metabolic encephalopathy Pseudomonas UTI Discharge Exam Appears well, laying in bed no acute distress Breathing comfortably on room air Regular rate and rhythm Abd soft No lower extremity edema Discharge Data Allergies Allergy/AdvReac Type Severity Reaction Status Date / Time quinidine Allergy Severe NEURO Verified 12/20/21 18:47 COMPLICATIONS, GENERAL WEAKNESS Consultations 12/20/21 18:24 ED Decision to Admit Stat 12/20/21 20:02 Consult Anesthesiology Routine Consult Cardiology Routine Consult Orthopedic Surgery Routine Procedures Performed Operation Date: 12/22/21 10:00 Actual Procedures p Right Hip Hemiarthroplasty(Right) - Stewart Mercado DO Hospital Course (1) Closed right femoral fracture: Patient is an 86 y male with H/O persistent atrial fibrillation on Coumadin, moderate aortic stenosis, moderate tricuspid regurgitation, mild mitral insufficiency, mild pulmonary hypertension, HLD, CKD III, PMR, hypothyroidism presented to ER after mechanical fall, c/o right hip pain. Outpatient Right hip xray with femur fracture. Right femoral neck fracture S/P right bipolar hemiarthroplasty 12/22/21 Weightbearing as tolerated Continue PT OT On warfarin for anticoagulation Needs follow-up with orthopedics upon discharge UTI Acute Metabolic Encephalopathy Delirium contributing as well Urine Cx:Pseudomonas --lipscomb sensitive. s/p 3 days of cefepime. Vitamin D deficiency Continue Vit D supplements (2) Atrial fibrillation with RVR: H/O persistent atrial fibrillation On chronic anticoagulation with Coumadin Follows with Dr. Dougherty IV Cardizem discontinued. 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 cardiomyopathy Continue metoprolol Consider RANDI inhibitor when blood pressure more stable Appreciate cardiology input Continue Lasix Euvolemic at discharge (4) Chronic kidney disease (CKD), stage III (moderate): Cr remains stable (5) PMR (polymyalgia rheumatica): Continue prednisone (6) Dyslipidemia: Continue statin (7) Hypothyroidism: Continue levothyroxine Total Time Total Time Spent Total Time Spent (In Minutes): 35 Discharge Plan Discharge Items Patient Disposition: Transfer Alf Fac Reason For Visit: FEMUR FRACTURE, AFIB RVR Discharge Diagnosis: Right femur fracture A fib with RVR Acute metabolic encephalopathy Pseudomonas UTI Condition on Discharge: Good Activity: As commented below Lifting: Gradually increase as tolerated Bathing: Keep incision dry Exercise/Sports: Wait until after follow-up appointment Weightbearing: Full weightbearing Non-emergency contact: Primary Care Provider and Surgeon Call non-emergency contact if: you have any medication questions, your pain is not controlled and you have a fever Follow-up/Referrals: Luca Howe, [Primary Care Provider] - Diet: Heart Healthy Diet Texture: Easy to Chew Addtl Attending Provider Instructions: Follow up with Orthopedic surgeon within 2 week of discharge Coumadin 5mg on Fridays and 2.5mg all other days Repeat INR In 2 days. Goal INR 2-3 Pending Studies at Discharge: No Stand-Alone Forms: My [facility] Skilled Items Patient informed of condition?: Yes DNR: No Discharge Level of Care: Skilled Communicable Disease: No Discharge Prognosis: Stable Lines: None Urinary Catheter: No Medications and DC Order Prescriptions: New docusate sodium 100 mg Capsule 100 mg PO BID 7 Days Qty: 14 RF: 0 sennosides [Senokot] 8.6 mg Tablet 17.2 mg PO HS 7 Days Qty: 14 RF: 0 cholecalciferol (vitamin D3) 25 mcg (1,000 unit) Capsule 1,000 unit PO QAM 30 Days RF: 0 multivitamin with folic acid [Daily-Gilbert (with folic acid)] 400 mcg Tablet 1 tab PO QAM 30 Days Qty: 30 RF: 0 Continued prednisone 5 mg tablet 5 mg PO DAILY RF: 0 simvastatin 20 mg tablet 20 mg PO HS RF: 0 levothyroxine 200 mcg capsule 200 mcg PO DAILYBB RF: 0 solifenacin 5 mg tablet 5 mg PO DAILY RF: 0 furosemide [Lasix] 20 mg Tablet 20 mg PO 2XWK RF: 0 warfarin 2.5 mg Tablet 2.5 - 5 mg PO UD RF: 0 metoprolol succinate 50 mg Tablet Extended Release 24 Hr 50 mg PO BID RF: 0 Changed acetaminophen 650 mg Tablet Extended Release 1,000 mg PO TID 7 Days Qty: 30 RF: 0 Discontinued lorazepam 0.5 mg tablet 0.5 mg PO TID PRN (Reason: ANXIETY/SLEEP) RF: 0 Discharge Orders: Discharge Order (Routine); Ordered 01/01/22 Ordered By: Deepika Sanders Admission Data Admit Date/Time: 12/20/21 19:15 Attending Provider: Deepika Sanders Admit Provider: Arsenio Linn Primary Care Provider: Luca Howe Other Providers: Arsenio Linn ; Marc Schmitt ; Festus Rosenberg ; Stewart Mercado ; [place] ; [facility] Bl[facility] [place] ; [facility] ; [facility], ; Alex Feldman Other Interventions: Discharge Summary Assessment (RN) Last Done: 01/01/22 10:33
== END 2022-01-01 11:23 | DRG 521 ==
LOC: ED 16:51 → EDINP 19:15 → SUATTDRO 19:15 → 1E 20:00 → 2S 12-24 20:48

== ENCOUNTER 2022-03-15 19:12 | Inpatient (IN) ==
[2022-03-15] MEDS ORDERED: OPTIRAY 320 125ml IV ONE (19:51)
[2022-03-15 19:52] LABS: Hematocrit (blood only) 41.7 % (42-52); Hemoglobin 13.8 g/dL (14.0-18.0); Mean Corpuscular Hgb Conc 33.1 g/dL (32-36); Mean Corpuscular Volume 90.7 fL (80-100); Mean Platelet Volume 11.5 fL (7.4-10.4); Platelet Count 216 K/uL (130-400); RDW Coefficient of Variation 14.7 % (11.5-14.5); RDW Standard Deviation 48.9 fL (36.4-46.3); White Blood Count 10.26 K/uL (4.8-10.8)
--- NOTE | 2022-03-15 19:55 | CT Scan Report ---
CT head/brain wo con CLINICAL HISTORY: 86 years-old Male with Stroke Like Symptoms. Acute strokelike symptoms TECHNIQUE: Multiple axial CT images of the head were obtained without contrast. A dose lowering tech nique was utilized adhering to the principles of ALARA. COMPARISON: CTA head and neck of same day FINDINGS: No acute intracranial hemorrhage, midline shift, intracranial mass, hydrocephalus, territorial ischem ia or abnormal extra-axial collection. Age-related involutional changes with ex vacuo ventriculomegal y. White matter hypodensities suggest chronic microvascular ischemic disease. Cerebral vascular calci fications. The calvarium is intact. Prior bilateral lens repair. The paranasal sinuses, mastoid air cells, and m iddle ear cavities are clear. IMPRESSION: No acute intracranial abnormality. ACT 112: Negative or not required by law. The above report was generated using voice recognition software. It may contain grammatical, syntax o r spelling errors. Electronically signed by: Dennis Montoya M.D. 03/15/2022 7:53 PM
[2022-03-15 19:57] LABS: iSTAT Creatinine 1.2 mg/dl (0.6-1.3); iSTAT Hemoglobin 13.6 g/dl (14.0-18.0); iSTAT Ionized Calcium 1.19 mmol/l (1.12-1.32); iSTAT Potassium 4.3 mmol/L (3.3-5.0)
[2022-03-15 20:03] LABS: INR 1.2 (0.9-1.1); Partial Thromboplastin Ratio 0.9; Partial Thromboplastin Time 25.3 Seconds (21.0-31.0); Prothrombin Time 12.5 Seconds (9.0-12.0)
[2022-03-15 20:07] LABS: Albumin Globulin Ratio 1.3 (0.9-2); Albumin Level 3.8 gm/dl (3.4-5.0); BUN Creatinine Ratio 33.1 (10-20); Bilirubin,Total 0.6 mg/dl (0.2-1.0); Calcium 9.2 mg/dl (8.5-10.1); Creatinine Clr Calc Pharmacy 46.8 ml/min; Est GFR (African American) 58.1 ml/min; Est GFR (Non-African American) 50.1 ml/min; Globulin 2.9 gm/dl (2.5-4.0); Magnesium 2.1 mg/dl (1.7-2.4); Potassium 4.4 mmol/L (3.5-5.1); Total Protein 6.7 gm/dl (6.0-8.3); Uric Acid 8.6 mg/dl (2.6-7.2)
[2022-03-15 20:08] LABS: ALC (manual) 2.45 K/uL (1.2-3.4); Basophils # (manual) 0.09 K/uL (0-0.2); Basophils % (manual) 0.9 %; Eosinophils # (manual) 0.18 K/uL (0-0.5); Eosinophils % (manual) 1.8 %; Lymphocytes # (manual) 2.45 K/uL (1.2-3.4); Lymphocytes % (manual) 23.9 %; Monocytes # (manual) 0.73 K/uL (0.11-0.59); Monocytes % (manual) 7.1 %; Neutrophils % (manual) 66.3 %; RBC Morphology Unremarkable
--- NOTE | 2022-03-15 20:12 | CT Scan Report ---
CT angio neck with con, CT angio head w con CLINICAL HISTORY: 86 years-old Male with Stroke Like Symptoms. Acute strokelike symptoms COMPARISON STUDY: Head CT of same day TECHNIQUE: Following the IV administration of 120 mL of Optiray, CT angiogram of the head and neck wa s performed from the aortic arch to the skull apex. Images are reviewed in the axial, sagittal, and c oronal planes. 3-D MIPS images are created and assessed. IV contrast was administered without complic ation. All measurements were calculated based on NASCET criteria. A dose lowering technique was util ized adhering to the principles of ALARA. CT DOSE: 1141.28 mGy.cm FINDINGS: Atherosclerosis of the thoracic aortic arch. There is patency of the innominate and imaged subclavian arteries. Atherosclerotic plaque of the carotid bulbs and proximal cervical segments of the internal carotid arteries, right greater than left results in less than 50% stenosis bilaterally. The middle and anterior cerebral arteries are patent. Dominant right vertebral artery. There is atherosclerotic plaque at the origin of the bilateral vertebral arteries resulting in mild stenosis on the right and high-grade stenosis on the left. Atherosclerotic plaque is also within the V4 segments of the vertebr al arteries resulting in approximately 50% stenosis on the left. The basilar and posterior cerebral a rteries are patent. The cerebral venous sinuses are patent. There is no abnormal intracranial enhance ment. Lung apices are clear without pneumothorax. Moderate polypoid mucosal thickening of the left maxillar y sinus. Mastoid air cells are clear. Degenerative changes of the cervical spine. IMPRESSION: 1. Atherosclerotic plaque of the carotid bulbs results in less than 50% stenosis bilaterally. 2. 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 ACT 112: Negative or not required by law. The above report was generated using voice recognition software. It may contain grammatical, syntax o r spelling errors. Electronically signed by: Dennis Montoya M.D. 03/15/2022 8:10 PM
[2022-03-15 20:13] LABS: Troponin I High Sensitivity 6.7 pg/ml (0-20)
--- NOTE | 2022-03-15 20:34 | Emergency Department Note ---
History of Present Illness General Chief complaint: Confusion Stated complaint: confusion Time Seen by Provider: 03/15/22 19:30 Source: patient and family Mode of arrival: wheelchair Limitations: physical limitation History of Present Illness Provider complaint: Confusion, trouble speaking, possible stroke Onset (ago): hour(s) 2 Associated symptoms: + denies other symptoms Treatments prior to arrival: none This is an 86-year-old male who presents emergency department with daughter at bedside due to concern for trouble speaking and confusion. Daughter had been with her father in the afternoon and he seemed well until approximately 5 PM w hen she states he began speaking "gibberish". She states she then noticed he also had other difficulties with words and upon attempting to sit and eat became confused about how to use a napkin in the silverware. He then also inappropriately urinated at the table instead of going to the bathroom. No prior history of CVA/TIA. She states he does take Coumadin due to a history of atrial fibrillation. Several weeks ago he did have a urinary tract infection although that had seemingly resolved. No other recent trauma, no other recent medication changes. She states he does seem improved now although not totally back to baseline. Pt seen during a time of high acuity and national emergency pandemic while wearing PPE. Home Medications Medication Instructions Recorded Confirmed Type levothyroxine 200 mcg capsule 200 mcg PO DAILYBB 06/21/21 03/15/22 History prednisone 5 mg tablet 5 mg PO QAM 06/21/21 03/15/22 History simvastatin 20 mg tablet 20 mg PO HS 06/21/21 03/15/22 History solifenacin 5 mg tablet 5 mg PO QAM 06/21/21 03/15/22 History furosemide 20 mg tablet (Lasix) 20 mg PO DAILY 09/05/21 03/15/22 History metoprolol succinate 50 mg 50 mg PO BID 12/20/21 03/15/22 History tablet,extended release 24 hr warfarin 2.5 mg tablet 2.5 mg PO [id number] 12/20/21 03/15/22 History acetaminophen 650 mg 650 mg PO Q8H PRN 03/15/22 03/15/22 History tablet,extended release (Tylenol 8 Hour) docusate sodium 100 mg capsule 100 mg PO AMHS 03/15/22 03/15/22 History furosemide 20 mg tablet (Lasix) 20 mg PO [id number] 03/15/22 03/15/22 History lorazepam 0.5 mg tablet 0.5 mg PO TID PRN 03/15/22 03/15/22 History oxybutynin chloride 5 mg 5 mg PO QAM 03/15/22 03/15/22 History tablet,extended release 24 hr warfarin 2.5 mg tablet 5 mg PO WK 03/15/22 03/15/22 History Allergies Allergy/AdvReac Type Severity Reaction Status Date / Time quinidine Allergy Severe NEURO Verified 03/15/22 20:09 COMPLICATIONS, GENERAL WEAKNESS Past Med/Surg History Medical History Atrial fibrillation Benign prostatic hypertrophy Chronic kidney disease (CKD), stage III (moderate) DDD (degenerative disc disease), lumbar Degenerative scoliosis Dyslipidemia HTN (hypertension) Hypothyroidism PMR (polymyalgia rheumatica) Valvular heart disease Varicose veins of both lower extremities with pain Surgical History H/O wrist surgery right- related to a cat bite Hx of tonsillectomy Family History Mother Colorectal cancer Sister Stroke Social History Smoking Status: Never smoker Second Hand Exposure: No; Hx Alcohol Use: No Hx Substance Use: No Preferred Language: Gambian Communication Ability: Effective Visual Impairment: No Limitations Hearing Ability: Hard of Hearing Color Maker Required: No Beliefs That Will Affect Care: None marital status: Current Living Situation: Family Current Living Situation Comment: lives with daughter, stated she is in the hosptial currently with a fall current occupational status: retired How many Children do You have: 2 Feels Safe at Home: Yes Safety Concerns: Feels Safe At This Time Assistive Devices: Glasses and Walker Review of Systems A total of 10 systems reviewed and were otherwise negative All systems reviewed & are unremarkable except as noted in HPI & below Physical Exam Vital Signs Vital Signs - 24 hr 03/15/22 19:23 03/15/22 19:34 03/15/22 20:08 Temperature 36.6 C Temperature Source Temporal Artery Scan Pulse Rate 84 Pulse Rate [Finger] 99 H Pulse Rhythm [Finger] Regular Pulse Strength [Finger] Normal Respiratory Rate 14 22 Respiratory Effort / Characteristics Non-Labored Spontaneous Non-Labored Respiratory Depth Normal Normal Respiratory Pattern Regular Blood Pressure 96/72 L Blood Pressure [Left Arm] 122/77 Blood Pressure Mean 80 Blood Pressure Mean [Left Arm] 92 Blood Pressure Position [Left Arm] Sitting Pulse Oximetry 97 99 96 Oxygen Delivery Method Room Air Room Air Room Air Sepsis Recent Fever Within 48 Hours No Sepsis New/Unexplained Change in Mental Status No Sepsis Action Taken by Nursing No Action Required 03/15/22 21:13 Temperature Temperature Source Pulse Rate Pulse Rate [Finger] 113 H Pulse Rhythm [Finger] Pulse Strength [Finger] Respiratory Rate 27 H Respiratory Effort / Characteristics Respiratory Depth Respiratory Pattern Blood Pressure Blood Pressure [Left Arm] 115/77 Blood Pressure Mean Blood Pressure Mean [Left Arm] 89 Blood Pressure Position [Left Arm] Pulse Oximetry 97 Oxygen Delivery Method Room Air Sepsis Recent Fever Within 48 Hours Sepsis New/Unexplained Change in Mental Status Sepsis Action Taken by Nursing GENERAL: alert, well appearing, well nourished, no distress, non-toxic EYE EXAM: normal conjunctiva, PERRL and EOM's grossly intact OROPHARYNX: no exudate, no erythema, lips, buccal mucosa, and tongue normal and mucous membranes are moist NECK: supple, no nuchal rigidity, no adenopathy, non-tender LUNGS: Clear to auscultation. Normal chest wall mechanics, no w/r/r HEART: no murmurs, S1 normal and S2 normal ABDOMEN: abdomen soft, non-tender, normo-active bowel sounds, no masses, no rebound or guarding. BACK: Back is symmetrical on inspection and there is no deformity, no midline tenderness, no CVA tenderness. SKIN: no rashes and no bruising UPPER EXTREMITIES: upper extremities are grossly normal. FROM, nml pulses b/l. LOWER EXTREMITIES: No pitting edema. FROM, nml pulses b/l. Erythema noted in the area of the right first MTP with mild edema along the medial and plantar aspect of the MTP extending into the right great toe, decreased range of motion of the right great toe secondary to pain. NEURO EXAM: Normal sensorium, cranial nerves II-XII grossly intact, normal speech occasional difficulty with word choice or mispronounciation, no gross weakness of arms, no gross weakness of legs. Gross sensation intact. NIHSS 1. Course Course 2029: Family updated on results. 2135: Discussed with Dr. Jacinto, [facility]. Administered Medications Cefepime HCl 2,000 mg/ Syringe 20 mls @ 5 mls/min IV Q24H JOSE L; Protocol Stop: 03/26/22 00:00 Last Admin: 03/16/22 00:48 Dose: 5 mls/min Documented by: [id number] Sodium Chloride (1/2 Nss) 1,000 mls @ 50 mls/hr IV .Q20H JOSE L Stop: 03/16/22 19:45 Last Admin: 03/16/22 00:49 Dose: 50 mls/hr Documented by: [id number] Miscellaneous (Vesicare: Order Awaiting Action) 1 ea N/A QS JOSE L Stop: 04/15/22 00:00 Last Admin: 03/16/22 01:48 Dose: Not Given Documented by: [id number] Discontinued Medications Aspirin (Aspirin Chew 324 Mg) 324 mg PO NOW STA Stop: 03/15/22 21:38 Last Admin: 03/15/22 22:02 Dose: 324 mg Documented by: [id number] Ceftriaxone Sodium (Rocephin) 2,000 mg in 70 mls @ 140 mls/hr IV NOW STA Stop: 03/15/22 21:16 Last Infusion: 03/15/22 21:28 Dose: 0 mls/hr Documented by: [id number] Admin: 03/15/22 20:58 Dose: 140 mls/hr Documented by: [id number] Ioversol (Optiray 320 125ml) 120 ml IV ONCE ONE Stop: 03/15/22 19:52 Last Admin: 03/15/22 19:52 Dose: 120 ml Documented by: [id number] Miscellaneous Information (Consult Pharmacy) 1 ea N/A NOW STA Stop: 03/15/22 22:27 Last Admin: 03/16/22 01:47 Dose: Not Given Documented by: [id number] Warfarin Sodium (Warfarin Sod 5 Mg Tab) 5 mg PO NOW ONE Stop: 03/15/22 23:47 Last Admin: 03/16/22 00:48 Dose: 5 mg Documented by: [id number] Critical Care Time Critical Care Time: Yes Total Critical Care Time: 42 Critical care of 42 min performed to assess and manage high likelihood of life- threatening cva, involving labs and imaging performed with assessment to evaluate cva diagnosis with frequent reassessment. This time includes bedside time, treatment discussions with patient/family/consultants, documentation time and excludes procedure time. Medical Decision Making Differential Diagnosis Differential Diagnosis includes but is not limited to ischemic Stroke, hemorrhagic stroke, bells palsy, mass, neoplasm, migraine headache, seizure, subarachnoid hemorrhage, TIA, and transient global amnesia. Medical Records Attestation: I reviewed the patient's medical records. Home Medications Current Medication List: was personally reviewed by me Laboratory Data Attestation: I reviewed the patient's lab results. Result diagrams: 03/15/22 19:32 03/15/22 19:32 Lab Results 03/15/22 03/15/22 03/15/22 Range/Units 19:32 19:32 19:32 WBC 10.26 (4.8-10.8) K/uL RBC 4.60 L (4.7-6.1) M/uL Hgb 13.8 L (14.0-18.0) g/dL POC Hgb (14.0-18.0) g/dl Hct 41.7 L (42-52) % POC Hct (42-52) % MCV 90.7 (80-100) fL MCH 30.0 (25-34) pg MCHC 33.1 (32-36) g/dL RDW Std Deviation 48.9 H (36.4-46.3) fL RDW Coeff of Kristie 14.7 H (11.5-14.5) % Plt Count 216 (130-400) K/uL MPV 11.5 H (7.4-10.4) fL Neutrophils % (Manual) 66.3 % Lymphocytes % (Manual) 23.9 % Monocytes % (Manual) 7.1 % Eosinophils % (Manual) 1.8 % Basophils % (Manual) 0.9 % Neutrophils # (Manual) 6.80 H (1.4-6.5) K/uL Total Absolute Neuts 6.80 H (1.4-6.5) K/uL Lymphocytes # (Manual) 2.45 (1.2-3.4) K/uL Total Abs Lymphocytes 2.45 (1.2-3.4) K/uL Monocytes # (Manual) 0.73 H (0.11-0.59) K/uL Eosinophils # (Manual) 0.18 (0-0.5) K/uL Basophils # (Manual) 0.09 (0-0.2) K/uL RBC Morphology Unremarkable PT 12.5 H (9.0-12.0) Seconds INR 1.2 H (0.9-1.1) APTT 25.3 (21.0-31.0) Seconds PTT Ratio 0.9 POC Sodium (135-144) mmol/L Sodium (136-145) mmol/L POC Potassium (3.3-5.0) mmol/L Potassium (3.5-5.1) mmol/L POC Chloride (101-112) mmol/L Chloride (98-107) mmol/L Carbon Dioxide (21-32) mmol/L POC Total CO2 (24-31) mmol/L Anion Gap (3-11) POC Anion Gap (16-25) mmol/L POC BUN (7-18) mg/dl BUN (6-23) mg/dl Creatinine (0.6-1.4) mg/dl POC Creatinine (0.6-1.3) mg/dl Est Cr Clr Drug Dosing ml/min Est GFR ( Amer) ml/min Est GFR (Non-Af Amer) ml/min BUN/Creatinine Ratio (10-20) Glucose (70-99(Fasting)) mg/dl POC Glucose (70-99) mg/dl POC Glucose (other) (70-99) mg/dl Lactate 1.2 (0.4-2.0) mmol/L Uric Acid (2.6-7.2) mg/dl Calcium (8.5-10.1) mg/dl POC Ioniz Calcium Francesca (1.12-1.32) mmol/l Magnesium (1.7-2.4) mg/dl Total Bilirubin (0.2-1.0) mg/dl AST (13-39) U/L ALT (7-52) U/L Alkaline Phosphatase (34-104) U/L Troponin I High Sens (0-20) pg/ml Total Protein (6.0-8.3) gm/dl Albumin (3.4-5.0) gm/dl Globulin (2.5-4.0) gm/dl Albumin/Globulin Ratio (0.9-2) Procalcitonin (0-0.5) ng/ml Urine Color Urine Appearance (Clear) Urine pH (4.5-7.5) Ur Specific [place] (1.000-1.030) Urine Protein (Negative) Urine Glucose (UA) (Negative) Urine Ketones (Negative) Urine Blood (Negative) Urine Nitrite (Negative) Urine Bilirubin (Negative) Urine Urobilinogen (Negative) Ur Leukocyte Esterase (Negative) Urine WBC (Auto) (0-5) /hpf Urine RBC (Auto) (0-4) /hpf U Hyaline Cast (Auto) U Epithel Cells (Auto) (0-5) /lpf Urine Bacteria (Auto) (Negative) Urine Yeast (None Prsent) SARS-CoV-2, RNA, NAAT (NEGATIVE) Blood Type Antibody Screen 03/15/22 03/15/22 03/15/22 Range/Units 19:32 19:32 19:34 WBC (4.8-10.8) K/uL RBC (4.7-6.1) M/uL Hgb (14.0-18.0) g/dL POC Hgb (14.0-18.0) g/dl Hct (42-52) % POC Hct (42-52) % MCV (80-100) fL MCH (25-34) pg MCHC (32-36) g/dL RDW Std Deviation (36.4-46.3) fL RDW Coeff of Kristie (11.5-14.5) % Plt Count (130-400) K/uL MPV (7.4-10.4) fL Neutrophils % (Manual) % Lymphocytes % (Manual) % Monocytes % (Manual) % Eosinophils % (Manual) % Basophils % (Manual) % Neutrophils # (Manual) (1.4-6.5) K/uL Total Absolute Neuts (1.4-6.5) K/uL Lymphocytes # (Manual) (1.2-3.4) K/uL Total Abs Lymphocytes (1.2-3.4) K/uL Monocytes # (Manual) (0.11-0.59) K/uL Eosinophils # (Manual) (0-0.5) K/uL Basophils # (Manual) (0-0.2) K/uL RBC Morphology PT (9.0-12.0) Seconds INR (0.9-1.1) APTT (21.0-31.0) Seconds PTT Ratio POC Sodium (135-144) mmol/L Sodium 139 (136-145) mmol/L POC Potassium (3.3-5.0) mmol/L Potassium 4.4 (3.5-5.1) mmol/L POC Chloride (101-112) mmol/L Chloride 106 (98-107) mmol/L Carbon Dioxide 26 (21-32) mmol/L POC Total CO2 (24-31) mmol/L Anion Gap 7 (3-11) POC Anion Gap (16-25) mmol/L POC BUN (7-18) mg/dl BUN 42 H (6-23) mg/dl Creatinine 1.27 (0.6-1.4) mg/dl POC Creatinine (0.6-1.3) mg/dl Est Cr Clr Drug Dosing 46.8 ml/min Est GFR ( Amer) 58.1 ml/min Est GFR (Non-Af Amer) 50.1 ml/min BUN/Creatinine Ratio 33.1 H (10-20) Glucose 139 H (70-99(Fasting)) mg/dl POC Glucose 135 H (70-99) mg/dl POC Glucose (other) (70-99) mg/dl Lactate (0.4-2.0) mmol/L Uric Acid 8.6 H (2.6-7.2) mg/dl Calcium 9.2 (8.5-10.1) mg/dl POC Ioniz Calcium Francesca (1.12-1.32) mmol/l Magnesium 2.1 (1.7-2.4) mg/dl Total Bilirubin 0.6 (0.2-1.0) mg/dl AST 21 (13-39) U/L ALT 18 (7-52) U/L Alkaline Phosphatase 58 (34-104) U/L Troponin I High Sens 6.7 (0-20) pg/ml Total Protein 6.7 (6.0-8.3) gm/dl Albumin 3.8 (3.4-5.0) gm/dl Globulin 2.9 (2.5-4.0) gm/dl Albumin/Globulin Ratio 1.3 (0.9-2) Procalcitonin < 0.05 (0-0.5) ng/ml Urine Color Urine Appearance (Clear) Urine pH (4.5-7.5) Ur Specific [place] (1.000-1.030) Urine Protein (Negative) Urine Glucose (UA) (Negative) Urine Ketones (Negative) Urine Blood (Negative) Urine Nitrite (Negative) Urine Bilirubin (Negative) Urine Urobilinogen (Negative) Ur Leukocyte Esterase (Negative) Urine WBC (Auto) (0-5) /hpf Urine RBC (Auto) (0-4) /hpf U Hyaline Cast (Auto) U Epithel Cells (Auto) (0-5) /lpf Urine Bacteria (Auto) (Negative) Urine Yeast (None Prsent) SARS-CoV-2, RNA, NAAT (NEGATIVE) Blood Type Antibody Screen 03/15/22 03/15/22 03/15/22 Range/Units 19:44 19:46 20:25 WBC (4.8-10.8) K/uL RBC (4.7-6.1) M/uL Hgb (14.0-18.0) g/dL POC Hgb 13.6 L (14.0-18.0) g/dl Hct (42-52) % POC Hct 40 L (42-52) % MCV (80-100) fL MCH (25-34) pg MCHC (32-36) g/dL RDW Std Deviation (36.4-46.3) fL RDW Coeff of Kristie (11.5-14.5) % Plt Count (130-400) K/uL MPV (7.4-10.4) fL Neutrophils % (Manual) % Lymphocytes % (Manual) % Monocytes % (Manual) % Eosinophils % (Manual) % Basophils % (Manual) % Neutrophils # (Manual) (1.4-6.5) K/uL Total Absolute Neuts (1.4-6.5) K/uL Lymphocytes # (Manual) (1.2-3.4) K/uL Total Abs Lymphocytes (1.2-3.4) K/uL Monocytes # (Manual) (0.11-0.59) K/uL Eosinophils # (Manual) (0-0.5) K/uL Basophils # (Manual) (0-0.2) K/uL RBC Morphology PT (9.0-12.0) Seconds INR (0.9-1.1) APTT (21.0-31.0) Seconds PTT Ratio POC Sodium 140 (135-144) mmol/L Sodium (136-145) mmol/L POC Potassium 4.3 (3.3-5.0) mmol/L Potassium (3.5-5.1) mmol/L POC Chloride 107 (101-112) mmol/L Chloride (98-107) mmol/L Carbon Dioxide (21-32) mmol/L POC Total CO2 23 L (24-31) mmol/L Anion Gap (3-11) POC Anion Gap 15.0 L (16-25) mmol/L POC BUN 41 H (7-18) mg/dl BUN (6-23) mg/dl Creatinine (0.6-1.4) mg/dl POC Creatinine 1.2 (0.6-1.3) mg/dl Est Cr Clr Drug Dosing ml/min Est GFR ( Amer) ml/min Est GFR (Non-Af Amer) ml/min BUN/Creatinine Ratio (10-20) Glucose (70-99(Fasting)) mg/dl POC Glucose (70-99) mg/dl POC Glucose (other) 143 H (70-99) mg/dl Lactate (0.4-2.0) mmol/L Uric Acid (2.6-7.2) mg/dl Calcium (8.5-10.1) mg/dl POC Ioniz Calcium [place] 1.19 (1.12-1.32) mmol/l Magnesium (1.7-2.4) mg/dl Total Bilirubin (0.2-1.0) mg/dl AST (13-39) U/L ALT (7-52) U/L Alkaline Phosphatase (34-104) U/L Troponin I High Sens (0-20) pg/ml Total Protein (6.0-8.3) gm/dl Albumin (3.4-5.0) gm/dl Globulin (2.5-4.0) gm/dl Albumin/Globulin Ratio (0.9-2) Procalcitonin (0-0.5) ng/ml Urine Color Yellow Urine Appearance Turbid A (Clear) Urine pH 5.5 (4.5-7.5) Ur Specific [place] > 1.045 H (1.000-1.030) Urine Protein 1+ H (Negative) Urine Glucose (UA) Negative (Negative) Urine Ketones Negative (Negative) Urine Blood 3+ H (Negative) Urine Nitrite Positive A (Negative) Urine Bilirubin Negative (Negative) Urine Urobilinogen Negative (Negative) Ur Leukocyte Esterase 3+ H (Negative) Urine WBC (Auto) >30 H (0-5) /hpf Urine RBC (Auto) >30 H (0-4) /hpf U Hyaline Cast (Auto) Not Reportable U Epithel Cells (Auto) 10-20 H (0-5) /lpf Urine Bacteria (Auto) 1+ H (Negative) Urine Yeast Budding A (None Prsent) SARS-CoV-2, RNA, NAAT (NEGATIVE) Blood Type AB Positive Antibody Screen NEGATIVE 03/15/22 Range/Units 21:03 WBC (4.8-10.8) K/uL RBC (4.7-6.1) M/uL Hgb (14.0-18.0) g/dL POC Hgb (14.0-18.0) g/dl Hct (42-52) % POC Hct (42-52) % MCV (80-100) fL MCH (25-34) pg MCHC (32-36) g/dL RDW Std Deviation (36.4-46.3) fL RDW Coeff of Kristie (11.5-14.5) % Plt Count (130-400) K/uL MPV (7.4-10.4) fL Neutrophils % (Manual) % Lymphocytes % (Manual) % Monocytes % (Manual) % Eosinophils % (Manual) % Basophils % (Manual) % Neutrophils # (Manual) (1.4-6.5) K/uL Total Absolute Neuts (1.4-6.5) K/uL Lymphocytes # (Manual) (1.2-3.4) K/uL Total Abs Lymphocytes (1.2-3.4) K/uL Monocytes # (Manual) (0.11-0.59) K/uL Eosinophils # (Manual) (0-0.5) K/uL Basophils # (Manual) (0-0.2) K/uL RBC Morphology PT (9.0-12.0) Seconds INR (0.9-1.1) APTT (21.0-31.0) Seconds PTT Ratio POC Sodium (135-144) mmol/L Sodium (136-145) mmol/L POC Potassium (3.3-5.0) mmol/L Potassium (3.5-5.1) mmol/L POC Chloride (101-112) mmol/L Chloride (98-107) mmol/L Carbon Dioxide (21-32) mmol/L POC Total CO2 (24-31) mmol/L Anion Gap (3-11) POC Anion Gap (16-25) mmol/L POC BUN (7-18) mg/dl BUN (6-23) mg/dl Creatinine (0.6-1.4) mg/dl POC Creatinine (0.6-1.3) mg/dl Est Cr Clr Drug Dosing ml/min Est GFR ( Amer) ml/min Est GFR (Non-Af Amer) ml/min BUN/Creatinine Ratio (10-20) Glucose (70-99(Fasting)) mg/dl POC Glucose (70-99) mg/dl POC Glucose (other) (70-99) mg/dl Lactate (0.4-2.0) mmol/L Uric Acid (2.6-7.2) mg/dl Calcium (8.5-10.1) mg/dl POC Ioniz Calcium Francesca (1.12-1.32) mmol/l Magnesium (1.7-2.4) mg/dl Total Bilirubin (0.2-1.0) mg/dl AST (13-39) U/L ALT (7-52) U/L Alkaline Phosphatase (34-104) U/L Troponin I High Sens (0-20) pg/ml Total Protein (6.0-8.3) gm/dl Albumin (3.4-5.0) gm/dl Globulin (2.5-4.0) gm/dl Albumin/Globulin Ratio (0.9-2) Procalcitonin (0-0.5) ng/ml Urine Color Urine Appearance (Clear) Urine pH (4.5-7.5) Ur Specific [place] (1.000-1.030) Urine Protein (Negative) Urine Glucose (UA) (Negative) Urine Ketones (Negative) Urine Blood (Negative) Urine Nitrite (Negative) Urine Bilirubin (Negative) Urine Urobilinogen (Negative) Ur Leukocyte Esterase (Negative) Urine WBC (Auto) (0-5) /hpf Urine RBC (Auto) (0-4) /hpf U Hyaline Cast (Auto) U Epithel Cells (Auto) (0-5) /lpf Urine Bacteria (Auto) (Negative) Urine Yeast (None Prsent) SARS-CoV-2, RNA, NAAT NEGATIVE (NEGATIVE) Blood Type Antibody Screen Imaging Data Radiologist's Impression: Chest X-Ray 03/15/22 19:41 XR chest 1V portable HISTORY: 86 years-old Male Stroke Like Symptoms acute strokelike symptoms COMPARISON: Chest radiograph 12/20/1999 20/ and 05/12/2020 TECHNIQUE: Portable AP view of the chest FINDINGS: The cardiac silhouette is enlarged. Asymmetric right hilar prominence redemonstrated. Atherosclerosis of the thoracic aorta. No pneumothorax or overt pulmonary edema. There is unchanged mild left hemidiaphragmatic elevation with blunting of the costophrenic angles. Mild bibasilar opacities. Degenerative changes of the shoulders and spine. IMPRESSION: 1. Cardiomegaly with unchanged asymmetric right hilar prominence. This is likely secondary to pulmonary vasculature, however adenopathy or an underlying lesion could appear similarly. Follow-up nonemergent chest CT recommended. 2. Trace pleural effusions with mild bibasilar opacities suggestive of atelectasis. ACT 112: Negative or not required by law. The above report was generated using voice recognition software. It may contain grammatical, syntax or spelling errors. Electronically signed by: Dennis Montoya M.D. 03/15/2022 8:[address] 03/15/22 19:41 CT head/brain wo con CLINICAL HISTORY: 86 years-old Male with Stroke Like Symptoms. Acute strokelike symptoms TECHNIQUE: Multiple axial CT images of the head were obtained without contrast. A dose lowering technique was utilized adhering to the principles of ALARA. COMPARISON: CTA head and neck of same day FINDINGS: No acute intracranial hemorrhage, midline shift, intracranial mass, hydrocephalus, territorial ischemia or abnormal extra-axial collection. Age- related involutional changes with ex vacuo ventriculomegaly. White matter hypodensities suggest chronic microvascular ischemic disease. Cerebral vascular calcifications. The calvarium is intact. Prior bilateral lens repair. The paranasal sinuses, mastoid air cells, and middle ear cavities are clear. IMPRESSION: No acute intracranial abnormality. ACT 112: Negative or not required by law. The above report was generated using voice recognition software. It may contain grammatical, syntax or spelling errors. Electronically signed by: Dennis Montoya M.D. 03/15/2022 7:53 PM Head CTA 03/15/22 19:41 CT angio neck with con, CT angio head w con CLINICAL HISTORY: 86 years-old Male with Stroke Like Symptoms. Acute strokelike symptoms COMPARISON STUDY: Head CT of same day TECHNIQUE: Following the IV administration of 120 mL of Optiray, CT angiogram of the head and neck was performed from the aortic arch to the skull apex. Images are reviewed in the axial, sagittal, and coronal planes. 3-D MIPS images are created and assessed. IV contrast was administered without complication. All measurements were calculated based on NASCET criteria. A dose lowering technique was utilized adhering to the principles of ALARA. CT DOSE: 1141.28 mGy.cm FINDINGS: Atherosclerosis of the thoracic aortic arch. There is patency of the innominate and imaged subclavian arteries. Atherosclerotic plaque of the carotid bulbs and proximal cervical segments of the internal carotid arteries, right greater than left results in less than 50% stenosis bilaterally. The middle and anterior cerebral arteries are patent. Dominant right vertebral artery. There is atherosclerotic plaque at the origin of the bilateral vertebral arteries resulting in mild stenosis on the right and high-grade stenosis on the left. Atherosclerotic plaque is also within the V4 segments of the vertebral arteries resulting in approximately 50% stenosis on the left. The basilar and posterior cerebral arteries are patent. The cerebral venous sinuses are patent. There is no abnormal intracranial enhancement. Lung apices are clear without pneumothorax. Moderate polypoid mucosal thickening of the left maxillary sinus. Mastoid air cells are clear. Degenerative changes of the cervical spine. IMPRESSION: 1. Atherosclerotic plaque of the carotid bulbs results in less than 50% stenosis bilaterally. 2. 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 ACT 112: Negative or not required by law. The above report was generated using voice recognition software. It may contain grammatical, syntax or spelling errors. Electronically signed by: Dennis Montoya M.D. 03/15/2022 8:10 PM Neck CTA 03/15/22 19:41 CT angio neck with con, CT angio head w con CLINICAL HISTORY: 86 years-old Male with Stroke Like Symptoms. Acute strokelike symptoms COMPARISON STUDY: Head CT of same day TECHNIQUE: Following the IV administration of 120 mL of Optiray, CT angiogram of the head and neck was performed from the aortic arch to the skull apex. Images are reviewed in the axial, sagittal, and coronal planes. 3-D MIPS images are created and assessed. IV contrast was administered without complication. All measurements were calculated based on NASCET criteria. A dose lowering technique was utilized adhering to the principles of ALARA. CT DOSE: 1141.28 mGy.cm FINDINGS: Atherosclerosis of the thoracic aortic arch. There is patency of the innominate and imaged subclavian arteries. Atherosclerotic plaque of the carotid bulbs and proximal cervical segments of the internal carotid arteries, right greater than left results in less than 50% stenosis bilaterally. The middle and anterior cerebral arteries are patent. Dominant right vertebral artery. There is atherosclerotic plaque at the origin of the bilateral vertebral arteries resulting in mild stenosis on the right and high-grade stenosis on the left. Atherosclerotic plaque is also within the V4 segments of the vertebral arteries resulting in approximately 50% stenosis on the left. The basilar and posterior cerebral arteries are patent. The cerebral venous sinuses are patent. There is no abnormal intracranial enhancement. Lung apices are clear without pneumothorax. Moderate polypoid mucosal thickening of the left maxillary sinus. Mastoid air cells are clear. Degenerative changes of the cervical spine. IMPRESSION: 1. Atherosclerotic plaque of the carotid bulbs results in less than 50% stenosis bilaterally. 2. 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 ACT 112: Negative or not required by law. The above report was generated using voice recognition software. It may contain grammatical, syntax or spelling errors. Electronically signed by: Dennis Montoya M.D. 03/15/2022 8:10 PM ECG Data Attestation: I personally reviewed and interpreted this ECG as follows: Indication: + other Rate (beats per minute): 113 Rhythm: + atrial fibrillation ECG Intervals/blocks: + Normal QRS and + Normal QT ECG [place]: + Normal ECG ST segments: + Nonspecific ST abnormalities ECG Findings: + PVCs MDM Narrative This is an 86-year-old male brought in by family due to concern for confusion, expressive aphasia and difficulty with speech that was improving by the time of arrival here although not completely back to normal. Initial NIHSS 1. A stroke alert was called as patient was still within the window for possible intervention and patient was urgently sent to CT after IV was established and blood work drawn. Patient's daughter did also relay that he takes Coumadin for his atrial fibrillation and the patient not a TNKase candidate. Ultimately patient's INR found to be subtherapeutic. CT of the head reassuring, CTA did show vertebral artery stenosis, no other acute findings. Given patient's advanced age I suspect this is chronic. Mild hyperglycemia was noted. After additional examination, patient found to have increased erythema, edema, and pain at the right first MTP, and with accompanying uric acid elevation I suspect likely gout. Patient also found to have a UTI and was started on IV Rocephin. Patient and family updated at bedside on results and plan, they verbalized understanding and were in agreement. Case was ultimately discussed with [facility] although there was a significant delay as there were several stroke alerts the neurologist was already involved with. Other than the addition of aspirin, they had no other additions for acute management other than typical stroke work-up which was discussed with the hospitalist. Mild is possible patient may have had a TIA as he had resolution of symptoms, I feel it is also possible his symptoms could have been secondary to infection. An order was placed for continuous cardiac monitoring. The monitor shows a rate of _88_ with _atrial fibrillation_ rhythm. Impression & Plan Confusion, Acute UTI (urinary tract infection), Hyperglycemia, Gout, Expressive aphasia, Subtherapeutic anticoagulation Discharge Plan Visit Data Chief Complaint: Confusion Stated Complaint: confusion ED Provider: Merary Arnold Discharge Problem: Confusion, Acute UTI (urinary tract infection), Hyperglycemia, Gout, Expressive aphasia, Subtherapeutic anticoagulation Patient Disposition: Admitted As Inpatient Discharge Instructions Interventions: ED Discharge Assessment Last Done: 03/15/22 22:55 Discharge Problem: Gout Qualifiers: Gout site: foot Gout etiology: unspecified cause Chronicity: acute Laterality: right Qualified Code(s): M10.9 - Gout, unspecified
[2022-03-15 20:38] LABS: Appearance Urine Turbid (Clear); Bacteria Urine Automated 1+ (Negative); Bilirubin Urine Negative (Negative); Blood Urine 3+ (Negative); Color Urine Yellow; Glucose Urine UA Negative (Negative); Ketones Urine Negative (Negative); Leukocyte Esterase Urine 3+ (Negative); Nitrite Urine Positive (Negative); Protein Urine 1+ (Negative); RBC Urine Automated >30 /hpf (0-4); Specific Gravity Urine > 1.045 (1.000-1.030); Urobilinogen Urine Negative (Negative); WBC Urine Automated >30 /hpf (0-5); pH Urine 5.5 (4.5-7.5)
[2022-03-15] MEDS ORDERED: cefTRIAXone SODIUM 2,000 MG/70 ML BAG IV STA (20:47)
--- NOTE | 2022-03-15 20:47 | XRay Report ---
XR chest 1V portable HISTORY: 86 years-old Male Stroke Like Symptoms acute strokelike symptoms COMPARISON: Chest radiograph 12/20/1999 20/2 and 05/12/2020 TECHNIQUE: Portable AP view of the chest FINDINGS: The cardiac silhouette is enlarged. Asymmetric right hilar prominence redemonstrated. Atherosclerosis of the thoracic aorta. No pneumothorax or overt pulmonary edema. There is unchanged mild left hemidi aphragmatic elevation with blunting of the costophrenic angles. Mild bibasilar opacities. Degenerativ e changes of the shoulders and spine. IMPRESSION: 1. Cardiomegaly with unchanged asymmetric right hilar prominence. This is likely secondary to pulmona ry vasculature, however adenopathy or an underlying lesion could appear similarly. Follow-up nonemerg ent chest CT recommended. 2. Trace pleural effusions with mild bibasilar opacities suggestive of atelectasis. ACT 112: Negative or not required by law. The above report was generated using voice recognition software. It may contain grammatical, syntax o r spelling errors. Electronically signed by: Dennis Montoya M.D. 03/15/2022 8:46 PM
[2022-03-15] MEDS ORDERED: ASPIRIN CHEW 324 MG PO STA (21:37)
[2022-03-15] MEDS ORDERED: CONSULT PHARMACY STA (22:26)
[2022-03-15] MEDS ORDERED: ACETAMINOPHEN 325 MG TAB PO PRN (23:46)
[2022-03-15] MEDS ORDERED: POLYETHYLENE (MIRALAX) 17 GM PACK PO PRN (23:46)
[2022-03-15] MEDS ORDERED: ONDANSETRON INJ 2 MG/ML 2 ML VIAL IV PRN (23:46)
[2022-03-15] MEDS ORDERED: WARFARIN SOD 5 MG TAB PO ONE (23:46)
[2022-03-15] MEDS ORDERED: LORazepam 0.5 MG TAB PO PRN (23:46)
[2022-03-15] MEDS ORDERED: SODIUM CHLORIDE 0.45 % 1,000 ML IV SCH (23:46)
[2022-03-15] MEDS ORDERED: PHARMACIST DISCHARGE MED REC CONSULT PRN (23:46)
[2022-03-15] MEDS ORDERED: NITROGLYCERIN SL 0.4 MG/TAB TAB SL PRN (23:46)
[2022-03-16] MEDS: CEFEPIME 2,000 MG in SYRINGE 0 ML IV SCH ×2 (00:48→23:58)
--- NOTE | 2022-03-16 01:38 | History and Physical Report ---
CHIEF COMPLAINT: Confusion, stroke-like symptoms. HISTORY OF PRESENT ILLNESS: This 86-year-old male with past medical history significant for atrial fibrillation, on Coumadin; moderate aortic stenosis; moderate tricuspid regurgitation; mild mitral insufficiency; mild pulmonary hypertension; hyperlipidemia; chronic kidney disease, stage III; polymyalgia rheumatica; hypothyroidism; who lives at home with his , presents with confusion and stroke-like symptoms. The patient's daughter thought that the patient has some slurred speech and confused and brought to the hospital, started around 5:00 p.m. The confusion seems better now. The patient's speech is normal currently, also he has dry mouth, alert and awake, seems oriented and found to have UTI and possibly right lower extremity cellulitis, questionable gout. Initial workup, CT, CTA of the head and CTA of the head and neck is unremarkable except for some high-grade stenosis of the left vertebral artery. As per [facility] recommended stroke workup and aspirin. No active interventions. Currently, the patient is hard of hearing. Tried to reach family, went to voicemail. The patient denies any headache. No chest pain, no shortness of breath. Denies abdominal pain, denies nausea, denies any cough, no fevers. He is somewhat constipated. Otherwise, normal bowel and bladder movements. He is ambulating with a walker. Currently, hemodynamically stable. ALLERGIES: Quinidine PAST MEDICAL HISTORY: As mentioned above. PAST SURGICAL HISTORY: Colonoscopy, tonsillectomy, vein stripping of right lower extremity. MEDICATIONS: The patient is on Tylenol 650 mg q.8 hours p.r.n., Colace 100 mg p.o. b.i.d., Lasix 20 mg p.o. daily, Lasix 20 mg 3 times a week, levothyroxine 200 mcg p.o. daily, Ativan 0.5 mg p.o. t.i.d. p.r.n., metoprolol succinate 50 mg p.o. b.i.d., oxybutynin 5 mg p.o. a.m., prednisone 5 mg p.o. a.m., simvastatin 20 mg p.o. at bedtime, solifenacin 5 mg p.o. a.m., Coumadin 2.5 mg p.o. 6 times a week and Coumadin 5 mg p.o. one time a week. FAMILY HISTORY: Significant for mother had colon cancer; father has diabetes and dementia. Sister has stroke. Brother has Parkinson's disease. SOCIAL HISTORY: , no smoking, no alcohol, no drug use. REVIEW OF SYSTEMS: As per HPI. Rest of review of systems is negative. PHYSICAL EXAMINATION: GENERAL: The patient is of moderate build, not in acute distress. VITAL SIGNS: Temperature 36.6, pulse 113, respiratory rate 20, blood pressure 115/77, oxygen 97% on room air. HEENT: Pupils equal, round and reactive to light. Extraocular muscles intact. Oral mucosa dry. NECK: No JVD. No neck masses. CARDIOVASCULAR: S1 and S2 heard. Regular rate and rhythm. No murmur, no gallop. RESPIRATORY SYSTEM: Normal AP diameter. No accessory muscle use. No wheezing, no crackles. ABDOMEN: Soft, bowel sounds present, nontender, no distention. CENTRAL NERVOUS SYSTEM: Cranial nerves II-XII grossly intact, hard of hearing. No facial droop. Speech is clear, currently. Insight is okay. Obeys simple commands. Power 5/5 in all extremities. Sensation is intact. No pronator drift. EXTREMITIES: Bilateral lower extremity edema present with erythematous changes in the right foot seen. LABORATORY DATA: WBC 10.2, hemoglobin 13.8, hematocrit 41.7, platelets 216. PT 12.5, INR 1.2, APTT 25.3. Sodium 139, potassium 4.4, chloride 106, CO2 of 26, BUN 42, creatinine 1.2, serum glucose 139, lactate 1.2. Uric acid 8.6. Calcium 9.2. Magnesium 2.1. Total bilirubin 0.6, AST 21, ALT 18, alkaline phosphatase 58. Troponin I high sensitivity is 6.7. Procalcitonin is less than 0.05. Urinalysis: +3 blood, positive for nitrite, +3 leukocyte esterase, +1 bacteria. SARS-CoV-2 rapid test negative. IMAGING DATA: CTA of the neck showed atherosclerotic plaque of the carotid bulb, less than 50% stenosis bilaterally, high-grade stenosis of the origin of the left vertebral artery. 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 CT of the head, no acute findings. Chest x-ray: Trace pleural effusions, mild bibasilar opacities, atelectasis, questionable retinopathy. Recommend nonemergent chest CT. EKG: Atrial fibrillation with rapid ventricular response with PACs, rate of 102. No significant change was found. ASSESSMENT AND PLAN: This 86-year-old male who presents with stroke-like symptoms and confusion. Currently, speech much improved. Initial workup is negative. ER talked to [facility], recommended aspirin and full stroke workup. No acute intervention. Will continue aspirin and will follow the MRI scan and echocardiogram and stroke protocol. Monitor in the tele floor. Neuro consult in a.m. Speech evaluation in the a.m. Neuro checks as per protocol. Gentle fluids. 2. Urinary tract infection probably causing his symptoms.. History of Pseudomonas in the past . Iv cefepime. Follow the cultures. 4. Cellulitis, right foot cellulitis. The patient says his neighbor trimmed his nails recently, erythema involving toes and dorsal aspect of foot.possibly cellulitis, We will continue with IV cefepime. Follow the response.Question of gout? 5. History of polymyalgia rheumatica, on prednisone, should be continued. 6. Hyperlipidemia, on statin. 7. Hypothyroidism, on Synthroid. 8. Atrial fibrillation. Rate controlled with metoprolol, on Coumadin, but INR is supratherapeutic. We will give a dose of Coumadin and follow PT/INR. 9. History of benign prosthetic hypertrophy, monitor for urinary retention. 10. Valvular heart disease, possible chronic diastolic congestive heart failure. History of obstructive coronary artery disease. Continue metoprolol and Lasix. Monitor for volume overload.Follow echo. 11. Chronic kidney disease, stage III. We will follow the labs. 12. Hypertension. Continue home medications. We will monitor blood pressure. 13. Chronic systolic congestive heart failure, last echocardiogram in 12/2021 showed ejection fraction 20% to 25%. On gentle fluids. We will monitor for volume overload.Follow echo. If needed will consult cardiology. 14. Deep venous thrombosis prophylaxis: Heparin subcutaneous until INR is therapeutic. DISPOSITION: Admit to tele. PT/OT prior to discharge. Social service to help with discharge planning. Job ID: [id number] [facility]
[2022-03-16] MEDS: VESICARE: ORDER AWAITING ACTION SCH ×3 (01:48→15:59)
[2022-03-16] MEDS: HEPARIN SOD 5,000 UNIT/0.5 ML VIAL SQ SCH ×3 (06:26→21:39)
[2022-03-16] MEDS: LEVOTHYROXINE SODIUM 200 MCG TABLET PO SCH (06:27)
[2022-03-16 07:29] LABS: Basophils # (auto) 0.02 K/uL (0-0.2); Basophils % (auto) 0.3 %; Eosinophils % (auto) 1.5 %; Hematocrit (blood only) 40.3 % (42-52); Hemoglobin 12.9 g/dL (14.0-18.0); Immature Granulocytes # (auto) 0.08 K/uL (0.00-0.02); Immature Granulocytes % (auto) 1.2 %; Lymphocytes # (auto) 1.95 K/uL (1.2-3.4); Lymphocytes % (auto) 28.7 %; Mean Corpuscular Hemoglobin 29.2 pg (25-34); Mean Corpuscular Volume 91.2 fL (80-100); Mean Platelet Volume 11.5 fL (7.4-10.4); Monocytes # (auto) 1.03 K/uL (0.11-0.59); Monocytes % (auto) 15.2 %; Neutrophils # (auto) 3.61 K/uL (1.4-6.5); Neutrophils % (auto) 53.1 %; Platelet Count 169 K/uL (130-400); RDW Coefficient of Variation 14.7 % (11.5-14.5); RDW Standard Deviation 49.4 fL (36.4-46.3); Red Blood Count 4.42 M/uL (4.7-6.1); White Blood Count 6.79 K/uL (4.8-10.8)
[2022-03-16 07:45] LABS: INR 1.3 (0.9-1.1); Prothrombin Time 13.5 Seconds (9.0-12.0)
[2022-03-16 08:06] LABS: BUN Creatinine Ratio 28.9 (10-20); Chol HDL Ratio 2.6 (0-5); Creatinine Clr Calc Pharmacy 45.8 ml/min; Est GFR (African American) 61.6 ml/min; Est GFR (Non-African American) 53.1 ml/min; Potassium 4.5 mmol/L (3.5-5.1)
[2022-03-16] MEDS ORDERED: OXYBUTYNIN CHLORIDE XL 5 MG TABCR PO SCH (09:00)
[2022-03-16] MEDS: FUROSEMIDE 20 MG TAB PO SCH (10:35)
[2022-03-16] MEDS: predniSONE 5 MG TAB PO SCH (10:35)
[2022-03-16] MEDS: ASPIRIN 81 MG ECTAB PO SCH (10:36)
[2022-03-16] MEDS: METOPROLOL SUCC 50MG EXT REL TAB PO SCH ×2 (10:36→21:37)
[2022-03-16] MEDS: DOCUSATE SODIUM 100 MG CAP PO SCH ×2 (10:36→21:37)
--- NOTE | 2022-03-16 11:43 | CT Scan Report ---
CT SCAN OF THE CHEST WITHOUT IV CONTRAST CLINICAL HISTORY: Abnormal chest x-ray. Right hilar prominence. COMPARISON STUDY: Chest x-ray dated 03/15/2022. TECHNIQUE: CT scan of the thorax was performed from the thoracic inlet to the upper abdomen. Images are reviewed in the axial, sagittal, and coronal planes. IV contrast was not administered for this ex amination as per the referring clinician. A dose lowering technique was utilized ad[facility] to the [facility]. The examination is degraded by motion artifact, as well as by streak artifact from the arms which could not be elevated above the chest. CT DOSE: 662.79 mGy.cm FINDINGS: Thyroid: Imaged portions of the thyroid gland are normal in size and attenuation. Thoracic aorta: There is atherosclerotic calcification of the thoracic aorta, which is normal in [place] and demonstrates standard 3-vessel arch anatomy. Heart: The heart is enlarged and without pericardial effusion. The coronary arteries and aortic valve leaflets are densely calcified. Enlargement of the central pulmonary arteries suggests pulmonary art jose hypertension. Lungs and pleural spaces: Evaluation of the lung parenchyma is degraded by motion artifact. There is no airspace consolidation typical for pneumonia. Trace pleural effusion is seen on the left. Scarring /atelectasis is noted at the lung bases. There are scattered calcified granulomas. The trachea and ce ntral airways appear clear. Mediastinum: There is no mediastinal lymphadenopathy. [place]: Not well assessed without IV contrast. Axillae: There is no axillary lymphadenopathy. Upper abdomen: A 1.7 cm cyst is noted in the upper pole of the right kidney. Excreted IV contrast is seen in the partially imaged right upper pole renal collecting system. Partially visualized upper abd ominal viscera is otherwise grossly unremarkable. Skeletal structures: The skeletal structures are osteopenic. Mild degenerative changes seen throughou t the thoracic spine. Arthritic change is seen in the shoulders. No lytic or blastic bony lesions are seen. IMPRESSION: 1. There is no airspace consolidation typical for pneumonia. 2. Cardiomegaly with advanced coronary artery calcification. 3. Hilar prominence seen by chest x-ray corresponds to enlargement of the central pulmonary arteries. 4. Trace left pleural effusion. 5. Additional findings as above. ACT 112: Negative or not required by law. Electronically signed by: Romie Wiggins M.D. 03/16/2022 11:41 AM
--- NOTE | 2022-03-16 12:05 | Hospitalist Progress Note ---
Date of Service March 16, 2022 Assessment & Plan (1) Acute UTI (urinary tract infection): (2) Confusion: (3) Subtherapeutic anticoagulation: (4) Nonischemic cardiomyopathy: (5) Chronic atrial fibrillation: (6) PMR (polymyalgia rheumatica): Plan: UTI- continue cefepime pending clx results. Prior urine clx with pseudomonas ?Rt foot cellulitis- on iv cefepime, monitor for clinical improvement Persistent A fib- rate controlled on lopressor. On coumadin but INR stokes btherapeutic. will give again 5 mg coumadin tonight and check INR in am Confusion- likely from infection. CT noted as below- no acute abnormality noted, he panicked during MRI and is declining to get MRI done at all. Currently on antibiotics. mentation clear now. Stroke w/u in progress, have low suspicion. Hold oxybutynin and other anticholinergics. CT head 03/15- no acute abnormality CTA head/neck 03/15 1. Atherosclerotic plaque of the carotid bulbs results in less than 50% stenosis bilaterally. 2. 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 CT chest 03/16/22 1. There is no airspace consolidation typical for pneumonia. 2. Cardiomegaly with advanced coronary artery calcification. 3. Hilar prominence seen by chest x-ray corresponds to enlargement of the central pulmonary arteries. 4. Trace left pleural effusion. H/o PMR- on prednisone Hypothyroid- on synthroid CKD3- Cr stable Non ischemic cardiomyopathy/chronic systolic CHF- diagnosed during recent admission 12/2021 with EF 20-25% vs 55-59% on echo 01/2021. Follows with cardiology. On lasix, betablocker. consider low dose ACEI as tolerated. Repeat echo pending DVT ppx- sc heparin, coumadin Dispo- Pending urine clx results Update: Called the number listed on chart (his 's number)- no one picked and went to voice mail. No number of his daughter to provide an update. Admission and Anticipated Discharge Date Admission Date: March 15, 2022 Subjective Seen and examined at bedside. AAO. Speech clear. Answering questions appropriately. States he was hoping to go home today. He states he panicked when he went for MRI and he does not want to get MRI done. He is done with his lunch but wanted more milk. He takes his meds regularly which are arranged by his daughter. He wanted me to reach out to his daughter to give an update but he does not remember her number. Physical Exam Physical Exam: General: Elderly male, sitting in chair, done with lunch, not in distress, on room air HEENT: EOMI, CORRIE, MMM Chest: Clear breath sounds bilaterally, no wheezes or crackles CVS: Irregular, normal heart sounds, no murmur Abdomen: Soft, non tender, not distended, normal bowel sounds Neuro: Awake, alert, oriented, conversing well, non focal Extremities: No cyanosis, clubbing or edema Results & Data Results & Data ([facility]) Vital Signs (Past 12 Hours) Vital Signs Temp Pulse Resp BP Pulse Ox 03/16/22 07:41 36.4 C L 71 18 125/69 96 03/16/22 05:00 36.5 C 87 18 114/71 99 03/16/22 00:11 36.5 C 86 16 116/73 98 Laboratory Results Short CBC 03/15/22 03/16/22 Range/Units 19:32 06:21 WBC 10.26 6.79 (4.8-10.8) K/uL Hgb 13.8 L 12.9 L (14.0-18.0) g/dL Hct 41.7 L 40.3 L (42-52) % Plt Count 216 169 (130-400) K/uL BMP 03/15/22 03/16/22 19:32 06:21 Sodium 139 140 Potassium 4.4 4.5 Chloride 106 106 Carbon Dioxide 26 29 BUN 42 H 35 H Creatinine 1.27 1.21 Glucose 139 H 76 Calcium 9.2 9.0 Liver Function 03/15/22 Range/Units 19:32 Total Bilirubin 0.6 (0.2-1.0) mg/dl AST 21 (13-39) U/L ALT 18 (7-52) U/L Alkaline Phosphatase 58 (34-104) U/L Albumin 3.8 (3.4-5.0) gm/dl Urine 03/15/22 Range/Units 20:25 Urine Color Yellow Urine Appearance Turbid A (Clear) Urine pH 5.5 (4.5-7.5) Ur Specific [place] > 1.045 H (1.000-1.030) Urine Protein 1+ H (Negative) Urine Glucose (UA) Negative (Negative) Diagnostic Findings Chest CT 03/15/22 23:46 CT SCAN OF THE CHEST WITHOUT IV CONTRAST CLINICAL HISTORY: Abnormal chest x-ray. Right hilar prominence. COMPARISON STUDY: Chest x-ray dated 03/15/2022. TECHNIQUE: CT scan of the thorax was performed from the thoracic inlet to the upper abdomen. Images are reviewed in the axial, sagittal, and coronal planes. IV contrast was not administered for this examination as per the referring clinician. A dose lowering technique was utilized adhering to the principles of AL[place]. The examination is degraded by motion artifact, as well as by streak artifact from the arms which could not be elevated above the chest. CT DOSE: 662.79 mGy.cm FINDINGS: Thyroid: Imaged portions of the thyroid gland are normal in size and attenuation. Thoracic aorta: There is atherosclerotic calcification of the thoracic aorta, which is normal in caliber and demonstrates standard 3-vessel arch anatomy. Heart: The heart is enlarged and without pericardial effusion. The coronary arteries and aortic valve leaflets are densely calcified. Enlargement of the central pulmonary arteries suggests pulmonary artery hypertension. Lungs and pleural spaces: Evaluation of the lung parenchyma is degraded by motion artifact. There is no airspace consolidation typical for pneumonia. Trace pleural effusion is seen on the left. Scarring/atelectasis is noted at the lung bases. There are scattered calcified granulomas. The trachea and central airways appear clear. Mediastinum: There is no mediastinal lymphadenopathy. [place]: Not well assessed without IV contrast. Axillae: There is no axillary lymphadenopathy. Upper abdomen: A 1.7 cm cyst is noted in the upper pole of the right kidney. Excreted IV contrast is seen in the partially imaged right upper pole renal collecting system. Partially visualized upper abdominal viscera is otherwise grossly unremarkable. Skeletal structures: The skeletal structures are osteopenic. Mild degenerative changes seen throughout the thoracic spine. Arthritic change is seen in the shoulders. No lytic or blastic bony lesions are seen. IMPRESSION: 1. There is no airspace consolidation typical for pneumonia. 2. Cardiomegaly with advanced coronary artery calcification. 3. Hilar prominence seen by chest x-ray corresponds to enlargement of the central pulmonary arteries. 4. Trace left pleural effusion. 5. Additional findings as above. ACT 112: Negative or not required by law. Electronically signed by: Romie Wiggins M.D. 03/16/2022 11:41 AM Medications Administered Current Inpatient Medications Acetaminophen (Acetaminophen 325 Mg Tab) 650 mg PO Q4H PRN PRN Reason: Pain or Fever Stop: 04/14/22 23:45 Aspirin (Aspirin 81 Mg Ectab) 81 mg PO QAM [facility] Stop: 04/15/22 08:59 Last Admin: 03/16/22 10:36 Dose: 81 mg Documented by: Docusate Sodium (Docusate Sodium 100 Mg Cap) 100 mg PO AMHS [facility] Stop: 04/15/22 08:59 Last Admin: 03/16/22 10:36 Dose: 100 mg Documented by: Furosemide (Furosemide 20 Mg Tab) 20 mg PO DAILY [facility] Stop: 04/15/22 08:59 Last Admin: 03/16/22 10:35 Dose: 20 mg Documented by: Furosemide (Furosemide 20 Mg Tab) 20 mg PO MoWeFr@0900 [facility] Stop: 04/16/22 08:59 Heparin Sodium (Porcine) (Heparin Sod 5,000 Unit/0.5 Ml Vial) 5,000 units SQ Q8 [facility] Stop: 04/15/22 05:59 Last Admin: 03/16/22 06:26 Dose: 5,000 units Documented by: Cefepime HCl 2,000 mg/ Syringe 20 mls @ 5 mls/min IV Q24H [facility]; Protocol Stop: 03/26/22 00:00 Last Admin: 03/16/22 00:48 Dose: 5 mls/min Documented by: Sodium Chloride (1/2 Nss) 1,000 mls @ 50 mls/hr IV .Q20H [facility] Stop: 03/16/22 19:45 Last Admin: 03/16/22 00:49 Dose: 50 mls/hr Documented by: Levothyroxine Sodium (Levothyroxine Sodium 200 Mcg Tablet) 200 mcg PO DAILYBB [facility] Stop: 04/15/22 06:29 Last Admin: 03/16/22 06:27 Dose: 200 mcg Documented by: Lorazepam (Lorazepam 0.5 Mg Tab) 0.5 mg PO TID PRN PRN Reason: anxiety or sleep Stop: 04/14/22 23:45 Metoprolol Succinate (Metoprolol Succ 50mg Ext Rel Tab) 50 mg PO BID [facility] Stop: 04/15/22 08:59 Last Admin: 03/16/22 10:36 Dose: 50 mg Documented by: Miscellaneous (Vesicare: Order Awaiting Action) 1 ea N/A QS [facility] Stop: 04/15/22 00:00 Last Admin: 03/16/22 10:35 Dose: Not Given Documented by: Miscellaneous Information (Pharmacist Discharge Med Rec Consult) 1 ea N/A UD PRN PRN Reason: Consult Stop: 04/14/22 23:45 Nitroglycerin (Nitroglycerin Sl 0.4 Mg/Tab Tab) 0.4 mg SL UD PRN PRN Reason: Chest Pain Stop: 04/14/22 23:45 Ondansetron HCl (Ondansetron Inj 2 Mg/Ml 2 Ml Vial) 4 mg IV Q6H PRN PRN Reason: Nausea Stop: 04/14/22 23:45 Oxybutynin Chloride (Oxybutynin Chloride Xl 5 Mg Tabcr) 5 mg PO [facility] Stop: 04/15/22 08:59 Last Admin: 03/16/22 10:35 Dose: 5 mg Documented by: Polyethylene Glycol (Polyethylene (Miralax) 17 Gm Pack) 17 gm PO DAILY PRN PRN Reason: Constipation Stop: 04/14/22 23:45 Prednisone (Prednisone 5 Mg Tab) 5 mg PO [facility] Stop: 04/15/22 08:59 Last Admin: 03/16/22 10:35 Dose: 5 mg Documented by: Simvastatin (Simvastatin 20 Mg Tab) 20 mg PO [facility] Stop: 04/15/22 20:59 Warfarin Sodium (Warfarin Sod 2.5 Mg Tab) 2.5 mg PO [id number] [facility] Stop: 04/15/22 15:59 Warfarin Sodium (Warfarin Sod 5 Mg Tab) 5 mg PO Fr@1600 [facility] Stop: 04/20/22 15:59 Warfarin Sodium (Warfarin Sod 2.5 Mg Tab) 2.5 mg PO ONE ONE Stop: 03/16/22 16:01
--- NOTE | 2022-03-16 14:34 | Consultation Report ---
DATE OF SERVICE: 03/16/2022 REASON FOR CONSULTATION: Confusion and dysarthria. This consultation was done with nursing and an iPad. I was at home and the patient was in the hospit al. History is obtained from the patient as well as the chart. The patient's past medical history is not able for atrial fibrillation, on Coumadin, aortic stenosis, tricuspid regurg, mitral insufficiency, p ulmonary hypertension, hyperlipidemia, chronic kidney disease, PMR, hypothyroidism. The patient's da ughter thought he had some slurred speech and confusion, which began about 5:00 p.m. Both have resol rex. The patient indicates that he was otherwise well and did not recall any dysarthria or confusion . He denies any changes in his medications and denies any infectious symptoms. Denies a history of stroke or transient ischemic attack. He did not have a headache. PAST MEDICAL HISTORY: As above. PAST SURGICAL HISTORY: Colonoscopy, tonsillectomy, vein stripping. ALLERGIES: QUINIDINE. HOME MEDICATIONS: Tylenol, Colace, Lasix, levothyroxine, Ativan, metoprolol, prednisone, simvastatin , solifenacin, Coumadin. FAMILY HISTORY: Colon cancer, diabetes, dementia. Sister has stroke. Brother has Parkinson's disea se. SOCIAL HISTORY: . Nonsmoker, nondrinker DATABASE: CT of the head, which I have reviewed, and CTA, there is no acute abnormality, age-related involutional changes with ex vacuo ventriculomegaly, white matter hypodensities suggest chronic ische jackie microvascular disease. Cerebrovascular calcifications. CTA of head and neck showed atherosclero tic plaque of both carotid bulbs with less than 50% stenosis bilaterally. High-grade stenosis at the origin of the left vert. CTA of the head shows no intracranial stenosis. Lab data notable for normal white count. INR subtherapeutic at 1.2. Chemistry notable for BUN/creat inine of 42/1.2, glucose 139. Uric acid 8.6, LDL 40. Urinalysis notable for turbid, 1+ protein, 3+ blood, positive nitrite, greater than 30 white cells, greater than 30 red cells, 3+ leukocyte esteras e and 10-20 epithelial cells. Urine culture preliminary, gram-negative bacilli. Electrocardiogram: Atrial fibrillation with rapid ventricular response. The hospitalist felt that the patient had a urinary tract infection and right foot cellulitis. An MR I was attempted, but not tolerated due to claustrophobia. PHYSICAL EXAMINATION: On exam, the patient is awake and alert. His speech and language are normal a nd affect is appropriate. Naming repetitions and 3-step commands are normal. There is no right/left confusion. There is mild flattening of the right nasolabial fold. Normal extraocular motility. To ngue is midline. Speech is nondysarthric. There is no drift, but there is mildly decreased right ra pid alternating movements. Lower extremity strength is normal. Uarwxx-ah-hbdv and mmdm-gm-[id number] are normal. Gait was not testable. IMPRESSION AND PLAN: Transient slurred speech and confusion. This could be explained by cellulitis and urinary tract infection. The symptoms are very poorly localizing. It would be difficult to rule out ischemia, although I think we have other potential etiologies. An MRI would help us to know if there was an infarction, and if so, whether small vessel and large vessel. If it was large vessel, o ne would optimize anticoagulation. If small vessel, would agree with ongoing use of antiplatelet ther apy and optimization of therapeutic anticoagulation. The patient may not be willing to have an MRI u nder sedation. I would in that case then treat infection, optimize INR and if no contraindications, add aspirin 81 mg daily. We will sign off. Job ID: [id number]
[2022-03-16] MEDS: WARFARIN SOD 2.5 MG TAB PO SCH (15:58)
[2022-03-16] MEDS ORDERED: WARFARIN SOD 2.5 MG TAB PO ONE (16:00)
[2022-03-16] MEDS: SIMVASTATIN 20 MG TAB PO SCH (21:38)
[2022-03-17] MEDS: VESICARE: ORDER AWAITING ACTION SCH ×3 (00:40→16:46)
[2022-03-17] MEDS: HEPARIN SOD 5,000 UNIT/0.5 ML VIAL SQ SCH ×3 (05:51→21:10)
[2022-03-17] MEDS: LEVOTHYROXINE SODIUM 200 MCG TABLET PO SCH (05:52)
--- NOTE | 2022-03-17 06:43 | Electrocardiogram Report ---
Test Reason : Blood Pressure : / mmHG Vent. Rate : 113 BPM Atrial Rate : 079 BPM P-R Int : 000 ms QRS Dur : 086 ms QT Int : 348 ms P-R-T Axes : 000 -09 146 degrees QTc Int : 477 ms Poor data quality, interpretation may be adversely affected Atrial fibrillation with rapid ventricular response with premature ventricular or aberrantly conducte d complexes Inferior infarct (cited on or before 04-APR-1998) Anterior infarct (cited on or before 21-DEC-2020) Abnormal ECG When compared with ECG of 20-DEC-2021 18:39, Questionable change in initial forces of Anteroseptal leads Nonspecific T wave abnormality now evident in Lateral leads Confirmed by Johnson Delgadillo ([id number]) on 03/17/2022 6:42:52 AM Referred By: REFERRED SELF Confirmed By:Johnson Delgadillo
[2022-03-17 06:57] LABS: Basophils # (auto) 0.03 K/uL (0-0.2); Basophils % (auto) 0.4 %; Eosinophils # (auto) 0.14 K/uL (0-0.5); Eosinophils % (auto) 2.1 %; Hematocrit (blood only) 40.2 % (42-52); Hemoglobin 12.9 g/dL (14.0-18.0); Immature Granulocytes # (auto) 0.07 K/uL (0.00-0.02); Lymphocytes # (auto) 1.81 K/uL (1.2-3.4); Lymphocytes % (auto) 26.6 %; Mean Corpuscular Hgb Conc 32.1 g/dL (32-36); Mean Corpuscular Volume 90.3 fL (80-100); Mean Platelet Volume 11.9 fL (7.4-10.4); Monocytes # (auto) 0.98 K/uL (0.11-0.59); Monocytes % (auto) 14.4 %; Neutrophils # (auto) 3.77 K/uL (1.4-6.5); Neutrophils % (auto) 55.5 %; Platelet Count 169 K/uL (130-400); RDW Coefficient of Variation 14.6 % (11.5-14.5); RDW Standard Deviation 47.9 fL (36.4-46.3); Red Blood Count 4.45 M/uL (4.7-6.1)
[2022-03-17 07:09] LABS: INR 1.7 (0.9-1.1); Prothrombin Time 17.4 Seconds (9.0-12.0)
[2022-03-17 07:19] LABS: BUN Creatinine Ratio 23.9 (10-20); Calcium 8.7 mg/dl (8.5-10.1); Est GFR (African American) 50.7 ml/min; Est GFR (Non-African American) 43.8 ml/min; Potassium 4.3 mmol/L (3.5-5.1)
[2022-03-17] MEDS: DOCUSATE SODIUM 100 MG CAP PO SCH ×2 (08:43→21:07)
[2022-03-17] MEDS: FUROSEMIDE 20 MG TAB PO SCH (08:43)
[2022-03-17] MEDS: ASPIRIN 81 MG ECTAB PO SCH (08:44)
[2022-03-17] MEDS: predniSONE 5 MG TAB PO SCH (08:44)
[2022-03-17 08:45] LABS: Estimated Average Glucose 120 mg/dl; Hemoglobin A1C 5.8 % (4.5-5.6)
[2022-03-17] MEDS: METOPROLOL SUCC 50MG EXT REL TAB PO SCH ×2 (08:45→21:09)
[2022-03-17] MEDS ORDERED: FUROSEMIDE 20 MG TAB PO SCH (09:00)
[2022-03-17] MEDS ORDERED: LORazepam 2 MG/1 ML VIAL IV PRN (10:14)
--- NOTE | 2022-03-17 12:28 | Magnetic Resonance Report ---
MR brain wo con HISTORY: 86 years-old Male stroke like symptoms- r/o stroke acute strokelike symptoms COMPARISON: CT head, CTA head and neck 03/15/2022 TECHNIQUE: Multiplanar multisequence MRI of the brain was obtained without the use of contrast FINDINGS: Chief Cardiopulmonary Technologist localizer images demonstrate no gross extracranial abnormality. There is no restricted diffusio n to suggest acute or subacute infarct. The midline structures appear unremarkable. Degenerative benz ges cervical spine with mild central canal stenosis at C1-C2. No acute intracranial hemorrhage, midli ne shift, abnormal extra-axial collection, hydrocephalus or intracranial mass. The study is motion de graded. Involutional changes with ex vacuo ventriculomegaly. Mild white matter T2/FLAIR hyperintense foci. The gradient echo images were unable to be obtained secondary to patient voluntarily terminating the exam. The cerebral venous sinuses and major arterial flow voids are patent. Moderate mucosal thickeni ng of the left maxillary sinus. Prior bilateral lens replacement. The skull and soft tissues are unre markable. IMPRESSION: 1. Motion degraded exam. No acute intracranial abnormality, specifically there is no evidence of an a cute or subacute infarct. 2. Age-related involutional changes with chronic microvascular ischemic disease. ACT 112: Negative or not required by law. The above report was generated using voice recognition software. It may contain grammatical, syntax o r spelling errors. Electronically signed by: Dennis Montoya M.D. 03/17/2022 12:26 PM
--- NOTE | 2022-03-17 13:06 | Hospitalist Progress Note ---
Date of Service March 17, 2022 Assessment & Plan (1) Acute UTI (urinary tract infection): (2) Confusion: (3) Subtherapeutic anticoagulation: (4) Nonischemic cardiomyopathy: (5) Chronic atrial fibrillation: (6) PMR (polymyalgia rheumatica): Plan: Pseudomonas UTI- urine clx with pseudomonas, pansensitive. Currently on cefepime D2/7, change to FQ at discharge if tolerates, otherwise will need to be on cefepime. Will repeat EKG for QTc, repeat labs in am for renal function. Rt foot cellulitis- on iv cefepime, monitor for clinical improvement Persistent A fib- rate controlled on lopressor. On coumadin but INR still subtherapeutic. will give his home dose of coumadin 2.5 mg tonight and check INR in am Confusion- likely from infection. Stroke ruled out with negative workup including MRI brain. nCurrently on antibiotics. mentation clear now. Stroke w/u in progress, have low suspicion. Hold oxybutynin and other anticholinergics. CT head 03/15- no acute abnormality CTA head/neck 03/15 1. Atherosclerotic plaque of the carotid bulbs results in less than 50% stenosis bilaterally. 2. 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 MRI brain 03/17/22 1. Motion degraded exam. No acute intracranial abnormality, specifically there is no evidence of an acute or subacute infarct. 2. Age-related involutional changes with chronic microvascular ischemic disease. CT chest 03/16/22 1. There is no airspace consolidation typical for pneumonia. 2. Cardiomegaly with advanced coronary artery calcification. 3. Hilar prominence seen by chest x-ray corresponds to enlargement of the central pulmonary arteries. 4. Trace left pleural effusion. H/o PMR- on prednisone Hypothyroid- on synthroid CKD3- Cr stable Non ischemic cardiomyopathy/chronic systolic CHF- diagnosed during recent admission 12/2021 with EF 20-25% vs 55-59% on echo 01/2021. Follows with cardiology. On lasix, betablocker. consider low dose ACEI as tolerated. Repeat echo pending DVT ppx- sc heparin, coumadin Pending PT evaluation Admission and Anticipated Discharge Date Admission Date: March 15, 2022 Subjective No new issues. States he slept okay. Normal appetite. Discussed about MRI- he is willing to try with sedation. Denies any other issues. Physical Exam Physical Exam: General: Elderly male, sitting in bed, not in distress, on room air HEENT: EOMI, CORRIE, MMM Chest: Clear breath sounds bilaterally, no wheezes or crackles CVS: Irregular, normal heart sounds, no murmur Abdomen: Soft, non tender, not distended, normal bowel sounds Neuro: Awake, alert, oriented, conversing well, non focal Extremities: No cyanosis, clubbing or edema Results & Data Results & Data ([facility]) Vital Signs (Past 12 Hours) Vital Signs Temp Pulse Resp BP Pulse Ox 03/17/22 12:00 36.7 C 88 20 119/71 98 03/17/22 07:51 36.8 C 78 20 107/63 95 03/17/22 02:48 36.5 C 90 18 116/79 95 Laboratory Results Short CBC 03/17/22 Range/Units 06:08 WBC 6.80 (4.8-10.8) K/uL Hgb 12.9 L (14.0-18.0) g/dL Hct 40.2 L (42-52) % Plt Count 169 (130-400) K/uL BMP 03/17/22 06:08 Sodium 138 Potassium 4.3 Chloride 103 Carbon Dioxide 29 BUN 34 H Creatinine 1.42 H Glucose 81 Calcium 8.7 Diagnostic Findings Brain MRI 03/17/22 10:14 MR brain wo con HISTORY: 86 years-old Male stroke like symptoms- r/o stroke acute strokelike symptoms COMPARISON: CT head, CTA head and neck 03/15/2022 TECHNIQUE: Multiplanar multisequence MRI of the brain was obtained without the use of contrast FINDINGS: Head [employer] localizer images demonstrate no gross extracranial abnormality. There is no restricted diffusion to suggest acute or subacute infarct. The midline structures appear unremarkable. Degenerative changes cervical spine with mild central canal stenosis at C1-C2. No acute intracranial hemorrhage, midline shift, abnormal extra-axial collection, hydrocephalus or intracranial mass. The study is motion degraded. Involutional changes with ex vacuo ventriculomegaly. Mild white matter T2/FLAIR hyperintense foci. The gradient echo images were unable to be obtained secondary to patient voluntarily terminating the exam. The cerebral venous sinuses and major arterial flow voids are patent. Moderate mucosal thickening of the left maxillary sinus. Prior bilateral lens replacement. The skull and soft tissues are unremarkable. IMPRESSION: 1. Motion degraded exam. No acute intracranial abnormality, specifically there is no evidence of an acute or subacute infarct. 2. Age-related involutional changes with chronic microvascular ischemic disease. ACT 112: Negative or not required by law. The above report was generated using voice recognition software. It may contain grammatical, syntax or spelling errors. Electronically signed by: Dennis Montoya M.D. 03/17/2022 12:26 PM Medications Administered Current Inpatient Medications Acetaminophen (Acetaminophen 325 Mg Tab) 650 mg PO Q4H PRN PRN Reason: Pain or Fever Stop: 04/14/22 23:45 Aspirin (Aspirin 81 Mg Ectab) 81 mg PO QAM [facility] Stop: 04/15/22 08:59 Last Admin: 03/17/22 08:44 Dose: 81 mg Documented by: Docusate Sodium (Docusate Sodium 100 Mg Cap) 100 mg PO AMHS [facility] Stop: 04/15/22 08:59 Last Admin: 03/17/22 08:43 Dose: 100 mg Documented by: Furosemide (Furosemide 20 Mg Tab) 20 mg PO DAILY [facility] Stop: 04/15/22 08:59 Last Admin: 03/17/22 08:43 Dose: 20 mg Documented by: Furosemide (Furosemide 20 Mg Tab) 20 mg PO MoWeFr@0900 [facility] Stop: 04/16/22 08:59 Last Admin: 03/17/22 08:45 Dose: 20 mg Documented by: Heparin Sodium (Porcine) (Heparin Sod 5,000 Unit/0.5 Ml Vial) 5,000 units SQ Q8 [facility] Stop: 04/15/22 05:59 Last Admin: 03/17/22 05:51 Dose: 5,000 units Documented by: Cefepime HCl 2,000 mg/ Syringe 20 mls @ 5 mls/min IV Q12 [facility]; Protocol Stop: 03/27/22 20:59 Levothyroxine Sodium (Levothyroxine Sodium 200 Mcg Tablet) 200 mcg PO DAILYBB [facility] Stop: 04/15/22 06:29 Last Admin: 03/17/22 05:52 Dose: 200 mcg Documented by: Lorazepam (Lorazepam 0.5 Mg Tab) 0.5 mg PO TID PRN PRN Reason: anxiety or sleep Stop: 04/14/22 23:45 Lorazepam (Lorazepam 2 Mg/1 Ml Vial) 1 mg IV ONCE PRN PRN Reason: sedation prior to MRI Stop: 04/16/22 10:13 Last Admin: 03/17/22 11:24 Dose: 1 mg Documented by: Metoprolol Succinate (Metoprolol Succ 50mg Ext Rel Tab) 50 mg PO BID [facility] Stop: 04/15/22 08:59 Last Admin: 03/17/22 08:45 Dose: 50 mg Documented by: Miscellaneous (Vesicare: Order Awaiting Action) 1 ea N/A QS [facility] Stop: 04/15/22 00:00 Last Admin: 03/17/22 08:44 Dose: Not Given Documented by: Miscellaneous Information (Pharmacist Discharge Med Rec Consult) 1 ea N/A UD PRN PRN Reason: Consult Stop: 04/14/22 23:45 Nitroglycerin (Nitroglycerin Sl 0.4 Mg/Tab Tab) 0.4 mg SL UD PRN PRN Reason: Chest Pain Stop: 04/14/22 23:45 Ondansetron HCl (Ondansetron Inj 2 Mg/Ml 2 Ml Vial) 4 mg IV Q6H PRN PRN Reason: Nausea Stop: 04/14/22 23:45 Oxybutynin Chloride (Oxybutynin Chloride Xl 5 Mg Tabcr) 5 mg PO [facility] Stop: 04/15/22 08:59 Last Admin: 03/16/22 10:35 Dose: 5 mg Documented by: Polyethylene Glycol (Polyethylene (Miralax) 17 Gm Pack) 17 gm PO DAILY PRN PRN Reason: Constipation Stop: 04/14/22 23:45 Prednisone (Prednisone 5 Mg Tab) 5 mg PO [facility] Stop: 04/15/22 08:59 Last Admin: 03/17/22 08:44 Dose: 5 mg Documented by: Simvastatin (Simvastatin 20 Mg Tab) 20 mg PO HS [facility] Stop: 04/15/22 20:59 Last Admin: 03/16/22 21:38 Dose: 20 mg Documented by: Warfarin Sodium (Warfarin Sod 2.5 Mg Tab) 2.5 mg PO SuMoTuWeThSa@1600 [facility] Stop: 04/15/22 15:59 Last Admin: 03/16/22 15:58 Dose: 2.5 mg Documented by: Warfarin Sodium (Warfarin Sod 5 Mg Tab) 5 mg PO Fr@1600 [facility] Stop: 04/20/22 15:59
[2022-03-17] MEDS: WARFARIN SOD 2.5 MG TAB PO SCH (16:47)
[2022-03-17] MEDS: CEFEPIME 2,000 MG in SYRINGE 0 ML IV SCH (21:07)
[2022-03-17] MEDS: SIMVASTATIN 20 MG TAB PO SCH (21:09)
[2022-03-18] MEDS: VESICARE: ORDER AWAITING ACTION SCH ×3 (02:36→14:50)
[2022-03-18] MEDS: HEPARIN SOD 5,000 UNIT/0.5 ML VIAL SQ SCH ×2 (06:15→13:06)
[2022-03-18] MEDS: LEVOTHYROXINE SODIUM 200 MCG TABLET PO SCH (06:15)
[2022-03-18 07:08] LABS: Basophils # (auto) 0.03 K/uL (0-0.2); Basophils % (auto) 0.4 %; Eosinophils % (auto) 1.5 %; Hematocrit (blood only) 40.7 % (42-52); Hemoglobin 13.2 g/dL (14.0-18.0); Immature Granulocytes # (auto) 0.07 K/uL (0.00-0.02); Lymphocytes # (auto) 1.93 K/uL (1.2-3.4); Lymphocytes % (auto) 28.8 %; Mean Corpuscular Hemoglobin 29.1 pg (25-34); Mean Corpuscular Hgb Conc 32.4 g/dL (32-36); Mean Corpuscular Volume 89.6 fL (80-100); Monocytes # (auto) 0.86 K/uL (0.11-0.59); Monocytes % (auto) 12.8 %; Neutrophils # (auto) 3.72 K/uL (1.4-6.5); Neutrophils % (auto) 55.5 %; Platelet Count 181 K/uL (130-400); RDW Coefficient of Variation 14.6 % (11.5-14.5); RDW Standard Deviation 47.6 fL (36.4-46.3); Red Blood Count 4.54 M/uL (4.7-6.1); White Blood Count 6.71 K/uL (4.8-10.8)
[2022-03-18 07:22] LABS: INR 1.7 (0.9-1.1); Prothrombin Time 17.5 Seconds (9.0-12.0)
[2022-03-18 07:27] LABS: BUN Creatinine Ratio 31.6 (10-20); Calcium 8.9 mg/dl (8.5-10.1); Creatinine Clr Calc Pharmacy 37.5 ml/min; Est GFR (African American) 53.5 ml/min; Est GFR (Non-African American) 46.1 ml/min; Potassium 3.9 mmol/L (3.5-5.1)
[2022-03-18] MEDS: CEFEPIME 2,000 MG in SYRINGE 0 ML IV SCH (08:05)
[2022-03-18] MEDS: ASPIRIN 81 MG ECTAB PO SCH (08:05)
[2022-03-18] MEDS: DOCUSATE SODIUM 100 MG CAP PO SCH (08:05)
[2022-03-18] MEDS: METOPROLOL SUCC 50MG EXT REL TAB PO SCH (08:05)
[2022-03-18] MEDS: predniSONE 5 MG TAB PO SCH (08:05)
[2022-03-18] MEDS: FUROSEMIDE 20 MG TAB PO SCH (08:05)
--- NOTE | 2022-03-18 14:52 | Discharge Summary ---
Date of Service March 18, 2022 Admission HPI Per Admitting Provider This 86-year-old male with past medical history significant for atrial fibrillation, on Coumadin; moderate aortic stenosis; moderate tricuspid regurgitation; mild mitral insufficiency; mild pulmonary hypertension; hyperlipidemia; chronic kidney disease, stage III; polymyalgia rheumatica; hypothyroidism; who lives at home with his , presents with confusion and stroke-like symptoms. The patient's daughter thought that the patient has some slurred speech and confused and brought to the hospital, started around 5:00 p.m. The confusion seems better now. The patient's speech is normal currently, also he has dry mouth, alert and awake, seems oriented and found to have UTI and possibly right lower extremity cellulitis, questionable gout. Initial workup, CT, CTA of the head and CTA of the head and neck is unremarkable except for some high-grade stenosis of the left vertebral artery. As per [facility] neurology recommended stroke workup and aspirin. No active interventions. Currently, the patient is hard of hearing. Tried to reach family, went to voicemail. The patient denies any headache. No chest pain, no shortness of breath. Denies abdominal pain, denies nausea, denies any cough, no fevers. He is somewhat constipated. Otherwise, normal bowel and bladder movements. He is ambulating with a walker. Currently, hemodynamically stable. Admission Exam Per Admitting Provider GENERAL: The patient is of moderate build, not in acute distress. VITAL SIGNS: Temperature 36.6, pulse 113, respiratory rate 20, blood pressure 115/77, oxygen 97% on room air. HEENT: Pupils equal, round and reactive to light. Extraocular muscles intact. Oral mucosa dry. NECK: No JVD. No neck masses. CARDIOVASCULAR: S1 and S2 heard. Regular rate and rhythm. No murmur, no gallop. RESPIRATORY SYSTEM: Normal AP diameter. No accessory muscle use. No wheezing, no crackles. ABDOMEN: Soft, bowel sounds present, nontender, no distention. CENTRAL NERVOUS SYSTEM: Cranial nerves II-XII grossly intact, hard of hearing. No facial droop. Speech is clear, currently. Insight is okay. Obeys simple commands. Power 5/5 in all extremities. Sensation is intact. No pronator drift. EXTREMITIES: Bilateral lower extremity edema present with erythematous changes in the right foot seen. Principal Diagnosis Pseudomonas UTI, confusion due to the UTI Discharge Exam General: Lying comfortably in bed, not in distress, on room air HEENT: EOMI, CORRIE, MMM Chest: Clear breath sounds bilaterally, no wheezes or crackles CVS: Regular rate and rhythm, normal heart sounds, no murmur Abdomen: Soft, non tender, not distended, normal bowel sounds Neuro: Awake, alert, conversing well, non focal Extremities: No cyanosis, clubbing or edema Discharge Data Allergies Allergy/AdvReac Type Severity Reaction Status Date / Time quinidine Allergy Severe NEURO Verified 03/15/22 20:09 COMPLICATIONS, GENERAL WEAKNESS Consultations 03/15/22 21:14 ED Decision to Admit Stat 03/16/22 08:00 Consult Neurology Routine Ordered Studies 03/15/22 19:41 CT angio head w con Stat CT angio neck with con Stat CT head/brain wo con Stat 03/15/22 23:46 CT chest diagnostic wo con Routine 03/17/22 10:14 MR brain wo con Routine Hospital Course (1) Acute UTI (urinary tract infection): (2) Confusion: (3) Subtherapeutic anticoagulation: (4) Nonischemic cardiomyopathy: (5) Chronic atrial fibrillation: (6) PMR (polymyalgia rheumatica): Pseudomonas UTI- urine clx with pseudomonas, pansensitive. Currently on cefepime D3/7. QTc normal, renal function stable. Will change to levaquin 750 mg q48 hrs for 2 more doses as per his CrCl given his recurrent pseudomonas UTI. Recommended closer INR monitoring while on levaquin. Recommended follow up with PCP for other alternative for oxybutynin for overactive bladder as it might be responsible for recurrent UTI. ?Rt foot cellulitis- on iv cefepime, almost resolved. ABx as above. Persistent A fib- rate controlled on lopressor. On coumadin, INR improving and stable, continue home dose of coumadin, recommend closer monitoring of INR as he will be on FQ. . Confusion- likely from infection. Stroke ruled out with negative workup including MRI brain. Currently on antibiotics. Mentation clear now. Recommend minimizing use of anticholinergics like oxybutynin or other sedatives. Carotid artery/vertebral artery stenosis- recommend OP follow up with vascular surgery. CT head 03/15- no acute abnormality CTA head/neck 03/15 1. Atherosclerotic plaque of the carotid bulbs results in less than 50% stenosis bilaterally. 2. 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 MRI brain 03/17/22 1. Motion degraded exam. No acute intracranial abnormality, specifically there is no evidence of an acute or subacute infarct. 2. Age-related involutional changes with chronic microvascular ischemic disease. CT chest 03/16/22 1. There is no airspace consolidation typical for pneumonia. 2. Cardiomegaly with advanced coronary artery calcification. 3. Hilar prominence seen by chest x-ray corresponds to enlargement of the central pulmonary arteries. 4. Trace left pleural effusion. H/o PMR- on prednisone Hypothyroid- on synthroid CKD3- Cr stable Non ischemic cardiomyopathy/chronic systolic CHF- diagnosed during recent admission 12/2021 with EF 20-25% vs 55-59% on echo 01/2021. Follows with cardiology. On lasix, betablocker. consider low dose ACEI as tolerated as OP. Repeat echo reviewed, about the same. Total Time Total Time Spent Total Time Spent (In Minutes): 45 Discharge Plan Discharge Items Patient Disposition: Home - Self-Care Reason For Visit: CONFUSION Discharge Diagnosis: Pseudomonas UTI Activity: Resume your previous activity Non-emergency contact: Primary Care Provider Call non-emergency contact if: you have any medication questions, your symptoms worsen and you have a fever Follow-up/Referrals: Luca Howe DO [Primary Care Provider] - (Date & Time 03/25/2022 3:20 PM Provider Luca Howe DO Department [facility] ) Diet: Regular Addtl Attending Provider Instructions: Continue levaquin 1 tab every 48 hours for 2 more doses Follow up with the family doctor in a week Continue your coumadin at home dose- recommend close monitoring of INR while on levaquin. Your oxybutynin for overactive bladder might be responsible for your recurrent infection and some confusion. Discuss with family doctor about other options. Follow up with vascular surgery for carotid/vertebral artery stenosis Pending Studies at Discharge: No Stand-Alone Forms: [employer], Smoking Cessation Medications and DC Order Prescriptions: New levofloxacin 750 mg tablet 750 mg PO Q48H 4 Days Qty: 2 RF: 0 Continued prednisone 5 mg tablet 5 mg PO QAM RF: 0 simvastatin 20 mg tablet 20 mg PO HS RF: 0 levothyroxine 200 mcg capsule 200 mcg PO DAILYBB RF: 0 solifenacin 5 mg tablet 5 mg PO QAM RF: 0 furosemide [Lasix] 20 mg Tablet 20 mg PO DAILY RF: 0 warfarin 2.5 mg Tablet 2.5 mg PO 6XWK RF: 0 metoprolol succinate 50 mg Tablet Extended Release 24 Hr 50 mg PO BID RF: 0 docusate sodium 100 mg Capsule 100 mg PO AMHS RF: 0 oxybutynin chloride 5 mg Tablet Extended Release 24 Hr 5 mg PO QAM RF: 0 acetaminophen [Tylenol 8 Hour] 650 mg Tablet Extended Release 650 mg PO Q8H PRN (Reason: Fever) RF: 0 lorazepam 0.5 mg Tablet 0.5 mg PO TID PRN (Reason: anxiety or sleep) RF: 0 furosemide [Lasix] 20 mg Tablet 20 mg PO 3XWK RF: 0 warfarin 2.5 mg Tablet 5 mg PO WK RF: 0 Discharge Orders: Discharge Order (Routine); Ordered 03/18/22 Ordered By: Anuj Kong Admission Data Admit Date/Time: 03/15/22 22:26 Attending Provider: Anuj Kong Admit Provider: Ever Romano Primary Care Provider: Luca Howe Other Providers: Ever Romano ; Rachael Espinoza ; Cristóbal Chauhan ; Rachael Alarcon ; Anup Rubin
[2022-03-18] MEDS: WARFARIN SOD 2.5 MG TAB PO SCH (15:09)
--- NOTE | 2022-03-20 08:54 | Electrocardiogram Report ---
Test Reason : Blood Pressure : / mmHG Vent. Rate : 076 BPM Atrial Rate : 416 BPM P-R Int : 000 ms QRS Dur : 086 ms QT Int : 374 ms P-R-T Axes : 000 018 143 degrees QTc Int : 420 ms Atrial fibrillation Anterior infarct (cited on or before 21-DEC-2020) Abnormal ECG When compared with ECG of 15-MAR-2022 19:32, Vent. rate has decreased BY 37 BPM Confirmed by Johnson Delgadillo ([id number]) on 03/20/2022 8:54:08 AM Referred By: REFERRED SELF Confirmed By:Johnson Delgadillo
[2022-03-21] MEDS ORDERED: WARFARIN SOD 5 MG TAB PO SCH (16:00)
== END 2022-03-18 16:49 | disposition home or self-care (01) | DRG 690 ==
LOC: ED 19:12 → 2S 22:26